=== PATIENT | male | born 1965 | race Caucasian/White ===

== ENCOUNTER 2023-12-27 13:49 | Inpatient (IN) | payer BC, SELFPAY ==
[2023-12-27] VITALS (17 sets, daily range): BP systolic 104–167; BP diastolic 76–120; BMI 36.5; BMI 34.1
[2023-12-27 09:35] LABS: Glucose - Point of Care 476 mg/dl (70-99)
[2023-12-27] MEDS: HEPARIN 5000 UNITS IV (09:55)
--- NOTE | 2023-12-27 09:55 | ED.GENMED ---
History of Present Illness
General
Chief Complaint: Blood Sugar Problem
Source: patient and records
Exam Limitations: none
Time Seen by Provider: 12/27/23 09:49
Nursing documentation reviewed up to this point in time: agreed with
Travel History
Have you had any contact with someone who has COVID-19?: No
Do you have any symptoms of coronavirus? Fever > 100 degrees, chills, cough, shortness of breath, sore throat, loss of taste or smell, muscle aches, or headache?: No
History of Present Illness
History of Present Illness:
58-year-old male presents emergency department due to elevated blood sugar, abdominal bloating, mid abdominal pain and shortness of breath with exertion over the past month, worse over the past 12 to 24 hours. He has a history of coronary artery
disease and chronic pancreatitis. He is unsure if this feels like his pancreatitis or when he had a heart attack.
Past History
Past History
ED Past Medical History: CAD, HTN, Hypercholesterolemia, IDDM and Other (History of ESRD on HD status post kidney transplant now with CKD, recurrent pancreatitis)
ED Past Surgical History: Cardiac (Cardiac stent), Cholecystectomy and Other (Renal transplant)
Social History
Tobacco: Smoker
Alcohol: Occasional
Drug: None
Personal:
Living: with family
Employment: Employed
Family History
Family History: Other (n/c)
Review of Systems
Review of Systems
Allergies reviewed?: Yes
All Other Systems: Not applicable
Constitutional: Reports no symptoms
EENT: Reports no symptoms
Respiratory: Reports trouble breathing
Cardiac: Reports chest pain
ABD/GI: Reports abdominal pain
: Reports no symptoms
Musculoskeletal: Reports edema
Skin: Reports no symptoms
Neurological: Reports no symptoms
Endocrine: Reports no symptoms
Hematologic/Lymphatic: Reports no symptoms
Psychiatric: Reports no symptoms
Phy Exam
Physical Exam
Physical Exam:
Physical Exam
General: no apparent distress, not acutely ill
Neck: supple. no meningeal signs. normal posterior pharynx
Heart: s1/s2 regular rate and rhythm, no murmur. equal radial
pulses.
HEENT: Pupils equal round reactive to light, EOMI
Lungs: no acute respiratory distress. clear bilaterally
Abdomen: normal bowel sounds. not tender. no CVAT
Neuro: alert and oriented. no focal neurological deficits cranial nerves II through XII intact
Skin: no rash
Psychiatric: well kept. interactive and cooperative
Extremities: no edema. no calf tenderness. negative homans. good distal pulses
Scores
Heart Score for Chest Pain Patients
STEMI patient?: No
History: Highly Suspicious
ECG: Significant ST-Depression
Age: >45 - <65 years
Risk Factors: >/= 3 Risk Factors or History of CAD
Troponin: >/= 3 x Normal Limit
Heart Score for Chest Pain Patients: 9
Heart Score Risk: 72.7 % MACE over next 6 weeks
Course
Orders/Labs/Results
Orders:
Orders
12/27/23 Breakfast
Cholesterol Lowering
At Your Request: Full Participation
Cholesterol Lowering: Sodium, 2 Gram
12/27/23 09:35
CBC/With Diff [Complete Blood Count/With Diff] Urgent
Glycohemoglobin (HgbA1c) Urgent
12/27/23 09:36
CMP [Comprehensive Metabolic Panel] Urgent
Cardiovascular Evaluation Urgent
Comment: ADD
Lipase Urgent
12/27/23 09:37
EKG [Electrocardiogram (*1)] Urgent
Reason for Study: Shortness of Breath
EKG- Treatment ONCE
BNP [NT-proBNP] Urgent
Troponin I Urgent
12/27/23 09:53
Echo 2D MMode Color/Doppler Stat
Reason for Study: chest pain short of breath
12/27/23 09:59
CXR Port [CR Chest Portable - 1 View] Urgent
Comment:
Reason For Exam: chest pain
Reason Study Needs to be Portable: Patient Unstable
12/27/23 10:00
Nitroglycerin Sublingual [Nitrostat (Sublingual)] 0.4 mg SL NOW STA
12/27/23 10:01
Aspirin Chewable [Low Strength Aspirin] 243 mg PO NOW STA
12/27/23 10:10
PTT Urgent
Comment: Obtain baseline before beginning heparin infusion if not already collected
12/27/23 10:[address] Non Medication Order As Directed
Physician Order: PTT 6 hours after initial start of Heparin infusion
12/27/23 10:38
Heparin 5,000 units .ROUTE .STK-MED ONE
12/27/23 10:40
Heparin 5,000 units IV NOW STA
12/27/23 10:44
Furosemide [Lasix] 80 mg IV NOW STA
12/27/23 10:51
Insulin Human Regular [Novolin R] 11 units IV NOW STA
12/27/23 12:20
Heparin Protocol- PTT Orders As Directed
PTT per Heparin protocol: -Obtain CBC and baseline PTT - if not already collected.
-Obtain PTT 6 hours from start of infusion. Then, every 6 hours until 2 consecutive
PTT's are therapeutic. Then, PTT Daily.
-With each rate change, obtain PTT every 6 hours until 2 consecutive PTT's are
therapeutic. Then, PTT Daily.
Notify MD As Directed
Notify physician if: PTT is greater than or equal to 200.
12/27/23 12:22
Add On- LAB Urgent
Tests Added?: CVE
12/27/23 12:41
Glucose Stat
Troponin I Urgent
12/27/23 12:52
Acetaminophen [Tylenol] 1,000 mg PO NOW STA
12/27/23 13:07
Admit/Transfer Patient As Directed
Co-Sign Provider:
Level of Care: Inpatient admission
Assign to:: IVU
Physician / Group: chintan/medicine
Diagnosis: nstemi, hyerglycemia, chf
Reason for Hospitalization: nstemi, chf, hyperglycemia
Expected length of stay greater than two midnights?: Yes
ELOS- Estimated Length of Stay in days: 3
I certify the patient meets the requirements for IP care: Yes
12/27/23 13:12
Code Status As Directed
Resuscitation Status: Full Code
12/27/23 14:26
Troponin I Q6H
Acetaminophen [Tylenol] 1,000 mg PO BIDPRN PRN
Albuterol [ProAIR HFA INHALER] 2 puff INH R Q4HPRN PRN
12/27/23 14:26
Activity As Directed
Activity Level: As Tolerated
Pneumatic Compression Sleeves As Directed
Type: Knee high
Vital Signs As Directed
Frequency: Per unit guidelines
DX Deep Vein Thrombosis Video Routine
12/27/23 16:00
Furosemide [Lasix] 80 mg IV BID AT 0800,1600
12/27/23 16:30
Insulin Aspart Corrective Low [Novolog Flexpen-Low Resistance] See Protocol SC AC
12/27/23 18:00
Rosuvastatin Calcium [Crestor] 20 mg PO QPM
12/27/23 20:00
PTT Urgent
Comment: Obtain baseline before beginning heparin infusion if not already collected
Carvedilol [Coreg] 6.25 mg PO BID
Doxazosin Mesylate [Cardura] 8 mg PO BID
Heparin 45733 Units/250 ml 25,000 units in 250 ml IV PER PROTOCOL
Weight to be used for heparin protocol in kilograms (kg):: 112
Protocol:: Cardiac Tx/Acute Coronary
PTT Goal Range to be used:: PTT 73 to 111 seconds
Order type:: Initial
INITIAL Infusion Dose (UNITS/KG/hr) & then follow protocol:: 12 units/kg/hr
Infusion Dose in UNITS/hr & then follow protocol (UNITS/hr):: 1,000
INFUSION RATE in mL/hr & then follow protocol (mL/hr):: 10
PTT less than or equal to 64 seconds:: Increase rate by 200 units/hr (+ 2 mL/hr)
PTT 64.1 to 72.9 seconds:: Increase rate by 100 units/hr (+ 1 mL/hr)
PTT 73 to 111 seconds:: Target Range. No change in rate.
PTT 111.1 to 130.9 seconds:: Decrease rate by 100 units/hr (- 1 mL/hr)
PTT 131 to 199.9 seconds:: HOLD for 1 hr. Then decrease rate by 200 units/hr (- 2 mL/hr)
PTT greater than or equal to 200 seconds:: HOLD for 2 hrs & Notify Provider. Then decrease by 200 units/hr (-
2 mL/hr)
Lab follow-up:: Each change, PTT q6h until 2 consecutive are therapeutic. Then PTT
daily.
Tacrolimus [Prograf] 1 mg PO BID
12/27/23 20:26
Troponin I Q6H
12/27/23 22:00
HydrALAZINE [Apresoline] 200 mg PO HS
Insulin Glargine Lantus [Lantus] 12 units Subcutaneous Insulin Syringe [Syringe-Insulin] 0 unit SC HS
12/28/23 02:26
Troponin I Q6H
12/28/23 Breakfast
NPO
Allow oral meds: Yes
Allow clear liquids: No
Complete Blood Count/No Diff IN AM
Comprehensive Metabolic Panel IN AM
Magnesium IN AM
12/28/23 08:00
Aspirin Low Dose EC [Aspir Low (Enteric Coated)] 81 mg PO DAILY
Empagliflozin [Jardiance] 25 mg PO DAILY
Gabapentin [Neurontin] 300 mg PO DAILY
HydrALAZINE [Apresoline] 100 mg PO DAILY
Pantoprazole [Protonix] 40 mg PO DAILY
Prednisone [Deltasone] 5 mg PO DAILY
12/29/23 06:00
Complete Blood Count/No Diff Q2D
Comment: Notify MD if platelet count is <130,000 or decreases by 50% from baseline
12/31/23 06:00
Complete Blood Count/No Diff Q2D
Comment: Notify MD if platelet count is <130,000 or decreases by 50% from baseline
01/02/24 06:00
Complete Blood Count/No Diff Q2D
Comment: Notify MD if platelet count is <130,000 or decreases by 50% from baseline
01/04/24 06:00
Complete Blood Count/No Diff Q2D
Comment: Notify MD if platelet count is <130,000 or decreases by 50% from baseline
01/06/24 06:00
Complete Blood Count/No Diff Q2D
Comment: Notify MD if platelet count is <130,000 or decreases by 50% from baseline
01/08/24 06:00
Complete Blood Count/No Diff Q2D
Comment: Notify MD if platelet count is <130,000 or decreases by 50% from baseline
01/10/24 06:00
Complete Blood Count/No Diff Q2D
Comment: Notify MD if platelet count is <130,000 or decreases by 50% from baseline
01/12/24 06:00
Complete Blood Count/No Diff Q2D
Comment: Notify MD if platelet count is <130,000 or decreases by 50% from baseline
Abnormal Lab Results
12/27/23 12/27/23 12/27/23
09:34 09:35 09:36
MCH 25.4 L pg
(27.0-31.0)
MCHC 31.5 L g/dL
(33.0-37.0)
Abs Immat Gran (auto) 0.1 H 10^3/uL
(0-0.05)
Absolute Neuts (auto) 6.8 H 10^3/uL
(1.4-6.5)
Absolute Lymphs (auto) 0.8 L 10^3/uL
(1.2-3.4)
Absolute Monos (auto) 0.9 H 10^3/uL
(0.1-0.6)
Immature Gran % 1.5 H %
(0-0.5)
Lymphocytes % 8.3 L %
(20.5-51.1)
Monocytes % 10.0 H %
(1.7-9.3)
Sodium 128 L mmol/L
(135-145)
BUN 33 H mg/dl
(9-20)
Creatinine 1.9 H mg/dL
(0.7-1.3)
Glucose 533 H* mg/dl
(70-99)
Alkaline Phosphatase 228 H U/L
(38-126)
Troponin I
Total Protein 4.9 L g/dl
(6.3-8.2)
Albumin 2.4 L g/dl
(3.5-5.0)
Triglycerides 202 H mg/dl
(10-149)
VLDL Cholesterol, Calc 40 H mg/dl
(0-30)
Lipase 890 H U/L
(23-300)
POC Glucose 476 H* mg/dl
(70-99)
12/27/23 12/27/23 12/27/23
09:37 12:35 12:41
MCH
MCHC
Abs Immat Gran (auto)
Absolute Neuts (auto)
Absolute Lymphs (auto)
Absolute Monos (auto)
Immature Gran %
Lymphocytes %
Monocytes %
Sodium
BUN
Creatinine
Glucose 447 H mg/dl
(70-99)
Alkaline Phosphatase
Troponin I 5.280 H* ng/ml 5.080 H* ng/ml
Total Protein
Albumin
Triglycerides
VLDL Cholesterol, Calc
Lipase
POC Glucose 481 H* mg/dl
(70-99)
12/27/23 09:35
12/27/23 12:41
Vital Signs
Initial and Last Documented VS:
Initial Vital Signs
Temp Pulse Resp BP Pulse Ox
97.8 F 98 16 152/96 98
12/27/23 09:32 12/27/23 09:32 12/27/23 09:32 12/27/23 09:32 12/27/23 09:32
Last Documented Vital Signs
Temp Pulse Resp BP Pulse Ox
97.8 F 81 16 155/98 97
12/27/23 09:32 12/27/23 15:45 12/27/23 09:32 12/27/23 15:00 12/27/23 15:45
MDM/Problems Addressed
Differential Diagnosis Includes:
ACS
MDM/Problems Addressed:
58-year-old male with ACS, hyperglycemia. Admit to hospitalist.
Chronic conditions affecting care: DM, HTN, CAD and Kidney disease
Acute Exacerbation and/or Progression of Chronic Illness: DM, HTN, CAD and Kidney disease
*Radiology
Radiology exam reviewed: radiology read reviewed (Hyperaerated lungs without consolidation)
*Pulse Oximetry
Patient hypoxic: no
*EKG
Interpreted by ED Provider?: Yes
EKG Intrepretation Date: 12/27/23
EKG Intrepretation Time: 09:40
Interpretation: abnormal
Comparison EKG: changes noted
Heart Rate: 94
Rate: normal
Rhythm: atrial flutter
[place]: left axis deviation
Interval: normal interval
Ischemia: ST elevation
*Classification Counselor Interpretation
Rate: normal
Interpretation: abnormal
Heart Rate: 95
Rhythm: atrial flutter
*Critical Care Note
Total Time (30-74mins, 75-104mins- exclusive of procedures): 30
comment:
Critical care statement: A total of 30 minutes of critical care time was provided for this patient. This includes management of unstable vital signs, evaluation of the patient at bedside, reviewing the patient's pertinent medical records, discussion
with consultants, review of old EKGs and review of pertinent medical records. This time with separate from time utilized to perform the aforementioned documented procedures
Patient Management
Social determinants of health affecting care: Strong social support
Discussion with other providers: Hospitalist and Shelf Drier Operator (Dr. Rodriguez)
Escalation/DeEscalation of care consider admission/obs:
Admit indicated
ED Attending Note
-
Portions of this chart may have been created with voice recognition software.� Occasional wrong word or��sound alike� substitutions may have occurred due to the inherent limitations of voice recognition software.
Discharge Plan
Departure
Patient Disposition: Admit
Date of Disposition: 12/27/23
Time of Disposition: 10:27
Admit to: IVU
Presentation/result/management discussed w/ accepting MD/DO: Hospitalist
Patient with high blood pressure during this ER visit?: Yes
Condition: Fair
Discharge Problem:
ACS (acute coronary syndrome), Acute exacerbation of CHF (congestive heart failure), Hyperglycemia due to diabetes mellitus, CAD (coronary artery disease)
Interventions
Interventions:
*Risk Screen - Suicide Last Done: 12/27/23 09:32
*General Assessment Last Done: 12/27/23 09:32
*Neglect/Abuse Screening Last Done: 12/27/23 09:32
ED- Fall Risk Assessment Last Done: 12/27/23 10:03
*ED COVID-19 Vaccine History Last Done: 12/27/23 10:01
ED- Neurological Assessment Last Done: 12/27/23 10:03
[2023-12-27] MEDS: LOW STRENGTH ASPIRIN 243 MG PO (09:56)
[2023-12-27] MEDS: NITROSTAT (SUBLINGUAL) 0.400000000000000022 MG SL ×2 (10:00→23:41)
[2023-12-27 10:06] LABS: % Basophils 0.7 % (0-2); % Eosinophils 5.6 % (0-6); % Immature Granulocytes 1.5 % (0-0.5); % Lymphocytes 8.3 % (20.5-51.1); % Neutrophils 73.9 % (42.2-75.2); Absolute Basophils 0.1 10^3/uL (0-0.2); Absolute Eosinophils 0.5 10^3/uL (0-0.7); Absolute Immature Granulocytes 0.1 10^3/uL (0-0.05); Absolute Lymphocytes 0.8 10^3/uL (1.2-3.4); Absolute Monocytes 0.9 10^3/uL (0.1-0.6); Absolute Neutrophils 6.8 10^3/uL (1.4-6.5); Hematocrit 45.4 % (39.0-52.0); Hemoglobin 14.3 g/dL (13.0-18.0); Mean Corp Hgb Conc. 31.5 g/dL (33.0-37.0); Mean Corpuscular Hgb 25.4 pg (27.0-31.0); Mean Corpuscular Volume 80.5 fL (80.0-94.0); Mean Platelet Volume 9.6 fL (7.4-10.4); Nucleated Red Blood Cells % 0 % (-); Platelet Count 180 10^3/uL (130-400); Red Blood Cell Count 5.64 10^6/uL (4.70-6.10); Red Cell Dist. Width 14.2 % (11.5-14.5); White Blood Cell Count 9.2 10^3/uL (4.8-10.8)
[2023-12-27 10:23] LABS: ALT (SGPT) 15 U/L (0-50); AST (SGOT) 20 U/L (17-59); Albumin 2.4 g/dl (3.5-5.0); Alkaline Phosphatase 228 U/L (38-126); Blood Urea Nitrogen 33 mg/dl (9-20); Calcium 8.8 mg/dl (8.4-10.2); Carbon Dioxide 26 mmol/L (22-30); Chloride 100 mmol/L (98-107); Estimated Creatinine Clearance 53 ml/min; Glucose 533 mg/dl (70-99); Lipase 890 U/L (23-300); Potassium 4.4 mmol/L (3.5-5.1); Sodium 128 mmol/L (135-145); Total Bilirubin 0.9 mg/dl (0.2-1.3); Total Protein 4.9 g/dl (6.3-8.2); eGFR 40.64
[2023-12-27 10:36] LABS: NT-proBNP 25200 pg/ml
[2023-12-27 10:36] LABS: APTT 28.5 Sec (23.4-35.0)
[2023-12-27] MEDS: LASIX 80 MG IV ×2 (10:51→15:52)
--- NOTE | 2023-12-27 10:57 | CON.CAR ---
Addendum entered and electronically signed by Bassam Bee MD 12/27/23 19:43:
58-year-old man well-known to me with an extensive coronary history with circumflex OM stenting in 2013, inferior WI 2015 with PCI and staged intervention for circumflex OM stenosis 2015, and non-ST segment elevation WI in 2018 related to loss of
posterolateral branches and LAD and OM stents at that time. Now with symptoms of heart failure and fatigue with positive troponin.
PMH: Living unrelated renal transplant, hypertension, paroxysmal atrial fibrillation and flutter, HFpEF, alcohol use, diabetes, diabetic neuropathy, hyperlipidemia, nonsustained VT, P vera, pancreatitis and transplant CKD with history of transplant
TUAN
PSH cholecystectomy, renal transplant, orthopedic
SH: , working, smoking, no alcohol
FH: Noncontributory
Allergies and meds reviewed
ROS negative except as above
155/98, pulse 81, 112 kg, weight was 98.8 kg in August at the time of hospital stay for pancreatitis
Initially dyspneic better this evening
Head neck exam DOT tattoo on neck
Lungs with rales right base greater than left
Cardiac regular rate and rhythm without murmurs, neck veins are
Abdomen tender
Extremities 2+ edema
Neuro nonfocal
White count 14.3, tproBNP 25,200, alk phos 228, lipase 890, glucose 517, peak troponin 5.3
ECG atrial fibrillation/flutter with controlled ventricular response, anterolateral WI new since August with Q waves.
Chest x-ray vascular congestion, creatinine is 1.9 which is baseline
Echo EF 45-50%, apical hypokinesis, valves intact
Impression:
Acute HFpEF
Presumed out of hospital anterior ST segment elevation WI
Abnormal ECG
CAD
s/p Circ/OM stent 08/2014
s/p IWMI with stenting of the mid right coronary artery 06/2016 and staged intervention for in-stent restenosis and new lesion in circ/OM 06/2016
s/p NSTEMI, with abrupt closure of the AV continuation of the Circ supplying 2 small posterolateral branches during cath and then 4 mm Xience to mid LAD and 2.75 mm Xience to the mid to distal OM-1 03/05/19CKD 4
s/p Living, unrelated donor (his at the time) renal transplant [facility] 2009
HTN
Paroxysmal Afib/typical aflutter
recurrence noted on ECG in ER 12/27/23
Chronic OAC with eliquis
Active smoker
h/o ETOH use disorder
DM 2
Diabetic neuropathy
Hyperlipidemia
History of NSVT
Polycythemia vera
Chronic pancreatitis
Plan:
He presents now with acute heart failure with mildly reduced EF, after what is presumably an out of hospital anterior ST segment elevation WI. Prior history of HFpEF with a history of TUAN and creatinine up to 3.4 in the past, status post unrelated
living donor renal transplant
His echocardiogram looks much better than his EKG would imply with an EF that is only minimally reduced in the LAD distribution.
He has diabetes [id number] at present on an insulin drip.
Continue IV Lasix. Continue carvedilol. Continue aspirin, hold Eliquis and proceed with cardiac catheterization over the next 24 to 48 hours
He is not a good candidate for ALMA DELIA/ARB/spironolactone. These were previously stopped in the setting of TUAN. He is on Jardiance.
Management of pancreatitis and poorly controlled diabetes per hospitalist
With regards to atrial fibrillation/flutter, duration is uncertain. He claims he has not missed Eliquis. Rate is currently reasonably controlled. We will need to decide regarding timing of cardioversion, amiodarone, etc. We may need to consider
pulmonary vein isolation.
Further management to be determined based upon the results of his catheterization.
Original Note:
Consultation
Consultation Request
Date/Time Consultation Requested: 12/27/23
Date/Time Consultation Performed: 12/27/23
Requesting Provider: Dr. Villalobos in the ER
Performing Provider: Dr. JOSE Bee
Reason for Consultation: Acute HF, chest pain, elevated Troponin
Medical History
-
History of Present Illness:
Patient came to [facility] today with epigastric pain and SOB and is now being admitted with NSTEMI and acute HF, cardiology has been consulted. Patient started with SOB in the last 3-4 weeks and it has progressively worsened. He noticed increased LE
edema and bloating as well. He thinks he is up 20 lbs or more from his baseline weight. Patient had previously decreased his torsemide dose due to lightheadedness and feeling dehydrated around 04/2023, but then noticed weight gain and edema and was
eventually titrated back up to torsemide 20 mg BID over a couple of months. He says that he has been taking his torsemide, but not urinating as much as he expected. Then he noticed consistent hyperglycemia with blood sugars over 300 and called the
Nephrology office today and was referred to [facility]. Upon arrival patient also described epigastric fullness that is also sometimes pain. Patient has a h/o chronic pancreatitis and saw GI in the office 11/07/23 and the plan for EUS/EGD for PD stent and
stone extraction was cancelled as pain had improved.
PMH:
CAD
s/p Circ/OM stent 08/2014
s/p IWMI with stenting of the mid right coronary artery 06/2016 and staged intervention for in-stent restenosis and new lesion in circ/OM 06/2016
s/p NSTEMI, with abrupt closure of the AV continuation of the Circ supplying 2 small posterolateral branches during cath and then 4 mm Xience to mid LAD and 2.75 mm Xience to the mid to distal OM-1 03/05/19
CKD 4
s/p Living, unrelated donor (his at the time) renal transplant [facility] 2009
HTN
Paroxysmal Afib/typical aflutter
Chronic OAC with eliquis
Active smoker
h/o ETOH use disorder
DM 2
Diabetic neuropathy
Hyperlipidemia
History of NSVT
Polycythemia vera
Chronic pancreatitis
Past Medical History
Past Medical History: Other (in HPI)
Past Surgical History: Cholecystectomy, Orthopedic and Urological (kidney transplant 2009)
Social History
Tobacco: Smoker
Alcohol: None
Drug: None
Personal:
Living: With Family
Family History
Family History: Cancer, Diabetes, Hypertension and Other (his son from a PE)
Allergies / Home Medications
Allergy/AdvReac Type Severity Reaction Status Date / Time
amlodipine Allergy swelling Verified 12/27/23 09:32
in lower
legs
dulaglutide [From Trulicity] Allergy Pancreatiti Verified 12/27/23 09:32
s
enalapril maleate Allergy abdominal Verified 12/27/23 09:32
[From Vasotec] and chest
pain
unknown antirejection Allergy edema,painful Uncoded 12/27/23 09:32
medication to walk
,joints
hurt
Medication Instructions Recorded Confirmed Type
prednisone 5 mg tablet 5 mg PO DAILY inflammation 06/18/19 09/23/23 History
tacrolimus 1 mg capsule, 1 mg PO BID Transplant 06/18/19 09/23/23 History
immediate-release
rosuvastatin 20 mg tablet 20 mg PO DAILY High cholesterol 09/09/21 09/23/23 History
glipizide 5 mg tablet 5 mg PO BID Diabetes 05/13/23 09/23/23 History
empagliflozin 25 mg tablet 25 mg PO DAILY Diabetes 08/11/23 09/23/23 History
(Jardiance)
pantoprazole 40 mg tablet,delayed 40 mg PO DAILY Gastrointestinal 08/11/23 09/23/23 History
release Issue
albuterol sulfate 90 mcg/actuation 2 puff inhalation R Q4HPRN PRN sob 08/15/23 09/23/23 History
aerosol inhaler (ProAir HFA)
apixaban 5 mg tablet (Eliquis) 5 mg PO BID Blood Clot 08/23/23 09/23/23 History
Prevention/Tx
aspirin 81 mg tablet,delayed 81 mg PO DAILY Blood Clot 08/23/23 09/23/23 History
release Prevention/Tx
carvedilol 6.25 mg tablet 6.25 mg PO BID Blood Pressure 08/23/23 09/23/23 History
doxazosin 8 mg tablet 8 mg PO BID Blood Pressure 09/19/23 09/23/23 History
hydralazine 100 mg tablet 100 mg PO HS Blood Pressure 09/19/23 09/23/23 History
hydralazine 100 mg tablet 200 mg PO DAILY Blood Pressure 09/19/23 09/23/23 History
nicotine 21 mg/24 hr daily 1 patch transdermal DAILY PRN 09/19/23 09/23/23 History
transdermal patch smoking cessation
torsemide 20 mg tablet 20 mg PO BID Fluid 09/19/23 09/23/23 History
Retention/Swelling
hydromorphone 2 mg tablet 2 mg PO Q6H PRN Pain #3 tabs 09/27/23 Rx
(Dilaudid)
insulin glargine 100 unit/mL (3 25 unit (0.25 mL) SC HS Diabetes 09/27/23 09/23/23 Rx
mL) subcutaneous pen (Basaglar #0 mL
KwikPen U-100 Insulin)
sennosides 8.6 mg-docusate sodium 1 tab PO BID PRN Constipation #20 09/27/23 Rx
50 mg tablet (Senna Plus) tabs
Review of Systems
-
History Source: Patient
All other systems: Negative unless noted
Physical Exam
Vital Signs
Temp Pulse Resp BP Pulse Ox
97.8 F 95 16 155/87 95
12/27/23 09:32 12/27/23 10:45 12/27/23 09:32 12/27/23 10:00 12/27/23 10:45
GEN: NAD. AAO x3
HEENT: EOMI, MMM
LUNGS: CTA B/L, no wheezes or rales
CV: Reg, S1/S2, no murmur, rub or gallop
ABD: soft, BS+, NT, ND
EXT: +2 pitting B/L LE edema to just above the knee. No clubbing, cyanosis or lesions B/L
NEURO: Gross non-focal
SKIN: Warm, dry and pink. No rash
Lab Results
12/27/23 09:35
12/27/23 09:36
Troponin I 5.280 ng/ml H* 12/27/23 09:37
Dni-G-Zayjjawkrrs Pept 80280 pg/ml 12/27/23 09:37
Impression / Plan
-
PCP: Dr. Field
Primary Head Of Store Operations: Dr. JOSE Bee
Nephrology: Dr. Loya
Impression:
SOB and SHORT
Acute HFpEF
NSTEMI
Abnormal ECG
CAD
s/p Circ/OM stent 08/2014
s/p IWMI with stenting of the mid right coronary artery 06/2016 and staged intervention for in-stent restenosis and new lesion in circ/OM 06/2016
s/p NSTEMI, with abrupt closure of the AV continuation of the Circ supplying 2 small posterolateral branches during cath and then 4 mm Xience to mid LAD and 2.75 mm Xience to the mid to distal OM-1 03/05/19
CKD 4
s/p Living, unrelated donor (his at the time) renal transplant [facility] 2009
HTN
Paroxysmal Afib/typical aflutter
recurrence noted on ECG in ER 12/27/23
Chronic OAC with eliquis
Active smoker
h/o ETOH use disorder
DM 2
Diabetic neuropathy
Hyperlipidemia
History of NSVT
Polycythemia vera
Chronic pancreatitis
ECHO 10/14/22: Technically difficult study, use IV Definity in future, EF 55 to 60%, likely moderate LVH, normal RV size and function, no significant valvular disease
Echo 08/24/23: EF 60-65%, normal RV size and function, PAP 20-25 mmHg
Plan:
-Patient came to [facility] today with epigastric pain and SOB and is now being admitted with NSTEMI and acute HF, cardiology has been consulted. Patient started with SOB in the last 3-4 weeks and it has progressively worsened. He noticed increased LE
edema and bloating as well. He thinks he is up 20 lbs or more from his baseline weight. Patient had previously decreased his torsemide dose due to lightheadedness and feeling dehydrated around 04/2023, but then noticed weight gain and edema and was
eventually titrated back up to torsemide 20 mg BID over a couple of months. He says that he has been taking his torsemide, but not urinating as much as he expected. Then he noticed consistent hyperglycemia with blood sugars over 300 and called the
Nephrology office today and was referred to [facility]. Upon arrival patient also described epigastric fullness that is also sometimes pain. Patient has a h/o chronic pancreatitis and saw GI in the office 11/07/23 and the plan for EUS/EGD for PD stent and
stone extraction was cancelled as pain had improved.
-Dry weight at last discharge 09/27/23 was 218 lbs and patient weighed 246 lbs on bed scale in ER today. Patient suspects his weight is up at least 20 lbs by home scale. He has pitting B/L LE edema and bloating. Lasix 80 mg IV x1 now ordered by me.
Patient was taking torsemide 20 mg BID prior to admission.
-EF was preserved at 60-65% by echo 08/24/23. Recheck echo today, ordered.
-Cre is 1.9 in the ER 12/27/23. Baseline Cre 1.8. Patient has a living donor kidney from 2009, but has not seen the transplant center recently. He had a renal biopsy in 2021 and there were acute tubular injury changes, but also severe chronic changes
of FSGS (focal segmental glomerular sclerosis). Plan is for cardiac cath this admission, consider nephrology consult prior to cath for optimization.
-Initial Troponin 5.28. No chest pain. ECG is abnormal with atrial flutter and inferior and lateral Q wave changes compared to previous. He took his usual dose of Eliquis this morning. Will start Heparin gtt tonight. Hold Eliquis.
-Trend Troponin. Check echo as noted.
-Likely cardiac cath , 12/29/23
-Check CVE. Patient's Crestor 20 mg daily was held during his 08/2023 admission and supposed to restart 10/05/23, but he never did. LFTs normal on 12/27/23 so will restart Crestor 20 mg daily.
-Cont aspirin 81 mg daily
-Patient has a h/o chronic pancreatitis and saw GI in the office 11/07/23 and the plan for EUS/EGD for PD stent and stone extraction was cancelled as pain had improved. Now with epigastric fullness and lipase is 890.
-Patient with a h/o Afib and flutter, but was in SR on last known ECG from 09/23/23. Now in rapid atrial flutter. Cont rate control efforts with Coreg 6.25 mg BID for now. If patient fails to convert then consider CV pending all of the above.
[2023-12-27] MEDS: NOVOLIN R 11 UNITS IV (11:01)
[2023-12-27 12:36] LABS: Glucose - Point of Care 481 mg/dl (70-99)
[2023-12-27] MEDS: TYLENOL 1000 MG PO ×2 (13:02→21:46)
[2023-12-27 13:14] LABS: Glucose 447 mg/dl (70-99)
[2023-12-27 14:11] LABS: HDL Cholesterol 41 mg/dl; LDL Cholesterol, Calculated 86 mg/dl; Total Cholesterol 167 mg/dl (50-199); Triglyceride 202 mg/dl (10-149); Very Low Density Lipoprotein 40 mg/dl (0-30)
--- NOTE | 2023-12-27 14:59 | HPS.HSE ---
Family Physician
-
Family Physician: Bradley Field
Chief Complaint
-
Shortness of breath, elevated blood sugars, abdominal bloating, mid abdominal pain
History of Present Illness
58� year old with PMH for ESRD s/p renal transplant, osteo, atrial fib, htn, type 2 DM, acute on chronic pancreatitis (last admit 08/2023), now presents for worsening shortness of breath, abdominal bloating and mid abdominal pain. Also noted to
have elevated blood sugars. Patient has noted that he has been having worsening shortness of breath over the last 3 to 4 weeks. Patient improved with decrease torsemide due to symptoms of lightheadedness and feeling dehydrated in April, then
noticed weight gain. Not urinating as much. Also noted to have hypoglycemia with blood sugars over 300. Of note, for hx of pancreatitis- had seen GI in the office 11/07/23 and the plan for EUS/EGD for PD stent and stone extraction although was
cancelled as pain had improved. Remains afebrile, heart rate 79, blood pressure 136/91, saturating 93% on room air. Labs remarkable for sodium 128, creatinine 1.9 (approximately baseline), fingerstick 447, alk phos 228, lipase 890, troponin 5.28.
X-ray with hyperaerated lungs without consolidation.
Medical History
Past Medical History
Past Medical History: Reports Other
Additional Past Medical History:
Coronary Artery Disease
Paroxysmal Atrial Fibrillation
Essential Hypertension
Hyperlipidemia
Insulin-Dependent Diabetes Mellitus
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
Obstructive Sleep Apnea
Past Surgical History: Reports Other
Additional Past Surgical History:
Renal Transplant
Cardiac Stent
Cholecystectomy
Social History
Tobacco: Smoker
Alcohol: None
Drug: None
Family History
Family History: Not pertinent
Allergies / Home Medications
Allergies reflects when Allergies were last updated in [facility].
Home Medications with original date entered in [facility]
Allergy/Medication List:
Allergies
Allergy/AdvReac Type Severity Reaction Status Date / Time
amlodipine Allergy swelling Verified 09/23/23 12:41
in lower
legs
dulaglutide [From Trulicity] Allergy Pancreatiti Verified 09/23/23 12:41
s
enalapril maleate Allergy abdominal Verified 09/23/23 12:41
[From Vasotec] and chest
pain
unknown antirejection Allergy edema,painful Uncoded 09/23/23 12:41
medication to walk
,joints
hurt
Home Medications
prednisone 5 mg tablet 5 mg PO DAILY inflammation 06/18/19
tacrolimus 1 mg capsule, immediate-release 1 mg PO BID Transplant 06/18/19
rosuvastatin 20 mg tablet 20 mg PO DAILY High cholesterol 09/09/21
glipizide 5 mg tablet 5 mg PO BID Diabetes 05/13/23
insulin glargine 100 unit/mL (3 mL) subcutaneous pen (Basaglar KwikPen U-100 Insulin) 17 unit (0.17 mL) SC DAILY Diabetes #0 mL 08/09/23
empagliflozin 25 mg tablet (Jardiance) 25 mg PO DAILY Diabetes 08/11/23
pantoprazole 40 mg tablet,delayed release 40 mg PO DAILY Gastrointestinal Issue 08/11/23
albuterol sulfate 90 mcg/actuation aerosol inhaler (ProAir HFA) 2 puff inhalation R Q4HPRN PRN sob 08/15/23
apixaban 5 mg tablet (Eliquis) 5 mg PO BID Blood Clot Prevention/Tx 08/23/23
aspirin 81 mg tablet,delayed release 81 mg PO DAILY Blood Clot Prevention/Tx 08/23/23
carvedilol 6.25 mg tablet 6.25 mg PO BID Blood Pressure 08/23/23
doxazosin 8 mg tablet 8 mg PO BID Blood Pressure 09/19/23
hydralazine 100 mg tablet 100 mg PO HS Blood Pressure 09/19/23
hydralazine 100 mg tablet 200 mg PO DAILY Blood Pressure 09/19/23
nicotine 21 mg/24 hr daily transdermal patch 1 patch transdermal DAILY PRN smoking cessation 09/19/23
torsemide 20 mg tablet 20 mg PO BID Fluid Retention/Swelling 09/19/23
oxycodone-acetaminophen 5 mg-325 mg tablet (Percocet) 1 tab PO DAILY PRN Pain #3 tabs 09/22/23
Review of Systems
-
A 12 point ROS was completed and negative except as noted: Yes
Physical Exam
Vital Signs
Vital Signs
Temp Pulse Resp BP Pulse Ox
97.8 F 79 16 136/91 93
12/27/23 09:32 12/27/23 14:30 12/27/23 09:32 12/27/23 14:00 12/27/23 14:30
Physical Exam
General: Well Developed and Well Nourished
HEENT: NormoCephalic
Respiratory: Clear
Cardiac: S1/S2
GI: Soft and Non Tender
Musculoskeletal: No Clubbing and Other (+2 pitting B/L LE edema to just above the knee. No clubbing, cyanosis or lesions B/L)
Skin: Warm
Neuro: Awake, Alert and Oriented
Hematologic/Lymphatic: No Lymphadenopathy
Laboratory Results
-
12/27/23 09:35
12/27/23 12:41
Laboratory Results
APTT Cancelled 12/27/23 12:20
Total Bilirubin 0.9 mg/dl (0.2-1.3) 12/27/23 09:36
AST 20 U/L (17-59) 12/27/23 09:36
ALT 15 U/L (0-50) 12/27/23 09:36
Alkaline Phosphatase 228 U/L (38-126) H 12/27/23 09:36
Troponin I 5.080 ng/ml H* 12/27/23 12:41
Lipase 890 U/L (23-300) H 12/27/23 09:36
Data Reviewed
-
Diagnostic Radiology: Image Personally Visualized and interpreted and Report Reviewed by me
Lab Data: Labs Reviewed by me
Impression/Plan
-
IMPRESSION:
58� year old with PMH for ESRD s/p renal transplant, osteo, atrial fib, htn, type 2 DM, acute on chronic pancreatitis (last admit 08/2023), now presents for worsening shortness of breath, abdominal bloating and mid abdominal pain. Found to have
NSTEMI and CHF exacerbation.
PLAN:
#Acute on Chronic HFpEF
-80mg IV lasix BID
-ECHO F/u
-F/u Cards plans for further diuresis
-Trend Troponin
-Low fat for now
#NSTEMI
-Hep ggt
-Cont asa
-Plan for LHC tomorrow
-trend troponin
#Midepigastric pain
#Elevated Lipase
-Gi consult
-the plan was for EUS/EGD for PD stent and stone extraction although was cancelled as pain had improved
#Acute Hyponatremia
-most likely fluid overload
-monitor with diuresis
#DM2
Resume SOFTWARE [employer]ER PO meds following discharge
-hyper levels may be due to NSTEMI
-monitor with sliding scale and regular dosing
-DM educator
#�CKD stage IIIb (1.5)
# Nephrotic syndrome >7grams
# Living unrelated kidney transplant 2009 ()
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
IVF Capped
follow recs
continue steroids and tacrolimus;
continue diuretic
# 3.7 cm RIGHT RENAL CELL CARCINOMA and 2.9 cm left hemorrhagic renal cyst. Right lower quadrant renal transplant in place without complication.
d/w Renal, likely above finding is consistent with known R kidney lower pole cystic mass known since 08/2021
# Alcohol use disorder
# Coronary artery disease s/p stenting
see plan above
# parox Atrial fibrillation on Eliquis
-now in #Aflutter
-hold eliquis
-Hep ggt
-cont coreg
# Hypertension, multidrug and uncontrolled
continue BP meds
# HLD - statin
DVT ppx: hep ggt
Code: Full
[2023-12-27 15:57] LABS: Glucose - Point of Care 428 mg/dl (70-99)
--- NOTE | 2023-12-27 16:01 | PN.DE.MGMTRT ---
Insulin Management
- -
12/27/2023: Diabetes Management Consult
58�year old male who p/w with worsening SOB, abd bloating and mid abd pain and Hyperglycemia.
PMH includes: ESRD s/p renal transplant, osteo, A-Fib, HTN, CAD, HLD, T2DM and acute on chronic pancreatitis (last admit 08/2023)
He is noted for NSTEMI and persistent Hyperglycemia, glusoe has trended up to 500. Pt states he has not taken his long acting insulin in over a week and half. Routinely seen Dr. James, was taking Basaglar 15 units @ HS, Jardiance and Glipizide 5mg
BID.
His current glucose remains RR HI at this current time and is awaiting a stat venous lab draw.
d/w Hospitalist Dr. Tse and recommended continuous insulin infusion for optimal glucose control
Diabetes History
- -
Type of Diabetes: 2 requiring insulin
Pre-Admission Diabetes Regimen
12/27/23
09:36
Creatinine 1.9 H
Insulin Pump Settings
IP Diabetes Regimen
12/27/23 12/27/23 12/27/23
09:34 09:36 12:35
Glucose 533 H*
POC Glucose 476 H* 481 H*
12/27/23 12/27/23
12:41 15:56
Glucose 447 H
POC Glucose 428 H
Patient Education
[2023-12-27 17:10] LABS: Glucose 421 mg/dl (70-99)
[2023-12-27] MEDS: CRESTOR 20 MG PO (17:19)
[2023-12-27] MEDS: NOVOLOG FLEXPEN-LOW RESISTANCE 6 UNITS SC (17:20)
[2023-12-27 17:56] LABS: Glucose - Point of Care 517 mg/dl (70-99)
[2023-12-27 18:37] LABS: Glucose 528 mg/dl (70-99)
[2023-12-27] MEDS: NOVOLIN R INSULIN INFUSION 100 IV (19:00)
[2023-12-27 19:09] LABS: Glucose - Point of Care 479 mg/dl (70-99)
[2023-12-27 19:41] LABS: APTT 28.9 Sec (23.4-35.0)
[2023-12-27 19:50] LABS: Glucose 475 mg/dl (70-99)
[2023-12-27 19:52] LABS: Blood Urea Nitrogen 37 mg/dl (9-20); Carbon Dioxide 24 mmol/L (22-30); Chloride 96 mmol/L (98-107); Estimated Creatinine Clearance 51 ml/min; Glucose 492 mg/dl (70-99); Potassium 4.4 mmol/L (3.5-5.1); Sodium 128 mmol/L (135-145); eGFR 40.64
[2023-12-27] MEDS: HEPARIN 25000 UNITS/250 ML IV (20:00)
[2023-12-27 20:11] LABS: Glucose - Point of Care 480 mg/dl (70-99)
[2023-12-27] MEDS: COREG 6.25 MG PO (20:30)
[2023-12-27] MEDS: CARDURA 8 MG PO (20:30)
[2023-12-27] MEDS: PROGRAF 1 MG PO (20:30)
[2023-12-27 20:52] LABS: Glucose 457 mg/dl (70-99)
[2023-12-27 21:25] LABS: Glucose - Point of Care 357 mg/dl (70-99)
[2023-12-27] MEDS: APRESOLINE 200 MG PO (21:42)
[2023-12-27 22:30] LABS: Glucose - Point of Care 277 mg/dl (70-99)
[2023-12-27 23:31] LABS: Glucose - Point of Care 217 mg/dl (70-99)
[2023-12-27] MEDS: MAALOX PLUS 1 TABLET PO (23:57)
[2023-12-28] VITALS (39 sets, daily range): BP systolic 111–169; BP diastolic 72–123; BMI 33.5
[2023-12-28] MEDS: MORPHINE SULFATE 1 MG IV ×2 (00:09→00:30)
[2023-12-28 00:11] LABS: Hematocrit 41.1 % (39.0-52.0); Hemoglobin 13.5 g/dL (13.0-18.0); Mean Corp Hgb Conc. 32.8 g/dL (33.0-37.0); Mean Corpuscular Hgb 25.8 pg (27.0-31.0); Mean Corpuscular Volume 78.4 fL (80.0-94.0); Mean Platelet Volume 9.7 fL (7.4-10.4); Platelet Count 178 10^3/uL (130-400); Red Blood Cell Count 5.24 10^6/uL (4.70-6.10); Red Cell Dist. Width 14.1 % (11.5-14.5); White Blood Cell Count 10.8 10^3/uL (4.8-10.8)
[2023-12-28 00:34] LABS: ALT (SGPT) 16 U/L (0-50); AST (SGOT) 22 U/L (17-59); Albumin 2.3 g/dl (3.5-5.0); Alkaline Phosphatase 198 U/L (38-126); Amylase 56 U/L (30-110); Blood Urea Nitrogen 33 mg/dl (9-20); Calcium 8.7 mg/dl (8.4-10.2); Carbon Dioxide 24 mmol/L (22-30); Chloride 101 mmol/L (98-107); Direct Bilirubin 0.7 mg/dl (0.0-0.4); Estimated Creatinine Clearance 49 ml/min; Glucose 204 mg/dl (70-99); Lipase 327 U/L (23-300); Magnesium 2.2 mg/dl (1.6-2.3); Sodium 127 mmol/L (135-145); Total Bilirubin 0.7 mg/dl (0.2-1.3); Total Protein 4.9 g/dl (6.3-8.2); eGFR 38.21
[2023-12-28 00:37] LABS: Glucose - Point of Care 198 mg/dl (70-99)
[2023-12-28] MEDS: NITROGLYCERIN PREMIX 250 IV (01:20)
[2023-12-28] MEDS: MYLICON 160 MG PO (01:24)
--- NOTE | 2023-12-28 01:33 | W.PN.UPDATE ---
Update Note
Progress Note Update
-RN did ECG around 11 pm since pt converted from a-fib to sinus rhythm. Incidentally, pt mentioned / dull lower substernal and midepigastric pain, radiating to the back. Pt denies any N/V, jaw/neck/arm pain, sob or dizziness. He has hx MIs with
prior Circ/OM/LAD stents. Pt says it feels different from prior ID and somewhat like his pain with pancreatitis, just not nearly as intense. Pt had acute on chronic pancreatitis in 08/2023. Lipase this admission is 890. Troponin on admission 5.28
and has been trending down. Abnormal ECG on admission with atrial flutter, inferior and lateral Q waves and ST elevation V2-V6. Current ECG is nsr with ST elevations V2-V5 and infer. and lateral Q waves as before. CP appears somewhat worse with
touch and better with sitting up. BP 136/90, pOx 97% on 2L, hr 71 bpm. Pt took Eliquis on 12/27 and planned for cath on 12/29. His baseline Cr 1.9-2 (hx kidney transplant 2009). Echo from 12/27 reviewed.
-gave 1 sl Nitro- no significant relief. Gave Maalox with Simethicone as well (feels constipated since Tuesday)
-gave 1 mg iv Morphine x2 with improvement in pain. Pt felt better and fell asleep briefly.
-sent out labs- trop, amylase/lipase/lft..
-trend trops
-will start iv Nitro with prn Morphine
-will leave NPO
-reviewed with Dr. Padilla
[2023-12-28 01:38] LABS: Glucose - Point of Care 172 mg/dl (70-99)
--- NOTE | 2023-12-28 02:23 | PTCARENOTE ---
Received patient from ED into room 2245. Patient ambulated w/ standby assist to bed, and denies any dizziness. Patient has personal cane at bedside. Tele monitor applied patient Afib. IV Insulin gtt infusing on arrival to floor at 6ml/hr. Insulin
gtt titrated per protocol, see work list for further assessment. IV Heparin gtt started at 20:00 per order, and currently infusing at 10ml/hr. At approximately 22:40 patient spontaneous CV to SR. EKG obtained, and confirmed SR and also shows
critical stemi. 2L of O2 applied, BP 133/90. Elsa Berg CVPA made aware, and at bedside. Patient c/o substernal pain that radiates to back and epigastric discomfort. Described pain as 'dull ache'. Labs ordered and sent. Orders obtained for
Morphine, Mylicon, and Nitroglycerin---medications administered. See MAR for further details. IV Nitroglycerin infusing at 5mcg/min. Blood pressure stable. Patient instructed to remain NPO for a possible cath. Call guaman within reach, patient aware
of POC.
[2023-12-28 02:32] LABS: APTT 37.4 Sec (23.4-35.0)
[2023-12-28 02:42] LABS: Glucose - Point of Care 166 mg/dl (70-99)
[2023-12-28 03:51] LABS: Glucose - Point of Care 145 mg/dl (70-99)
[2023-12-28 04:08] LABS: Hematocrit 40.4 % (39.0-52.0); Hemoglobin 12.9 g/dL (13.0-18.0); Mean Corp Hgb Conc. 31.9 g/dL (33.0-37.0); Mean Corpuscular Hgb 25.1 pg (27.0-31.0); Mean Corpuscular Volume 78.8 fL (80.0-94.0); Mean Platelet Volume 9.2 fL (7.4-10.4); Platelet Count 183 10^3/uL (130-400); Red Blood Cell Count 5.13 10^6/uL (4.70-6.10); Red Cell Dist. Width 14.2 % (11.5-14.5)
[2023-12-28 04:43] LABS: Blood Urea Nitrogen 37 mg/dl (9-20); Calcium 8.7 mg/dl (8.4-10.2); Carbon Dioxide 26 mmol/L (22-30); Chloride 98 mmol/L (98-107); Estimated Creatinine Clearance 49 ml/min; Glucose 161 mg/dl (70-99); Potassium 3.5 mmol/L (3.5-5.1); Sodium 131 mmol/L (135-145); eGFR 38.21
[2023-12-28 04:47] LABS: Glucose - Point of Care 150 mg/dl (70-99)
[2023-12-28 04:52] LABS: ALT (SGPT) 15 U/L (0-50); AST (SGOT) 21 U/L (17-59); Alkaline Phosphatase 147 U/L (38-126); Blood Urea Nitrogen 37 mg/dl (9-20); Calcium 8.8 mg/dl (8.4-10.2); Carbon Dioxide 24 mmol/L (22-30); Chloride 100 mmol/L (98-107); Estimated Creatinine Clearance 51 ml/min; Glucose 160 mg/dl (70-99); Magnesium 2.3 mg/dl (1.6-2.3); Potassium 3.6 mmol/L (3.5-5.1); Sodium 130 mmol/L (135-145); Total Bilirubin 0.8 mg/dl (0.2-1.3); Total Protein 4.4 g/dl (6.3-8.2); eGFR 40.64
[2023-12-28 05:44] LABS: Glucose - Point of Care 143 mg/dl (70-99)
[2023-12-28 06:59] LABS: Glucose - Point of Care 166 mg/dl (70-99)
[2023-12-28] MEDS: SENOKOT-S 1 TABLET PO ×2 (08:12→19:49)
[2023-12-28] MEDS: NEURONTIN 300 MG PO (08:12)
[2023-12-28] MEDS: PROTONIX 40 MG PO (08:12)
[2023-12-28] MEDS: DELTASONE 5 MG PO (08:12)
[2023-12-28] MEDS: PROGRAF 1 MG PO ×2 (08:13→19:48)
[2023-12-28] MEDS: APRESOLINE 100 MG PO (08:13)
[2023-12-28] MEDS: ASPIR LOW (ENTERIC COATED) 81 MG PO (08:13)
[2023-12-28] MEDS: COREG 6.25 MG PO ×2 (08:13→17:36)
[2023-12-28] MEDS: JARDIANCE 25 MG PO (08:13)
[2023-12-28 08:14] LABS: Glucose - Point of Care 150 mg/dl (70-99)
[2023-12-28] MEDS: CARDURA 8 MG PO ×2 (08:14→19:48)
[2023-12-28] MEDS: LASIX 80 MG IV (08:14)
[2023-12-28 09:04] LABS: Glucose - Point of Care 137 mg/dl (70-99)
[2023-12-28 09:28] LABS: APTT 31.7 Sec (23.4-35.0)
[2023-12-28 09:33] LABS: Glycohemoglobin (HgbA1c) 13.3 % (4.0-5.6)
--- NOTE | 2023-12-28 10:07 | W.PN.CARDCBS ---
Addendum entered and electronically signed by Rosy Nino MD 12/28/23 10:57:
I saw and examined the patient.
The Nib Assembler's note was reviewed and I agree with the note.
Comment: Chest discomfort overnight. Patient with elevated troponins on admission and decrease in ejection fraction. History of prior coronary disease with stents. In addition he is mildly volume overloaded with history of renal transplant
followed by nephrology. Currently chest pain-free on nitrates and heparin. Discussed at great length cardiac catheterization he is willing to proceed.
Of note in addition lipase continues to decrease. No current abdominal pain or GI symptoms. In the setting of atrial flutter and chest discomfort last night EKG changes somewhat with increased changes in the anterior leads.
Plan for cardiac catheterization today. Right and left heart cath
Consult placed to nephrology.
Original Note:
Today's Communication / Plan
-
Pain overnight. Troponin trending back up while lipase trending down
Cath today, will ask Nephrology to see sooner than later
Cont Heparin gtt
EF down to 45%
Tele looks like he is back in SR, check ECG
Impression / Plan
-
PCP: Dr. Field
Primary Lone Lead Lineman: Dr. JOSE Bee
Nephrology: Dr. Loya
Impression:
SOB and SHORT
Acute HFpEF
NSTEMI
Abnormal ECG
CAD
s/p Circ/OM stent 08/2014
s/p IWMI with stenting of the mid right coronary artery 06/2016 and staged intervention for in-stent restenosis and new lesion in circ/OM 06/2016
s/p NSTEMI, with abrupt closure of the AV continuation of the Circ supplying 2 small posterolateral branches during cath and then 4 mm Xience to mid LAD and 2.75 mm Xience to the mid to distal OM-1 03/05/19
CKD 4
s/p Living, unrelated donor (his at the time) renal transplant [facility] 2009
HTN
Paroxysmal Afib/typical aflutter
recurrence noted on ECG in ER 12/27/23
Chronic OAC with eliquis
Active smoker
h/o ETOH use disorder
DM 2
Diabetic neuropathy
Hyperlipidemia
History of NSVT
Polycythemia vera
Chronic pancreatitis
ECHO 10/14/22: Technically difficult study, use IV Definity in future, EF 55 to 60%, likely moderate LVH, normal RV size and function, no significant valvular disease
Echo 08/24/23: EF 60-65%, normal RV size and function, PAP 20-25 mmHg
Echo 12/27/23: EF 45-50%, apical hypokinesis, trivial to small pericardial effusion
Plan:
-Patient with another episode of chest/epigastric pain overnight. Troponin has slowly climbed from 5.28 on admission then 4.68 overnight and up again to 5.75 on 12/28/23 AM. Patient is pain free at present
-Cre has bumped to 2.0 on 12/28/23. Patient has a living donor kidney from 2009, but has not seen the transplant center recently. He had a renal biopsy in 2021 and there were acute tubular injury changes, but also severe chronic changes of FSGS
(focal segmental glomerular sclerosis). Nephrology consulted to see patient prior to cath for optimization.
-EF down by echo, now 45% with apical hypokinesis
-Last dose of Eliquis was 12/27/23 AM. Heparin gtt started 12/27/23 PM.
-Aspirin 81 mg daily ordered
-Recorded weight is down with Lasix 80 mg IV BID. Patient was taking torsemide 20 mg BID prior to admission. Dry weight at last discharge 09/27/23 was 218 lbs. Nephrology and Cardiology have been helping with diuretic adjustments as an outpatient
-LDL 86. Patient's Crestor 20 mg daily was held during his 08/2023 admission and supposed to restart 10/05/23, but he never did. Restarted Crestor 20 mg daily on 12/27/23.
-Patient has a h/o chronic pancreatitis and saw GI in the office 11/07/23 and the plan for EUS/EGD for PD stent and stone extraction was cancelled as pain had improved. Lipase is 890 on admission, but trended down to 327 on 12/28/23 AM.
-Patient was in atrial flutter on admission with a h/o paroxysmal Afib/flutter. Tele looks like SR reviewed by me on 12/28/23, check ECG. Cont rate control efforts with Coreg 6.25 mg BID for now.
HPI: Patient [facility] today with epigastric pain and SOB and is now being admitted with NSTEMI and acute HF, cardiology has been consulted. Patient started with SOB in the last 3-4 weeks and it has progressively worsened. He noticed increased LE
edema and bloating as well. He thinks he is up 20 lbs or more from his baseline weight. Patient had previously decreased his torsemide dose due to lightheadedness and feeling dehydrated around 04/2023, but then noticed weight gain and edema and was
eventually titrated back up to torsemide 20 mg BID over a couple of months. He says that he has been taking his torsemide, but not urinating as much as he expected. Then he noticed consistent hyperglycemia with blood sugars over 300 and called the
Nephrology office today and was referred to [facility]. Upon arrival patient also described epigastric fullness that is also sometimes pain. Patient has a h/o chronic pancreatitis and saw GI in the office 11/07/23 and the plan for EUS/EGD for PD stent and
stone extraction was cancelled as pain had improved.
Progress Note - Lone Lead Lineman
Subjective
Date of Service: December 28, 2023
Chest/epigastric pain last night, no pain now
Objective
Labs:
12/28/23 03:50
12/28/23 04:00
Labs
Hgb 12.9 g/dL (13.0-18.0) L 12/28/23 03:50
Hct 40.4 % (39.0-52.0) 12/28/23 03:50
Plt Count 183 10^3/uL (130-400) 12/28/23 03:50
APTT 31.7 Sec (23.4-35.0) 12/28/23 09:02
Sodium Cancelled 12/28/23 04:00
Potassium Cancelled 12/28/23 04:00
BUN Cancelled 12/28/23 04:00
Creatinine Cancelled 12/28/23 04:00
Glucose Cancelled 12/28/23 04:00
Troponins
12/27/23 12/27/23 12/27/23
09:37 12:41 14:26
Troponin I 5.280 H* 5.080 H* 4.710 H*
12/27/23 12/28/23 12/28/23
19:18 00:00 02:26
Troponin I 4.520 H* 4.680 H* Cancelled
12/28/23 12/28/23
03:50 09:02
Troponin I 5.070 H* 5.750 H*
Vital Signs and I&O:
Vital Signs
Temp Pulse Resp BP Pulse Ox
97.7 F 68 16 134/87 99
12/28/23 06:55 12/28/23 08:14 12/28/23 06:55 12/28/23 08:14 12/28/23 06:55
Vital Signs
Temp Pulse Resp BP Pulse Ox
97.7 F 68 16 134/87 99
12/28/23 06:55 12/28/23 08:14 12/28/23 06:55 12/28/23 08:14 12/28/23 06:55
Intake & Output
12/26/23 12/27/23 12/28/23 12/29/23
06:59 06:59 06:59 06:59
Intake Total 1124.8 / 1124.8
Output Total 2450 / 2450 400 / 400
Balance -1325.2 / -1325.2 -400 / -400
Physical Exam
Physical Exam
GEN: NAD. AAO x3
HEENT: EOMI, MMM
LUNGS: CTA B/L, no wheezes or rales
CV: Reg, S1/S2, no murmur, rub or gallop
ABD: soft, BS+, NT, ND
EXT: +2 pitting B/L LE edema to just above the knee. No clubbing, cyanosis or lesions B/L
NEURO: Gross non-focal
SKIN: Warm, dry and pink. No rash
[2023-12-28 10:12] LABS: Glucose - Point of Care 172 mg/dl (70-99)
--- NOTE | 2023-12-28 10:17 | CON.MD ---
Consultation - Medical
-
Impression:
Acute on Chronic HFpEF EF 45-50%
NSTEMI
Midepigastric pain
CKD stage IIIblately cr 2
Hyponatremia
History TUAN in 09/2022 ATN on transplant biopsy with background moderately severe chronic changes predominantly FSGS
Nephrotic syndrome 27grams
Living unrelated kidney transplant 2009 ()
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
Right [place] kidney lower pole cystic mass since at least 09/09/21
Diabetes mellitus 2 uncontrolled
acute on chronic pancreatitis
h/o Alcohol use disorder
active smoker
Diabetic peripheral neuropathy
Immunosuppression on tacrolimus and prednisone,
Coronary artery disease status post stent(s)
Coronary angioplasty implant and graft
Atrial fibrillation on Eliquis
Hypertension, multidrug and uncontrolled
HLD
Hypoalbuminemia
PLan:
A/w sob, atypical cp -found NSTEMI and hyperglycemic too
cr relatively at baseline
ok to proceed to cath today with no modifiable risk factors
IVF if ok , use minimal contrast
Anmol score BRIDGETTE 26%, dialysis risk of 1%-reviewed with pt
cotn home IS-tac and pred
hold diuretics
BP are stable avoid hypotension
hyponatremia partly from hyperglycemia and hypervolemia
d/w cards
[id number]
--- NOTE | 2023-12-28 10:47 | CM ---
Chart reviewed. Patient is independent of ADLS, lives alone in a 1 STH, 0 IAN through the front and 2 IAN through the side of the house, patient ambulates with a SPC. Patient currently with no discharge needs. Plan is for the patient to return
home. CM to follow
[2023-12-28 11:07] LABS: Glucose - Point of Care 146 mg/dl (70-99)
--- NOTE | 2023-12-28 11:47 | PN.DE.MGMTRT ---
Insulin Management
- -
: Diabetes Management Consult
58�year old male who p/w with worsening SOB, abd bloating and mid abd pain and Hyperglycemia.
PMH includes: ESRD s/p renal transplant, osteo, A-Fib, HTN, CAD, HLD, T2DM and acute on chronic pancreatitis (last admit 08/2023)
He is noted for NSTEMI and persistent Hyperglycemia, glusoe has trended up to 500. Pt states he has not taken his long acting insulin in over a week and half. Routinely seen Dr. James, was taking Basaglar 15 units @ HS, Jardiance and Glipizide 5mg
BID.
His current glucose remains RR HI at this current time and is awaiting a stat venous lab draw.
d/w Hospitalist Dr. Tse and recommended continuous insulin infusion for optimal glucose control
12/28/2023 Diabetes Management Follow up
Patient maintained on insulin infusion overnight, required 1 to 2 units of insulin per hour. Cr 2.0, egfr 38.21. Will give 14 units of lantus now then discontinue insulin infusion 2 hours after lantus. When returns from cardiac cath can start 1800
calorie diet and 5 units novolog AC with corrective insulin.
A1C is 13.3%. Lengthy discussion with patient glipizide will not be restarted and AC novolog started. Will follow
Diabetes History
- -
Type of Diabetes: 2 requiring insulin
Pre-Admission Diabetes Regimen
12/27/23 12/28/23 12/28/23
19:18 00:00 03:50
Creatinine 1.9 H 2.0 H 1.9 H
12/28/23 12/28/23
03:50 04:00
Creatinine 2.0 H Cancelled
Lab Results
Hemoglobin A1c 13.3 % (4.0-5.6) H 12/27/23 09:35
Insulin Pump Settings
IP Diabetes Regimen
12/27/23 12/27/23 12/27/23
12:35 12:41 15:56
Glucose 447 H
POC Glucose 481 H* 428 H
12/27/23 12/27/23 12/27/23
16:28 17:52 17:59
Glucose 421 H 528 H*
POC Glucose 517 H*
12/27/23 12/27/23 12/27/23
19:07 19:18 19:18
Glucose 492 H* 475 H*
POC Glucose 479 H*
12/27/23 12/27/23 12/27/23
20:10 20:24 21:25
Glucose 457 H*
POC Glucose 480 H* 357 H
12/27/23 12/27/23 12/28/23
22:29 23:30 00:00
Glucose 204 H
POC Glucose 277 H 217 H
12/28/23 12/28/23 12/28/23
00:36 01:36 02:41
Glucose
POC Glucose 198 H 172 H 166 H
12/28/23 12/28/23 12/28/23
03:49 03:50 03:50
Glucose 160 H 161 H
POC Glucose 145 H
12/28/23 12/28/23 12/28/23
04:00 04:46 05:43
Glucose Cancelled
POC Glucose 150 H 143 H
12/28/23 12/28/23 12/28/23
06:58 08:03 09:01
Glucose
POC Glucose 166 H 150 H 137 H
12/28/23 12/28/23
10:07 11:03
Glucose
POC Glucose 172 H 146 H
Patient Education
[2023-12-28 12:09] LABS: Glucose - Point of Care 158 mg/dl (70-99)
[2023-12-28] MEDS: SODIUM BICARBONATE 537.5 MEQ IV (12:41)
[2023-12-28] MEDS: LANTUS 0.140000000000000013 UNITS SC (12:51)
[2023-12-28 13:05] LABS: Glucose - Point of Care 186 mg/dl (70-99)
[2023-12-28 14:10] LABS: Glucose - Point of Care 151 mg/dl (70-99)
[2023-12-28 15:33] LABS: ACT-LR - POC 200 Seconds (116-155)
[2023-12-28 15:41] LABS: ACT-LR - POC 240 Seconds (116-155)
[2023-12-28 15:54] LABS: ACT-LR - POC 276 Seconds (116-155)
--- NOTE | 2023-12-28 16:25 | W.PN.HOSP.TC ---
Today's Communication/Plan
-
LHC today
transition to insulin - lantus and aspart
hold eliquis, hep ggt until [facility] and further plans from Cards
Assessment / Plan
Assessment / Plan
General: Well Developed and Well Nourished
HEENT: NormoCephalic
Respiratory: Clear
Cardiac: S1/S2
GI: Soft and Non Tender
Musculoskeletal: No Clubbing and Other (+2 pitting B/L LE edema to just above the knee. No clubbing, cyanosis or lesions B/L)
Skin: Warm
Neuro: Awake, Alert and Oriented
Hematologic/Lymphatic: No Lymphadenopathy
58� year old with PMH for ESRD s/p renal transplant, osteo, atrial fib, htn, type 2 DM, acute on chronic pancreatitis (last admit 08/2023), now presents for worsening shortness of breath, abdominal bloating and mid abdominal pain.� Found to have
NSTEMI and CHF exacerbation.
PLAN:
#Acute on Chronic HFpEF
-80mg IV lasix BID
-EF 45-50%; LVH
-F/u Cards plans for further diuresis
-Trend Troponin
-Low fat/DM diet
#Chest pain
#NSTEMI
-Hep ggt
-Cont asa
-Plan for [facility]
-on nitro ggt
#Midepigastric pain
#Elevated Lipase
-Lipase trending fown
-the plan was for EUS/EGD for PD stent and stone extraction although was cancelled as pain had improved
-doubt it is pancreatic pain at this time; if pain persists s/p cath, then can re-eval GI consult
#Acute Hyponatremia
-most likely fluid overload
-monitor with diuresis
#DM2
Resume NEW MEDIA STRATEGIST PO meds following discharge
DM educator
-Was on insulin ggt
-Hgba1c 13.3
-Started 14 units of lantus now; can take off ggt 2 hours after
-1800 kcal
-5u novolog AC with sliding scale
#�CKD stage IIIb (1.5)
# Nephrotic syndrome >7grams
# Living unrelated kidney transplant 2010 ()
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
IVF Capped
follow recs
continue steroids and tacrolimus;
continue diuretic
-Cards desired nephro on board
# 3.7 cm RIGHT RENAL CELL CARCINOMA and 2.9 cm left hemorrhagic renal cyst. Right lower quadrant renal transplant in place without complication.
d/w Renal, likely above finding is consistent with known R kidney lower pole cystic mass known since 08/2021
# Alcohol use disorder
# Coronary artery disease s/p stenting
see plan above
# parox Atrial fibrillation on Eliquis
-now in #Aflutter
-hold eliquis
-Hep ggt
-cont coreg
# Hypertension, multidrug and uncontrolled
continue BP meds
# HLD - statin
DVT ppx: hep ggt
Code: Full
Total time spent on today's encounter was 55 minutes which included time spent in counseling the patient/family regarding diagnosis and treatment plan as listed above, goals of care, and symptom management. Case was discussed with nursing staff,
specialists, and care coordinators/case management. All labs and imaging personally reviewed by me. Remainder the time spent in detailed review of previous records, lab data, imaging, and other medical provider documentation.
Anticipated Discharge: 24 - 48 hours
Subjective/Interval History
-
Date of Service: December 28, 2023
Hip pain overnight, resolved with nitroglycerin drip
Objective Data
-
Labs:
Laboratory Results
12/28/23 12/28/23 12/28/23
03:50 03:50 03:50
APTT
Sodium 130 L 131 L
Potassium 3.6 3.5
Chloride 100
Carbon Dioxide
BUN
Creatinine
Glucose
Calcium
Total Bilirubin
AST
ALT
Alkaline Phosphatase
12/28/23 12/28/23 12/28/23
03:50 03:50 03:50
APTT
Sodium
Potassium
Chloride 98
Carbon Dioxide 24 26
BUN 37 H 37 H
Creatinine 1.9 H
Glucose
Calcium
Total Bilirubin
AST
ALT
Alkaline Phosphatase
12/28/23 12/28/23 12/28/23
03:50 03:50 03:50
APTT
Sodium
Potassium
Chloride
Carbon Dioxide
BUN
Creatinine 2.0 H
Glucose 160 H 161 H
Calcium 8.8 8.7
Total Bilirubin 0.8
AST 21
ALT 15
Alkaline Phosphatase 147 H
12/28/23 12/28/23
09:02 16:15
APTT 31.7 Pending
Sodium
Potassium
Chloride
Carbon Dioxide
BUN
Creatinine
Glucose
Calcium
Total Bilirubin
AST
ALT
Alkaline Phosphatase
Vital Signs:
Vital Signs
Temp Pulse Resp BP Pulse Ox
97.7 F 68 16 134/87 99
12/28/23 06:55 12/28/23 08:14 12/28/23 06:55 12/28/23 08:14 12/28/23 06:55
I&O
12/27/23 12/28/23 12/29/23
06:59 06:59 06:59
Intake Total 1124.8 / 1124.8 591.6 / 591.6
Output Total 2450 / 2450 1100 / 1100
Balance -1325.2 / -1325.2 -508.4 / -508.4
Review of Systems
-
Abdomen/GI: Denies Abdominal Pain (much improved )
Data Reviewed
-
Diagnostic Radiology: Image personally visualized and interpreted and Report Reviewed by me
Labs: Labs Reviewed by me
[2023-12-28 16:30] LABS: ACT-LR - POC 260 Seconds (116-155)
[2023-12-28 17:13] LABS: Glucose - Point of Care 158 mg/dl (70-99)
--- NOTE | 2023-12-28 17:59 | PTCARENOTE ---
Received pt from cardiac terrazzo laborer. Heparin, Nitroglycerin and NaHCO3 drips discontinued in procedure room. Received pt in atrial flutter that was confirmed by EKG. BP elevated. Coreg given early per GOLF CLUB ASSEMBLER order. Pt c/o 2-3 out of 10 'chest
pain/discomfort' when taking a deep breath. Pt also c/o 'chest congestion, up into my throat'. GOLF CLUB ASSEMBLER aware. Lasix given in terrazzo laborer. Will monitor.
[2023-12-28] MEDS: NOVOLOG FLEXPEN-LOW RESISTANCE 1 UNITS SC (18:16)
[2023-12-28] MEDS: NOVOLOG FLEXPEN 5 UNITS SC (18:16)
[2023-12-28] MEDS: CRESTOR 20 MG PO (18:29)
--- NOTE | 2023-12-28 19:23 | ITS.CL.CATH ---
Head Start Teacher - Catheterization
Cardiac Catheterization
Procedure Report:
LEFT HEART CATHETERIZATION AND CORONARY INTERVENTION
Date of Procedure: December 28, 2023
Referring: Bassam Bee
PROCEDURES:
1. Left heart catheterization, coronary angiogram.
2. Ultrasound-guided access.
3. Successful percutaneous coronary intervention of 100% distal LAD occlusion with a 2.25 x 23 mm Xience sloan point drug-eluting stent with an excellent angiographic result. TIMIT 3 flow restored.
INDICATION: Mr. Saúl Harrison is a 58-year-old morbidly obese gentleman with past medical history of poorly controlled type 2 diabetes mellitus, hypertension, hyperlipidemia, paroxysmal atrial fibrillation on chronic anticoagulation with Eliquis,
coronary artery disease with prior PCI's dating back to 2013 in the RCA, 2 layers of stents in the obtuse marginal branch in 2016 and again in 2019 and mid LAD stent in 2019, end-stage renal disease status post renal transplant on chronic
immunosuppressive therapy with CKD of the transplanted kidney with baseline creatinine at 1.6-1.8, ongoing tobacco abuse, chronic pancreatitis who presents this admission with abdominal bloating and lower extremity edema/weight gain, dyspnea and
orthopnea found to have new ST changes in V3 through V6 along with Q waves concerning for a recent silent anterolateral infarct. Upon presentation given patient was having no anginal symptoms and given he had just taken his Eliquis prior to arrival
to the emergency department with known renal transplant and CKD, decision was made to hold off on urgent heart catheterization and to medically optimize prior to proceeding with heart catheterization. Given intermittent episodes of epigastric pain,
patient now presents for a left heart catheterization and coronary angiogram. His troponin levels have been fairly flat ranging at 4-5.
ACCESS: Right radial artery, 6 Ivorian sheath, under ultrasound guidance
HEMODYNAMICS : (mmHg)
AO (s/d) : 125/74
LV (s/d) : 121/18
LVEDP : 25
CORONARY FINDINGS
DOMINANCE: Right
LEFT MAIN: The left main artery is a large-caliber vessel which gives rise to a left circumflex artery and the left anterior descending artery. There is mild distal 10 to 20% tapering and otherwise minimal luminal irregularities.
LEFT ANTERIOR DESCENDING: The left anterior descending artery is a large-caliber vessel which gives rise to 3 major diagonal branches. There is 100% distal LAD occlusion with CL[place]ON 0 flow which is thought to be the culprit for patient's presenting
acute coronary syndrome. There is 50% stenosis at the proximal and distal edge of the old mid LAD stent which is patent.
CIRCUMFLEX: The left circumflex artery is a medium caliber vessel which gives rise to 1 major obtuse marginal branch. There is 50 to 60% ostial left circumflex stenosis. Prior OM stents (2 layers ) are patent.
RIGHT CORONARY ARTERY: The right coronary artery is a large-caliber vessel which gives rise to the right posterior descending artery and a small right posterolateral system. Previously placed mid RCA stent is widely patent. There is a 20 to 30% RP
DA stenosis, otherwise there is mild diffuse atherosclerotic plaque.
Coronary intervention: Decision was made to move forward with intervention of the distal LAD. The left coronary artery was selectively engaged using a 6 Ivorian EBU 3.75 guide catheter. Additional heparin was given to maintain a therapeutic ACT
throughout the case. We initially tried navigating the lesion using a 190 cm 0.014' BMW coronary wire however despite multiple attempts we could not cross through the 100% distal LAD stenosis. We escalated the wire to use a 300 cm 0.014' fuel pilot engineer 50
and after multiple attempts we were able to successfully navigate into the apical LAD. We attempted predilating the lesion using a 2.5 x 12 mm trek semicompliant balloon however despite multiple inflations, we could not restore any forward flow.
At this time a 0.014' mini microcatheter was brought in over the long fuel pilot engineer 50 wire to ensure we were intraluminal. Using a 10 cc syringe after adequate blood draw back confirming intracoronary placement of the catheter we injected dye and saw a
diffusely disease apical LAD however we could not rule out vasoconstriction from no reflow. With the microcatheter in place we gave multiple rounds of vasodilators using adenosine intracoronary. At this point I consulted with one of my senior
interventional partners, Dr. DHEERAJ Pan and we decided to proceed with more aggressive predilatation using a longer balloon. At this point we took out the mini microcatheter and introduced a 2.0 x 20 mm trek semicompliant balloon and inflated to 12
kortney for a minute with worship of some flow. At this point we stented the distal LAD lesion with a 2.25 x 23 mm Xience sloan point drug-eluting stent at high pressure and gave additional vasodilators through the catheter with an excellent
angiographic result at the end and worship of CLINTON-3 flow into the apical LAD. Patient was loaded with 600 mg of Plavix at the end of the case. No acute complications.
SEDATION: 64 minutes of procedural sedation was utilized. An independent medical management specialist was present to assist with and help manage the patient's level of consciousness and physiologic status.
RADIATION SUMMARY: Fluoro Time (min): 23.3, Dose (mGy): 1763.8, DAP (Gy.cm2) : 140.6
Closure Device: Vascular band over right radial artery, 10 cc of air
CONCLUSIONS
1. Successful percutaneous coronary intervention of 100% distal LAD occlusion with a 2.25 x 23 mm Xience sloan point drug-eluting stent with an excellent angiographic result. TIMIT 3 flow restored.
2. Significantly elevated LVEDP.
RECOMMENDATIONS
1. Uninterrupted dual antiplatelet therapy with daily baby aspirin and Plavix 75 mg along with Eliquis for underlying atrial fibrillation/flutter for 1 week with plan to then discontinue baby aspirin and continue Eliquis and Plavix for at least 1
year along with high intensity statin and beta-jamal as tolerated.
2. Goal-directed medical therapy for ischemic cardiomyopathy.
3. IV diuresis for significantly elevated LVEDP.
4. Wean radial band per protocol.
5. Strongly encouraged smoking cessation.
6. Referral for outpatient cardiac rehab.
Copy to: Bassam Bee, Rosy Nino
Cierra Rodriguez MD, [facility]
[2023-12-28] MEDS: TYLENOL 1000 MG PO (19:48)
[2023-12-28] MEDS: APRESOLINE 200 MG PO (22:17)
[2023-12-28] MEDS: LANTUS 0.299999999999999989 UNITS SC (22:17)
[2023-12-28 22:18] LABS: Glucose - Point of Care 275 mg/dl (70-99)
--- NOTE | 2023-12-28 22:53 | PTCARENOTE ---
Pt received at start of shift, HR A-flutter 90s-100s. Bicarb infusing at 60mL/hr. Pt appears agitated, pt removed tele pack and leads by throwing them at floor. Pt calmed and leads placed back on. Pt described slight chest discomfort at 2 out of 10,
Tylenol given. Effective, new pain rating 0 to 1 out of 10. R radial band removed at 2219, no drainage. Site ecchymotic. Dressing applied. R radial pulse normal. Pt denies any SOB, lightheadedness, or dizziness at this time. Informed to notify RN if
any changes and if chest pain returns. Call guaman within reach.
Pt converted to SR at 2032 HR 60s-70s. Pt back into A-flutter at 2206 HR 90s-100s.
[2023-12-29] VITALS (7 sets, daily range): BP systolic 139–159; BP diastolic 74–111
[2023-12-29 04:10] LABS: Hematocrit 40.6 % (39.0-52.0); Hemoglobin 13.4 g/dL (13.0-18.0); Mean Corpuscular Hgb 25.5 pg (27.0-31.0); Mean Corpuscular Volume 77.3 fL (80.0-94.0); Mean Platelet Volume 9.9 fL (7.4-10.4); Platelet Count 193 10^3/uL (130-400); Red Blood Cell Count 5.25 10^6/uL (4.70-6.10); Red Cell Dist. Width 14.3 % (11.5-14.5); White Blood Cell Count 9.5 10^3/uL (4.8-10.8)
[2023-12-29 04:35] LABS: Blood Urea Nitrogen 36 mg/dl (9-20); Calcium 8.4 mg/dl (8.4-10.2); Carbon Dioxide 29 mmol/L (22-30); Chloride 98 mmol/L (98-107); Estimated Creatinine Clearance 46 ml/min; Glucose 259 mg/dl (70-99); Sodium 131 mmol/L (135-145); eGFR 36.04
--- NOTE | 2023-12-29 05:04 | PTCARENOTE ---
Pt states rested okay through the night. Pt denies any chest pain/epigastric pain at this time. Pt states the heartburn feeling he had is also gone. R radial site CDI.
[2023-12-29 07:40] LABS: Glucose - Point of Care 213 mg/dl (70-99)
[2023-12-29] MEDS: PROGRAF 1 MG PO ×2 (08:23→19:53)
[2023-12-29] MEDS: APRESOLINE 100 MG PO (08:23)
[2023-12-29] MEDS: ELIQUIS 5 MG PO ×2 (08:23→19:53)
[2023-12-29] MEDS: NEURONTIN 300 MG PO (08:23)
[2023-12-29] MEDS: JARDIANCE 25 MG PO (08:23)
[2023-12-29] MEDS: DELTASONE 5 MG PO (08:23)
[2023-12-29] MEDS: ASPIR LOW (ENTERIC COATED) 81 MG PO (08:23)
[2023-12-29] MEDS: PROTONIX 40 MG PO (08:23)
[2023-12-29] MEDS: NOVOLOG FLEXPEN-LOW RESISTANCE 2 UNITS SC (08:24)
[2023-12-29] MEDS: CARDURA 8 MG PO ×2 (08:24→19:53)
[2023-12-29] MEDS: PLAVIX 75 MG PO (08:24)
[2023-12-29] MEDS: NOVOLOG FLEXPEN 5 UNITS SC (08:24)
[2023-12-29] MEDS: COREG 6.25 MG PO ×2 (08:24→19:53)
[2023-12-29] MEDS: SENOKOT-S 1 TABLET PO ×2 (08:24→19:53)
--- NOTE | 2023-12-29 09:26 | PN.DE.MGMTRT ---
Insulin Management
- -
12/27/2023: Diabetes Management Consult
58�year old male who p/w with worsening SOB, abd bloating and mid abd pain and Hyperglycemia.
PMH includes: ESRD s/p renal transplant, osteo, A-Fib, HTN, CAD, HLD, T2DM and acute on chronic pancreatitis (last admit 08/2023)
He is noted for NSTEMI and persistent Hyperglycemia, glusoe has trended up to 500. Pt states he has not taken his long acting insulin in over a week and half. Routinely seen Dr. James, was taking Basaglar 15 units @ HS, Jardiance and Glipizide 5mg
BID.
His current glucose remains RR HI at this current time and is awaiting a stat venous lab draw.
d/w Hospitalist Dr. Tse and recommended continuous insulin infusion for optimal glucose control
12/28/2023 Diabetes Management Follow up
Patient maintained on insulin infusion overnight, required 1 to 2 units of insulin per hour. Cr 2.0, egfr 38.21. Will give 14 units of lantus now then discontinue insulin infusion 2 hours after lantus. When returns from cardiac cath can start 1800
calorie diet and 5 units novolog AC with corrective insulin.
A1C is 13.3%. Lengthy discussion with patient glipizide will not be restarted and AC novolog started. Will follow
12/29/2023 Diabetes Management Follow up
Transitioned from insulin infusion yesterday with 14 units lantus then drip off 2 hours later. Lantus 30 units started last HS. Fasting glucose 259. Will increase hs lantus to 35 units. Will increase AC novolog to 8 units with low [id number]
insulin. Will follow
Diabetes History
- -
Type of Diabetes: 2 requiring insulin
Pre-Admission Diabetes Regimen
12/29/23
03:56
Creatinine 2.1 H
Lab Results
Hemoglobin A1c 13.3 % (4.0-5.6) H 01/30/24 09:35
Insulin Pump Settings
IP Diabetes Regimen
12/28/23 12/28/23 12/28/23
10:07 11:03 12:07
Glucose
POC Glucose 172 H 146 H 158 H
12/28/23 12/28/23 12/28/23
12:59 14:06 17:12
Glucose
POC Glucose 186 H 151 H 158 H
12/28/23 12/29/23 12/29/23
22:16 03:56 07:38
Glucose 259 H
POC Glucose 275 H 213 H
Meal type: Dinner
Amount consumed: 100%
Patient Education
--- NOTE | 2023-12-29 10:59 | CM ---
Chart reviewed. Patient is independent of ADLS, lives alone in a [address], 2 [facility], ambulates with a SPC. Patient currently with no discharge needs. CM to follow
[2023-12-29] MEDS: TYLENOL 1000 MG PO ×2 (11:04→22:28)
[2023-12-29 12:01] LABS: Glucose - Point of Care 354 mg/dl (70-99)
[2023-12-29 12:53] LABS: Glucose - Point of Care 274 mg/dl (70-99)
[2023-12-29] MEDS: NOVOLOG FLEXPEN-LOW RESISTANCE 5 UNITS SC (13:06)
[2023-12-29] MEDS: NOVOLOG FLEXPEN 8 UNITS SC ×2 (13:06→17:15)
--- NOTE | 2023-12-29 13:21 | W.PN.NEPH.PH ---
Today's Communication / Plan
-
resume lasix
follow labs
Assessment/Plan
-
Impression:
Acute on Chronic HFpEF EF 45-50%
NSTEMI
Midepigastric pain
CKD stage IIIblately cr 2
Hyponatremia
History [facility] in 09/2022 ATN on transplant biopsy with background moderately severe chronic changes predominantly FSGS
Nephrotic syndrome 27grams
Living unrelated kidney transplant 2009 ()
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
Right lower [place] kidney lower pole cystic mass since at least 09/09/21
Diabetes mellitus 2 uncontrolled
acute on chronic pancreatitis
h/o Alcohol use disorder
active smoker
Diabetic peripheral neuropathy
Immunosuppression on tacrolimus and prednisone,
Coronary artery disease status post stent(s)
Coronary angioplasty implant and graft
Atrial fibrillation on Eliquis
Hypertension, multidrug and uncontrolled
HLD
Hypoalbuminemia
PLan:
A/w sob, atypical cp -found NSTEMI and hyperglycemic too
s/p LHC with LAD stent 12/28 , cr relatively stable
cotn home IS-tac and pred
resumed diuretics high LVEDP 25
BP are stable on home meds, chronically labile and orthostatics
hyponatremia partly from hyperglycemia and hypervolemia-stable, maintain FR
reviewed imp of quitting smoking
-
-
Date of Service: December 29, 2023
CC / HPI / ROS
-
Chief Complaint:
CKD, h/o KTP
History of Present Illness:
cr stable at 2.1, nonoliguric with out petty
s/p LHC with LAD stent, LVEDP high
BP stable.
Review of Systems:
no cp
no sob at rest
Labs
-
Labs:
WBC 9.5 10^3/uL (4.8-10.8) 12/29/23 03:56
RBC 5.25 10^6/uL (4.70-6.10) 12/29/23 03:56
Hgb 13.4 g/dL (13.0-18.0) 12/29/23 03:56
Hct 40.6 % (39.0-52.0) 12/29/23 03:56
Plt Count 193 10^3/uL (130-400) 12/29/23 03:56
Sodium 131 mmol/L (135-145) L 12/29/23 03:56
Potassium 4.0 mmol/L (3.5-5.1) 12/29/23 03:56
Chloride 98 mmol/L (98-107) 12/29/23 03:56
Carbon Dioxide 29 mmol/L (22-30) 12/29/23 03:56
BUN 36 mg/dl (9-20) H 12/29/23 03:56
Creatinine 2.1 mg/dL (0.7-1.3) H 12/29/23 03:56
eGFR 36.04 12/29/23 03:56
Glucose 259 mg/dl (70-99) H 12/29/23 03:56
Calcium 8.4 mg/dl (8.4-10.2) 12/29/23 03:56
Sds-S-Zueefmukwzb Pept 63611 pg/ml 12/27/23 09:37
Albumin 2.0 g/dl (3.5-5.0) L 12/28/23 03:50
Physical Exam
-
Vital Signs:
Vital Signs
Temp Pulse Resp BP Pulse Ox
99.1 F 100 20 159/104 97
12/29/23 12:47 12/29/23 13:00 12/29/23 12:47 12/29/23 12:49 12/29/23 12:49
Cardiovascular:: Regular rate and rhythm
Respiratory:: Bilateral: Rales
Lung Excursion:: Normal
Abdomen:: Nontender and Soft
Extremity Edema:: +2: Bilateral:
Petty Catheter: No
--- NOTE | 2023-12-29 13:26 | W.PN.CARDCBS ---
Addendum entered and electronically signed by Pedro Barajas MD 12/29/23 14:41:
I saw and examined the patient.
The School Nurse's note was reviewed and I agree with the note.
Comment: Briefly, 58-year-old man past medical history of renal transplant who presents in decompensated heart failure found to have NSTEMI and underwent distal LAD PCI on 12/28/2023
Elevated filling pressures by invasive hemodynamics and still appears to be volume overloaded on exam
EF with mildly reduced LVEF
Appreciate nephrology input regarding IV diuresis
Cont SGLT2
Use of ARNI/ALMA DELIA/ARB/aldactone limited by renal xplant
Appears to be in atrial flutter/atrial tachycardia on telemetry
Continue Eliquis for cardioembolic prophylaxis
Continue Coreg for rate control
In regards to his coronary disease and recent PCI, plan for triple therapy with aspirin/Plavix/Eliquis x 1 week. Plavix/Eliquis after this.
Cont high intensity statin and BB
Eventual cardiac rehab
Original Note:
Today's Communication / Plan
-
Triple therapy for 1 week then Plavix and Eliquis thereafter
Cont Coreg
In Atach today
Eliquis restarted this AM
Ongoing diuresis, still 8 lbs above dry weight
Impression / Plan
-
PCP: Dr. Field
Primary Quality Assurance Supervisor Final: Dr. JOSE Bee
Nephrology: Dr. Loya
Impression:
SOB and SHORT
Acute HFpEF
NSTEMI
Abnormal ECG
CAD
s/p Circ/OM stent 08/2014
s/p IWMI with stenting of the mid right coronary artery 06/2016 and staged intervention for in-stent restenosis and new lesion in circ/OM 06/2016
s/p NSTEMI, with abrupt closure of the AV continuation of the Circ supplying 2 small posterolateral branches during cath and then 4 mm Xience to mid LAD and 2.75 mm Xience to the mid to distal OM-1 03/05/19
s/p NSTEMI with 100% distal LAD occlusion stented with a 2.25 mm Xience 12/28/23
CKD 4
s/p Living, unrelated donor (his at the time) renal transplant [facility] 2009
HTN
Paroxysmal Afib/typical aflutter
recurrence noted on ECG in ER 12/27/23
Chronic OAC with eliquis
Active smoker
h/o ETOH use disorder
DM 2
Diabetic neuropathy
Hyperlipidemia
History of NSVT
Polycythemia vera
Chronic pancreatitis
ECHO 10/14/22: Technically difficult study, use IV Definity in future, EF 55 to 60%, likely moderate LVH, normal RV size and function, no significant valvular disease
Echo 08/24/23: EF 60-65%, normal RV size and function, PAP 20-25 mmHg
Echo 12/27/23: EF 45-50%, apical hypokinesis, trivial to small pericardial effusion
Plan:
-Patient is s/p 2.25 mm Xience to the distal LAD. Echo as noted above shows a newly decreased EF at 45-50% and Troponin up to 5.75.
-Patient was taking aspirin and Eliquis 5 mg BID prior to admission. Plan now is for triple therapy with aspirin, Plavix and Eliquis for 1 week then reduce to Plavix and Eliquis thereafter for the next year. Follow CBC.
-GDMT includes Coreg 6.25 mg BID. Patient is not chronically on ALMA DELIA/ARB/aldosterone antagonist due to h/o renal transplant.
-Nephrology following and Cre up to 2.1 on 12/29/23.
-Patient has a living donor kidney from 2009, but has not seen the transplant center recently. 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
Nephrology consulted to see patient prior to cath for optimization.
-Weight is down at least 4 lbs from admission and probably more, but recorded weights are not up to date. Patient is symptomatically improved with less edema and SOB. Dry weight at last discharge 09/27/23 was 218 lbs.
-Patient with paroxysmal Afib/flutter. He was in atrial flutter on admission and then spontaneously converted to SR and is in Atach on 12/29/23 AM. HRs in the 90s and he is asymptomatic.
-Eliquis restarted 12/29/23 AM.
-LDL 86. Patient's Crestor 20 mg daily was held during his 08/2023 admission and supposed to restart 10/05/23, but he never did. Restarted Crestor 20 mg daily on 12/27/23.
-Patient has a h/o chronic pancreatitis and saw GI in the office 11/07/23 and the plan for EUS/EGD for PD stent and stone extraction was cancelled as pain had improved. Lipase is 890 on admission, but trended down to 327 on 12/28/23 AM. Patient now
says that he feels he needs the PD stent and is asking for it to be performed this admission. Reviewed with patient that given NSTEMI and coronary stent this admission with the need for uninterrupted Plavix that he might have to wait until Plavix
can be interrupted for GI procedure.
HPI: Patient came to [facility] today with epigastric pain and SOB and is now being admitted with NSTEMI and acute HF, cardiology has been consulted. Patient started with SOB in the last 3-4 weeks and it has progressively worsened. He noticed increased LE
edema and bloating as well. He thinks he is up 20 lbs or more from his baseline weight. Patient had previously decreased his torsemide dose due to lightheadedness and feeling dehydrated around 04/2023, but then noticed weight gain and edema and was
eventually titrated back up to torsemide 20 mg BID over a couple of months. He says that he has been taking his torsemide, but not urinating as much as he expected. Then he noticed consistent hyperglycemia with blood sugars over 300 and called the
Nephrology office today and was referred to [facility]. Upon arrival patient also described epigastric fullness that is also sometimes pain. Patient has a h/o chronic pancreatitis and saw GI in the office 11/07/23 and the plan for EUS/EGD for PD stent and
stone extraction was cancelled as pain had improved.
Progress Note - Quality Assurance Supervisor Final
Subjective
Date of Service: December 29, 2023
He has some ongoing epigastric fullness/discomfort
Objective
Labs:
12/29/23 03:56
12/29/23 03:56
Labs
Hgb 13.4 g/dL (13.0-18.0) 12/29/23 03:56
Hct 40.6 % (39.0-52.0) 12/29/23 03:56
Plt Count 193 10^3/uL (130-400) 12/29/23 03:56
APTT Cancelled 12/28/23 16:15
Sodium 131 mmol/L (135-145) L 12/29/23 03:56
Potassium 4.0 mmol/L (3.5-5.1) 12/29/23 03:56
BUN 36 mg/dl (9-20) H 12/29/23 03:56
Creatinine 2.1 mg/dL (0.7-1.3) H 12/29/23 03:56
Glucose 259 mg/dl (70-99) H 12/29/23 03:56
Troponins
12/27/23 12/27/23 12/27/23
09:37 12:41 14:26
Troponin I 5.280 H* 5.080 H* 4.710 H*
12/27/23 12/28/23 12/28/23
19:18 00:00 02:26
Troponin I 4.520 H* 4.680 H* Cancelled
12/28/23 12/28/23 12/28/23
03:50 09:02 16:17
Troponin I 5.070 H* 5.750 H* Cancelled
Vital Signs and I&O:
Vital Signs
Temp Pulse Resp BP Pulse Ox
99.1 F 100 20 159/104 97
12/29/23 12:47 12/29/23 13:00 12/29/23 12:47 12/29/23 12:49 12/29/23 12:49
Vital Signs
Temp Pulse Resp BP Pulse Ox
99.1 F 100 20 159/104 97
12/29/23 12:47 12/29/23 13:00 12/29/23 12:47 12/29/23 12:49 12/29/23 12:49
Intake & Output
12/27/23 12/28/23 12/29/23 12/30/23
06:59 06:59 06:59 06:59
Intake Total 1124.8 / 1124.8 1311.6 / 1311.6
Output Total 2450 / 2450 2400 / 2400
Balance -1325.2 / -1325.2 -1088.4 / -1088.4
Physical Exam
Physical Exam
GEN: NAD. AAO x3
HEENT: EOMI, MMM
LUNGS: CTA B/L, no wheezes or rales
CV: Reg, S1/S2, no murmur, rub or gallop
ABD: soft, BS+
EXT: Right radial without hematoma or ecchymosis. +1 pitting B/L LE edema. No clubbing, cyanosis or lesions B/L
NEURO: Gross non-focal
SKIN: Warm, dry and pink. No rash
--- NOTE | 2023-12-29 13:39 | W.PN.HOSP.TC ---
Today's Communication/Plan
-
Cont diuretics
Eliquis, Plavix, ASA
Insulin Titration
Assessment / Plan
Assessment / Plan
General: Well Developed and Well Nourished
HEENT: NormoCephalic
Respiratory: Clear
Cardiac: S1/S2
GI: Soft and Non Tender
Musculoskeletal: No Clubbing and Other (+2 pitting B/L LE edema to just above the knee. No clubbing, cyanosis or lesions B/L)
Skin: Warm
Neuro: Awake, Alert and Oriented
Hematologic/Lymphatic: No Lymphadenopathy
58� year old with PMH for ESRD s/p renal transplant, osteo, atrial fib, htn, type 2 DM, acute on chronic pancreatitis (last admit 08/2023), now presents for worsening shortness of breath, abdominal bloating and mid abdominal pain.� Found to have
NSTEMI and CHF exacerbation.
PLAN:
#Acute on Chronic HFpEF
-80mg IV lasix BID
-EF 45-50%; LVH; LHC with elevated LVEDP
-F/u Cards plans for further diuresis
-Trend Troponin
-Low fat/DM diet
#Chest pain
#NSTEMI
-Hep ggt
-Cont asa
-S/P PCI 12/28
-Uninterrupted dual antiplatelet therapy with daily baby aspirin and Plavix 75 mg along with Eliquis for underlying atrial fibrillation/flutter for 1 week with plan to then discontinue baby aspirin and continue Eliquis and Plavix for at least 1 year
along with high intensity statin and beta-jamal as tolerated.
#Midepigastric pain
#Elevated Lipase
-Lipase trending fown
-the plan was for EUS/EGD for PD stent and stone extraction although was cancelled as pain had improved
-doubt it is pancreatic pain at this time; if pain persists s/p cath, then can re-eval GI consult
#Acute Hyponatremia
-most likely fluid overload + Hyperglycemia
-monitor with diuresis
#DM2
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
DM educator
-Was on insulin ggt
-Hgba1c 13.3
-Lantus and Novolog titration
-1800 kcal
#�CKD stage IIIb (1.5)
# Nephrotic syndrome >7grams
# Living unrelated kidney transplant 2009 ()
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
follow recs
continue steroids and tacrolimus;
continue diuretic
# 3.7 cm RIGHT RENAL CELL CARCINOMA and 2.9 cm left hemorrhagic renal cyst. Right lower quadrant renal transplant in place without complication.
d/w Renal, likely above finding is consistent with known R kidney lower pole cystic mass known since 08/2021
# Alcohol use disorder
# Coronary artery disease s/p stenting
see plan above
# parox Atrial fibrillation on Eliquis
-now in #Aflutter
-hold eliquis
-Hep ggt
-cont coreg
# Hypertension, multidrug and uncontrolled
continue BP meds
# HLD - statin
DVT ppx: hep ggt
Code: Full
Total time spent on today's encounter was 52 minutes which included time spent in counseling the patient/family regarding diagnosis and treatment plan as listed above, goals of care, and symptom management. Case was discussed with nursing staff,
specialists, and care coordinators/case management. All labs and imaging personally reviewed by me. Remainder the time spent in detailed review of previous records, lab data, imaging, and other medical provider documentation.
Anticipated Discharge: > 48 hours
Subjective/Interval History
-
Date of Service: December 29, 2023
PCI 12/28;
Objective Data
-
Labs:
Laboratory Results
12/29/23
03:56
WBC 9.5
Hgb 13.4
Hct 40.6
Plt Count 193
Sodium 131 L
Potassium 4.0
Chloride 98
Carbon Dioxide 29
BUN 36 H
Creatinine 2.1 H
Glucose 259 H
Calcium 8.4
Vital Signs:
Vital Signs
Temp Pulse Resp BP Pulse Ox
99.1 F 100 20 159/104 97
12/29/23 12:47 12/29/23 13:00 12/29/23 12:47 12/29/23 12:49 12/29/23 12:49
I&O
12/28/23 12/29/23 12/30/23
06:59 06:59 06:59
Intake Total 1124.8 / 1124.8 1311.6 / 1311.6
Output Total 2450 / 2450 2400 / 2400
Balance -1325.2 / -1325.2 -1088.4 / -1088.4
Review of Systems
-
Abdomen/GI: Denies Abdominal Pain (much improved )
Physical Exam
-
General: Well Developed, Well Nourished, No Apparent Distress and Comfortable
HEENT: Normocephalic and Atraumatic
Respiratory: Clear to Auscultation and Non Labored Respirations; Negative Accessory Resp Muscle Use
Cardiac: Regular Rhythm and S1/S2
GI: Soft
Neuro: AO x 3
Psych: Calm and Intact Judgement/Insight
Data Reviewed
-
Diagnostic Radiology: Image personally visualized and interpreted and Report Reviewed by me
Labs: Labs Reviewed by me
[2023-12-29] MEDS: LASIX 80 MG IV (16:31)
[2023-12-29 17:15] LABS: Glucose - Point of Care 257 mg/dl (70-99)
[2023-12-29] MEDS: NOVOLOG FLEXPEN-LOW RESISTANCE 3 UNITS SC (17:16)
[2023-12-29] MEDS: CRESTOR 20 MG PO (17:47)
[2023-12-29 21:32] LABS: Glucose - Point of Care 246 mg/dl (70-99)
[2023-12-29] MEDS: MELATONIN 5 MG PO (21:32)
[2023-12-29] MEDS: APRESOLINE 200 MG PO (21:32)
[2023-12-29] MEDS: LANTUS 0.349999999999999978 UNITS SC (21:33)
--- NOTE | 2023-12-30 00:34 | PTCARENOTE ---
Pt received at start of shift, HR A-fib/A-flutter 90s-100s. Pt appears agitated, when prompted pt states it feels as if none of the changes he has made over the past year or more have made any difference in his health. Per pt, 'Why the f--- did I
lose 70 lbs and start eating better if I'm just going to have another heart attack'. Educated pt on modifiable vs non-modifiable risk factors. Explained to pt how one year of change won't suddenly cure CAD/risk for IN, but continued compliance may
lessen severity/possibility of future attacks. Pt states understanding. Pt denies any SOB, CP, or weakness at this time. Informed to notify RN if any changes. Call guaman within reach
Pt requesting melatonin to sleep. TT Olya Cruz, melatonin ordered and administered.
Pt c/o 6 out of 10 neck/shoulder pain that can be relieved to a 0 out of 10 with positioning. Pt states it is because he 'slept weird', but requests tylenol. PRN tylenol administered, effective, pt asleep.
[2023-12-30 03:02] VITALS: BP 149/93
[2023-12-30 04:05] LABS: Blood Urea Nitrogen 36 mg/dl (9-20); Calcium 8.4 mg/dl (8.4-10.2); Carbon Dioxide 28 mmol/L (22-30); Chloride 98 mmol/L (98-107); Estimated Creatinine Clearance 46 ml/min; Glucose 231 mg/dl (70-99); Potassium 3.9 mmol/L (3.5-5.1); Sodium 130 mmol/L (135-145); eGFR 36.04
[2023-12-30 07:00] VITALS: BMI 33.7
[2023-12-30 07:21] VITALS: BP 167/97
[2023-12-30 07:25] LABS: Glucose - Point of Care 194 mg/dl (70-99)
--- NOTE | 2023-12-30 07:34 | PN.DE.MGMTRT ---
Insulin Management
- -
12/27/2023: Diabetes Management Consult
58�year old male who p/w with worsening SOB, abd bloating and mid abd pain and Hyperglycemia.
PMH includes: ESRD s/p renal transplant, osteo, A-Fib, HTN, CAD, HLD, T2DM and acute on chronic pancreatitis (last admit 08/2023)
He is noted for NSTEMI and persistent Hyperglycemia, glusoe has trended up to 500. Pt states he has not taken his long acting insulin in over a week and half. Routinely seen Dr. James, was taking Basaglar 15 units @ HS, Jardiance and Glipizide 5mg
BID.
His current glucose remains RR HI at this current time and is awaiting a stat venous lab draw.
d/w Hospitalist Dr. Tse and recommended continuous insulin infusion for optimal glucose control
12/28/2023 Diabetes Management Follow up
Patient maintained on insulin infusion overnight, required 1 to 2 units of insulin per hour. Cr 2.0, egfr 38.21. Will give 14 units of Lantus now then discontinue insulin infusion 2 hours after Lantus. When returns from cardiac cath can start 1800
calorie diet and 5 units NovoLog AC with corrective insulin.
A1C is 13.3%. Lengthy discussion with patient glipizide will not be restarted and AC NovoLog started. Will follow
12/29/2023 Diabetes Management Follow up
Transitioned from insulin infusion yesterday with 14 units Lantus then drip off 2 hours later. Lantus 30 units started last HS. Fasting glucose 259. Will increase hs Lantus to 35 units. Will increase AC NovoLog to 8 units with low [id number]
insulin. Will follow
12/30/2023: Diabetes Management F/U:
insulin was increased yesterday due to ongoing hyperglycemia.
Glucose remains >200, trended up to 246 @ HS with a FBG of 231 this AM.
Premeal range is 257 -354, requiring 2-5 units of additional corrective insulin.
Will increase Lantus to 40 units and AC NovoLog to 10 units.
Cont low corrective and OP Jardiance 25mg daily. Glipizide will not be restarted- pt was made aware. Will follow closely
Diabetes History
- -
Type of Diabetes: 2 requiring insulin
Pre-Admission Diabetes Regimen
12/30/23
03:13
Creatinine 2.1 H
Lab Results
Hemoglobin A1c 13.3 % (4.0-5.6) H 12/27/23 09:35
Insulin Pump Settings
IP Diabetes Regimen
12/29/23 12/29/23 12/29/23
07:38 11:59 12:51
Glucose
POC Glucose 213 H 354 H 274 H
12/29/23 12/29/23 12/30/23
17:13 21:31 03:13
Glucose 231 H
POC Glucose 257 H 246 H
12/30/23
07:24
Glucose
POC Glucose 194 H
Meal type: Dinner
Amount consumed: 100%
Patient Education
[2023-12-30] MEDS: COREG PO (08:23)
[2023-12-30] MEDS: PROTONIX 40 MG PO (08:34)
[2023-12-30] MEDS: NEURONTIN 300 MG PO (08:35)
[2023-12-30] MEDS: SENOKOT-S 1 TABLET PO ×2 (08:35→20:05)
[2023-12-30] MEDS: ASPIR LOW (ENTERIC COATED) 81 MG PO (08:35)
[2023-12-30] MEDS: ELIQUIS 5 MG PO ×2 (08:36→20:04)
[2023-12-30] MEDS: PLAVIX 75 MG PO (08:36)
[2023-12-30] MEDS: DELTASONE 5 MG PO (08:36)
[2023-12-30] MEDS: JARDIANCE 25 MG PO (08:37)
[2023-12-30] MEDS: APRESOLINE 100 MG PO (08:37)
[2023-12-30] MEDS: CARDURA 8 MG PO ×2 (08:46→20:04)
[2023-12-30] MEDS: PROGRAF 1 MG PO ×2 (08:46→20:05)
[2023-12-30] MEDS: LASIX 80 MG IV ×2 (08:51→15:53)
[2023-12-30] MEDS: NOVOLOG FLEXPEN-LOW RESISTANCE 1 UNITS SC (08:52)
[2023-12-30] MEDS: NOVOLOG FLEXPEN 10 UNITS SC ×3 (08:52→18:47)
[2023-12-30] MEDS: NOVOLOG FLEXPEN SC (09:00)
[2023-12-30] MEDS: TYLENOL 1000 MG PO ×2 (09:58→16:04)
[2023-12-30] MEDS: ULTRAM 25 MG PO ×3 (09:58→22:10)
--- NOTE | 2023-12-30 11:56 | CM ---
Chart reviewed. Patient is independent of ADLS, lives alone in a 1 S[address], 2 IAN, 0 DME. Patient currently with no discharge needs. CM to follow
[2023-12-30 12:03] VITALS: BP 154/93
--- NOTE | 2023-12-30 12:42 | PTCARENOTE ---
Pt c/o L posterior neck pain rad down L arm. He states he has had this discomfort for a while even prior to coming to the hospital. The pain is getting worse,according to Pt. He rates it 06/06. Dr Tse notified, Tramadol 25 mg po ordered and
given with some relief noted.Pt went for CT scan of cervical spine today.
--- NOTE | 2023-12-30 13:22 | PTCARENOTE ---
Pt had 3.3 sec conversion pause this morning. AM dose of Coreg not given, Dr Marques aware.
[2023-12-30 13:31] LABS: Glucose - Point of Care 238 mg/dl (70-99)
--- NOTE | 2023-12-30 14:05 | W.PN.NEPH.PH ---
Today's Communication / Plan
-
diurese
Assessment/Plan
-
Impression:
Acute on Chronic HFpEF EF 45-50%
NSTEMI
Midepigastric pain
CKD stage IIIblately cr 2
Hyponatremia
History [facility]UAN in 09/2022 ATN on transplant biopsy with background moderately severe chronic changes predominantly FSGS
Nephrotic syndrome 27grams
Living unrelated kidney transplant 2009 ()
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
Right [place] kidney lower pole cystic mass since at least 09/09/21
Diabetes mellitus 2 uncontrolled
acute on chronic pancreatitis
h/o Alcohol use disorder
active smoker
Diabetic peripheral neuropathy
Immunosuppression on tacrolimus and prednisone,
Coronary artery disease status post stent(s)
Coronary angioplasty implant and graft
Atrial fibrillation on Eliquis
Hypertension, multidrug and uncontrolled
HLD
Hypoalbuminemia
Plan:
-follow BMP
-lasix IV
-add metolazone today
-
-
Date of Service: December 30, 2023
CC / HPI / ROS
-
Chief Complaint:
CKD, h/o KTP
History of Present Illness:
cr stable at 2.1, nonoliguric with out ptety
s/p LHC with LAD stent, LVEDP high
BP stable.
Na low 130 chronic
Review of Systems:
no cp
no sob at rest
Labs
-
Labs:
WBC 9.5 10^3/uL (4.8-10.8) 12/29/23 03:56
RBC 5.25 10^6/uL (4.70-6.10) 12/29/23 03:56
Hgb 13.4 g/dL (13.0-18.0) 12/29/23 03:56
Hct 40.6 % (39.0-52.0) 12/29/23 03:56
Plt Count 193 10^3/uL (130-400) 12/29/23 03:56
Sodium 130 mmol/L (135-145) L 12/30/23 03:13
Potassium 3.9 mmol/L (3.5-5.1) 12/30/23 03:13
Chloride 98 mmol/L (98-107) 12/30/23 03:13
Carbon Dioxide 28 mmol/L (22-30) 12/30/23 03:13
BUN 36 mg/dl (9-20) H 12/30/23 03:13
Creatinine 2.1 mg/dL (0.7-1.3) H 12/30/23 03:13
eGFR 36.04 12/30/23 03:13
Glucose 231 mg/dl (70-99) H 12/30/23 03:13
Calcium 8.4 mg/dl (8.4-10.2) 12/30/23 03:13
[id number] Pept 93603 pg/ml 12/27/23 09:37
Albumin 2.0 g/dl (3.5-5.0) L 12/28/23 03:50
Physical Exam
-
Vital Signs:
Vital Signs
Temp Pulse Resp BP Pulse Ox
98.6 F 66 20 154/93 94
12/30/23 12:01 12/30/23 13:00 12/30/23 12:01 12/30/23 12:03 12/30/23 12:01
Cardiovascular:: Regular rate and rhythm
Respiratory:: Bilateral: Coarse
Lung Excursion:: Normal
Abdomen:: Nontender and Soft
Bowel Sounds:: Normal
Extremity Edema:: +3: Bilateral:
[2023-12-30] MEDS: NOVOLOG FLEXPEN-LOW RESISTANCE 2 UNITS SC (14:15)
[2023-12-30] MEDS: ZAROXOLYN 5 MG PO (14:15)
--- NOTE | 2023-12-30 15:10 | W.PN.HOSP.TC ---
Today's Communication/Plan
-
iv lasix
metolazone
insulin titration
Assessment / Plan
Assessment / Plan
General: Well Developed and Well Nourished
HEENT: NormoCephalic
Respiratory: Clear
Cardiac: S1/S2
GI: Soft and Non Tender
Musculoskeletal: No Clubbing and Other (+2 pitting B/L LE edema to just above the knee. No clubbing, cyanosis or lesions B/L)
Skin: Warm
Neuro: Awake, Alert and Oriented
Hematologic/Lymphatic: No Lymphadenopathy
58� year old with PMH for ESRD s/p renal transplant, osteo, atrial fib, htn, type 2 DM, acute on chronic pancreatitis (last admit 08/2023), now presents for worsening shortness of breath, abdominal bloating and mid abdominal pain.� Found to have
NSTEMI and CHF exacerbation.
PLAN:
#Acute on Chronic HFpEF
-80mg IV lasix BID
-Add metolazone
-EF 45-50%; LVH; LHC with elevated LVEDP
-F/u Cards plans for further diuresis
-Trend Troponin
-Low fat/DM diet
#Chest pain
#NSTEMI
-Cont asa
-S/P PCI 12/28
-Uninterrupted dual antiplatelet therapy with daily baby aspirin and Plavix 75 mg along with Eliquis for underlying atrial fibrillation/flutter for 1 week with plan to then discontinue baby aspirin and continue Eliquis and Plavix for at least 1 year
along with high intensity statin and beta-jamal as tolerated.
#Midepigastric pain
#Elevated Lipase
-Lipase trending fown
-the plan was for EUS/EGD for PD stent and stone extraction although was cancelled as pain had improved
-doubt it is pancreatic pain at this time; if pain persists s/p cath, then can re-eval GI consult; pain not present at this time
#Acute Hyponatremia
-most likely fluid overload + Hyperglycemia
-monitor with diuresis
#DM2
Resume TECHNICAL HEALTHCARE CONSULTANT PO meds following discharge
DM educator
-Was on insulin ggt
-Hgba1c 13.3
-Lantus and Novolog titration
-1800 kcal
-Cont low corrective and OP Jardiance 25mg daily. Glipizide will not be restarted- pt was made aware.�
#�CKD stage IIIb (1.5)
# Nephrotic syndrome >7grams
# Living unrelated kidney transplant 2009 ()
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
follow recs
continue steroids and tacrolimus;
continue diuretic
# 3.7 cm RIGHT RENAL CELL CARCINOMA and 2.9 cm left hemorrhagic renal cyst. Right lower quadrant renal transplant in place without complication.
d/w Renal, likely above finding is consistent with known R kidney lower pole cystic mass known since 08/2021
# Alcohol use disorder
# Coronary artery disease s/p stenting
see plan above
# parox Atrial fibrillation on Eliquis
-now in #Aflutter
-hold eliquis
-Hep ggt
-cont coreg
# Hypertension, multidrug and uncontrolled
continue BP meds
# HLD - statin
DVT ppx: hep ggt
Code: Full
Total time spent on today's encounter was 55 minutes which included time spent in counseling the patient/family regarding diagnosis and treatment plan as listed above, goals of care, and symptom management. Case was discussed with nursing staff,
specialists, and care coordinators/case management. All labs and imaging personally reviewed by me. Remainder the time spent in detailed review of previous records, lab data, imaging, and other medical provider documentation.
Anticipated Discharge: > 48 hours
Subjective/Interval History
-
Date of Service: December 30, 2023
neck pain
no acute events overnight
Objective Data
-
Labs:
Laboratory Results
12/30/23
03:13
Sodium 130 L
Potassium 3.9
Chloride 98
Carbon Dioxide 28
BUN 36 H
Creatinine 2.1 H
Glucose 231 H
Calcium 8.4
Vital Signs:
Vital Signs
Temp Pulse Resp BP Pulse Ox
98.6 F 66 20 154/93 94
12/30/23 12:01 12/30/23 13:00 12/30/23 12:01 12/30/23 12:03 12/30/23 12:01
I&O
12/29/23 12/30/23 12/31/23
06:59 06:59 06:59
Intake Total 1311.6 / 1311.6 480 / 480
Output Total 2400 / 2400
Balance -1088.4 / -1088.4 480 / 480
Physical Exam
-
General: Well Developed, Well Nourished, No Apparent Distress and Comfortable
HEENT: Normocephalic and Atraumatic
Respiratory: Clear to Auscultation and Non Labored Respirations; Negative Accessory Resp Muscle Use
Cardiac: Regular Rhythm and S1/S2
GI: Soft
Neuro: AO x 3
Psych: Calm and Intact Judgement/Insight
Data Reviewed
-
Diagnostic Radiology: Image personally visualized and interpreted and Report Reviewed by me
Labs: Labs Reviewed by me
[2023-12-30 15:33] VITALS: BP 155/94
--- NOTE | 2023-12-30 16:04 | W.PN.CARDCBS ---
Addendum entered and electronically signed by Everton Marques MD 12/30/23 17:04:
Of note he had conversion pauses and will decrease Coreg to 3.125 mg p.o. twice daily.
Addendum entered and electronically signed by Everton Marques MD 12/30/23 16:27:
I saw and examined the patient.
The ADZING AND BORING MACHINE OPERATOR or PA's note was reviewed and I agree with the note.
Comment: General: Well developed, well nourished in NAD.
Neck: Supple, no JVD, HJR, carotids +2 B/L, no bruits bilaterally.
Heart: Non displaced PMI, RRR, no murmurs, No S3, S4, no rubs.
Lungs: Clear to auscultation bilaterally, no wheeze, rhonchi, rubs bilaterally,
normal expiratory phase.
Extremities: Mild edema bilaterally
Neuro: Grossly nonfocal, awake, alert and oriented x3
Stable cardiology status. Nephrology managing diuretics. Continue aspirin, Plavix, Eliquis for 1 week then go to Plavix and Eliquis..
Original Note:
Today's Communication / Plan
-
Continue to diurese
Continue triple therapy x 1 week
Impression / Plan
-
PCP: Dr. Field
Primary Occ Med Physician: Dr. JOSE Bee
Nephrology: Dr. Loya
Impression:
SOB and SHORT
Acute HFpEF
NSTEMI
Abnormal ECG
CAD
s/p Circ/OM stent 08/2014
s/p IWMI with stenting of the mid right coronary artery 06/2016 and staged intervention for in-stent restenosis and new lesion in circ/OM 06/2016
s/p NSTEMI, with abrupt closure of the AV continuation of the Circ supplying 2 small posterolateral branches during cath and then 4 mm Xience to mid LAD and 2.75 mm Xience to the mid to distal OM-1 03/05/19
s/p NSTEMI with 100% distal LAD occlusion stented with a 2.25 mm Xience 12/28/23
CKD 4
s/p Living, unrelated donor (his at the time) renal transplant [facility] 2009
HTN
Paroxysmal Afib/typical aflutter
recurrence noted on ECG in ER 12/27/23
Chronic OAC with eliquis
Active smoker
h/o ETOH use disorder
DM 2
Diabetic neuropathy
Hyperlipidemia
History of NSVT
Polycythemia vera
Chronic pancreatitis
ECHO 10/14/22: Technically difficult study, use IV Definity in future, EF 55 to 60%, likely moderate LVH, normal RV size and function, no significant valvular disease
Echo 08/24/23: EF 60-65%, normal RV size and function, PAP 20-25 mmHg
Echo 12/27/23: EF 45-50%, apical hypokinesis, trivial to small pericardial effusion
Plan:
-Patient is s/p 2.25 mm Xience to the distal LAD. Echo as noted above shows a newly decreased EF at 45-50% and Troponin up to 5.75.
-Patient was taking aspirin and Eliquis 5 mg BID prior to admission. Plan now is for triple therapy with aspirin, Plavix and Eliquis for 1 week then reduce to Plavix and Eliquis thereafter for the next year.
-Hgb stable at 13.4
-GDMT includes Coreg 6.25 mg BID. Patient is not chronically on ALMA DELIA/ARB/aldosterone antagonist due to h/o renal transplant.
-Patient has a living donor kidney from 2009, but has not seen the transplant center recently. 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
-Nephrology following and Cre stable at 2.1 overnight.
-Weight is down at least 3lbs from admission at 227lbs. Patient is symptomatically improved with less edema and SOB. Dry weight at last discharge 09/27/23 was 218 lbs.
-Continue IV lasix 80mg BID. Nephrology added metolazone.
-Patient with paroxysmal Afib/flutter. Periods of atrial tach noted on tele w/ conversion pause in AM 12/30. Asymptomatic. In SR currently.
-Eliquis restarted 12/29/23 AM.
-LDL 86. Patient's Crestor 20 mg daily was held during his 08/2023 admission and supposed to restart 10/05/23, but he never did. Restarted Crestor 20 mg daily on 12/27/23.
-Patient has a h/o chronic pancreatitis and saw GI in the office 11/07/23 and the plan for EUS/EGD for PD stent and stone extraction was cancelled as pain had improved. Lipase is 890 on admission, but trended down to 327 on 12/28/23 AM. Patient now
says that he feels he needs the PD stent and is asking for it to be performed this admission. Reviewed with patient that given NSTEMI and coronary stent this admission with the need for uninterrupted Plavix that he might have to wait until Plavix
can be interrupted for GI procedure.
HPI: Patient came to [facility] today with epigastric pain and SOB and is now being admitted with NSTEMI and acute HF, cardiology has been consulted. Patient started with SOB in the last 3-4 weeks and it has progressively worsened. He noticed increased LE
edema and bloating as well. He thinks he is up 20 lbs or more from his baseline weight. Patient had previously decreased his torsemide dose due to lightheadedness and feeling dehydrated around 04/2023, but then noticed weight gain and edema and was
eventually titrated back up to torsemide 20 mg BID over a couple of months. He says that he has been taking his torsemide, but not urinating as much as he expected. Then he noticed consistent hyperglycemia with blood sugars over 300 and called the
Nephrology office today and was referred to [facility]. Upon arrival patient also described epigastric fullness that is also sometimes pain. Patient has a h/o chronic pancreatitis and saw GI in the office 11/07/23 and the plan for EUS/EGD for PD stent and
stone extraction was cancelled as pain had improved.
Progress Note - Occ Med Physician
Subjective
Date of Service: December 30, 2023
Objective
Labs:
12/29/23 03:56
12/30/23 03:13
Labs
Hgb 13.4 g/dL (13.0-18.0) 12/29/23 03:56
Hct 40.6 % (39.0-52.0) 12/29/23 03:56
Plt Count 193 10^3/uL (130-400) 12/29/23 03:56
APTT Cancelled 12/28/23 16:15
Sodium 130 mmol/L (135-145) L 12/30/23 03:13
Potassium 3.9 mmol/L (3.5-5.1) 12/30/23 03:13
BUN 36 mg/dl (9-20) H 12/30/23 03:13
Creatinine 2.1 mg/dL (0.7-1.3) H 12/30/23 03:13
Glucose 231 mg/dl (70-99) H 12/30/23 03:13
Troponins
12/27/23 12/28/23 12/28/23
19:18 00:00 02:26
Troponin I 4.520 H* 4.680 H* Cancelled
12/28/23 12/28/23 12/28/23
03:50 09:02 16:17
Troponin I 5.070 H* 5.750 H* Cancelled
Vital Signs and I&O:
Vital Signs
Temp Pulse Resp BP Pulse Ox
98.3 F 66 18 154/93 96
12/30/23 15:34 12/30/23 13:00 12/30/23 15:34 12/30/23 12:03 12/30/23 15:34
Vital Signs
Temp Pulse Resp BP Pulse Ox
98.3 F 66 18 154/93 96
12/30/23 15:34 12/30/23 13:00 12/30/23 15:34 12/30/23 12:03 12/30/23 15:34
Intake & Output
12/28/23 12/29/23 12/30/23 12/31/23
06:59 06:59 06:59 06:59
Intake Total 1124.8 / 1124.8 1311.6 / 1311.6 480 / 480
Output Total 2450 / 2450 2400 / 2400
Balance -1325.2 / -1325.2 -1088.4 / -1088.4 480 / 480
--- NOTE | 2023-12-30 16:13 | PTCARENOTE ---
Assessment remains stable, minimal SHORT, and +3 pedal edema. Pt continues to complain of L neck pain, medicated per MAR., VSS remains in SR
[2023-12-30] MEDS: CRESTOR 20 MG PO (17:56)
[2023-12-30 18:00] LABS: Glucose - Point of Care 320 mg/dl (70-99)
[2023-12-30] MEDS: NOVOLOG FLEXPEN-LOW RESISTANCE 4 UNITS SC (18:47)
[2023-12-30 19:38] VITALS: BP 154/87
[2023-12-30] MEDS: COREG 3.125 MG PO (20:04)
[2023-12-30 22:02] VITALS: BP 177/97
[2023-12-30 22:06] LABS: Glucose - Point of Care 359 mg/dl (70-99)
[2023-12-30] MEDS: MELATONIN 5 MG PO (22:10)
[2023-12-30] MEDS: APRESOLINE 200 MG PO (22:10)
[2023-12-30] MEDS: LANTUS 0.400000000000000022 UNITS SC (22:10)
[2023-12-31] VITALS (8 sets, daily range): BP systolic 131–159; BP diastolic 88–117; PULSE 71; BMI 33.4
[2023-12-31 02:24] LABS: Glucose - Point of Care 303 mg/dl (70-99)
[2023-12-31 03:01] LABS: Hematocrit 42.2 % (39.0-52.0); Hemoglobin 13.2 g/dL (13.0-18.0); Mean Corp Hgb Conc. 31.3 g/dL (33.0-37.0); Mean Corpuscular Hgb 25.3 pg (27.0-31.0); Mean Platelet Volume 9.9 fL (7.4-10.4); Platelet Count 176 10^3/uL (130-400); Red Blood Cell Count 5.21 10^6/uL (4.70-6.10); White Blood Cell Count 11.5 10^3/uL (4.8-10.8)
[2023-12-31 03:21] LABS: Blood Urea Nitrogen 38 mg/dl (9-20); Calcium 8.6 mg/dl (8.4-10.2); Carbon Dioxide 27 mmol/L (22-30); Chloride 94 mmol/L (98-107); Estimated Creatinine Clearance 46 ml/min; Glucose 334 mg/dl (70-99); Magnesium 1.9 mg/dl (1.6-2.3); Potassium 3.8 mmol/L (3.5-5.1); Sodium 128 mmol/L (135-145); eGFR 36.04
--- NOTE | 2023-12-31 03:27 | PTCARENOTE ---
Pt. noted to be back in A-fib; monitor showing conversion at 0105. Pt. completely asymptomatic, vitals stable. Rate 90's-low 100's.
[2023-12-31] MEDS: NOVOLOG FLEXPEN 4 UNITS SC (03:40)
--- NOTE | 2023-12-31 03:46 | PTCARENOTE ---
Pt.'s blood sugar 303 via AccuCheck at 0223, 334 by lab draw at 0241. Blood sugar checked as precaution because it was high at 2205 (results 359; 40 units Lantus given), and pt. stated he can tell when it's high by how his eyes feel ('fluttery' -
not observable). House DATA COMMUNICATIONS SOFTWARE CONSULTANT Brady notified, order for 4 units Novalog obtained and administered. Will repeat AccuCheck at 0540 (2 hrs post) per order.
[2023-12-31 05:48] LABS: Glucose - Point of Care 317 mg/dl (70-99)
--- NOTE | 2023-12-31 06:06 | PTCARENOTE ---
Blood sugar at 0547 317. House THIRD LOADER Brady notified, instructed to wait until 0730 AccuCheck and meal time insulin to cover.
[2023-12-31 07:31] LABS: Glucose - Point of Care 210 mg/dl (70-99)
[2023-12-31] MEDS: NOVOLOG FLEXPEN-LOW RESISTANCE 2 UNITS SC ×2 (08:14→13:13)
[2023-12-31] MEDS: NOVOLOG FLEXPEN 10 UNITS SC ×3 (08:14→18:03)
[2023-12-31] MEDS: NEURONTIN 300 MG PO (08:20)
[2023-12-31] MEDS: ELIQUIS 5 MG PO ×2 (08:20→20:21)
[2023-12-31] MEDS: SENOKOT-S 1 TABLET PO ×2 (08:20→20:19)
[2023-12-31] MEDS: PROTONIX 40 MG PO (08:21)
[2023-12-31] MEDS: APRESOLINE 100 MG PO (08:21)
[2023-12-31] MEDS: ASPIR LOW (ENTERIC COATED) 81 MG PO (08:21)
[2023-12-31] MEDS: JARDIANCE 25 MG PO (08:21)
[2023-12-31] MEDS: CARDURA 8 MG PO ×2 (08:22→20:18)
[2023-12-31] MEDS: COREG 3.125 MG PO ×2 (08:22→20:19)
[2023-12-31] MEDS: PLAVIX 75 MG PO (08:22)
[2023-12-31] MEDS: DELTASONE 5 MG PO (08:22)
[2023-12-31] MEDS: PROGRAF 1 MG PO ×2 (08:23→20:19)
[2023-12-31] MEDS: LASIX 80 MG IV ×2 (08:24→16:03)
--- NOTE | 2023-12-31 09:08 | W.PN.CARDCBS ---
Today's Communication / Plan
-
IV diuresis
Triple therapy for 1 week then Plavix plus Eliquis after the 1 week of triple therapy
Lowering Coreg due to some asymptomatic postconversion pause
Will anticoagulation for his atrial arrhythmias
Will follow with you
Impression / Plan
-
PCP: Dr. Field
Primary Panel Installer: Dr. JOSE Bee
Nephrology: Dr. Loya
Impression:
SOB and SHORT
Acute HFpEF
NSTEMI
Abnormal ECG
CAD
s/p Circ/OM stent 08/2014
s/p IWMI with stenting of the mid right coronary artery 06/2016 and staged intervention for in-stent restenosis and new lesion in circ/OM 06/2016
s/p NSTEMI, with abrupt closure of the AV continuation of the Circ supplying 2 small posterolateral branches during cath and then 4 mm Xience to mid LAD and 2.75 mm Xience to the mid to distal OM-1 03/05/19
s/p NSTEMI with 100% distal LAD occlusion stented with a 2.25 mm Xience 12/28/23
CKD 4
s/p Living, unrelated donor (his at the time) renal transplant [facility] 2009
HTN
Paroxysmal Afib/typical aflutter
recurrence noted on ECG in ER 12/27/23
Chronic OAC with eliquis
Active smoker
h/o ETOH use disorder
DM 2
Diabetic neuropathy
Hyperlipidemia
History of NSVT
Polycythemia vera
Chronic pancreatitis
ECHO 10/14/22: Technically difficult study, use IV Definity in future, EF 55 to 60%, likely moderate LVH, normal RV size and function, no significant valvular disease
Echo 08/24/23: EF 60-65%, normal RV size and function, PAP 20-25 mmHg
Echo 12/27/23: EF 45-50%, apical hypokinesis, trivial to small pericardial effusion
Plan:
-Patient is s/p 2.25 mm Xience to the distal LAD. Echo as noted above shows a newly decreased EF at 45-50% and Troponin up to 5.75.
-Patient was taking aspirin and Eliquis 5 mg BID prior to admission. Plan now is for triple therapy with aspirin, Plavix and Eliquis for 1 week then reduce to Plavix and Eliquis thereafter for the next year.
-Hgb stable at 13.4
-GDMT includes Coreg 6.25 mg BID. Patient is not chronically on ALMA DELIA/ARB/aldosterone antagonist due to h/o renal transplant. We lowered Coreg to 3.125 mg twice daily due to some postconversion pauses and he has sinus rhythm this morning. Ischemia
could be driving his increase in paroxysmal arrhythmias and hopefully this should calm down over time and as an outpatient we can increase his Coreg.
-Patient has a living donor kidney from 2009, but has not seen the transplant center recently. 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
-Nephrology following and Cre stable at 2.1 overnight.
-Weight is down at least 3lbs from admission at 227lbs. Patient is symptomatically improved with less edema and SOB. Dry weight at last discharge 09/27/23 was 218 lbs. defer to nephrology regarding diuretic close still carrying fluid in his thighs,
calves and abdomen. I suspect he needs 1 to 2 days of continued IV diuresis but hopefully is approaching and nearing discharge over the next 24 to 48 hours.
-Continue IV lasix 80mg BID. Nephrology added metolazone.
-Patient with paroxysmal Afib/flutter. Periods of atrial tach noted on tele w/ conversion pause in AM 12/30. Asymptomatic. In SR currently.
-Eliquis restarted 12/29/23 AM.
-LDL 86. Patient's Crestor 20 mg daily was held during his 08/2023 admission and supposed to restart 10/05/23, but he never did. Restarted Crestor 20 mg daily on 12/27/23.
-Patient has a h/o chronic pancreatitis and saw GI in the office 11/07/23 and the plan for EUS/EGD for PD stent and stone extraction was cancelled as pain had improved. Lipase is 890 on admission, but trended down to 327 on 12/28/23 AM. Patient now
says that he feels he needs the PD stent and is asking for it to be performed this admission. Reviewed with patient that given NSTEMI and coronary stent this admission with the need for uninterrupted Plavix that he might have to wait until Plavix
can be interrupted for GI procedure.
HPI: Patient came to [facility] today with epigastric pain and SOB and is now being admitted with NSTEMI and acute HF, cardiology has been consulted. Patient started with SOB in the last 3-4 weeks and it has progressively worsened. He noticed increased LE
edema and bloating as well. He thinks he is up 20 lbs or more from his baseline weight. Patient had previously decreased his torsemide dose due to lightheadedness and feeling dehydrated around 04/2023, but then noticed weight gain and edema and was
eventually titrated back up to torsemide 20 mg BID over a couple of months. He says that he has been taking his torsemide, but not urinating as much as he expected. Then he noticed consistent hyperglycemia with blood sugars over 300 and called the
Nephrology office today and was referred to [facility]. Upon arrival patient also described epigastric fullness that is also sometimes pain. Patient has a h/o chronic pancreatitis and saw GI in the office 11/07/23 and the plan for EUS/EGD for PD stent and
stone extraction was cancelled as pain had improved.
Progress Note - Panel Installer
Subjective
Date of Service: December 31, 2023
He is biggest symptom 2 patient is the edema
Objective
Labs:
12/31/23 02:41
12/31/23 02:41
Labs
Hgb 13.2 g/dL (13.0-18.0) 12/31/23 02:41
Hct 42.2 % (39.0-52.0) 12/31/23 02:41
Plt Count 176 10^3/uL (130-400) 12/31/23 02:41
APTT Cancelled 12/28/23 16:15
Sodium 128 mmol/L (135-145) L 12/31/23 02:41
Potassium 3.8 mmol/L (3.5-5.1) 12/31/23 02:41
BUN 38 mg/dl (9-20) H 12/31/23 02:41
Creatinine 2.1 mg/dL (0.7-1.3) H 12/31/23 02:41
Glucose 334 mg/dl (70-99) H 12/31/23 02:41
Troponins
12/28/23 12/28/23
09:02 16:17
Troponin I 5.750 H* Cancelled
Vital Signs and I&O:
Vital Signs
Temp Pulse Resp BP Pulse Ox
98.4 F 105 16 131/91 97
12/31/23 07:28 12/31/23 08:21 12/31/23 07:28 12/31/23 08:21 12/31/23 07:28
Vital Signs
Temp Pulse Resp BP Pulse Ox
98.4 F 105 16 131/91 97
12/31/23 07:28 12/31/23 08:21 12/31/23 07:28 12/31/23 08:21 12/31/23 07:28
Intake & Output
12/29/23 12/30/23 12/31/23 01/01/24
06:59 06:59 06:59 06:59
Intake Total 1311.6 / 1311.6 480 / 480
Output Total 2400 / 2400 2099 / 2099
Balance -1088.4 / -1088.4 480 / 480 -2099 / -2099
Physical Exam
Physical Exam
HEENT normocephalic atraumatic
JVP 6
Negative carotid bruit
Cor regular no murmur
Lungs are diminished bilaterally
Abdomen soft nontender but appears to be somewhat distended due to fluid
Edema in the thigh and calves at 2+
Alert and x 3
Nonfocal neurologically
[2023-12-31] MEDS: ULTRAM 25 MG PO ×2 (09:19→20:16)
--- NOTE | 2023-12-31 09:33 | PTCARENOTE ---
Pt ambulated in hallways. Pt c/o SHORT during his walk. Pt also c/o posterior left neck pain w/ tingling that radiated down his left arm and fingers. Pt states that it is subsiding at rest. Torodol given. Will monitor.
--- NOTE | 2023-12-31 12:06 | W.PN.NEPH.PH ---
Today's Communication / Plan
-
zaroxolyn
Assessment/Plan
-
Impression:
Acute on Chronic HFpEF EF 45-50%
NSTEMI
Midepigastric pain
CKD stage IIIblately cr 2
Hyponatremia
History [facility] in 09/2022 [facility] on transplant biopsy with background moderately severe chronic changes predominantly FSGS
Nephrotic syndrome 27grams
Living unrelated kidney transplant 2009 ()
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
Right [place] kidney lower pole cystic mass since at least 09/09/21
Diabetes mellitus 2 uncontrolled
acute on chronic pancreatitis
h/o Alcohol use disorder
active smoker
Diabetic peripheral neuropathy
Immunosuppression on tacrolimus and prednisone,
Coronary artery disease status post stent(s)
Coronary angioplasty implant and graft
Atrial fibrillation on Eliquis
Hypertension, multidrug and uncontrolled
HLD
Hypoalbuminemia
Plan:
-follow BMP
-lasix IV
-add metolazone BID
-
-
Date of Service: December 31, 2023
CC / HPI / ROS
-
Chief Complaint:
CKD, h/o KTP
History of Present Illness:
cr stable at 2.1, nonoliguric without petty
s/p LHC with LAD stent, LVEDP high
BP stable.
Na low 128
Review of Systems:
no cp
no sob at rest
still with edema
Labs
-
Labs:
WBC 11.5 10^3/uL (4.8-10.8) H 12/31/23 02:41
RBC 5.21 10^6/uL (4.70-6.10) 12/31/23 02:41
Hgb 13.2 g/dL (13.0-18.0) 12/31/23 02:41
Hct 42.2 % (39.0-52.0) 12/31/23 02:41
Plt Count 176 10^3/uL (130-400) 12/31/23 02:41
Sodium 128 mmol/L (135-145) L 12/31/23 02:41
Potassium 3.8 mmol/L (3.5-5.1) 12/31/23 02:41
Chloride 94 mmol/L (98-107) L 12/31/23 02:41
Carbon Dioxide 27 mmol/L (22-30) 12/31/23 02:41
BUN 38 mg/dl (9-20) H 12/31/23 02:41
Creatinine 2.1 mg/dL (0.7-1.3) H 12/31/23 02:41
eGFR 36.04 12/31/23 02:41
Glucose 334 mg/dl (70-99) H 12/31/23 02:41
Calcium 8.6 mg/dl (8.4-10.2) 12/31/23 02:41
Fsd-F-Ndpmdqmancu Pept 94550 pg/ml 12/27/23 09:37
Albumin 2.0 g/dl (3.5-5.0) L 12/28/23 03:50
Physical Exam
-
Vital Signs:
Vital Signs
Temp Pulse Resp BP Pulse Ox
98.2 F 65 16 131/91 95
12/31/23 12:00 12/31/23 12:00 12/31/23 12:00 12/31/23 08:21 12/31/23 12:00
Cardiovascular:: Regular rate and rhythm
Respiratory:: Bilateral: Coarse
Lung Excursion:: Normal
Abdomen:: Nontender and Soft
Bowel Sounds:: Normal
Extremity Edema:: +2: Bilateral:
[2023-12-31 12:11] LABS: Glucose - Point of Care 200 mg/dl (70-99)
[2023-12-31] MEDS: ZAROXOLYN 5 MG PO (13:09)
--- NOTE | 2023-12-31 13:41 | W.PN.HOSP.TC ---
Today's Communication/Plan
-
IV Lasix
Metolazone
Assessment / Plan
Assessment / Plan
General: Well Developed and Well Nourished
HEENT: NormoCephalic
Respiratory: Clear
Cardiac: S1/S2
GI: Soft and Non Tender
Musculoskeletal: No Clubbing and Other (+2 pitting B/L LE edema to just above the knee. No clubbing, cyanosis or lesions B/L)
Skin: Warm
Neuro: Awake, Alert and Oriented
Hematologic/Lymphatic: No Lymphadenopathy
58� year old with PMH for ESRD s/p renal transplant, osteo, atrial fib, htn, type 2 DM, acute on chronic pancreatitis (last admit 08/2023), now presents for worsening shortness of breath, abdominal bloating and mid abdominal pain.� Found to have
NSTEMI and CHF exacerbation.
PLAN:
#Acute on Chronic HFpEF
-80mg IV lasix BID
- metolazone
-EF 45-50%; LVH; LHC with elevated LVEDP
-F/u Cards plans for further diuresis
-Trend Troponin
-Low fat/DM diet
#Chest pain
#NSTEMI
-Cont asa
-S/P PCI 12/28
-Uninterrupted dual antiplatelet therapy with daily baby aspirin and Plavix 75 mg along with Eliquis for underlying atrial fibrillation/flutter for 1 week with plan to then discontinue baby aspirin and continue Eliquis and Plavix for at least 1 year
along with high intensity statin and beta-jamal as tolerated.
#Midepigastric pain
#Elevated Lipase
-Lipase trending fown
-the plan was for EUS/EGD for PD stent and stone extraction although was cancelled as pain had improved
-doubt it is pancreatic pain at this time; if pain persists s/p cath, then can re-eval GI consult; pain not present at this time
#Severe neck and shoulder pain, radiating to left arm
�CT neck negative
� PT/OT
� Follow-up orthopedics outpatient
#Acute Hyponatremia
-most likely fluid overload + Hyperglycemia
-monitor with diuresis
#DM2
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
DM educator
-Was on insulin ggt
-Hgba1c 13.3
-Lantus and Novolog titration
-1800 kcal
-Cont low corrective and OP Jardiance 25mg daily. Glipizide will not be restarted- pt was made aware.�
#�CKD stage IIIb (1.5)
# Nephrotic syndrome >7grams
# Living unrelated kidney transplant 2009 ()
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
follow recs
continue steroids and tacrolimus;
continue diuretic
# 3.7 cm RIGHT RENAL CELL CARCINOMA and 2.9 cm left hemorrhagic renal cyst. Right lower quadrant renal transplant in place without complication.
d/w Renal, likely above finding is consistent with known R kidney lower pole cystic mass known since 08/2021
#Pulmonary nodules
� Following CT surgery outpatient, opting for close observation
� Follow-up CT surgery closely outpatient
# Alcohol use disorder
# Coronary artery disease s/p stenting
see plan above
# parox Atrial fibrillation on Eliquis
-now in #Aflutter
-hold eliquis
-Hep ggt
-cont coreg
# Hypertension, multidrug and uncontrolled
continue BP meds
# HLD - statin
DVT ppx: hep ggt
Code: Full
Total time spent on today's encounter was 52 minutes which included time spent in counseling the patient/family regarding diagnosis and treatment plan as listed above, goals of care, and symptom management. Case was discussed with nursing staff,
specialists, and care coordinators/case management. All labs and imaging personally reviewed by me. Remainder the time spent in detailed review of previous records, lab data, imaging, and other medical provider documentation.
Anticipated Discharge: > 48 hours
Subjective/Interval History
-
Date of Service: December 31, 2023
Continue diuresis
Objective Data
-
Labs:
Laboratory Results
12/31/23
02:41
WBC 11.5 H
Hgb 13.2
Hct 42.2
Plt Count 176
Sodium 128 L
Potassium 3.8
Chloride 94 L
Carbon Dioxide 27
BUN 38 H
Creatinine 2.1 H
Glucose 334 H
Calcium 8.6
Vital Signs:
Vital Signs
Temp Pulse Resp BP Pulse Ox
98.2 F 70 16 159/95 95
12/31/23 12:00 12/31/23 13:09 12/31/23 12:00 12/31/23 13:09 12/31/23 12:00
I&O
12/30/23 12/31/23 01/01/24
06:59 06:59 06:59
Intake Total 480 / 480
Output Total 2100 / 2100
Balance 480 / 480 -2100 / -2100
Data Reviewed
-
Diagnostic Radiology: Image personally visualized and interpreted and Report Reviewed by me
Labs: Labs Reviewed by me
--- NOTE | 2023-12-31 15:58 | PTOTSP ---
Patient demonstrates safe and independent mobility, no skilled physical therapy needs in hospital setting, did encourage patient to follow up with primary and/or orthopedic Dr for neck symptoms and reports of worsening neuropathy - outpatient PT may
be helpful for both issues, patient receptive.
[2023-12-31 17:53] LABS: Glucose - Point of Care 188 mg/dl (70-99)
[2023-12-31] MEDS: NOVOLOG FLEXPEN-LOW RESISTANCE 1 UNITS SC (18:02)
[2023-12-31] MEDS: CRESTOR 20 MG PO (18:02)
[2023-12-31] MEDS: TYLENOL 1000 MG PO (20:18)
[2023-12-31 21:41] LABS: Glucose - Point of Care 277 mg/dl (70-99)
[2023-12-31] MEDS: APRESOLINE 200 MG PO (22:32)
[2023-12-31] MEDS: MELATONIN 5 MG PO (22:32)
[2023-12-31] MEDS: LANTUS 0.400000000000000022 UNITS SC (22:33)
[2024-01-01] VITALS (7 sets, daily range): BP systolic 129–149; BP diastolic 79–96; BMI 31.7
[2024-01-01 05:11] LABS: Blood Urea Nitrogen 36 mg/dl (9-20); Calcium 8.8 mg/dl (8.4-10.2); Carbon Dioxide 33 mmol/L (22-30); Chloride 93 mmol/L (98-107); Estimated Creatinine Clearance 44 ml/min; Glucose 217 mg/dl (70-99); Potassium 3.6 mmol/L (3.5-5.1); Sodium 128 mmol/L (135-145); eGFR 34.08
[2024-01-01 08:12] LABS: Glucose - Point of Care 168 mg/dl (70-99)
[2024-01-01] MEDS: NOVOLOG FLEXPEN-LOW RESISTANCE 1 UNITS SC (08:27)
[2024-01-01] MEDS: NOVOLOG FLEXPEN 10 UNITS SC ×4 (08:27→22:08)
[2024-01-01] MEDS: PLAVIX 75 MG PO (08:29)
[2024-01-01] MEDS: PROGRAF 1 MG PO ×2 (08:29→20:20)
[2024-01-01] MEDS: APRESOLINE 100 MG PO (08:30)
[2024-01-01] MEDS: NEURONTIN 300 MG PO (08:30)
[2024-01-01] MEDS: ELIQUIS 5 MG PO ×2 (08:30→20:20)
[2024-01-01] MEDS: DELTASONE 5 MG PO (08:32)
[2024-01-01] MEDS: JARDIANCE 25 MG PO (08:32)
[2024-01-01] MEDS: ASPIR LOW (ENTERIC COATED) 81 MG PO (08:32)
[2024-01-01] MEDS: PROTONIX 40 MG PO (08:32)
[2024-01-01] MEDS: CARDURA 8 MG PO ×2 (08:32→20:21)
[2024-01-01] MEDS: ZAROXOLYN 5 MG PO ×2 (08:32→16:05)
[2024-01-01] MEDS: SENOKOT-S 1 TABLET PO ×2 (08:32→20:21)
[2024-01-01] MEDS: COREG 3.125 MG PO ×2 (08:32→20:20)
[2024-01-01] MEDS: LASIX 80 MG IV ×2 (08:33→16:35)
--- NOTE | 2024-01-01 09:01 | W.PN.CARDCBS ---
Today's Communication / Plan
-
IV diuresis
Follow nephrology recommendations
Eliquis and triple therapy in the short-term status post stent
Follow creatinine
Will follow with you as hospitalized
Edema appears better
Impression / Plan
-
PCP: Dr. Field
Primary Belt Builder: Dr. JOSE Bee
Nephrology: Dr. Loya
Impression:
SOB and SHORT
Acute HFpEF
NSTEMI
Abnormal ECG
CAD
s/p Circ/OM stent 08/2014
s/p IWMI with stenting of the mid right coronary artery 06/2016 and staged intervention for in-stent restenosis and new lesion in circ/OM 06/2016
s/p NSTEMI, with abrupt closure of the AV continuation of the Circ supplying 2 small posterolateral branches during cath and then 4 mm Xience to mid LAD and 2.75 mm Xience to the mid to distal OM-1 03/05/19
s/p NSTEMI with 100% distal LAD occlusion stented with a 2.25 mm Xience 12/28/23
CKD 4
s/p Living, unrelated donor (his at the time) renal transplant LV[facility] 2009
HTN
Paroxysmal Afib/typical aflutter
recurrence noted on ECG in ER 12/27/23
Chronic OAC with eliquis
Active smoker
h/o ETOH use disorder
DM 2
Diabetic neuropathy
Hyperlipidemia
History of NSVT
Polycythemia vera
Chronic pancreatitis
ECHO 10/14/22: Technically difficult study, use IV Definity in future, EF 55 to 60%, likely moderate LVH, normal RV size and function, no significant valvular disease
Echo 08/24/23: EF 60-65%, normal RV size and function, PAP 20-25 mmHg
Echo 12/27/23: EF 45-50%, apical hypokinesis, trivial to small pericardial effusion
Plan:
-Patient is s/p 2.25 mm Xience to the distal LAD. Echo as noted above shows a newly decreased EF at 45-50% and Troponin up to 5.75.
-Patient was taking aspirin and Eliquis 5 mg BID prior to admission. Plan now is for triple therapy with aspirin, Plavix and Eliquis for 1 week then reduce to Plavix and Eliquis thereafter for the next year.
-Hgb stable at 13.4
-GDMT includes Coreg 6.25 mg BID. Patient is not chronically on ALMA DELIA/ARB/aldosterone antagonist due to h/o renal transplant. We lowered Coreg to 3.125 mg twice daily due to some postconversion pauses and he has A-fib this morning. Ischemia could be
driving his increase in paroxysmal arrhythmias and hopefully this should calm down over time and as an outpatient we can increase his Coreg.
-Patient has a living donor kidney from 2009, but has not seen the transplant center recently. 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
-Nephrology following and Cre stable at 2. 2 overnight.
-We do not yet have a weight on January 01 and his edema is improved although his I and O's would suggest a positive fluid balance. I suspect he needs 1 to 2 days of continued IV diuresis but hopefully is approaching and nearing discharge over the
next 24 to 48 hours.
-Continue IV lasix 80mg BID. Nephrology added metolazone. Defer to nephrology given his history of renal transplant regarding ultimate Lasix dose and delivery modality
-Patient with paroxysmal Afib/flutter. Periods of atrial tach noted on tele w/ conversion pause in AM 2/. Asymptomatic. In SR currently.
-Eliquis restarted 12/29/23 AM.
-LDL 86. Patient's Crestor 20 mg daily was held during his 08/2023 admission and supposed to restart 10/05/23, but he never did. Restarted Crestor 20 mg daily on 12/27/23.
-Patient has a h/o chronic pancreatitis and saw GI in the office 11/07/23 and the plan for EUS/EGD for PD stent and stone extraction was cancelled as pain had improved. Lipase is 890 on admission, but trended down to 327 on 12/28/23 AM. Patient now
says that he feels he needs the PD stent and is asking for it to be performed this admission. Reviewed with patient that given NSTEMI and coronary stent this admission with the need for uninterrupted Plavix that he might have to wait until Plavix
can be interrupted for GI procedure.
HPI: Patient came to [facility] today with epigastric pain and SOB and is now being admitted with NSTEMI and acute HF, cardiology has been consulted. Patient started with SOB in the last 3-4 weeks and it has progressively worsened. He noticed increased LE
edema and bloating as well. He thinks he is up 20 lbs or more from his baseline weight. Patient had previously decreased his torsemide dose due to lightheadedness and feeling dehydrated around 04/2023, but then noticed weight gain and edema and was
eventually titrated back up to torsemide 20 mg BID over a couple of months. He says that he has been taking his torsemide, but not urinating as much as he expected. Then he noticed consistent hyperglycemia with blood sugars over 300 and called the
Nephrology office today and was referred to [facility]. Upon arrival patient also described epigastric fullness that is also sometimes pain. Patient has a h/o chronic pancreatitis and saw GI in the office 11/07/23 and the plan for EUS/EGD for PD stent and
stone extraction was cancelled as pain had improved.
Progress Note - Belt Builder
Subjective
Date of Service: January 01, 2024
Feels better edema improved
Objective
Labs:
12/31/23 02:41
01/01/24 04:10
Labs
Hgb 13.2 g/dL (13.0-18.0) 12/31/23 02:41
Hct 42.2 % (39.0-52.0) 12/31/23 02:41
Plt Count 176 10^3/uL (130-400) 12/31/23 02:41
APTT Cancelled 12/28/23 16:15
Sodium 128 mmol/L (135-145) L 01/01/24 04:10
Potassium 3.6 mmol/L (3.5-5.1) 01/01/24 04:10
BUN 36 mg/dl (9-20) H 01/01/24 04:10
Creatinine 2.2 mg/dL (0.7-1.3) H 01/01/24 04:10
Glucose 217 mg/dl (70-99) H 01/01/24 04:10
Vital Signs and I&O:
Vital Signs
Temp Pulse Resp BP Pulse Ox
99.1 F 100 20 130/79 94
01/01/24 08:17 01/01/24 08:30 01/01/24 08:17 01/01/24 08:30 01/01/24 08:17
Vital Signs
Temp Pulse Resp BP Pulse Ox
99.1 F 100 20 130/79 94
01/01/24 08:17 01/01/24 08:30 01/01/24 08:17 01/01/24 08:30 01/01/24 08:17
Intake & Output
12/30/23 12/31/23 01/01/24 01/02/24
06:59 06:59 06:59 06:59
Intake Total 480 / 480 900 / 900
Output Total 2100 / 2100 550 / 550
Balance 480 / 480 -2100 / -2100 350 / 350
Physical Exam
Physical Exam
H&T number cephalic atraumatic
JVP 6
Cor regular
Lungs clear to auscultation bilaterally
Abdomen soft nontender positive bowel sounds
Alert and x 3
Nonfocal neurologically
[2024-01-01] MEDS: ROXICODONE 5 MG PO ×3 (09:56→20:21)
--- NOTE | 2024-01-01 11:24 | W.PN.NEPH.PH ---
Today's Communication / Plan
-
diurese
Assessment/Plan
-
Impression:
Acute on Chronic HFpEF EF 45-50%
NSTEMI
Midepigastric pain
CKD stage IIIblately cr 2
Hyponatremia
History [facility] in 09/2022 [facility] on transplant biopsy with background moderately severe chronic changes predominantly FSGS
Nephrotic syndrome 27grams
Living unrelated kidney transplant 2009 ()
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
Right [place] kidney lower pole cystic mass since at least 09/09/21
Diabetes mellitus 2 uncontrolled
acute on chronic pancreatitis
h/o Alcohol use disorder
active smoker
Diabetic peripheral neuropathy
Immunosuppression on tacrolimus and prednisone,
Coronary artery disease status post stent(s)
Coronary angioplasty implant and graft
Atrial fibrillation on Eliquis
Hypertension, multidrug and uncontrolled
HLD
Hypoalbuminemia
Plan:
-follow BMP
-lasix IV
-add metolazone BID today, hold in am to resess
-
-
Date of Service: January 01, 2024
CC / HPI / ROS
-
Chief Complaint:
CKD, h/o KTP
History of Present Illness:
cr stable at 2.2, nonoliguric without petty
s/p LHC with LAD stent, LVEDP high
BP stable.
Na low 128 still
excellent diuresis with IV lasix and metolazone
Review of Systems:
no cp
no sob at rest
still with edema
Labs
-
Labs:
WBC 11.5 10^3/uL (4.8-10.8) H 12/31/23 02:41
RBC 5.21 10^6/uL (4.70-6.10) 12/31/23 02:41
Hgb 13.2 g/dL (13.0-18.0) 12/31/23 02:41
Hct 42.2 % (39.0-52.0) 12/31/23 02:41
Plt Count 176 10^3/uL (130-400) 12/31/23 02:41
Sodium 128 mmol/L (135-145) L 01/01/24 04:10
Potassium 3.6 mmol/L (3.5-5.1) 01/01/24 04:10
Chloride 93 mmol/L (98-107) L 01/01/24 04:10
Carbon Dioxide 33 mmol/L (22-30) H 01/01/24 04:10
BUN 36 mg/dl (9-20) H 01/01/24 04:10
Creatinine 2.2 mg/dL (0.7-1.3) H 01/01/24 04:10
eGFR 34.08 01/01/24 04:10
Glucose 217 mg/dl (70-99) H 01/01/24 04:10
Calcium 8.8 mg/dl (8.4-10.2) 01/01/24 04:10
Izv-T-Knmwxzoqanz Pept 17494 pg/ml 12/27/23 09:37
Albumin 2.0 g/dl (3.5-5.0) L 12/28/23 03:50
Physical Exam
-
Vital Signs:
Vital Signs
Temp Pulse Resp BP Pulse Ox
99.1 F 91 20 130/79 93
01/01/24 08:17 01/01/24 11:00 01/01/24 08:17 01/01/24 08:30 01/01/24 08:19
Cardiovascular:: Regular rate and rhythm
Respiratory:: Bilateral: Coarse
Lung Excursion:: Normal
Abdomen:: Nontender and Soft
Bowel Sounds:: Normal
Extremity Edema:: +3: Bilateral:
[2024-01-01 12:49] LABS: Glucose - Point of Care 300 mg/dl (70-99)
[2024-01-01] MEDS: NOVOLOG FLEXPEN-LOW RESISTANCE 4 UNITS SC (13:08)
--- NOTE | 2024-01-01 14:31 | W.PN.HOSP.TC ---
Today's Communication/Plan
-
diuresis - lasix, metolazone BID today
Assessment / Plan
Assessment / Plan
General: Well Developed and Well Nourished
HEENT: NormoCephalic
Respiratory: Clear
Cardiac: S1/S2
GI: Soft and Non Tender
Musculoskeletal: No Clubbing and Other (+2 pitting B/L LE edema to just above the knee. No clubbing, cyanosis or lesions B/L)
Skin: Warm
Neuro: Awake, Alert and Oriented
Hematologic/Lymphatic: No Lymphadenopathy
58� year old with PMH for ESRD s/p renal transplant, osteo, atrial fib, htn, type 2 DM, acute on chronic pancreatitis (last admit 08/2023), now presents for worsening shortness of breath, abdominal bloating and mid abdominal pain.� Found to have
NSTEMI and CHF exacerbation.
PLAN:
#Acute on Chronic HFpEF
-80mg IV lasix BID
- metolazone BID today
-EF 45-50%; LVH; LHC with elevated LVEDP
-F/u Cards plans for further diuresis
-Trend Troponin
-Low fat/DM diet
#Chest pain
#NSTEMI
-Cont asa
-S/P PCI 12/28
-Uninterrupted dual antiplatelet therapy with daily baby aspirin and Plavix 75 mg along with Eliquis for underlying atrial fibrillation/flutter for 1 week with plan to then discontinue baby aspirin and continue Eliquis and Plavix for at least 1 year
along with high intensity statin and beta-jamal as tolerated.
#Midepigastric pain
#Elevated Lipase
-Lipase trending fown
-the plan was for EUS/EGD for PD stent and stone extraction although was cancelled as pain had improved
-doubt it is pancreatic pain at this time; if pain persists s/p cath, then can re-eval GI consult; pain not present at this time
#Severe neck and shoulder pain, radiating to left arm
�CT neck negative
� PT/OT
� Follow-up orthopedics outpatient
#Acute Hyponatremia
-most likely fluid overload + Hyperglycemia
-monitor with diuresis
#DM2
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
DM educator
-Was on insulin ggt
-Hgba1c 13.3
-Lantus and Novolog titration
-1800 kcal
-Cont low corrective and OP Jardiance 25mg daily. Glipizide will not be restarted- pt was made aware.�
#�CKD stage IIIb (1.5)
# Nephrotic syndrome >7grams
# Living unrelated kidney transplant 2009 ()
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
follow recs
continue steroids and tacrolimus;
continue diuretic
# 3.7 cm RIGHT RENAL CELL CARCINOMA and 2.9 cm left hemorrhagic renal cyst. Right lower quadrant renal transplant in place without complication.
d/w Renal, likely above finding is consistent with known R kidney lower pole cystic mass known since 08/2021
#Pulmonary nodules
� Following CT surgery outpatient, opting for close observation
� Follow-up CT surgery closely outpatient
# Alcohol use disorder
# Coronary artery disease s/p stenting
see plan above
# parox Atrial fibrillation on Eliquis
-now in #Aflutter
-hold eliquis
-Hep ggt
-cont coreg
# Hypertension, multidrug and uncontrolled
continue BP meds
# HLD - statin
DVT ppx: hep ggt
Code: Full
Anticipated Discharge: Within 24 hours
Subjective/Interval History
-
Date of Service: January 01, 2024
edema improved
Objective Data
-
Labs:
Laboratory Results
01/01/24
04:10
Sodium 128 L
Potassium 3.6
Chloride 93 L
Carbon Dioxide 33 H
BUN 36 H
Creatinine 2.2 H
Glucose 217 H
Calcium 8.8
Vital Signs:
Vital Signs
Temp Pulse Resp BP Pulse Ox
98.3 F 98 20 132/84 94
01/01/24 12:04 01/01/24 12:02 01/01/24 12:04 01/01/24 12:02 01/01/24 12:04
I&O
12/31/23 01/01/24 01/02/24
06:59 06:59 06:59
Intake Total 900 / 900
Output Total 2099 550 / 550
Balance -2099 -2099 350 / 350
Review of Systems
-
History Source: Patient
All other systems: Not reviewed unless documented
Physical Exam
-
General: Well Developed, Well Nourished, No Apparent Distress and Comfortable
HEENT: Normocephalic and Atraumatic
Respiratory: Clear to Auscultation and Non Labored Respirations; Negative Accessory Resp Muscle Use
Cardiac: Regular Rhythm and S1/S2
GI: Soft
Neuro: AO x 3
Psych: Calm and Intact Judgement/Insight
Data Reviewed
-
Diagnostic Radiology: Image personally visualized and interpreted and Report Reviewed by me
Labs: Labs Reviewed by me
[2024-01-01 17:17] LABS: Glucose - Point of Care 360 mg/dl (70-99)
[2024-01-01] MEDS: CRESTOR 20 MG PO (18:22)
[2024-01-01] MEDS: NOVOLOG FLEXPEN-LOW RESISTANCE 5 UNITS SC (18:23)
[2024-01-01 21:39] LABS: Glucose - Point of Care 353 mg/dl (70-99)
[2024-01-01] MEDS: LANTUS 0.400000000000000022 UNITS SC (22:08)
[2024-01-01] MEDS: MELATONIN 5 MG PO (22:16)
[2024-01-01] MEDS: APRESOLINE 200 MG PO (22:17)
--- NOTE | 2024-01-01 23:05 | PTCARENOTE ---
Received pt at handoff. Tele- SR w/ PVCs. Assessment noted as documented. VSS. C/o L shoulder pain 06/06. Roxicodone administered as ordered. See MAR. At HS, accu-check 353. Percy Cruz SHINGLES ROOFER notified. 40 units of Lantus administered w/ an additional 10
units of Novolog ordered and administered per Percy Cruz. Reports no dizziness/discomfort. Pt states 'I don't understand why my sugar is so high the only sweet I had was a muffin my friend brought me.' Pt educated on importance of diet and sugar
control. Verbalizes understanding. Pt currently resting in bed; call rowena w/in reach.
[2024-01-01 23:53] LABS: Glucose - Point of Care 309 mg/dl (70-99)
[2024-01-02] VITALS (7 sets, daily range): BP systolic 110–153; BP diastolic 73–96; BMI 31.0
[2024-01-02 05:10] LABS: Hematocrit 44.5 % (39.0-52.0); Hemoglobin 14.3 g/dL (13.0-18.0); Mean Corp Hgb Conc. 32.1 g/dL (33.0-37.0); Mean Corpuscular Hgb 25.2 pg (27.0-31.0); Mean Corpuscular Volume 78.3 fL (80.0-94.0); Mean Platelet Volume 9.2 fL (7.4-10.4); Platelet Count 206 10^3/uL (130-400); Red Blood Cell Count 5.68 10^6/uL (4.70-6.10); Red Cell Dist. Width 13.9 % (11.5-14.5); White Blood Cell Count 12.5 10^3/uL (4.8-10.8)
[2024-01-02 05:31] LABS: Blood Urea Nitrogen 41 mg/dl (9-20); Calcium 9.2 mg/dl (8.4-10.2); Carbon Dioxide 34 mmol/L (22-30); Chloride 87 mmol/L (98-107); Estimated Creatinine Clearance 38 ml/min; Glucose 153 mg/dl (70-99); Potassium 3.3 mmol/L (3.5-5.1); Sodium 130 mmol/L (135-145); eGFR 30.51
--- NOTE | 2024-01-02 07:35 | PN.DE.MGMTRT ---
Insulin Management
- -
12/27/2023: Diabetes Management Consult
58�year old male who p/w with worsening SOB, abd bloating and mid abd pain and Hyperglycemia.
PMH includes: ESRD s/p renal transplant, osteo, A-Fib, HTN, CAD, HLD, T2DM and acute on chronic pancreatitis (last admit 08/2023)
He is noted for NSTEMI and persistent Hyperglycemia, glusoe has trended up to 500. Pt states he has not taken his long acting insulin in over a week and half. Routinely seen Dr. James, was taking Basaglar 15 units @ HS, Jardiance and Glipizide 5mg
BID.
His current glucose remains RR HI at this current time and is awaiting a stat venous lab draw.
d/w Hospitalist Dr. Tse and recommended continuous insulin infusion for optimal glucose control
12/28/2023 Diabetes Management Follow up
Patient maintained on insulin infusion overnight, required 1 to 2 units of insulin per hour. Cr 2.0, egfr 38.21. Will give 14 units of Lantus now then discontinue insulin infusion 2 hours after Lantus. When returns from cardiac cath can start 1800
calorie diet and 5 units NovoLog AC with corrective insulin.
A1C is 13.3%. Lengthy discussion with patient glipizide will not be restarted and AC NovoLog started. Will follow
12/29/2023 Diabetes Management Follow up
Transitioned from insulin infusion yesterday with 14 units Lantus then drip off 2 hours later. Lantus 30 units started last HS. Fasting glucose 259. Will increase hs Lantus to 35 units. Will increase AC NovoLog to 8 units with low [id number]
insulin. Will follow
12/30/2023: Diabetes Management F/U:
insulin was increased yesterday due to ongoing hyperglycemia.
Glucose remains >200, trended up to 246 @ HS with a FBG of 231 this AM.
Premeal range is 257 -354, requiring 2-5 units of additional corrective insulin.
Will increase Lantus to 40 units and AC NovoLog to 10 units.
Cont low corrective and OP Jardiance 25mg daily. Glipizide will not be restarted- pt was made aware. Will follow closely
01/02/2024: Diabetes Management F/U:
Premeal Glucose remains elevated 300-360, FBG improved to 153 this AM.
Will increase AC NovoLog to 12 units and cont Lantus 40 units @ HS.
Pt still struggling with recommendation for lifestyle modification. He expressed great frustration with discussion of diabetes diet. States he has made some changes and feels like he is being asked to change a lot of his everyday life and states
that ' I can't do it and I know I will not be able to do all that'
He also stated that he will not be able to partake in cardiac rehab or Diabetes education as it is ' all too much'.
Advised pt to take the approach of changing 1 life style behavior at a time.
Diabetes History
- -
Type of Diabetes: 2 requiring insulin
Pre-Admission Diabetes Regimen
01/02/24
04:43
Creatinine 2.4 H
Lab Results
Hemoglobin A1c 13.3 % (4.0-5.6) H 12/27/23 09:35
Insulin Pump Settings
IP Diabetes Regimen
01/01/24 01/01/24 01/01/24
08:10 12:48 17:16
Glucose
POC Glucose 168 H 300 H 360 H
01/01/24 01/01/24 01/02/24
21:38 23:52 04:43
Glucose 153 H
POC Glucose 353 H 309 H
Meal type: Dinner
Amount consumed: 100%
Patient Education
[2024-01-02 08:08] LABS: Glucose - Point of Care 115 mg/dl (70-99)
[2024-01-02] MEDS: NOVOLOG FLEXPEN-LOW RESISTANCE SC (08:09)
[2024-01-02] MEDS: PROGRAF 1 MG PO ×2 (08:10→20:23)
[2024-01-02] MEDS: SENOKOT-S 1 TABLET PO ×2 (08:10→20:23)
[2024-01-02] MEDS: NEURONTIN 300 MG PO (08:10)
[2024-01-02] MEDS: PLAVIX 75 MG PO (08:11)
[2024-01-02] MEDS: CARDURA 8 MG PO ×2 (08:11→20:22)
[2024-01-02] MEDS: PROTONIX 40 MG PO (08:11)
[2024-01-02] MEDS: COREG 3.125 MG PO ×2 (08:12→20:21)
[2024-01-02] MEDS: JARDIANCE 25 MG PO (08:12)
[2024-01-02] MEDS: ASPIR LOW (ENTERIC COATED) 81 MG PO (08:12)
[2024-01-02] MEDS: DELTASONE 5 MG PO (08:13)
[2024-01-02] MEDS: ELIQUIS 5 MG PO ×2 (08:13→20:22)
[2024-01-02] MEDS: ROXICODONE 5 MG PO ×3 (08:15→20:26)
[2024-01-02] MEDS: NOVOLOG FLEXPEN SC ×2 (08:17→12:51)
[2024-01-02] MEDS: NOVOLOG FLEXPEN 12 UNITS SC ×3 (08:30→17:06)
--- NOTE | 2024-01-02 09:16 | W.PN.HOSP.TC ---
Today's Communication/Plan
-
see A/P
Assessment / Plan
Assessment / Plan
HPI: 58�year old with PMH for ESRD s/p renal transplant, osteo, atrial fib, HTN, type 2 DM, acute on chronic pancreatitis (last admit 08/2023), now presented for worsening shortness of breath, abdominal bloating and mid abdominal pain.�Found to have
NSTEMI and CHF exacerbation.
A/P:
# Acute on Chronic HFpEF
Echo: EF 45-50%
IV lasix 80 mg BID
s/p metolazone BID
Card/Renal on board
# Chest pain
# NSTEMI
s/p cardiac cath 12/28/23: PCI of 100% distal LAD occlusion
Card recc uninterrupted dual antiplatelet therapy with daily baby aspirin and Plavix 75 mg along with Eliquis for underlying atrial fibrillation/flutter for 1 week with plan to discontinue baby aspirin and continue Eliquis and Plavix for at least 1
year along, with high intensity statin and beta-jamal as tolerated.
# Midepigastric pain, resolved
# Elevated Lipase
Lipase trending down
Was planned for EUS/EGD for PD stent and stone extraction but plan cancelled as pain resolved
# Severe neck and shoulder pain, radiating to left arm, resolved
CT neck negative
# Acute Hyponatremia
most likely fluid overload , now related to IV lasix
monitor with diuresis
# DM2
Hgba1c 13.3
Was on insulin ggt, now back on SQ insulin
Lantus and Novolog titration
1800 kcal
Cont low corrective and OP Jardiance 25mg daily.
Glipizide will not be restarted- pt was made aware.�
#�CKD stage IIIb (1.5)
# Nephrotic syndrome >7grams
# Living unrelated kidney transplant 2009 ()
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
continue steroids and tacrolimus;
continue diuretic
# 3.7 cm RIGHT RENAL CELL CARCINOMA and 2.9 cm left hemorrhagic renal cyst. Right lower quadrant renal transplant in place without complication.
d/w Renal, likely above finding is consistent with known R kidney lower pole cystic mass known since 08/2021
# Pulmonary nodules
Following CT surgery outpatient, opting for close observation
# Alcohol use disorder
# Coronary artery disease s/p stenting
see plan above
# parox Atrial fibrillation on Eliquis
now in Aflutter
Resumed GLASS BENDER Eliquis
cont coreg
# Hypertension, multidrug and uncontrolled
continue BP meds
# HLD - statin
# HypoK
replete
Follow Mag level
DVT ppx: GLASS BENDER Eliquis
Code: Full
Anticipated Discharge: > 48 hours
Subjective/Interval History
-
Date of Service: January 02, 2024
Objective Data
-
Labs:
Laboratory Results
01/02/24
04:43
WBC 12.5 H
Hgb 14.3
Hct 44.5
Plt Count 206
Sodium 130 L
Potassium 3.3 L
Chloride 87 L
Carbon Dioxide 34 H
BUN 41 H
Creatinine 2.4 H
Glucose 153 H
Calcium 9.2
Vital Signs:
Vital Signs
Temp Pulse Resp BP Pulse Ox
36.9 C 91 18 125/73 92
01/02/24 07:00 01/02/24 07:00 01/02/24 07:00 01/02/24 06:58 01/02/24 07:00
I&O
01/01/24 01/02/24 01/03/24
06:59 06:59 06:59
Intake Total 900 / 900 240 / 240
Output Total 550 / 550
Balance 350 / 350 240 / 240
Review of Systems
-
History Source: Patient
All other systems: Reviewed and negative
Cardiac: Reports Other (LE swelling )
Physical Exam
-
General: Well Developed, Well Nourished, No Apparent Distress and Comfortable
HEENT: Normocephalic and Atraumatic
Respiratory: Clear to Auscultation and Non Labored Respirations; Negative Accessory Resp Muscle Use
Cardiac: Regular Rhythm and S1/S2
GI: Soft
Musculoskeletal: Edema, Right Lower Extrem and Edema, Left Lower Extrem
Neuro: Awake and Alert
Psych: Calm and Intact Judgement/Insight
Data Reviewed
-
Labs: Labs Reviewed by me
[2024-01-02] MEDS: APRESOLINE PO (09:53)
[2024-01-02] MEDS: KCL 40 MEQ PO (09:54)
--- NOTE | 2024-01-02 10:58 | W.PN.NEPH.PH ---
Today's Communication / Plan
-
replete K
continue IV diuresis
Assessment/Plan
-
Impression:
Acute on Chronic HFpEF EF 45-50%
NSTEMI s/p cardiac cath 12/28/23 :with PCI of distal LAD/LVEDP `25
Midepigastric pain
CKD stage IIIb cr 2
Hyponatremia
History [facility] in 09/2022 [facility] on transplant biopsy with background moderately severe chronic changes predominantly FSGS
Nephrotic syndrome 27grams
Living unrelated kidney transplant 2009 ()
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
Right [place] kidney lower pole cystic mass since at least 09/09/21
Diabetes mellitus 2 uncontrolled
acute on chronic pancreatitis
h/o Alcohol use disorder
active smoker
Diabetic peripheral neuropathy
Immunosuppression on tacrolimus and prednisone,
Coronary artery disease status post stent(s)
Coronary angioplasty implant and graft
Atrial fibrillation on Eliquis
Hypertension, multidrug and uncontrolled
HLD
Hypoalbuminemia
Plan:
-creatinine at 2.4
-follow BMP
-lasix IV 80mg BID to continue
-replete K
-holding metolazone as azotemia and contraction alkalosis exacerbating
-edema persists despite aggressive diuresis unsure this is amendable to diuresis
-
-
Date of Service: January 02, 2024
CC / HPI / ROS
-
Chief Complaint:
CKD, h/o KTP
History of Present Illness:
cr up at 2.4, nonoliguric without petty
s/p LHC with LAD stent, LVEDP high 25
BP stable.
Na low 130 still
excellent diuresis with IV lasix and metolazone
Review of Systems:
no cp
no sob at rest
still with edema
Labs
-
Labs:
WBC 12.5 10^3/uL (4.8-10.8) H 01/02/24 04:43
RBC 5.68 10^6/uL (4.70-6.10) 01/02/24 04:43
Hgb 14.3 g/dL (13.0-18.0) 01/02/24 04:43
Hct 44.5 % (39.0-52.0) 01/02/24 04:43
Plt Count 206 10^3/uL (130-400) 01/02/24 04:43
Sodium 130 mmol/L (135-145) L 01/02/24 04:43
Potassium 3.3 mmol/L (3.5-5.1) L 01/02/24 04:43
Chloride 87 mmol/L (98-107) L 01/02/24 04:43
Carbon Dioxide 34 mmol/L (22-30) H 01/02/24 04:43
BUN 41 mg/dl (9-20) H 01/02/24 04:43
Creatinine 2.4 mg/dL (0.7-1.3) H 01/02/24 04:43
eGFR 30.51 01/02/24 04:43
Glucose 153 mg/dl (70-99) H 01/02/24 04:43
Calcium 9.2 mg/dl (8.4-10.2) 01/02/24 04:43
Pjf-C-[id number] Pept 75448 pg/ml 12/27/23 09:37
Albumin 2.0 g/dl (3.5-5.0) L 12/28/23 03:50
Physical Exam
-
Vital Signs:
Vital Signs
Temp Pulse Resp BP Pulse Ox
98.5 F 91 18 125/73 92
01/02/24 07:00 01/02/24 07:00 01/02/24 07:00 01/02/24 06:58 01/02/24 07:00
Cardiovascular:: Regular rate and rhythm
Respiratory:: Bilateral: Coarse
Lung Excursion:: Normal
Abdomen:: Nontender and Soft
Bowel Sounds:: Normal
Extremity Edema:: +1: Bilateral:
Petty Catheter: No
[2024-01-02] MEDS: LASIX 80 MG IV ×2 (11:25→16:28)
[2024-01-02 12:19] LABS: Glucose - Point of Care 154 mg/dl (70-99)
[2024-01-02] MEDS: NOVOLOG FLEXPEN-LOW RESISTANCE 1 UNITS SC ×2 (12:47→17:06)
--- NOTE | 2024-01-02 12:47 | CM ---
dc plans remain home when medically stable.
--- NOTE | 2024-01-02 13:42 | W.PN.CARDCBS ---
Today's Communication / Plan
-
Nephrology managing diuretics
Weight is down almost 21 pounds
Plan is to discontinue aspirin on 01/04/2024 and treat with Eliquis and Plavix
Impression / Plan
-
PCP: Dr. Field
Primary Shipwright Supervisor: Dr. JOSE Bee
Nephrology: Dr. Loya
Impression:
SOB and SHORT
Acute HFpEF
NSTEMI
Abnormal ECG
CAD
s/p Circ/OM stent 08/2014
s/p IWMI with stenting of the mid right coronary artery 06/2016 and staged intervention for in-stent restenosis and new lesion in circ/OM 06/2016
s/p NSTEMI, with abrupt closure of the AV continuation of the Circ supplying 2 small posterolateral branches during cath and then 4 mm Xience to mid LAD and 2.75 mm Xience to the mid to distal OM-1 03/05/19
s/p NSTEMI with 100% distal LAD occlusion stented with a 2.25 mm Xience 12/28/23
CKD 4
s/p Living, unrelated donor (his at the time) renal transplant [facility] 2009
HTN
Paroxysmal Afib/typical aflutter
recurrence noted on ECG in ER 12/27/23
Chronic OAC with eliquis
Active smoker
h/o ETOH use disorder
DM 2
Diabetic neuropathy
Hyperlipidemia
History of NSVT
Polycythemia vera
Chronic pancreatitis
ECHO 10/14/22: Technically difficult study, use IV Definity in future, EF 55 to 60%, likely moderate LVH, normal RV size and function, no significant valvular disease
Echo 08/24/23: EF 60-65%, normal RV size and function, PAP 20-25 mmHg
Echo 12/27/23: EF 45-50%, apical hypokinesis, trivial to small pericardial effusion
Plan:
Nephrology continues to manage diuretics
Unclear if weights are accurate But could have decreased as much is 21 pounds since admission with a weight of 209 pounds on 01/02/2024
Creatinine has increased to 2.4 on 01/02 and diuretics being managed by nephrology
Patient was taking aspirin and Eliquis 5 mg BID prior to admission. Plan now is for triple therapy with aspirin, Plavix and Eliquis for 1 week then reduce to Plavix and Eliquis thereafter for the next year.
Plan will be to discontinue aspirin on 01/04/2024
Remains in atrial fibrillation with poor heart rate control at times but Coreg was decreased to 3.125 mg p.o. twice daily due to conversion pauses.
Patient has a living donor kidney from 2009, but has not seen the transplant center recently. 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
Patient has a h/o chronic pancreatitis and saw GI in the office 11/07/23 and the plan for EUS/EGD for PD stent and stone extraction was cancelled as pain had improved. Lipase was 890 on admission, but trended down to 327 on 12/28/23 AM. Given NSTEMI
and coronary stent this admission with the need for uninterrupted Plavix he might have to wait until Plavix can be interrupted for GI procedure.
HPI: Patient came to [facility] today with epigastric pain and SOB and is now being admitted with NSTEMI and acute HF, cardiology has been consulted. Patient started with SOB in the last 3-4 weeks and it has progressively worsened. He noticed increased LE
edema and bloating as well. He thinks he is up 20 lbs or more from his baseline weight. Patient had previously decreased his torsemide dose due to lightheadedness and feeling dehydrated around 04/2023, but then noticed weight gain and edema and was
eventually titrated back up to torsemide 20 mg BID over a couple of months. He says that he has been taking his torsemide, but not urinating as much as he expected. Then he noticed consistent hyperglycemia with blood sugars over 300 and called the
Nephrology office today and was referred to [facility]. Upon arrival patient also described epigastric fullness that is also sometimes pain. Patient has a h/o chronic pancreatitis and saw GI in the office 11/07/23 and the plan for EUS/EGD for PD stent and
stone extraction was cancelled as pain had improved.
Progress Note - Shipwright Supervisor
Subjective
Date of Service: January 02, 2024
No complaints
Objective
Labs:
01/02/24 04:43
01/02/24 04:43
Labs
Hgb 14.3 g/dL (13.0-18.0) 01/02/24 04:43
Hct 44.5 % (39.0-52.0) 01/02/24 04:43
Plt Count 206 10^3/uL (130-400) 01/02/24 04:43
APTT Cancelled 12/28/23 16:15
Sodium 130 mmol/L (135-145) L 01/02/24 04:43
Potassium 3.3 mmol/L (3.5-5.1) L 01/02/24 04:43
BUN 41 mg/dl (9-20) H 01/02/24 04:43
Creatinine 2.4 mg/dL (0.7-1.3) H 01/02/24 04:43
Glucose 153 mg/dl (70-99) H 01/02/24 04:43
Vital Signs and I&O:
Vital Signs
Temp Pulse Resp BP Pulse Ox
98.6 F 91 18 125/73 98
01/02/24 12:54 01/02/24 07:00 01/02/24 12:54 01/02/24 06:58 01/02/24 12:54
Vital Signs
Temp Pulse Resp BP Pulse Ox
98.6 F 91 18 125/73 98
01/02/24 12:54 01/02/24 07:00 01/02/24 12:54 01/02/24 06:58 01/02/24 12:54
Intake & Output
02/02/1801/01/24 01/02/24 01/03/24
06:59 06:59 06:59 06:59
Intake Total 900 / 900 240 / 240
Output Total 2099 / 2099 550 / 550
Balance -2099 / -2099 350 / 350 240 / 240
Physical Exam
Physical Exam
General: Well developed, well nourished in NAD.
Neck: Supple, no JVD, HJR, carotids +2 B/L, no bruits bilaterally.
Heart: Non displaced PMI, irregular, no murmurs, No S3, S4, no rubs.
Lungs: Scattered rhonchi
Abdomen: Normal bowel sounds, soft, non-tender, non-distended.
Extremities: No clubbing, cyanosis or edema bilaterally.
Neuro: Grossly nonfocal, awake, alert and oriented x3.
[2024-01-02 17:05] LABS: Glucose - Point of Care 175 mg/dl (70-99)
[2024-01-02] MEDS: CRESTOR 20 MG PO (17:05)
--- NOTE | 2024-01-02 17:57 | PTCARENOTE ---
OOB today, ambulating in room, Pt had L shoulder and neck discomfort, med for pain with Roxicodone 5 mg as ordered with relief noted. Today is his Birthday.
[2024-01-02 21:37] LABS: Glucose - Point of Care 305 mg/dl (70-99)
[2024-01-02] MEDS: APRESOLINE 200 MG PO (22:54)
[2024-01-02] MEDS: MELATONIN 5 MG PO (22:58)
[2024-01-02] MEDS: LANTUS 0.400000000000000022 UNITS SC (22:58)
[2024-01-03] VITALS (7 sets, daily range): BP systolic 115–145; BP diastolic 82–99; BMI 30.6
--- NOTE | 2024-01-03 02:41 | PTCARENOTE ---
Sleeping at present. Took roxicodone at 2030 for left shoulder pain with relief.
[2024-01-03 04:21] LABS: Hematocrit 44.9 % (39.0-52.0); Hemoglobin 14.4 g/dL (13.0-18.0); Mean Corp Hgb Conc. 32.1 g/dL (33.0-37.0); Mean Corpuscular Hgb 25.3 pg (27.0-31.0); Mean Corpuscular Volume 78.8 fL (80.0-94.0); Mean Platelet Volume 9.4 fL (7.4-10.4); Platelet Count 209 10^3/uL (130-400); Red Cell Dist. Width 13.9 % (11.5-14.5); White Blood Cell Count 11.8 10^3/uL (4.8-10.8)
[2024-01-03] MEDS: ROXICODONE 5 MG PO ×4 (04:39→21:44)
[2024-01-03 04:43] LABS: NT-proBNP 16900 pg/ml
[2024-01-03 04:52] LABS: Blood Urea Nitrogen 47 mg/dl (9-20); Calcium 8.7 mg/dl (8.4-10.2); Carbon Dioxide 39 mmol/L (22-30); Chloride 86 mmol/L (98-107); Estimated Creatinine Clearance 36 ml/min; Glucose 215 mg/dl (70-99); Magnesium 2.1 mg/dl (1.6-2.3); Potassium 3.4 mmol/L (3.5-5.1); Sodium 130 mmol/L (135-145); eGFR 29.05
[2024-01-03 07:45] LABS: Glucose - Point of Care 131 mg/dl (70-99)
[2024-01-03] MEDS: SENOKOT-S 1 TABLET PO ×2 (08:15→19:49)
[2024-01-03] MEDS: KCL 40 MEQ PO (08:15)
[2024-01-03] MEDS: ASPIR LOW (ENTERIC COATED) 81 MG PO (08:15)
[2024-01-03] MEDS: PROGRAF 1 MG PO ×2 (08:16→19:50)
[2024-01-03] MEDS: NEURONTIN 300 MG PO (08:16)
[2024-01-03] MEDS: ELIQUIS 5 MG PO ×2 (08:16→19:50)
[2024-01-03] MEDS: DELTASONE 5 MG PO (08:17)
[2024-01-03] MEDS: PROTONIX 40 MG PO (08:17)
[2024-01-03] MEDS: PLAVIX 75 MG PO (08:17)
[2024-01-03] MEDS: JARDIANCE 25 MG PO (08:18)
[2024-01-03] MEDS: CARDURA 8 MG PO ×2 (08:18→19:49)
[2024-01-03] MEDS: NOVOLOG FLEXPEN-LOW RESISTANCE SC (08:19)
[2024-01-03] MEDS: COREG 3.125 MG PO ×2 (08:19→19:49)
[2024-01-03] MEDS: APRESOLINE PO (08:19)
--- NOTE | 2024-01-03 09:02 | W.PN.HOSP.TC ---
Today's Communication/Plan
-
see A/P
Assessment / Plan
Assessment / Plan
HPI: 58�year old with PMH for ESRD s/p renal transplant, osteo, atrial fib, HTN, type 2 DM, acute on chronic pancreatitis (last admit 08/2023), now presented for worsening shortness of breath, abdominal bloating and mid abdominal pain.�Found to have
NSTEMI and CHF exacerbation.
A/P:
# Acute on Chronic HFpEF
Echo: EF 45-50%
Cont IV lasix 80 mg BID, monitor daily weight
s/p metolazone BID
Card/Renal on board
# Chest pain
# NSTEMI
s/p cardiac cath 12/28/23: PCI of 100% distal LAD occlusion
Card recc uninterrupted dual antiplatelet therapy with daily baby aspirin and Plavix 75 mg along with Eliquis for underlying atrial fibrillation/flutter for 1 week with plan to discontinue baby aspirin and continue Eliquis and Plavix for at least 1
year along, with high intensity statin and beta-jamal as tolerated.
# Midepigastric pain, resolved
# Elevated Lipase
Lipase trending down
Was planned for EUS/EGD for PD stent and stone extraction but plan cancelled as pain resolved
# Severe neck and shoulder pain, radiating to left arm, resolved
CT neck negative
# Hyponatremia
most likely fluid overload
monitor with diuresis
# DM2
Hgba1c 13.3
Was on insulin ggt, now back on SQ insulin
Lantus and Novolog titration
1800 kcal
Cont low corrective and OP Jardiance 25mg daily.
Glipizide will not be restarted- pt was made aware.�
#�CKD stage IIIb (1.5)
# Nephrotic syndrome >7grams
# Living unrelated kidney transplant 2009 ()
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
continue steroids and tacrolimus
continue diuretic
# 3.7 cm RIGHT RENAL CELL CARCINOMA and 2.9 cm left hemorrhagic renal cyst. Right lower quadrant renal transplant in place without complication.
d/w Renal, likely above finding is consistent with known R kidney lower pole cystic mass known since 08/2021
# Pulmonary nodules
Following CT surgery outpatient, opting for close observation
# Alcohol use disorder
# Coronary artery disease s/p stenting
see plan above
# parox Atrial fibrillation on Eliquis
now in Aflutter
Resumed OUTSOLE TACKER Eliquis
cont coreg
# Hypertension, multidrug and uncontrolled
continue BP meds
# HLD - statin
# HypoK
replete
Follow Mag level
DVT ppx: OUTSOLE TACKER Eliquis
Code: Full
DW RN
Anticipated Discharge: 24 - 48 hours
Subjective/Interval History
-
Date of Service: January 03, 2024
Objective Data
-
Labs:
Laboratory Results
01/03/24
04:10
WBC 11.8 H
Hgb 14.4
Hct 44.9
Plt Count 209
Sodium 130 L
Potassium 3.4 L
Chloride 86 L
Carbon Dioxide 39 H
BUN 47 H
Creatinine 2.5 H
Glucose 215 H
Calcium 8.7
Vital Signs:
Vital Signs
Temp Pulse Resp BP Pulse Ox
36.6 C 90 16 145/99 97
01/03/24 07:36 01/03/24 07:36 01/03/24 07:36 01/03/24 04:04 01/03/24 07:36
I&O
01/02/24 01/03/24 01/04/24
06:59 06:59 06:59
Intake Total 240 / 240
Balance 240 / 240
Review of Systems
-
History Source: Patient
All other systems: Reviewed and negative
Cardiac: Reports Other (LE swelling )
Physical Exam
-
General: Well Developed, Well Nourished, No Apparent Distress and Comfortable
HEENT: Normocephalic and Atraumatic
Respiratory: Clear to Auscultation and Non Labored Respirations; Negative Accessory Resp Muscle Use
Cardiac: Regular Rhythm and S1/S2
GI: Soft
Musculoskeletal: Edema, Right Lower Extrem (improved) and Edema, Left Lower Extrem (improved)
Neuro: Awake and Alert
Psych: Calm and Intact Judgement/Insight
Data Reviewed
-
Labs: Labs Reviewed by me
[2024-01-03] MEDS: NOVOLOG FLEXPEN 12 UNITS SC (09:10)
--- NOTE | 2024-01-03 09:14 | W.PN.CARDCBS ---
Addendum entered and electronically signed by Jefferson Vallejo MD 01/03/24 17:23:
I saw and examined the patient.
The Periodicals Clerk's note was reviewed and I agree with the note.
Comment:
GEN: No distress, awake, Ox3
HEENT: supple, anicteric, mmm
LUNGS: CTA, no wheezes/rales
CV: Reg, S1/S2, 1/6 syst LSB, no gallop
ABD: soft, BS+, NT/ND
EXT: No edema
NEURO: Gross non-focal
SKIN: No rash
plan:
He has diuresed well and weight is down 20+ pounds. Per nephrology we are stopping his IV Lasix and switching over to torsemide and Diamox..
After tomorrow we will stop his aspirin and continue Eliquis and Plavix alone.
Continue medical therapy for coronary arteries. Continue Crestor, hydralazine, carvedilol, and Eliquis/Plavix.
Blood pressure has been acceptable even slightly on the high side.
Original Note:
Today's Communication / Plan
-
Cre has bumped and nephrology following
Overall dramatically improved from a symptom standpoint with 20+ lb diuresis
Stop aspirin starting tomorrow, but cont Eliquis and Plavix
Impression / Plan
-
PCP: Dr. Field
Primary Bit Grinder: Dr. JOSE Bee
Nephrology: Dr. Loya
Impression:
SOB and SHORT
Acute HFpEF
NSTEMI
Abnormal ECG
CAD
s/p Circ/OM stent 08/2014
s/p IWMI with stenting of the mid right coronary artery 06/2016 and staged intervention for in-stent restenosis and new lesion in circ/OM 06/2016
s/p NSTEMI, with abrupt closure of the AV continuation of the Circ supplying 2 small posterolateral branches during cath and then 4 mm Xience to mid LAD and 2.75 mm Xience to the mid to distal OM-1 03/05/19
s/p NSTEMI with 100% distal LAD occlusion stented with a 2.25 mm Xience 12/28/23
CKD 4
s/p Living, unrelated donor (his at the time) renal transplant [facility] 2009
HTN
Paroxysmal Afib/typical aflutter
recurrence noted on ECG in ER 12/27/23
Chronic OAC with eliquis
Active smoker
h/o ETOH use disorder
DM 2
Diabetic neuropathy
Hyperlipidemia
History of NSVT
Polycythemia vera
Chronic pancreatitis
ECHO 10/14/22: Technically difficult study, use IV Definity in future, EF 55 to 60%, likely moderate LVH, normal RV size and function, no significant valvular disease
Echo 08/24/23: EF 60-65%, normal RV size and function, PAP 20-25 mmHg
Echo 12/27/23: EF 45-50%, apical hypokinesis, trivial to small pericardial effusion
Plan:
-Weight is down 23 lbs this admission with IV diuresis and patient is symptomatically improved with less SOB and bloating. Previous dry weight at last discharge 09/27/23 was 218 lbs and patient now weighs 207 lbs on 01/03/24.
-Nephrology following and patient has a living donor kidney from 2009, but has not seen the transplant center recently. He had a renal biopsy in 2021 and there were acute tubular injury changes, but also severe chronic changes of FSGS (focal
segmental glomerular sclerosis).
-Cre up to 2.5 on 01/03/24.
-Lasix 80 mg IV BID ordered and patient also received intermittent doses of metolazone. Patient was taking torsemide 20 mg BID prior to admission.
-Patient is s/p 2.25 mm Xience to the distal LAD. Echo as noted above shows a newly decreased EF at 45-50% and Troponin peaked 5.75.
-Patient was taking aspirin and Eliquis 5 mg BID prior to admission. Plan now is for triple therapy with aspirin, Plavix and Eliquis until 01/04/24 then reduce to Plavix and Eliquis thereafter for the next year. Follow CBC.
-Hgb stable at 14.4 on 01/03/24
-GDMT includes Coreg 3.125 mg BID. Patient is not chronically on ALMA DELIA/ARB/aldosterone antagonist due to h/o renal transplant.
-Patient with paroxysmal Afib/flutter. He was in atrial flutter on admission and then spontaneously converted to SR and is in Atach on 12/29/23 AM. HRs in the 90s and he is asymptomatic. Coreg was decreased to 3.125 mg BID due to conversion pauses.
-Eliquis restarted 12/29/23 AM.
-LDL 86. Patient's Crestor 20 mg daily was held during his 08/2023 admission and supposed to restart 10/05/23, but he never did. Restarted Crestor 20 mg daily on 12/27/23.
-Patient has a h/o chronic pancreatitis and saw GI in the office 11/07/23 and the plan for EUS/EGD for PD stent and stone extraction was cancelled as pain had improved. Lipase is 890 on admission, but trended down to 327 on 12/28/23 AM. Patient now
says that he feels he needs the PD stent and is asking for it to be performed this admission. Reviewed with patient that given NSTEMI and coronary stent this admission with the need for uninterrupted Plavix that he might have to wait until Plavix
can be interrupted for GI procedure.
HPI: Patient came to [facility] today with epigastric pain and SOB and is now being admitted with NSTEMI and acute HF, cardiology has been consulted. Patient started with SOB in the last 3-4 weeks and it has progressively worsened. He noticed increased LE
edema and bloating as well. He thinks he is up 20 lbs or more from his baseline weight. Patient had previously decreased his torsemide dose due to lightheadedness and feeling dehydrated around 04/2023, but then noticed weight gain and edema and was
eventually titrated back up to torsemide 20 mg BID over a couple of months. He says that he has been taking his torsemide, but not urinating as much as he expected. Then he noticed consistent hyperglycemia with blood sugars over 300 and called the
Nephrology office today and was referred to [facility]. Upon arrival patient also described epigastric fullness that is also sometimes pain. Patient has a h/o chronic pancreatitis and saw GI in the office 11/07/23 and the plan for EUS/EGD for PD stent and
stone extraction was cancelled as pain had improved.
Progress Note - Bit Grinder
Subjective
Date of Service: January 03, 2024
He feels less bloated
Objective
Labs:
01/03/24 04:10
01/03/24 04:10
Labs
Hgb 14.4 g/dL (13.0-18.0) 01/03/24 04:10
Hct 44.9 % (39.0-52.0) 01/03/24 04:10
Plt Count 209 10^3/uL (130-400) 01/03/24 04:10
APTT Cancelled 12/28/23 16:15
Sodium 130 mmol/L (135-145) L 01/03/24 04:10
Potassium 3.4 mmol/L (3.5-5.1) L 01/03/24 04:10
BUN 47 mg/dl (9-20) H 01/03/24 04:10
Creatinine 2.5 mg/dL (0.7-1.3) H 01/03/24 04:10
Glucose 215 mg/dl (70-99) H 01/03/24 04:10
Vital Signs and I&O:
Vital Signs
Temp Pulse Resp BP Pulse Ox
98 F 90 16 145/99 97
01/03/24 07:36 01/03/24 07:36 01/03/24 07:36 01/03/24 04:04 01/03/24 07:36
Vital Signs
Temp Pulse Resp BP Pulse Ox
98 F 90 16 145/99 97
01/03/24 07:36 01/03/24 07:36 01/03/24 07:36 01/03/24 04:04 01/03/24 07:36
Intake & Output
01/01/24 01/02/24 01/03/24 01/04/24
06:59 06:59 06:59 06:59
Intake Total 900 / 900 240 / 240
Output Total 550 / 550
Balance 350 / 350 240 / 240
Physical Exam
Physical Exam
GEN: NAD. AAO x3
HEENT: EOMI, MMM
LUNGS: CTA B/L, no wheezes or rales
CV: Reg, S1/S2, no murmur, rub or gallop
ABD: soft, BS+
EXT: Trace B/L LE edema. No clubbing, cyanosis or lesions B/L
NEURO: Gross non-focal
SKIN: Warm, dry and pink. No rash
[2024-01-03] MEDS: LASIX 80 MG IV (09:15)
--- NOTE | 2024-01-03 10:17 | PN.DE.MGMTRT ---
Insulin Management
- -
12/27/2023: Diabetes Management Consult
58�year old male who p/w with worsening SOB, abd bloating and mid abd pain and Hyperglycemia.
PMH includes: ESRD s/p renal transplant, osteo, A-Fib, HTN, CAD, HLD, T2DM and acute on chronic pancreatitis (last admit 08/2023)
He is noted for NSTEMI and persistent Hyperglycemia, glusoe has trended up to 500. Pt states he has not taken his long acting insulin in over a week and half. Routinely seen Dr. James, was taking Basaglar 15 units @ HS, Jardiance and Glipizide 5mg
BID.
His current glucose remains RR HI at this current time and is awaiting a stat venous lab draw.
d/w Hospitalist Dr. Tse and recommended continuous insulin infusion for optimal glucose control
12/28/2023 Diabetes Management Follow up
Patient maintained on insulin infusion overnight, required 1 to 2 units of insulin per hour. Cr 2.0, egfr 38.21. Will give 14 units of Lantus now then discontinue insulin infusion 2 hours after Lantus. When returns from cardiac cath can start 1800
calorie diet and 5 units NovoLog AC with corrective insulin.
A1C is 13.3%. Lengthy discussion with patient glipizide will not be restarted and AC NovoLog started. Will follow
12/29/2023 Diabetes Management Follow up
Transitioned from insulin infusion yesterday with 14 units Lantus then drip off 2 hours later. Lantus 30 units started last HS. Fasting glucose 259. Will increase hs Lantus to 35 units. Will increase AC NovoLog to 8 units with low [id number]
insulin. Will follow
12/30/2023: Diabetes Management F/U:
insulin was increased yesterday due to ongoing hyperglycemia.
Glucose remains >200, trended up to 246 @ HS with a FBG of 231 this AM.
Premeal range is 257 -354, requiring 2-5 units of additional corrective insulin.
Will increase Lantus to 40 units and AC NovoLog to 10 units.
Cont low corrective and OP Jardiance 25mg daily. Glipizide will not be restarted- pt was made aware. Will follow closely
01/02/2024: Diabetes Management F/U:
Premeal Glucose remains elevated 300-360, FBG improved to 153 this AM.
Will increase AC NovoLog to 12 units and cont Lantus 40 units @ HS.
Pt still struggling with recommendation for lifestyle modification. He expressed great frustration with discussion of diabetes diet. States he has made some changes and feels like he is being asked to change a lot of his everyday life and states
that ' I can't do it and I know I will not be able to do all that'
He also stated that he will not be able to partake in cardiac rehab or Diabetes education as it is ' all too much'.
Advised pt to take the approach of changing 1 life style behavior at a time.
01/03/2024 Diabetes Management Follow up
Glucose 154, 175 pre meal requiring additional corrective insulin. Will increase AC novolog to 13 units. Glucose trended up to 305 @ HS. Patient reports he had kielbasa and sauerkraut for dinner. He also has sugar free candy. Reviewed that 5
candies are equivalent to eating 1 slice of bread in terms of raising his blood sugar, he was not aware. He states he will be mindful when eating candy. Will continue lantus 40 units @ hs and follow for further needed changes.
Diabetes History
- -
Type of Diabetes: 2 requiring insulin
Pre-Admission Diabetes Regimen
01/03/24
04:10
Creatinine 2.5 H
Lab Results
Hemoglobin A1c 13.3 % (4.0-5.6) H 12/27/23 09:35
Insulin Pump Settings
IP Diabetes Regimen
01/02/24 01/02/24 01/02/24
12:18 17:04 21:35
Glucose
POC Glucose 154 H 175 H 305 H
01/03/24 01/03/24
04:10 07:43
Glucose 215 H
POC Glucose 131 H
Meal type: Lunch
Amount consumed: 100%
Patient Education
[2024-01-03 11:50] LABS: Glucose - Point of Care 210 mg/dl (70-99)
[2024-01-03] MEDS: NOVOLOG FLEXPEN-LOW RESISTANCE 2 UNITS SC (11:50)
[2024-01-03] MEDS: NOVOLOG FLEXPEN 13 UNITS SC ×2 (11:51→17:40)
--- NOTE | 2024-01-03 11:51 | W.PN.NEPH.PH ---
Today's Communication / Plan
-
d/c IV lasix
start Torsemide
diamox provided
replete K
Assessment/Plan
-
Impression:
Acute on Chronic HFpEF EF 45-50%
NSTEMI s/p cardiac cath 12/28/23 :with PCI of distal LAD/LVEDP `25
Midepigastric pain
CKD stage IIIb cr 2
Hyponatremia
History [facility] in 09/2022 ATN on transplant biopsy with background moderately severe chronic changes predominantly FSGS
Nephrotic syndrome 27grams
Living unrelated kidney transplant 2009 ()
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
Right [place] kidney lower pole cystic mass since at least 09/09/21
Diabetes mellitus 2 uncontrolled
acute on chronic pancreatitis
h/o Alcohol use disorder
active smoker
Diabetic peripheral neuropathy
Immunosuppression on tacrolimus and prednisone,
Coronary artery disease status post stent(s)
Coronary angioplasty implant and graft
Atrial fibrillation on Eliquis
Hypertension, multidrug and uncontrolled
HLD
Hypoalbuminemia
Plan:
-creatinine at 2.5
-follow BMP
-lasix IV 80mg BID to continue,weights unchanged
-change diuretics to 40mg Torsemide BID with metolazone prn
-replete K
-holding metolazone as azotemia and contraction alkalosis exacerbating, will provide diamox for 4 doses
-edema persists despite aggressive diuresis unsure this is amendable to diuresis as I think this is due to his nephrotic syndrome ~27 grams with subsequent hypoalbuminemia
-hyponatremia persists on 48oz fluid restriction
-
-
Date of Service: January 03, 2024
CC / HPI / ROS
-
Chief Complaint:
CKD, h/o KTP
History of Present Illness:
cr up at 2.5, nonoliguric without petty
s/p LHC with LAD stent, LVEDP high 25
BP stable.
Na low 130 still
diuresis with IV lasix and metolazone
Review of Systems:
no cp
no sob at rest
still with edema
weights unchanged
Labs
-
Labs:
WBC 11.8 10^3/uL (4.8-10.8) H 01/03/24 04:10
RBC 5.70 10^6/uL (4.70-6.10) 01/03/24 04:10
Hgb 14.4 g/dL (13.0-18.0) 01/03/24 04:10
Hct 44.9 % (39.0-52.0) 01/03/24 04:10
Plt Count 209 10^3/uL (130-400) 01/03/24 04:10
Sodium 130 mmol/L (135-145) L 01/03/24 04:10
Potassium 3.4 mmol/L (3.5-5.1) L 01/03/24 04:10
Chloride 86 mmol/L (98-107) L 01/03/24 04:10
Carbon Dioxide 39 mmol/L (22-30) H 01/03/24 04:10
BUN 47 mg/dl (9-20) H 01/03/24 04:10
Creatinine 2.5 mg/dL (0.7-1.3) H 01/03/24 04:10
eGFR 29.05 01/03/24 04:10
Glucose 215 mg/dl (70-99) H 01/03/24 04:10
Calcium 8.7 mg/dl (8.4-10.2) 01/03/24 04:10
Tyl-E-Oqevvvtucmj Pept 30412 pg/ml 01/03/24 04:10
Albumin 2.0 g/dl (3.5-5.0) L 12/28/23 03:50
Physical Exam
-
Vital Signs:
Vital Signs
Temp Pulse Resp BP Pulse Ox
97.9 F 90 18 115/84 96
01/03/24 11:45 01/03/24 11:45 01/03/24 11:45 01/03/24 07:40 01/03/24 11:45
Cardiovascular:: Regular rate and rhythm
Respiratory:: Bilateral: Coarse
Lung Excursion:: Normal
Abdomen:: Nontender and Soft
Bowel Sounds:: Normal
Extremity Edema:: +2: Bilateral:
Petty Catheter: No
[2024-01-03 17:22] LABS: Glucose - Point of Care 164 mg/dl (70-99)
[2024-01-03] MEDS: CRESTOR 20 MG PO (17:36)
[2024-01-03] MEDS: NOVOLOG FLEXPEN-LOW RESISTANCE 1 UNITS SC (17:40)
--- NOTE | 2024-01-03 18:07 | PTCARENOTE ---
Pt c/o L shoulder pain, rated 7/10, med with Roxicodone 5 mg Po as ordered, awaiting relief.
[2024-01-03] MEDS: DEMADEX 40 MG PO (19:49)
[2024-01-03] MEDS: DIAMOX 250 MG PO (19:49)
[2024-01-03] MEDS: MELATONIN 5 MG PO (21:43)
[2024-01-03 21:44] LABS: Glucose - Point of Care 251 mg/dl (70-99)
[2024-01-03] MEDS: APRESOLINE 200 MG PO (21:44)
[2024-01-03] MEDS: LANTUS 0.400000000000000022 UNITS SC (21:45)
--- NOTE | 2024-01-03 23:12 | PTCARENOTE ---
Pt rec'd at change of shift sitting on side of bed c/o left shoulder pain. ice offered at that time since pain med was not due. Pt declined.
Pt then medicated at 2144 and is now resting in bed with lights off. call guaman placed within reach. Afib on telemetry.
[2024-01-04 02:42] VITALS: BP 123/88
[2024-01-04 02:49] VITALS: BMI 30.1
[2024-01-04] MEDS: ROXICODONE 5 MG PO ×3 (03:03→12:52)
[2024-01-04 04:14] LABS: Hematocrit 48.7 % (39.0-52.0); Hemoglobin 15.2 g/dL (13.0-18.0); Mean Corp Hgb Conc. 31.2 g/dL (33.0-37.0); Mean Corpuscular Hgb 25.1 pg (27.0-31.0); Mean Corpuscular Volume 80.5 fL (80.0-94.0); Mean Platelet Volume 9.9 fL (7.4-10.4); Platelet Count 237 10^3/uL (130-400); Red Blood Cell Count 6.05 10^6/uL (4.70-6.10); Red Cell Dist. Width 13.7 % (11.5-14.5); White Blood Cell Count 12.5 10^3/uL (4.8-10.8)
[2024-01-04 04:57] LABS: Blood Urea Nitrogen 47 mg/dl (9-20); Calcium 9.4 mg/dl (8.4-10.2); Carbon Dioxide 36 mmol/L (22-30); Chloride 85 mmol/L (98-107); Estimated Creatinine Clearance 30 ml/min; Glucose 147 mg/dl (70-99); Magnesium 2.4 mg/dl (1.6-2.3); Potassium 3.5 mmol/L (3.5-5.1); Sodium 131 mmol/L (135-145); eGFR 23.34
[2024-01-04 07:18] VITALS: BP 130/86
[2024-01-04 07:22] LABS: Glucose - Point of Care 216 mg/dl (70-99)
[2024-01-04] MEDS: NOVOLOG FLEXPEN-LOW RESISTANCE 2 UNITS SC ×2 (08:15→11:57)
[2024-01-04] MEDS: PROTONIX 40 MG PO (08:17)
[2024-01-04] MEDS: DIAMOX 250 MG PO (08:17)
[2024-01-04] MEDS: DEMADEX 40 MG PO (08:17)
[2024-01-04] MEDS: COREG 3.125 MG PO (08:17)
[2024-01-04] MEDS: SENOKOT-S 1 TABLET PO (08:17)
[2024-01-04] MEDS: JARDIANCE 25 MG PO (08:17)
[2024-01-04] MEDS: NEURONTIN 300 MG PO (08:17)
[2024-01-04] MEDS: DELTASONE 5 MG PO (08:18)
[2024-01-04] MEDS: CARDURA 8 MG PO (08:18)
[2024-01-04] MEDS: KCL 40 MEQ PO (08:18)
[2024-01-04] MEDS: ELIQUIS 5 MG PO (08:18)
[2024-01-04] MEDS: PROGRAF 1 MG PO (08:18)
[2024-01-04] MEDS: PLAVIX 75 MG PO (08:18)
[2024-01-04] MEDS: APRESOLINE 100 MG PO (08:18)
[2024-01-04] MEDS: NOVOLOG FLEXPEN 13 UNITS SC (08:19)
--- NOTE | 2024-01-04 08:24 | PN.DE.MGMTRT ---
Insulin Management
- -
12/27/2023: Diabetes Management Consult
58�year old male who p/w with worsening SOB, abd bloating and mid abd pain and Hyperglycemia.
PMH includes: ESRD s/p renal transplant, osteo, A-Fib, HTN, CAD, HLD, T2DM and acute on chronic pancreatitis (last admit 08/2023)
He is noted for NSTEMI and persistent Hyperglycemia, glusoe has trended up to 500. Pt states he has not taken his long acting insulin in over a week and half. Routinely seen Dr. James, was taking Basaglar 15 units @ HS, Jardiance and Glipizide 5mg
BID.
His current glucose remains RR HI at this current time and is awaiting a stat venous lab draw.
d/w Hospitalist Dr. Tse and recommended continuous insulin infusion for optimal glucose control
12/28/2023 Diabetes Management Follow up
Patient maintained on insulin infusion overnight, required 1 to 2 units of insulin per hour. Cr 2.0, egfr 38.21. Will give 14 units of Lantus now then discontinue insulin infusion 2 hours after Lantus. When returns from cardiac cath can start 1800
calorie diet and 5 units NovoLog AC with corrective insulin.
A1C is 13.3%. Lengthy discussion with patient glipizide will not be restarted and AC NovoLog started. Will follow
12/29/2023 Diabetes Management Follow up
Transitioned from insulin infusion yesterday with 14 units Lantus then drip off 2 hours later. Lantus 30 units started last HS. Fasting glucose 259. Will increase hs Lantus to 35 units. Will increase AC NovoLog to 8 units with low [id number]
insulin. Will follow
12/30/2023: Diabetes Management F/U:
insulin was increased yesterday due to ongoing hyperglycemia.
Glucose remains >200, trended up to 246 @ HS with a FBG of 231 this AM.
Premeal range is 257 -354, requiring 2-5 units of additional corrective insulin.
Will increase Lantus to 40 units and AC NovoLog to 10 units.
Cont low corrective and OP Jardiance 25mg daily. Glipizide will not be restarted- pt was made aware. Will follow closely
01/02/2024: Diabetes Management F/U:
Premeal Glucose remains elevated 300-360, FBG improved to 153 this AM.
Will increase AC NovoLog to 12 units and cont Lantus 40 units @ HS.
Pt still struggling with recommendation for lifestyle modification. He expressed great frustration with discussion of diabetes diet. States he has made some changes and feels like he is being asked to change a lot of his everyday life and states
that ' I can't do it and I know I will not be able to do all that'
He also stated that he will not be able to partake in cardiac rehab or Diabetes education as it is ' all too much'.
Advised pt to take the approach of changing 1 life style behavior at a time.
01/03/2024 Diabetes Management Follow up
Glucose 154, 175 pre meal requiring additional corrective insulin. Will increase AC novolog to 13 units. Glucose trended up to 305 @ HS. Patient reports he had kielbasa and sauerkraut for dinner. He also has sugar free candy. Reviewed that 5
candies are equivalent to eating 1 slice of bread in terms of raising his blood sugar, he was not aware. He states he will be mindful when eating candy. Will continue lantus 40 units @ hs and follow for further needed changes.
01/04/2024 Diabetes management Follow up
Fasting glucose > 200 two consecutive mornings, 3AM glucose 147, will increase hs lantus to 43 units. Pre meal glucose 164 to 210 with HS 251, will increase AC novolog to 15 units. Will follow for need for further adjustments.
Diabetes History
- -
Type of Diabetes: 2 requiring insulin
Pre-Admission Diabetes Regimen
01/04/24
02:57
Creatinine 3.0 H
Lab Results
Hemoglobin A1c 13.3 % (4.0-5.6) H 12/27/23 09:35
Insulin Pump Settings
IP Diabetes Regimen
01/03/24 01/03/24 01/03/24
11:48 17:20 21:42
Glucose
POC Glucose 210 H 164 H 251 H
01/04/24 01/04/24
02:57 07:20
Glucose 147 H
POC Glucose 216 H
Meal type: Dinner
Meal type: Lunch
Meal type: Breakfast
Amount consumed: 100%
Amount consumed: 100%
Amount consumed: 85%
Patient Education
--- NOTE | 2024-01-04 08:24 | W.PN.HOSP.TC ---
Addendum entered and electronically signed by Tamica Riojas MD 01/04/24 12:10:
Total DC time 35 minutes
Original Note:
Today's Communication/Plan
-
DC home with HH
Assessment / Plan
Assessment / Plan
HPI: 58�year old with PMH for ESRD s/p renal transplant, osteo, atrial fib, HTN, type 2 DM, acute on chronic pancreatitis (last admit 08/2023), now presented for worsening shortness of breath, abdominal bloating and mid abdominal pain.�Found to have
NSTEMI and CHF exacerbation.
A/P:
# Acute on Chronic HFpEF
Echo: EF 45-50%
IV lasix 80 mg BID -> Torsemide 40mg BID
monitor daily weight and outpt BMP
Card/Renal on board
# contraction alkalosis
Diamox for 4 doses
# Chest pain
# NSTEMI
s/p cardiac cath 12/28/23: PCI of 100% distal LAD occlusion
Card recc uninterrupted dual antiplatelet therapy with daily baby aspirin and Plavix 75 mg along with Eliquis for underlying atrial fibrillation/flutter for 1 week, then discontinue baby aspirin and continue Eliquis and Plavix for at least 1 year
along, with high intensity statin and beta-jamal as tolerated.
# Midepigastric pain, resolved
# Elevated Lipase
Lipase trending down
Was planned for EUS/EGD for PD stent and stone extraction but plan cancelled as pain resolved
# Severe neck and shoulder pain, radiating to left arm, resolved
CT neck negative
# Hyponatremia
most likely fluid overload
monitor with diuresis
# DM2
Hgba1c 13.3
Was on insulin ggt, now back on SQ insulin
Lantus and Novolog titration: AC NovoLog to 15 units, Lantus to 43 units HS
Carb control diet
Cont low corrective and OP Jardiance 25mg daily.
Glipizide will not be restarted- pt was made aware.�
#�CKD stage IIIb (1.5)
# Nephrotic syndrome >7grams
# Living unrelated kidney transplant 2009 ()
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
continue steroids and tacrolimus
continue diuretic
# 3.7 cm RIGHT RENAL CELL CARCINOMA and 2.9 cm left hemorrhagic renal cyst. Right lower quadrant renal transplant in place without complication.
d/w Renal, likely above finding is consistent with known [place] kidney lower pole cystic mass known since 08/2021
# Pulmonary nodules
Following CT surgery outpatient, opting for close observation
# Alcohol use disorder
# Coronary artery disease s/p stenting
see plan above
# parox Atrial fibrillation on Eliquis
now in Aflutter
Resumed [employer] Eliquis
cont coreg
# Hypertension, multidrug and uncontrolled
continue BP meds
# HLD - statin
# HypoK
replete
Follow Mag level
DVT ppx: [employer] Eliquis
Code: Full
DW Card and Renal, pt cleared for discharged from their perspective
Anticipated Discharge: Today
Subjective/Interval History
-
Date of Service: January 04, 2024
Objective Data
-
Labs:
Laboratory Results
01/04/24
02:57
WBC 12.5 H
Hgb 15.2
Hct 48.7
Plt Count 237
Sodium 131 L
Potassium 3.5
Chloride 85 L
Carbon Dioxide 36 H
BUN 47 H
Creatinine 3.0 H
Glucose 147 H
Calcium 9.4
Vital Signs:
Vital Signs
Temp Pulse Resp BP Pulse Ox
37.1 C 93 20 123/88 94
01/04/24 07:17 01/04/24 02:42 01/04/24 07:17 01/04/24 02:42 01/04/24 07:17
I&O
01/03/24 01/04/24 01/05/24
06:59 06:59 06:59
Intake Total 600 / 600
Balance 600 / 600
Review of Systems
-
History Source: Patient
All other systems: Reviewed and negative
Cardiac: Reports Other (LE swelling has improved )
Physical Exam
-
General: Well Developed, Well Nourished, No Apparent Distress and Comfortable
HEENT: Normocephalic and Atraumatic
Respiratory: Clear to Auscultation and Non Labored Respirations; Negative Accessory Resp Muscle Use
Cardiac: Regular Rhythm and S1/S2
GI: Soft
Musculoskeletal: Edema, Right Lower Extrem (improved) and Edema, Left Lower Extrem (improved)
Neuro: Awake and Alert
Psych: Calm and Intact Judgement/Insight
Data Reviewed
-
Labs: Labs Reviewed by me
--- NOTE | 2024-01-04 08:33 | PTCARENOTE ---
patient c/o left shoulder pain, Roxicodone po given as ordered.
--- NOTE | 2024-01-04 08:34 | PTCARENOTE ---
K 3.5 supplemented with 40meq KCL as ordered.
--- NOTE | 2024-01-04 09:10 | W.PN.NEPH.PH ---
Today's Communication / Plan
-
dc
Assessment/Plan
-
Impression:
Acute on Chronic HFpEF EF 45-50%
NSTEMI s/p cardiac cath 12/28/23 :with PCI of distal LAD/LVEDP `25
Midepigastric pain
CKD stage IIIb cr 2
Hyponatremia
History [facility] in 09/2022 [facility] on transplant biopsy with background moderately severe chronic changes predominantly FSGS
Nephrotic syndrome 27grams
Living unrelated kidney transplant 2009 ()
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
Right [place] kidney lower pole cystic mass since at least 09/09/21
Diabetes mellitus 2 uncontrolled
acute on chronic pancreatitis
h/o Alcohol use disorder
active smoker
Diabetic peripheral neuropathy
Immunosuppression on tacrolimus and prednisone,
Coronary artery disease status post stent(s)
Coronary angioplasty implant and graft
Atrial fibrillation on Eliquis
Hypertension, multidrug and uncontrolled
HLD
Hypoalbuminemia
Plan:
for dc
BMP tuesday
torsemide 40mg BID only
office will call for f/u
-
-
Date of Service: January 04, 2024
CC / HPI / ROS
-
Chief Complaint:
CKD, h/o KTP
History of Present Illness:
cr up at 3.0 nonoliguric without petty
s/p LHC with LAD stent, LVEDP high 25
BP stable.
Na low still
diuresis with torsemide
Review of Systems:
no cp
no sob at rest
still with edema
weights unchanged
Labs
-
Labs:
WBC 12.5 10^3/uL (4.8-10.8) H 01/04/24 02:57
RBC 6.05 10^6/uL (4.70-6.10) 01/04/24 02:57
Hgb 15.2 g/dL (13.0-18.0) 01/04/24 02:57
Hct 48.7 % (39.0-52.0) 01/04/24 02:57
Plt Count 237 10^3/uL (130-400) 01/04/24 02:57
Sodium 131 mmol/L (135-145) L 01/04/24 02:57
Potassium 3.5 mmol/L (3.5-5.1) 01/04/24 02:57
Chloride 85 mmol/L (98-107) L 01/04/24 02:57
Carbon Dioxide 36 mmol/L (22-30) H 01/04/24 02:57
BUN 47 mg/dl (9-20) H 01/04/24 02:57
Creatinine 3.0 mg/dL (0.7-1.3) H 01/04/24 02:57
eGFR 23.34 01/04/24 02:57
Glucose 147 mg/dl (70-99) H 01/04/24 02:57
Calcium 9.4 mg/dl (8.4-10.2) 01/04/24 02:57
Csv-P-Rjejhauawjo Pept 60475 pg/ml 01/03/24 04:10
Albumin 2.0 g/dl (3.5-5.0) L 12/28/23 03:50
Physical Exam
-
Vital Signs:
Vital Signs
Temp Pulse Resp BP Pulse Ox
98.7 F 91 20 130/86 94
01/04/24 07:17 01/04/24 08:18 01/04/24 07:17 01/04/24 08:18 01/04/24 07:17
Cardiovascular:: Regular rate and rhythm
Respiratory:: Bilateral: Coarse
Lung Excursion:: Normal
Abdomen:: Nontender and Soft
Bowel Sounds:: Normal
Extremity Edema:: +3: Bilateral:
[2024-01-04] MEDS: ULTRAM 25 MG PO (09:29)
--- NOTE | 2024-01-04 09:29 | CM ---
CM following for DC planning needs.
Met w/ patient at bedside. Offered VN. Pt. declines VN; does not see a need for this.
Plan is for home, no needs as patient is declining.
--- NOTE | 2024-01-04 09:30 | PTCARENOTE ---
patient states that his left shoulder pain is better but still wants more pain medication, ultram po given as ordered.
--- NOTE | 2024-01-04 10:26 | W.PN.CARDCBS ---
Addendum entered and electronically signed by Jefferson Vallejo MD 01/04/24 11:48:
I saw and examined the patient.
The Poker Dealer's note was reviewed and I agree with the note.
Comment:
GEN: No distress, awake, Ox3
HEENT: supple, anicteric, mmm
LUNGS: CTA, no wheezes/rales
CV: Reg, S1/S2, 1/6 syst LSB, no gallop
ABD: soft, BS+, NT/ND
EXT: No edema
NEURO: Gross non-focal
SKIN: No rash
Plan:
Cont Plavix and Eliquis
Cont Coreg 3.125mg po bid
OK for D/C
Creat at 3.0
Torsemide doing per Renal
Original Note:
Today's Communication / Plan
-
Cont Plavix 75 mg daily and Eliquis 5 mg BID
Cont Coreg 3.125 mg BID, dose lowered this admission due to pause
Crestor 20 mg daily restarted this admission
1 week HF f/u being arranged, he declined VN
Impression / Plan
-
PCP: Dr. Field
Primary Director Emergency: Dr. JOSE Bee
Nephrology: Dr. Loya
Impression:
SOB and SHORT
Acute HFpEF
NSTEMI
Abnormal ECG
CAD
s/p Circ/OM stent 08/2014
s/p IWMI with stenting of the mid right coronary artery 06/2016 and staged intervention for in-stent restenosis and new lesion in circ/OM 06/2016
s/p NSTEMI, with abrupt closure of the AV continuation of the Circ supplying 2 small posterolateral branches during cath and then 4 mm Xience to mid LAD and 2.75 mm Xience to the mid to distal OM-1 03/05/19
s/p NSTEMI with 100% distal LAD occlusion stented with a 2.25 mm Xience 12/28/23
CKD 4
s/p Living, unrelated donor (his at the time) renal transplant [facility] 2009
HTN
Paroxysmal Afib/typical aflutter
recurrence noted on ECG in ER 12/27/23
Chronic OAC with eliquis
Active smoker
h/o ETOH use disorder
DM 2
Diabetic neuropathy
Hyperlipidemia
History of NSVT
Polycythemia vera
Chronic pancreatitis
ECHO 10/14/22: Technically difficult study, use IV Definity in future, EF 55 to 60%, likely moderate LVH, normal RV size and function, no significant valvular disease
Echo 08/24/23: EF 60-65%, normal RV size and function, PAP 20-25 mmHg
Echo 12/27/23: EF 45-50%, apical hypokinesis, trivial to small pericardial effusion
Plan:
-Cre is up to 3.0 on 01/04/24. Nephrology is planning on torsemide 40 mg BID at d/c and rechecking BMP on Tuesday. Patient was taking torsemide 20 mg BID prior to admission.
-Weight is down 27 lbs this admission. Previous dry weight at last discharge 09/27/23 was 218 lbs and patient now weighs 203 lbs on 01/03/24.
-Patient has a living donor kidney from 2009, but has not seen the transplant center recently. 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
-Patient is s/p 2.25 mm Xience to the distal LAD. Echo as noted above shows a newly decreased EF at 45-50% and Troponin peaked 5.75.
-Patient was taking aspirin and Eliquis 5 mg BID prior to admission. Patient treated with triple therapy until 01/04/24 and is now on Eliquis and Plavix alone for the next year.
-GDMT includes Coreg 3.125 mg BID. Patient is not chronically on ALMA DELIA/ARB/aldosterone antagonist due to h/o renal transplant.
-Patient with paroxysmal Afib/flutter. He was in atrial flutter on admission and then spontaneously converted to SR and is in Atach on 12/29/23 AM. HRs in the 90s and he is asymptomatic. Coreg was decreased to 3.125 mg BID due to conversion pauses.
-LDL 86. Patient's Crestor 20 mg daily was held during his 08/2023 admission and supposed to restart 10/05/23, but he never did. Restarted Crestor 20 mg daily on 12/27/23.
-Patient has a h/o chronic pancreatitis and saw GI in the office 11/07/23 and the plan for EUS/EGD for PD stent and stone extraction was cancelled as pain had improved. Lipase is 890 on admission, but trended down to 327 on 12/28/23 AM. Patient now
says that he feels he needs the PD stent and is asking for it to be performed this admission. Reviewed with patient that given NSTEMI and coronary stent this admission with the need for uninterrupted Plavix that he might have to wait until Plavix
can be interrupted for GI procedure.
-D/C to home 01/04/24
HPI: Patient came to [facility] today with epigastric pain and SOB and is now being admitted with NSTEMI and acute HF, cardiology has been consulted. Patient started with SOB in the last 3-4 weeks and it has progressively worsened. He noticed increased LE
edema and bloating as well. He thinks he is up 20 lbs or more from his baseline weight. Patient had previously decreased his torsemide dose due to lightheadedness and feeling dehydrated around 04/2023, but then noticed weight gain and edema and was
eventually titrated back up to torsemide 20 mg BID over a couple of months. He says that he has been taking his torsemide, but not urinating as much as he expected. Then he noticed consistent hyperglycemia with blood sugars over 300 and called the
Nephrology office today and was referred to [facility]. Upon arrival patient also described epigastric fullness that is also sometimes pain. Patient has a h/o chronic pancreatitis and saw GI in the office 11/07/23 and the plan for EUS/EGD for PD stent and
stone extraction was cancelled as pain had improved.
Progress Note - Director Emergency
Subjective
Date of Service: January 04, 2024
He feels well, but is overwhelmed at the prospect of going home and being on his own. He declined VN
Objective
Labs:
01/04/24 02:57
01/04/24 02:57
Labs
Hgb 15.2 g/dL (13.0-18.0) 01/04/24 02:57
Hct 48.7 % (39.0-52.0) 01/04/24 02:57
Plt Count 237 10^3/uL (130-400) 01/04/24 02:57
APTT Cancelled 12/28/23 16:15
Sodium 131 mmol/L (135-145) L 01/04/24 02:57
Potassium 3.5 mmol/L (3.5-5.1) 01/04/24 02:57
BUN 47 mg/dl (9-20) H 01/04/24 02:57
Creatinine 3.0 mg/dL (0.7-1.3) H 01/04/24 02:57
Glucose 147 mg/dl (70-99) H 01/04/24 02:57
Vital Signs and I&O:
Vital Signs
Temp Pulse Resp BP Pulse Ox
98.7 F 91 20 130/86 94
01/04/24 07:17 01/04/24 08:18 01/04/24 07:17 01/04/24 08:18 01/04/24 07:17
Vital Signs
Temp Pulse Resp BP Pulse Ox
98.7 F 91 20 130/86 94
01/04/24 07:17 01/04/24 08:18 01/04/24 07:17 01/04/24 08:18 01/04/24 07:17
Intake & Output
01/02/24 01/03/24 01/04/24 01/05/24
06:59 06:59 06:59 06:59
Intake Total 240 / 240 600 / 600
Balance 240 / 240 600 / 600
Physical Exam
Physical Exam
GEN: NAD. LEON x3
HEENT: EOMI, MMM
LUNGS: CTA B/L, no wheezes or rales
CV: Reg, S1/S2, no murmur, rub or gallop
ABD: soft, BS+
EXT: Trace B/L LE edema. No clubbing, cyanosis or lesions B/L
NEURO: Gross non-focal
SKIN: Warm, dry and pink. No rash
[2024-01-04 11:15] VITALS: BP 113/85
[2024-01-04 11:53] LABS: Glucose - Point of Care 220 mg/dl (70-99)
--- NOTE | 2024-01-04 11:54 | W.DCSUMMARY ---
Discharge Summary
Discharge Data
Date of Admission: 12/27/23
Date of Discharge: 01/04/24
-
Pending Results: No
Hospital Course
Principal Diagnosis:
Chest pain due to NSTEMI
Acute on Chronic HFrEF
Contraction alkalosis
Chronic Diagnoses:�
Insulin-dependent diabetes
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
Living unrelated kidney transplant 2009 (), continue steroids and tacrolimus
3.7 cm RIGHT RENAL CELL CARCINOMA and 2.9 cm left hemorrhagic renal cyst. Right lower quadrant renal transplant in place without complication.
Pulmonary nodules
Alcohol use disorder
Coronary artery disease s/p stenting
Paroxysmal atrial fibrillation on Eliquis
Hypertension
HLD
Consultations:�
Cardiology
Nephrology
Diabetes nurse practitioner
Procedures:�
Cardiac cath 12/28/23: PCI of 100% distal LAD occlusion
Clinical course:�
This is a 58�year old with past medical history as stated above, who presented with shortness of breath, abdominal bloating and mid abdominal pain. He was admitted for NSTEMI and CHF exacerbation.
Problem 1:
Acute on Chronic HFrEF.
His echo showed an EF 45-50%.
He received IV Lasix 80 mg BID while in the hospital, and was discharged with Torsemide 40mg BID (from 20 mg BID PROCESSING ASSOCIATE).
He has been informed to follow-up a BMP level closely after discharge, with result to his PCP and distribution driver.
Problem 2:
Contraction alkalosis.
This was treated with Diamox for 4 doses per renal.
Problem 3:
Chest pain due to NSTEMI.
He underwent cardiac cath 12/28/23, with PCI to 100% distal LAD occlusion.
He received triple therapy (baby aspirin, Plavix 75 mg, and Eliquis for 1 week), then Plavix and Eliquis (without ASA) going forward per cardiology.
Problem 4:
Insulin-dependent diabetes
His Hgba1c was at 13.3% this admission.
At one point, he required insulin drip, but this was subsequently changed back to subcu insulin.
He can continue Lantus at 43 units HS, and Novolog at 15 units AC.
As for the rest of his medical problems, they were stable during his hospital stay.
Discharge Plan
-
Patient Disposition: Home with Home Care
Discharge Diagnosis/Procedures: myocardial infarction status post stent to LAD; Acute on Chronic heart failure
Condition: Fair
Diet: Low Cholesterol and Diabetic, Carb Controlled
Driving Restrictions: No driving for 24 hours
Blood Work: BMP 01/06/24, result to your PCP and distribution driver
Other Services: Cardiac Rehab
Specialty Instructions: Weigh Daily- Call MD for wt gain/loss 3 lbs overnight/5 lbs in 1 week
Stop these medications:: aspirin, glipizide
Activity Restrictions/Additional Instructions:
Continue Torsemide at 40mg twice daily.
Continue Plavix and Eliquis for at least 1 year.
Continue to take cholesterol medication Rosuvastatin (which also has cardiac protective property).
Your Coreg was decreased from 6.25 twice daily to 3.125 mg twice daily.
Continue Lantus at 43 units at night, and take insulin NovoLog at 15 units with each meal (breakfast, lunch, dinner)
Instructions: *[facility] Heart Failure Instructions
Stand Alone Forms: DC Instructions- Cath/EP Lab
Referrals:
[facility] [Outside] - 01/24/24 1:00 pm
(Cardiac Rehab Orientation appointment is on 01/24/2024 at 1:30 PM.
The Cardiac Rehab gym is located on the first floor of the [facility].)
Elena Moore PA-C [Specified Professional Personl] - 01/05/24 8:00 am (You have an appt to be seen at Dr. Bee's office tomorrow morning at 8 AM. If you want to cancel please call [phone].)
Bradley Field MD [Family Provider] - in less than 1 week
Prescriptions:
New
carvedilol 3.125 mg Tablet
3.125 mg PO BID Qty: 60 0RF
rosuvastatin 20 mg Tablet
20 mg PO QPM Qty: 30 0RF
torsemide 20 mg Tablet
40 mg PO BID Qty: 60 0RF
acetazolamide 250 mg Tablet
250 mg PO BID 1 Days Qty: 2 0RF
clopidogrel 75 mg Tablet
75 mg PO DAILY Qty: 30 12RF
insulin aspart U-100 [Novolog FlexPen U-100 Insulin] 100 unit/mL (3 mL) Insulin Pen
15 unit SC AC Qty: 15 3RF
Continued
prednisone 5 MG tablet
5 mg PO DAILY
tacrolimus 1 MG capsule
1 mg PO BID
pantoprazole 40 mg Tablet,Delayed Release (Dr/Ec)
40 mg PO DAILY
Jardiance 25 mg Tablet
25 mg PO DAILY
albuterol sulfate [ProAir HFA] 90 mcg/actuation Hfa Aerosol Inhaler
2 puff INHALATION R Q4HPRN PRN (Reason: sob)
Eliquis 5 mg tablet
5 mg PO BID
doxazosin 8 mg Tablet
8 mg PO BID
hydralazine 100 mg Tablet
100 mg PO DAILY
hydralazine 100 mg tablet
200 mg PO QPM
acetaminophen [Tylenol Extra Strength] 500 mg Tablet
1,000 mg PO BIDPRN PRN (Reason: mild pain)
gabapentin 300 mg Capsule
300 mg PO DAILY
magnesium hydroxide
1 dose PO DAILY PRN (Reason: constipation)
Patient Comments:
12/27/2023, pt. states that they they will drink either half or the entire bottle of their magensium hydroxide when they use it.
Changed
insulin glargine 100 unit/mL (3 mL) insulin pen
43 unit SC HS Qty: 3 0RF
Discontinued
glipizide 5 mg Tablet
5 mg PO BID
carvedilol 6.25 mg tablet
6.25 mg PO BID
aspirin 81 mg tablet,delayed release (DR/EC)
81 mg PO DAILY
torsemide 20 mg tablet
20 mg PO BID
Discharge Orders:
Discharge Patient (As Directed); Ordered 01/04/24
Ordered By: Tamica Riojas
Care Plan Goals
Care Plan Goals:
Problem: Readiness for enhanced knowledge related to diagnosis and treatment plan
Goal: Understand your diagnosis and treatment plan needs, including medications if applicable.
Instructions: Know your diagnosis, underlying causes and treatment plan options, including medications if applicable. Consult with your health care team to learn about your diagnosis and treatment plan, including medications if applicable.
[2024-01-04] MEDS: NOVOLOG FLEXPEN 15 UNITS SC (11:56)
--- NOTE | 2024-01-04 15:52 | PTCARENOTE ---
D/C instructions given to patient, verbalizes understanding. INT D/C'd, telemetry D/C'd, personal belongings packed and sent home with patient. D/C to home via wc accompanied by staff.
--- NOTE | 2024-01-18 09:45 | CON.CAR ---
Consultation
Consultation Request
Date/Time Consultation Requested: 01/18/2024; 09:32.
Date/Time Consultation Performed: 01/18/2024; 09:45.
Requesting Provider: Jonathan Allen D.O.
Performing Provider: Everton Ching D.O.
Reason for Consultation: Chest/Abdominal Pain, known CAD, prior PCI, concern for STEMI.
Medical History
-
Chief Complaint: Abdominal Pain.
History of Present Illness:
59 y/o male smoker with extensive past medical history including ESRD (secondary to FSGS) s/p renal transplant with residual CKD4 and nephrotic range proteinuria, IDDM, HTN, HLD, atrial fibrillation on apixaban with recent NSTEMI s/p PCI to the dLAD
presenting with abdominal pain and low level chest pain.
His abdominal pain is described as a bloating. At the time of admission in late November, he had acute on chronic pancreatitis. He was admitted in August of 2023 with abdominal pain and acute on chronic pancreatitis with transaminitis that was
managed conservatively. CT imaging from that admission showed a calcification in the pancreatic head with a dilated pancreatic duct. MRCP showed a subcentimeter cystic lesion without suspicious features, suggestive of a pseudocyst or side branch
intraductal papillary mucinous neoplasm.
At a GI visit in October of 2023, the patient reported feeling well without abdominal pain after the addition of gabapentin. GI had previously planned for EDG with stone removal (stone vs. cyst?), but this was deferred as his pain had resolved.
Today, he states that his abdominal pain is chronic and has never gone away. It became somewhat severe and he was having difficultly distinguishing his chest/abdominal pain. He does admit to left arm paresthesias, intermittent. He denies specific
discomfort.
The patient was previously admitted with NSTEMI/HFmEF from 12/27/2023 - 01/04/2024. Cardiac catheterization revealed an occlued dLAD which was treated successfully with angioplasty and PCI. His troponin peaked at 5. Echocardiogram showed new
cardiomyopathy, LVEF 45-50% with apical akinesis. He was maintained on triple therapy (aspirin, clopidogrel, apixaban) for one week, then aspirin was discontinued. Diuresis was continued.
It has been present since his PCI and is generally unchanged. He reports that he has been taking his medications consistently. He continues to smoke, but has reduced his volume.
Labs show stable CBC. His lipase is 380. LFT's are normal except his total bilirubin of 1.5. Creatinine is 2.8 (improved from 3.0 two weeks ago). Troponin is elevated at 2.380. He was given IV pain medication and feels significantly improved.
DATA:
CT abdomen/pelvis, 09/23/2023:
IMPRESSION:
1. � Suspected mild acute interstitial edematous pancreatitis superimposed upon CHRONIC PANCREATITIS. 7.4 mm calcification in the head of the pancreas obstructing the main pancreatic duct. No CT evidence for new acute peripancreatic fluid collection.
2. � Severe chronic bilateral renal disease. 3.7 cm RIGHT RENAL CELL CARCINOMA and 2.9 cm left hemorrhagic renal cyst. Right lower quadrant renal transplant in place without complication.
3. � Mild colitis of the descending colon, sigmoid colon, and rectum.
4. � Moderate distention of the stomach.
5. � Grade 1 anterolisthesis of L4 on L5 secondary to severe facet joint arthrosis.
6. � Multiple small sub-5 mm centrilobular pulmonary nodules in the right lower lobe (probably infectious or inflammatory in etiology). A follow-up chest CT examination in 12 months is recommended.
MRCP, 09/24/2023:
IMPRESSION:
Limited examination due to patient motion artifact.
Findings suggesting mild acute interstitial edematous pancreatitis superimposed on chronic pancreatitis change.
Subcentimeter pancreatic cystic lesion in the head/uncinate process without suspicious features, likely a pseudocyst or side branch intraductal papillary mucinous neoplasm. Recommend follow-up MRI/MRCP abdomen without and with gadolinium contrast in
one year per ACR criteria.
Stable right renal neoplasm.
TTE, 12/27/2023:
CONCLUSIONS
�Moderate concentric left ventricular hypertrophy. Normal left ventricular
�chamber size. Mildly reduced left ventricular systolic function. Left
�ventricular ejection fraction is 45-50% by visual assessment, 48% by Chavira's
�method.� Apical hypokinesis.
�No significant valvular disease.
�Trivial to samll pericardial effusion.
�Compared to the previous echo from Jul 2023, which was reviewed, EF was 60-65%
�without wall motion abnormality or effusion, there is no other significant
�change.
Cardiac Catheterization/PCI, 12/28/2023:
CONCLUSIONS
1.� Successful percutaneous coronary intervention of 100% distal LAD occlusion with a 2.25 x 23 mm Xience sloan point drug-eluting stent with an excellent angiographic result. TIMIT 3 flow restored.
2.� Significantly elevated LVEDP.
Past Medical History
Past Medical History: CAD, Cancer (RCC on imaging.), CHF, HTN, Hypercholesterolemia, IDDM, [place] (NSTEMI, PCI to dLAD (Xience Skypoint 2.25 x 23 ANKUR), 12/28/2023.) and Renal Failure (ESRD 2/2 FSGS, baseline creatinine (1.9-2.1).)
Past Surgical History: Urological (Renal transplant.)
Social History
Tobacco: Smoker
Alcohol: Former (Quit January 2023.)
Drug: None
Personal: Single
Living: Alone
Family History
Family History: Reviewed & Not Pertinent
Allergies / Home Medications
Allergy/AdvReac Type Severity Reaction Status Date / Time
amlodipine Allergy swelling Verified 12/27/23 09:32
in lower
legs
dulaglutide [From Trulicity] Allergy Pancreatiti Verified 12/27/23 09:32
s
enalapril maleate Allergy abdominal Verified 12/27/23 09:32
[From Vasotec] and chest
pain
unknown antirejection Allergy edema,painful Uncoded 12/27/23 09:32
medication to walk
,joints
hurt
Medication Instructions Recorded Confirmed Type
prednisone 5 mg tablet 5 mg PO DAILY inflammation 06/18/19 12/27/23 History
tacrolimus 1 mg capsule, 1 mg PO BID Transplant 06/18/19 12/27/23 History
immediate-release
empagliflozin 25 mg tablet 25 mg PO DAILY Diabetes 08/11/23 12/27/23 History
(Jardiance)
pantoprazole 40 mg tablet,delayed 40 mg PO DAILY Gastrointestinal 08/11/23 12/27/23 History
release Issue
albuterol sulfate 90 mcg/actuation 2 puff inhalation R Q4HPRN PRN sob 08/15/23 12/27/23 History
aerosol inhaler (ProAir HFA)
apixaban 5 mg tablet (Eliquis) 5 mg PO BID Blood Clot 08/23/23 12/27/23 History
Prevention/Tx
doxazosin 8 mg tablet 8 mg PO BID Blood Pressure 09/19/23 12/27/23 History
hydralazine 100 mg tablet 100 mg PO DAILY Blood Pressure 09/19/23 12/27/23 History
hydralazine 100 mg tablet 200 mg PO QPM Blood Pressure 09/19/23 12/27/23 History
acetaminophen 500 mg tablet 1,000 mg PO BIDPRN PRN mild pain 12/27/23 12/27/23 History
(Tylenol Extra Strength)
gabapentin 300 mg capsule 300 mg PO DAILY Pain 12/27/23 12/27/23 History
magnesium hydroxide 1 dose PO DAILY PRN constipation 12/27/23 12/27/23 History
acetazolamide 250 mg tablet 250 mg PO BID 1 day #2 tabs 01/04/24 Rx
carvedilol 3.125 mg tablet 3.125 mg PO BID #60 tabs 01/04/24 Rx
clopidogrel 75 mg tablet 75 mg PO DAILY #30 tabs 01/04/24 Rx
insulin aspart U-100 100 unit/mL 15 unit (0.15 mL) SC AC #15 mL 01/04/24 Rx
(3 mL) subcutaneous pen (Novolog
FlexPen U-100 Insulin aspart)
insulin glargine 100 unit/mL (3 43 unit (0.43 mL) SC HS Diabetes 01/04/24 Rx
mL) subcutaneous pen #3 mL
rosuvastatin 20 mg tablet 20 mg PO QPM #30 tabs 01/04/24 Rx
torsemide 20 mg tablet 40 mg PO BID #60 tabs 01/04/24 Rx
Review of Systems
-
History Source: Patient
All other systems: Negative unless noted
Constitutional: No Symptoms
EENT: No Symptoms
Respiratory: Trouble Breathing
Cardiac: Chest Pain
Abdomen/GI: Abdominal Pain
: No Symptoms
Musculoskeletal: No Symptoms
Skin: No Symptoms
Neurological: No Symptoms
Endocrine: No Symptoms
Hematologic/Lymphatic: No Symptoms
Physical Exam
Vital Signs
Temp Pulse Resp BP Pulse Ox
37.1 C 87 16 113/85 98
01/04/24 11:15 01/04/24 14:00 01/04/24 11:15 01/04/24 11:15 01/04/24 11:15
Lab Results
01/04/24 02:57
01/04/24 02:57
Troponin I Cancelled 12/28/23 16:17
[id number] Pept [id number] pg/ml 01/03/24 04:10
Physical Exam
General: Well Developed, Well Nourished and Pain
HEENT: Normocephalic, Anicteric and Moist Mucous Membranes
Respiratory: Clear and Non Labored Respirations
Cardiac: S1/S2 and Irregular Rhythm
Breast: Deferred by me
GI: Soft, Non Distended and Tender
Rectal: Deferred by Provider
Genito-urinary: No Costovertebral Tender
Musculoskeletal: No Clubbing, No Cyanosis and No Edema
Skin: Warm and Dry
Neuro: AO x 3
Hematologic/Lymphatic: No Lymphadenopathy
Psych: Calm
Impression / Plan
-
Impression/Plan: 59 y/o male smoker with extensive past medical history including ESRD (secondary to FSGS) s/p renal transplant with residual CKD4 and nephrotic range proteinuria, IDDM, HTN, HLD, atrial fibrillation on apixaban with recent NSTEMI
s/p PCI to the dLAD presenting with abdominal pain and low level chest pain and abnormal EKG.
#Chest Pain/NSTEMI
-Atypical presentation.
-EKG looks similar to slightly improved from previous. ST segment elevations are seen in the anterolateral precordium and the patient is in atrial fibrillation/flutter. These IAN are not significantly changed.
-His abdominal pain is more concerning at this time.
-Continue clopidogrel/apixaban.
-Troponin elevated at 2.380. Continue to trend. Troponin never technically peaked after second insult, so this could be coming down but it could be a separate event.
-Given his presentation, it may be prudent to proceed to coronary angiography, though we must exercise caution given his renal dysfunction.
-Repeat echocardiogram.
#Abdominal Pain
-Acute on chronic.
-Known acute/chronic pancreatitis with stone/cyst at the uncinate process, previously dilated pancreatic duct.
-ER is sending for abdominal/pelvic CT.
-Check lipase, LFTs (all pending).
#Left arm paresthesias
-New symptoms.
-Could be related to cardiac disease, though TIA is certainly concerning.
-Check carotid Duplex.
#HFmEF/ICMO
-Chronic, stable.
-Continue GDMT therapy.
-He does not appear decompensated at this time.
#HTN
-Chronic, stable.
-Resistant, multidrug.
-Resume home medications.
#ESRD/Renal Transplant
-Chronic.
-Continue immunosuppression.
-Monitor renal function.
#IDDM
-Chronic, stable.
-Insulin per protocol.
Data Reviewed
-
EKG: Tracing Personally Visualized and interpreted, Discussed with Physician and Discussed with Patient
Radiology: Image Personally Visualized and interpreted and Report Reviewed by me
CT Scan: Image Personally Visualized and interpreted, Report Reviewed by me and Discussed with Physician
MRI: Image Personally Visualized and interpreted, Report Reviewed by me and Discussed with Physician
Medical Tests (Nuc Med, Echo etc): Image Personally Visualized and interpreted and Report Reviewed by me
Labs: Labs Reviewed by me
Old Records: Reviewed
== END 2024-01-04 16:46 | disposition home or self-care (01) | DRG 321 ==
LOC: IVU 13:49
PROVIDERS: Emergency Medicine; Internal Medicine Interventional Cardiology; Physician Assistant Medical; Specialist; ADMITTING PHYSICIAN Internal Medicine; ATTENDING PHYSICIAN Internal Medicine; CONSULT PHYSICIAN Internal Medicine; CONSULT PHYSICIAN Internal Medicine Cardiovascular Disease; EMERGENCY PHYSICIAN Emergency Medicine; FAMILY PHYSICIAN Family Medicine
PROC: 4A023N7 Measurement of Cardiac Sampling and Pressure, Left Heart, Percutaneous Approach (ICD-10-PCS; 2023-12-28)
PROC: 027034Z Dilation of Coronary Artery, One Artery with Drug-eluting Intraluminal Device, Percutaneous Approach (ICD-10-PCS; 2023-12-28)
PROC: B2151ZZ Fluoroscopy of Left Heart using Low Osmolar Contrast (ICD-10-PCS; 2023-12-28)
PROC: B2111ZZ Fluoroscopy of Multiple Coronary Arteries using Low Osmolar Contrast (ICD-10-PCS; 2023-12-28)
DX: I21.4 Non-ST elevation (NSTEMI) myocardial infarction (principal); I50.33 Acute on chronic diastolic (congestive) heart failure; E87.3 Alkalosis; E87.1 Hypo-osmolality and hyponatremia; I13.0 Hypertensive heart and chronic kidney disease with heart failure and stage 1 through stage 4 chronic kidney disease, or unspecified chronic kidney disease; I48.92 Unspecified atrial flutter; K86.1 Other chronic pancreatitis; I47.20 Ventricular tachycardia, unspecified; Z94.0 Kidney transplant status; D84.9 Immunodeficiency, unspecified; I48.0 Paroxysmal atrial fibrillation; E11.22 Type 2 diabetes mellitus with diabetic chronic kidney disease; I25.10 Atherosclerotic heart disease of native coronary artery without angina pectoris; G47.33 Obstructive sleep apnea (adult) (pediatric); R10.13 Epigastric pain; N18.32 Chronic kidney disease, stage 3b; N28.1 Cyst of kidney, acquired; F10.10 Alcohol abuse, uncomplicated; E78.00 Pure hypercholesterolemia, unspecified; E11.65 Type 2 diabetes mellitus with hyperglycemia; D45 Polycythemia vera; E11.42 Type 2 diabetes mellitus with diabetic polyneuropathy; E88.09 Other disorders of plasma-protein metabolism, not elsewhere classified; E66.01 Morbid (severe) obesity due to excess calories; I25.5 Ischemic cardiomyopathy; R91.8 Other nonspecific abnormal finding of lung field; M54.2 Cervicalgia; M25.512 Pain in left shoulder; E87.6 Hypokalemia; F17.200 Nicotine dependence, unspecified, uncomplicated; Z95.5 Presence of coronary angioplasty implant and graft; Z90.49 Acquired absence of other specified parts of digestive tract; I25.2 Old myocardial infarction; Z79.01 Long term (current) use of anticoagulants; Z79.4 Long term (current) use of insulin; Z79.52 Long term (current) use of systemic steroids; Z79.82 Long term (current) use of aspirin
CPT/HCPCS: 71045; 72125; 76937; 80048; 80053; 80061; 80076; 82150; 82947; 82962; 83036; 83690; 83735; 83880; 84484; 85025; 85027; 85347; 85730; 93005; 93306; 93458; 96365; 96375; 97163; 97165; 99152; 99153; 99291; 99406; C1725; C1769; C1874; C1894; C9600; J0153; J7030; Q9967

== ENCOUNTER 2024-01-18 14:05 | Inpatient (IN) | payer BC, SELFPAY ==
[2024-01-18] VITALS (18 sets, daily range): BP systolic 106–139; BP diastolic 50–93; PULSE 78–103; BMI 30.3; BMI 29.2
[2024-01-18] MEDS: MORPHINE SULFATE 4 MG IV (09:45)
[2024-01-18] MEDS: ZOFRAN 4 MG IV (09:45)
[2024-01-18 10:02] LABS: % Basophils 0.6 % (0-2); % Immature Granulocytes 1.8 % (0-0.5); % Lymphocytes 7.3 % (20.5-51.1); % Monocytes 8.5 % (1.7-9.3); % Neutrophils 74.8 % (42.2-75.2); Absolute Basophils 0.1 10^3/uL (0-0.2); Absolute Eosinophils 1.1 10^3/uL (0-0.7); Absolute Immature Granulocytes 0.3 10^3/uL (0-0.05); Absolute Lymphocytes 1.1 10^3/uL (1.2-3.4); Absolute Monocytes 1.3 10^3/uL (0.1-0.6); Absolute Neutrophils 11.5 10^3/uL (1.4-6.5); Hematocrit 56.1 % (39.0-52.0); Hemoglobin 17.5 g/dL (13.0-18.0); Mean Corp Hgb Conc. 31.2 g/dL (33.0-37.0); Mean Corpuscular Hgb 24.4 pg (27.0-31.0); Mean Corpuscular Volume 78.4 fL (80.0-94.0); Mean Platelet Volume 9.6 fL (7.4-10.4); Nucleated Red Blood Cells % 0 % (-); Platelet Count 108 10^3/uL (130-400); Red Blood Cell Count 7.16 10^6/uL (4.70-6.10); Red Cell Dist. Width 16.8 % (11.5-14.5); White Blood Cell Count 15.4 10^3/uL (4.8-10.8)
[2024-01-18] MEDS: DILAUDID 1 MG IV ×2 (10:10→12:03)
[2024-01-18 10:21] LABS: ALT (SGPT) 30 U/L (0-50); AST (SGOT) 57 U/L (17-59); Albumin 3.3 g/dl (3.5-5.0); Alkaline Phosphatase 400 U/L (38-126); Blood Urea Nitrogen 48 mg/dl (9-20); Calcium 9.6 mg/dl (8.4-10.2); Carbon Dioxide 23 mmol/L (22-30); Chloride 100 mmol/L (98-107); Estimated Creatinine Clearance 31 ml/min; Glucose 90 mg/dl (70-99); Lipase 380 U/L (23-300); Potassium 4.5 mmol/L (3.5-5.1); Sodium 131 mmol/L (135-145); Total Bilirubin 1.5 mg/dl (0.2-1.3); Total Protein 6.7 g/dl (6.3-8.2); eGFR 25.36
--- NOTE | 2024-01-18 11:47 | W.PN.UPDATE ---
Addendum entered and electronically signed by Jennifer Hidalgo DO 01/18/24 13:49:
I saw and examined the patient.
The Product Development Chemist's note was reviewed and I agree with the note.
Comment: Patient seen and examined in ED 24 along with cardiac PA and discussed case with Dr. Ching. Medically complex 59-year-old gentleman who presents with chest pain/epigastric pain and abnormal cardiac troponin, initially 2.38. Twelve-lead
EKG abnormal with persistent atrial flutter and ST-T wave changes similar to prior EKG. Recent admission for non-STEMI with LAD PCI December 27 - January 04 with multivessel coronary artery disease. Patient also has a history of chronic
pancreatitis and type 2 diabetes mellitus. He also has history of CKD s/p renal transplant on immunosuppression followed by nephrology with imaging raising concern for renal cell carcinoma. He also has multiagent, uncontrolled hypertension and
ongoing tobacco dependence. He has been compliant with his antiplatelet therapy including Plavix and Eliquis, last dose of both this morning. He was initially evaluated by Dr. Iglesia Ching as part of a STEMI evaluation however EKG felt to be
similar to prior. He was seen by our service following this initial evaluation. A CT of the abdomen without contrast now reports new diffuse metastatic infiltration through the liver as well as chronic pancreatitis and stable right renal neoplasm.
No plans for urgent left heart catheterization
Optimize medical therapy as able:
-IV nitroglycerin if blood pressure allows, as needed Dilaudid.
-Will discuss with hospitalist new CT abdomen findings: Can hold Eliquis and start IV heparin without bolus tonight if noncardiac procedures are planned.
-Continue uninterrupted Plavix. Would start aspirin 81 mg daily while off Eliquis
-Monitor on telemetry and trend cardiac troponin
-No need to repeat echocardiogram
Will follow with you
Original Note:
Update Note
Progress Note Update
PCP: Dr. Field
Primary Dip Stand Loader: Dr. JOSE Bee
Nephrology: Dr. Loya
Impression:
Chest pain
Recent admission for NSTEMI, LAD PCI and acute HF 12/27/23 until 01/04/24
CAD
s/p Circ/OM stent 08/2014
s/p IWMI with stenting of the mid right coronary artery 06/2016 and staged intervention for in-stent restenosis and new lesion in circ/OM 06/2016
s/p NSTEMI, with abrupt closure of the AV continuation of the Circ supplying 2 small posterolateral branches during cath and then 4 mm Xience to mid LAD and 2.75 mm Xience to the mid to distal OM-1 03/05/19
s/p NSTEMI with 100% distal LAD occlusion stented with a 2.25 mm Xience 12/28/23
Abnormal ECG
CKD 4
s/p Living, unrelated donor (his at the time) renal transplant [facility] 2009
Right bois forte kidney lower pole cystic mass concerning for renal cell carcinoma since at least 09/09/21
HTN
Persistent Afib/typical aflutter
recurrence noted on ECG in ER 12/27/23
Chronic OAC with Eliquis, last dose 01/18/24 AM
Active smoker
h/o ETOH use disorder
DM 2
Diabetic neuropathy
Hyperlipidemia
History of NSVT
Polycythemia vera
Chronic pancreatitis
ECHO 10/14/22: Technically difficult study, use IV Definity in future, EF 55 to 60%, likely moderate LVH, normal RV size and function, no significant valvular disease
Echo 08/24/23: EF 60-65%, normal RV size and function, PAP 20-25 mmHg
Echo 12/27/23: EF 45-50%, apical hypokinesis, trivial to small pericardial effusion
Plan:
-Patient came to [facility] today with chest/epigastric pain. He says that the pain has been present since he was discharged 01/04/24, but became much worse yesterday and he could not get relief with pain meds and patches at home. He also says that he
started to feel confused and thought he was speaking when he wasn't along with acute on chronic LUE paresthesias. In the ER his initial Troponin was 2.38. Last admission Troponin as high 5.75 prior to PCI 12/28/23,but true peak unknown and presumably
3 weeks later Troponin would be trending down although he has CKD 4. Chest pain improved with Dilaudid, but still present at a low level.
-CT abd/pelvis ordered and patient is going now.
-Patient has a h/o chronic pancreatitis and saw GI in the office 11/07/23 and the plan according to their notes was EUS/EGD for PD stent and stone/calcified structure extraction was cancelled as pain had improved.
-Check another Troponin at 1230
-ECG is abnormal
-Patient has trouble recalling exact details of meds and last doses, he did just receive Dilaudid. He thinks he has been taking Plavix.
-Patient completed a week of triple therapy with aspirin, Plavix and Eliquis after 2.25 mm Xience to the distal LAD 12/28/23 and is now on Plavix and Eliquis alone.
-Last admission patient diuresed almost 30 lbs and weight is down another 4 lbs as an outpatient.
-Torsemide decreased to 20 mg daily as an outpatient.
-Cre was 3.0 at last d/c 01/04/24 and is 2.8 today. Patient with living donor transplant in 2009, but also with bois forte right renal mass concerning for renal cell carcinoma. He had a transplanted kidney renal biopsy in 2021 and there were acute tubular
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
-GDMT as an outpatient includes Coreg 3.125 mg BID. Patient is not chronically on ALMA DELIA/ARB/aldosterone antagonist due to h/o renal transplant.
-Remains in atrial flutter which is persistent at this point.
[2024-01-18] MEDS: NITROGLYCERIN PREMIX 250 IV (11:57)
--- NOTE | 2024-01-18 12:01 | ED.GENMED ---
History of Present Illness
General
Chief Complaint: Chest Pain
Source: patient and records
Exam Limitations: none
Time Seen by Provider: 01/18/24 09:40
Nursing documentation reviewed up to this point in time: agreed with
Travel History
Have you had any contact with someone who has COVID-19?: No
Do you have any symptoms of coronavirus? Fever > 100 degrees, chills, cough, shortness of breath, sore throat, loss of taste or smell, muscle aches, or headache?: No
History of Present Illness
History of Present Illness:
Patient is a 59-year-old male who recently had a coronary stent placed and was discharged couple weeks ago. Patient states that at that time he has been having chest pain and today had severe upper abdominal pain and then vomited once. Patient
felt some tingling in his left upper extremity. Patient denies shortness of breath. Patient continues to have pain. Patient is thought to have chronic pancreatitis and possibly gallbladder stones. Patient has been seen previous to the [place] in
December for this. Patient has chronic atrial for flutter. Patient has a history of kidney transplant. Patient denies fever or chills. Patient admits to shortness of breath with this chest pain.
Past History
Past History
ED Past Medical History: CAD, HTN, Hypercholesterolemia, IDDM, [place] and Other (History of ESRD on HD status post kidney transplant now with CKD, recurrent pancreatitis)
ED Past Surgical History: Cardiac (Cardiac stent), Cholecystectomy and Other (Renal transplant)
Social History
Tobacco: Smoker
Alcohol: Occasional
Drug: None
Personal:
Living: with family
Employment: Employed
Family History
Family History: Other (n/c)
Review of Systems
Review of Systems
All Other Systems: ROS reviewed and negative except as documented in HPI and ROS
Constitutional: Reports fatigue; Denies fever or chills
EENT: Reports no symptoms
Respiratory: Reports trouble breathing
Cardiac: Reports chest pain
ABD/GI: Reports abdominal pain, nausea, vomiting and anorexia; Denies diarrhea, constipated or black stools
: Reports no symptoms
Musculoskeletal: Reports no symptoms
Skin: Reports no symptoms
Neurological: Reports no symptoms
Hematologic/Lymphatic: Reports no symptoms
Phy Exam
Physical Exam
Physical Exam:
Physical Exam
General: significant distress, alert and appropriate, well nourished, well hydrated
HENT: Normocephalic, supple with no lymphadenopathy, no thyromegaly
Eyes: Clear sclera, conjuctiva without injection
Heart: irregular rhythm and tachycardic rate. No S3, S4. No murmur. No NVD
Lungs: No respiratory distress, no stridor, lung sounds clear and equal bilaterally, chest wall symmetrical and reproducible upper left tenderness
Abdomen: Soft, significant midepigastric tenderness with some guarding without rebound, no organomegaly, no CVA tenderness, BS good
Neuro: Alert and oriented x 3, CN II - XII intact, no motor focality, no cerebellar dysfunction
Skin: Chronic venous stasis changes of the lower extremities
Psychiatric: well kept. interactive and cooperative
Extremities: No edema, cyanosis, tenderness, Good and equal peripheral pulses.
Scores
Heart Failure Risk
Heart Failure Risk Score: Not Applicable
Heart Score for Chest Pain Patients
STEMI patient?: Not applicable
Withdrawal Assessment of Alcohol
Withdrawal Assessment Completed?: Not applicable
Course
Orders/Labs/Results
Orders:
Orders
01/18/24 09:28
EKG [Electrocardiogram (*1)] Urgent
Reason for Study: Chest Pain
EKG- Treatment ONCE
01/18/24 09:40
Morphine Sulfate 4 mg IV NOW STA
Ondansetron Injectable [Zofran] 4 mg IV NOW STA
01/18/24 09:45
CT Abd/pel Without Iv Or Oral Urgent
Comment: OK'D DR LOBO @1025A -
Reason For Exam: diffuse upper abd tender. hx of pancreatitis
01/18/24 09:56
Complete Blood Count/With Diff Urgent
Comprehensive Metabolic Panel Urgent
Lipase Urgent
Troponin I Urgent
01/18/24 10:04
HYDROmorphone [Dilaudid] 1 mg IV NOW STA
01/18/24 11:15
Nitroglycerin 100 mg/250 ml [Nitroglycerin Premix] 100 mg in 250 ml IV PER PROTOCOL
Initial dose in mcg/min, then titrate:: 5
Titrate to keep:: Chest Pain Free
Titrate by mcg/min:: 5 mcg/min, may increase by 10 mcg/min if dose > 20 mcg/min
Frequency of titrations (minutes):: every 3-5 minutes
Maximum dose in mcg/min:: 200
Begin to taper infusion when:: Remained at goal for 2hrs
Taper by mcg/min:: 5 mcg/min
Frequency of taper (minutes) if patient maintains goal:: 30
Taper to off?: Yes
If infusion off & no longer maintaining goal:: Contact Provider
01/18/24 11:59
HYDROmorphone [Dilaudid] 1 mg IV NOW STA
01/18/24 12:07
Troponin I Urgent
01/18/24 13:16
GASTROINTESTINAL CONSULT Routine
Consulting Provider: Jade Hauser
Was physician already notified: Yes
INFECTIOUS DISEASE CONSULT Routine
Consulting Provider: Moraima Kearney
Was physician already notified: Yes
MR Abdomen W/o & W Contrast Routine
Comment:
Reason For Exam: abdominal pain, abnormal appearing liver by CT
Recent pill cam endoscopy?: No
Does the patient have any stents?: Yes
01/18/24 13:18
Admit/Transfer Patient As Directed
Co-Sign Provider:
Level of Care: Inpatient admission
Assign to:: IVU
Physician / Group: Sheu
Diagnosis: Abd Pain - Liver Lesions
Reason for Hospitalization: Abd MRI, GI and Cardiology consults
Expected length of stay greater than two midnights?: Yes
ELOS- Estimated Length of Stay in days: 3
I certify the patient meets the requirements for IP care: Yes
01/18/24 13:27
Blood Culture Q30M
CRICKET Source: Blood/Venous
Specimen Description:
01/18/24 13:37
Blood Culture Q30M
CRICKET Source: Blood/Venous
Specimen Description:
01/18/24 13:38
Code Status As Directed
Resuscitation Status: Full Code
01/18/24 13:50
IRAD CONSULT Routine
Consulting Provider: Bassam Andrew
Was physician already notified: Yes
Reason for consult: Liver Biopsy
01/18/24 13:51
CARDIOLOGY CONSULT Routine
Consulting Provider: Jennifer Hidalgo
Was physician already notified: Yes
01/18/24 13:53
STOOL [C difficile Antigen & Toxins] Urgent
CRICKET Source: Feces/Stool
Specimen Description:
Stool Culture Urgent
CRICKET Source: Feces/Stool
Specimen Description:
Stool For WBC Urgent
CRICKET Source: Feces/Stool
Specimen Description:
Hemetest Stools As Directed
Comment: Notify MD of any positive result; May Stop is negative x 3
01/18/24 17:00
Lorazepam [Ativan] 0.5 mg IV ONCE ONE
Abnormal Lab Results
01/18/24 01/18/24
09:56 12:07
WBC 15.4 H 10^3/uL
(4.8-10.8)
RBC 7.16 H 10^6/uL
(4.70-6.10)
Hct 56.1 H %
(39.0-52.0)
MCV 78.4 L fL
(80.0-94.0)
MCH 24.4 L pg
(27.0-31.0)
MCHC 31.2 L g/dL
(33.0-37.0)
RDW 16.8 H %
(11.5-14.5)
Plt Count 108 L 10^3/uL
(130-400)
Abs Immat Gran (auto) 0.3 H 10^3/uL
(0-0.05)
Absolute Neuts (auto) 11.5 H 10^3/uL
(1.4-6.5)
Absolute Lymphs (auto) 1.1 L 10^3/uL
(1.2-3.4)
Absolute Monos (auto) 1.3 H 10^3/uL
(0.1-0.6)
Absolute Eos (auto) 1.1 H 10^3/uL
(0-0.7)
Immature Gran % 1.8 H %
(0-0.5)
Lymphocytes % 7.3 L %
(20.5-51.1)
Eosinophils % 7.0 H %
(0-6)
Sodium 131 L mmol/L
(135-145)
BUN 48 H mg/dl
(9-20)
Creatinine 2.8 H mg/dL
(0.7-1.3)
Total Bilirubin 1.5 H mg/dl
(0.2-1.3)
Alkaline Phosphatase 400 H U/L
(38-126)
Troponin I 2.380 H* ng/ml 2.110 H* ng/ml
Albumin 3.3 L g/dl
(3.5-5.0)
Lipase 380 H U/L
(23-300)
01/18/24 09:56
01/18/24 09:56
Vital Signs
Initial and Last Documented VS:
Initial Vital Signs
Temp Pulse Resp BP Pulse Ox
98.2 F 104 20 139/50 98
01/18/24 09:36 01/18/24 09:36 01/18/24 09:36 01/18/24 09:36 01/18/24 09:36
Last Documented Vital Signs
Temp Pulse Resp BP Pulse Ox
98.6 F 113 14 127/86 97
01/18/24 13:09 01/18/24 13:00 01/18/24 13:00 01/18/24 13:00 01/18/24 12:45
*Radiology
Radiology exam reviewed: radiology read reviewed
*Pulse Oximetry
Patient hypoxic: no
*EKG
Interpreted by ED Provider?: Yes
EKG Intrepretation Date: 01/18/24
EKG Intrepretation Time: 12:07
Interpretation: abnormal
Comparison EKG: changes noted
Heart Rate: 106
Rate: tachycardiac
Rhythm: atrial flutter
[place]: left axis deviation
Interval: normal QT interval
QRS Pattern: poor R-wave progression
Ischemia: non-specific ST changes (It appears to be ST elevation through the anterior leads but this is unchanged from previous)
*Ethylbenzene Cracking Supervisor Interpretation
Rate: tachycardiac
Interpretation: abnormal
Heart Rate: 110
Rhythm: atrial flutter
*Critical Care Note
Total Time (30-74mins, 75-104mins- exclusive of procedures): 45 minutes
Update Note
Update Note:
Patient seen by cardiology as a possible STEMI. However this appears to be more GI and the EKG is unchanged. Patient's troponin is elevated but is decreased trend. May be delayed to the patient's poor renal function. Patient will be admitted.
ED Attending Note
-
Portions of this chart may have been created with voice recognition software.� Occasional wrong word or��sound alike� substitutions may have occurred due to the inherent limitations of voice recognition software.
Discharge Plan
Departure
Patient Disposition: Admit
Date of Disposition: 01/18/24
Time of Disposition: 12:09
Admit to: Telemetry
Admit to doctor: Hospitalist
Presentation/result/management discussed w/ accepting MD/DO: Cardiology
Patient with high blood pressure during this ER visit?: No
Condition: Serious
Covid-19: Not Applicable
Discharge Problem:
Acute pancreatitis, Coronary artery disease
Prescriptions:
No Action
prednisone 5 MG tablet
5 mg PO DAILY
tacrolimus 1 MG capsule
1 mg PO BID
pantoprazole 40 mg Tablet,Delayed Release (Dr/Ec)
40 mg PO DAILY
Jardiance 25 mg Tablet
25 mg PO DAILY
albuterol sulfate [ProAir HFA] 90 mcg/actuation Hfa Aerosol Inhaler
2 puff INHALATION R Q4HPRN PRN (Reason: sob)
Eliquis 5 mg tablet
5 mg PO BID
acetaminophen [Tylenol Extra Strength] 500 mg Tablet
1,000 mg PO BIDPRN PRN (Reason: mild pain)
gabapentin 300 mg Capsule
300 mg PO DAILY
insulin glargine 100 unit/mL (3 mL) insulin pen
43 unit SC HS Qty: 3 0RF
insulin lispro [Humalog U-100 Insulin] 100 unit/mL Solution
15 unit SC AC
torsemide 20 mg tablet
20 mg PO DAILY
clopidogrel 75 mg tablet
75 mg PO DAILY
carvedilol 3.125 mg tablet
3.125 mg PO BID
rosuvastatin 20 mg tablet
20 mg PO QPM
Referrals:
Bradley Field MD [Family Provider] -
Interventions
Interventions:
*Risk Screen - Suicide Last Done: 01/18/24 09:36
*General Assessment Last Done: 01/18/24 09:36
*Neglect/Abuse Screening Last Done: 01/18/24 09:36
ED- Fall Risk Assessment Last Done: 01/18/24 09:36
*ED COVID-19 Vaccine History Last Done: 01/18/24 09:36
ED- Cardiac Assessment Last Done: 01/18/24 09:36
--- NOTE | 2024-01-18 12:29 | HPS.HSE ---
Addendum entered and electronically signed by Anatoliy Bustamante MD 01/18/24 18:43:
I saw and examined the patient.
The DATA INTEGRITY SPECIALIST or PA's note was reviewed and I agree with the note.
Comment:
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 Discharged earlier this month from this facility following treatment for NSTEMI w/ stent placement. Reported
feeling unwell since discharge with diarrhea black stools. Prompted to re-visit ED with progression chest abd pain. CT abd/pelvis suggestive new metastatic liver masses confirmed on MRI.
Physical Exam
General:�Mild moderate distress due to pain
HEENT:�Anicteric and Moist mucous membranes
Respiratory:�Clear and Non Labored Respirations
Cardiac:�S1/S2, Irregular Rhythm and Tachycardia
GI:�Soft Tender to Palpation Bowel sounds present
Musculoskeletal:�No Clubbing, No Cyanosis and No Edema
Skin:�Warm and Dry
Neuro:�AOx3
Diarrhea
Leukocytosis
Abd pain
Recent NSTEMI s/p stent placement
Leukocytosis Immunosuppressed Kidney Transplant
DM
Afib
ID cardio GI eval appreciated
hold Eliquis for bx liver masses
start Hep gtt asa while off eliquis
cont Plavix
follow blood cultures
If patient develops fever, repeat blood cultures and start empiric abx
cont home immunosuppresants
pain control
glycemic control
Heart Rate Control
Original Note:
Family Physician
-
Family Physician: Bradley Field
Chief Complaint
-
Chest / Abdominal Pain
History of Present Illness
Pt is a 59yo M w/ a PMH of HTN, HLD, NSTEMI w/ recent stent placement, Persistent AFib, DMII, and renal transplant secondary to FSGS who is complaining of chest pain and abdominal pain x 2 weeks. The pt states he was seen here on 01/04 and was
diagnosed with an NSTEMI and has felt unwell since his return home. He has had chest pain that he describes as constant and aching but sharp on occasion w/ radiation to the left shoulder. He states that when the pain increases, he also experiences
numbness to his left arm and hand which began 3 days ago. He admits to diffuse abdominal pain which he states is not worse with food and does not radiate to the back. He admits to frequent diarrhea since discharge from the hospital and states he is
using the restroom 5+ times daily. He admits to vomiting several times this morning but has not been nauseous prior. He has a history of pancreatitis but states this is not similar to prior episodes. He denies fever, chills, pain with urination or
increased urination. He admits to a history of skin cancer (non-melanoma) but denies a history of other types of cancer.
Medical History
Past Medical History
Past Medical History: Reports Other
Additional Past Medical History:
Coronary Artery Disease
Paroxysmal Atrial Fibrillation
Essential Hypertension
Hyperlipidemia
Insulin-Dependent Diabetes Mellitus
Diabetic Neuropathy
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
Nephrotic Syndrome
Right Renal Mass, stable since 2020 and felt to be complex cyst
Chronic Pancreatitis
Obstructive Sleep Apnea
Past Surgical History: Reports Other
Additional Past Surgical History:
Renal Transplant
Cardiac Stent
Cholecystectomy
Social History
Tobacco: Smoker
Alcohol: None
Drug: None
Family History
Family History: Not pertinent
Allergies / Home Medications
Allergies reflects when Allergies were last updated in [facility].
Home Medications with original date entered in [facility]
Allergy/Medication List:
Allergies
Allergy/AdvReac Type Severity Reaction Status Date / Time
amlodipine Allergy swelling Verified 01/18/24 10:40
in lower
legs
dulaglutide [From [facility]] Allergy Pancreatiti Verified 01/18/24 10:40
s
enalapril maleate Allergy abdominal Verified 01/18/24 10:40
[From Vasotec] and chest
pain
unknown antirejection Allergy edema,painful Uncoded 01/18/24 10:40
medication to walk
,joints
hurt
Home Medications
prednisone 5 mg tablet 5 mg PO DAILY Transplant 06/18/19
tacrolimus 1 mg capsule, immediate-release 1 mg PO BID Transplant 06/18/19
empagliflozin 25 mg tablet (Jardiance) 25 mg PO DAILY Diabetes 08/11/23
pantoprazole 40 mg tablet,delayed release 40 mg PO DAILY Gastrointestinal Issue 08/11/23
albuterol sulfate 90 mcg/actuation aerosol inhaler (ProAir HFA) 2 puff inhalation R Q4HPRN PRN sob 08/15/23
apixaban 5 mg tablet (Eliquis) 5 mg PO BID Blood Clot Prevention/Tx 08/23/23
acetaminophen 500 mg tablet (Tylenol Extra Strength) 1,000 mg PO BIDPRN PRN mild pain 12/27/23
gabapentin 300 mg capsule 300 mg PO DAILY Pain 12/27/23
insulin glargine 100 unit/mL (3 mL) subcutaneous pen 43 unit (0.43 mL) SC HS Diabetes #3 mL 01/04/24
carvedilol 3.125 mg tablet 3.125 mg PO BID Blood Pressure 01/18/24
clopidogrel 75 mg tablet 75 mg PO DAILY Blood Clot Prevention/Tx 01/18/24
insulin lispro 100 unit/mL subcutaneous solution (Humalog U-100 Insulin) 15 unit SC AC Diabetes 01/18/24
rosuvastatin 20 mg tablet 20 mg PO QPM High Cholesterol 01/18/24
torsemide 20 mg tablet 20 mg PO DAILY Fluid Retention/Swelling 01/18/24
Review of Systems
-
A 12 point ROS was completed and negative except as noted: Yes
Constitutional: Denies Fever or Chills
Respiratory: Denies Cough
Cardiac: Reports Chest Pain; Denies Palpitations
Abdomen/GI: Reports Abdominal Pain, Nausea, Vomiting and Diarrhea
Physical Exam
Vital Signs
Vital Signs
Temp Pulse Resp BP Pulse Ox
98.2 F 78 16 129/86 94
01/18/24 09:36 01/18/24 12:00 01/18/24 12:00 01/18/24 11:00 01/18/24 12:00
Physical Exam
General: Well Developed, Well Nourished and Conversant
HEENT: Anicteric and Moist mucous membranes
Respiratory: Clear and Non Labored Respirations
Cardiac: S1/S2, Irregular Rhythm and Tachycardia (Slightly)
GI: Soft and Tender (Bilateral upper quadrants without rebound or guarding)
Rectal: Deferred by Provider
Musculoskeletal: No Clubbing, No Cyanosis and No Edema
Skin: Warm and Dry
Neuro: Awake, Alert, Oriented and Nonfocal/grossly intact
Laboratory Results
-
01/18/24 09:56
01/18/24 09:56
Laboratory Results
Total Bilirubin 1.5 mg/dl (0.2-1.3) H 01/18/24 09:56
AST 57 U/L (17-59) 01/18/24 09:56
ALT 30 U/L (0-50) 01/18/24 09:56
Alkaline Phosphatase 400 U/L (38-126) H 01/18/24 09:56
Troponin I 2.380 ng/ml H* 01/18/24 09:56
Lipase 380 U/L (23-300) H 01/18/24 09:56
Data Reviewed
-
CT Scan: Report Reviewed by me
Lab Data: Labs Reviewed by me
Old Records: Reviewed
Impression/Plan
-
Abdominal Pain - New Liver Abnormalities by CT Scan, possibly cancer vs infectious
-Consult GI and Infectious Disease
-Check Abd MRI
-Check Blood Cultures
-Check stool studies with reports of diarrhea
-Allow clear liquids after MRI
-Hold on antibiotics pending ID eval
-Consult IR for possible biopsy
Coronary Artery Disease s/p LAD stent in Nov 2023
-Appreciate Cardiology consult
-Continue to trend troponin
-Continue Plavix, but will need to coordinate with Cardiology and IR
Persistent Atrial Fibrillation/Flutter
-Hold Eliquis for possibly biopsy
-Continue Coreg for rate control
Essential Hypertension
-Continue Coreg with hold parameters
Hyperlipidemia
-Hold rosuvastatin for now
Insulin-Dependent Diabetes Mellitus
-Half usual dose of glargine ordered while on decreased diet
-Hold Jardiance
-Monitor sugars and continue coverage insulin
Diabetic Neuropathy
-Continue gabapentin
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
-Diuretics on hold while on decreased diet
-Continue prednisone and tacrolimus
-Monitor Is&Os and Daily Weights
DVT proph: SCDs
Code Status: Full Code
--- NOTE | 2024-01-18 13:48 | CON.ID ---
Consultation
-
Date/Time Consultation Requested: 01/18/24 13:16
Date/Time Consultation Performed: 01/18/24 13:48
Requesting Provider: Jairon
Performing Provider: Dr Kearney
Reason for Consultation: solid liver lesions, immunosuppression
Chief Complaint / Past History
Chief Complaint
abdominal pain and chest pain
History of Present Illness
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
for abdominal bloating/abdominal pain persistent for at least 2 months if not longer, it has been progressing and has become severe, also with L arm paresthesia. Of note with recent admission for NSTEMI 12/27-01/04 and had occluded dLAD underwent
angioplasty and PCI remaisn on clopidogrel/apixaban.
Since arrival here he is afebrile, bp stable, wbc 15, hgb 17.5, plt 108, no left shift, cr 2.8 improved from last visit when it was 3.0, t bili 1.5, ast 57, alt 30, alk phos 400, tropes peaked at 2.4, lipase 380, CT a/p with probable metastatic
infiltration of the liver, right renal neoplasm, constipation, blood cultures x2 in progress, cardiology involved and managing antiplatelet agents in anticipation of liver biopsy, patient is currently off of antibiotics, follow clinically
Past History
Additional Past Medical History:
AD, Cancer (RCC on imaging.), CHF, HTN, Hypercholesterolemia, IDDM, ME (NSTEMI, PCI to dLAD ([employer]ience Skypoint 2.25 x 23 ANKUR), 12/28/2023.) and Renal Failure (ESRD 2/2 FSGS, baseline creatinine (1.9-2.1).)
Additional Past Surgical History:
RT
Allergy History:
amlodipine Allergy (Verified 01/18/24 10:40)
swelling in lower legs
dulaglutide [From Trulicity] Allergy (Verified 01/18/24 10:40)
Pancreatitis
enalapril maleate [From Vasotec] Allergy (Verified 01/18/24 10:40)
abdominal and chest pain
unknown antirejection medication Allergy (Uncoded 01/18/24 10:40)
edema,painful to walk ,joints hurt
Medications Reviewed: Yes
Social History
Tobacco: Smoker
Alcohol: Former
Drug: None
Family History
Family History: Not Pertinent
Review of Systems
Review of Systems
General: Negative Fever or Chills
All systems: All other systems were reviewed and were negative
Vital Signs
Temp Pulse Resp BP Pulse Ox
98.6 F 113 14 127/86 97
01/18/24 13:09 01/18/24 13:00 01/18/24 13:00 01/18/24 13:00 01/18/24 12:45
Physical Exam
Physical Exam
Constitutional: No Acute Distress
Cardiovascular: Regular Rate and S1/S2; Negative Murmur or Rub
Pulmonary: Clear and Symmetric; Negative Wheezes, Rales or Rhonchi
Gastrointestinal: Soft, Non Tender, Non Distended and Normal Bowel Sounds
Skin: Warm and Dry; Negative Rash or Jaundice
Lab / Diagnostic Study Results
01/18/24 09:56
01/18/24 09:56
Abs Immat Gran (auto) 0.3 10^3/uL (0-0.05) H 01/18/24 09:56
Absolute Neuts (auto) 11.5 10^3/uL (1.4-6.5) H 01/18/24 09:56
Absolute Lymphs (auto) 1.1 10^3/uL (1.2-3.4) L 01/18/24 09:56
Absolute Monos (auto) 1.3 10^3/uL (0.1-0.6) H 01/18/24 09:56
Absolute Basos (auto) 0.1 10^3/uL (0-0.2) 01/18/24 09:56
Immature Gran % 1.8 % (0-0.5) H 01/18/24 09:56
Neutrophils % 74.8 % (42.2-75.2) 01/18/24 09:56
Lymphocytes % 7.3 % (20.5-51.1) L 01/18/24 09:56
Monocytes % 8.5 % (1.7-9.3) 01/18/24 09:56
Eosinophils % 7.0 % (0-6) H 01/18/24 09:56
Basophils % 0.6 % (0-2) 01/18/24 09:56
Microbiology Results
Micro:
01/18/24 13:27 Blood Culture - Pending
Blood/Venous
01/18/24 13:37 Blood Culture - Pending
Blood/Venous
Assessment / Plan
Like Metastatic Liver Lesions and renal primary
Leukocytosis - likely reactive
RT - 2009
Immunosuppression
- blood cultures x2
- agree with biopsy of liver lesion and assessing for pathology - not a typical appearance of a liver abscess; cardiology managing antiplatelets
- if fever over 101 then would repeat blood cultures x2 while febrile (unlikely)
- agree with observing off of antibiotics
--- NOTE | 2024-01-18 14:31 | CON.GI ---
Addendum entered and electronically signed by Jade Bettencourt Do, MD 01/18/24 16:52:
I saw and examined the patient.
The MANAGING CONSULTANT's note was reviewed and I agree with the note.
Comment: Ed is a 59yo M with h/o CAD with NSTEMI 12/2023 s/p stents, CKD s/p renal transplant 2009 and DM who was admitted for chest and abd pain. He reports several dark diarrhea with some nausea. He follows with Dr Zamudio in our GI office for h/o
chronic pancreatitis related to remote ETOH use. He still smokes. Exam vitals HR 108 RR 25 obese M pale appearing, epigastric TTP, trace LE edema bilaterally. Labs Hbg 17 Cr 2.8 LFT notable for AP 400 TB 1.5 Trop is 2.1 and BNP 12668. CTAP
without IV or oral contrast innumerable liver lesions suggestive of metastasis, R renal mass, constipation
Impression
- Abd pain with innumerable hepatic lesions on CT scan
ddx includes metastatic liver disease vs HCC. Less likely abscess
- Chronic pancreatitis with remote ETOH use
- Smoker
- Chest pains
- Elevated trop and BNP
- CAD s/p stents with recent NSTEMI
On Plavix last use 01/18
- Renal transplant
- CKD
- DM
- HTN
- Afib on eliquis last 01/18 AM
Recommendations
- Await MRI with IV contrast
- Check AFP and viral hepatitis serologies
- IR liver bx if cardiology is ok with holding anticoagulation
- CLD
- Consider trial of creon once diet is resumed
- Serial H/H thus far stable
Will follow with you
Original Note:
Consultation
-
Date/Time Consultation Requested: 01/18/24 1305
Date/Time Consultation Performed: 01/18/24 1400
Requesting Provider: Hanh De La O PA-C
Performing Provider: Dr. Jade Hauser / Shahrzad Chow PA-C
Reason for Consultation: abdominal pain, h/o chronic pancreatitis, liver lesions
Medical History
Chief Complaint / HPI
Chief Complaint: abdominal pain, chest pain
History of Present Illness:
This is a 59 year old male with a past medical history of CKD s/p renal transplant in 2009 (on tacrolimus), atrial fibrillation (on Eliquis), CAD with recent NSTEMI w/ h/o multiple stents (on Plavix), IDDM, HTN, hyperlipidemia, R renal mass
concerning for possible renal cell carcinoma, history of alcohol abuse, and chronic pancreatitis who was just admitted here at for NSTEMI from 12/27 to 01/04/2024 with cardiac catheterization revealing 100% occlusion of the LAD, s/p stenting.
He states he felt okay since discharge on 01/04/24, but still had some low-grade abdominal and chest pain. He states the pain worsened significantly last night, described as epigastric and left upper quadrant abdominal pain with associated nausea and
vomiting (vomited yesterday, denies today). No coffee grounds emesis or hematemesis. Last dose of Eliquis was this morning, 01/18/24. No fever or chills. He also reports having 'black stools' since discharge. He occasionally takes Pepto Bismol, but
the black stools were occurring prior to Pepto use. He was on Plavix, baby aspirin and Eliquis for 1 week, then remained on Plavix and Eliquis. Denies any other NSAID use. He denies any current alcohol use, but does admit to prior EtOH abuse. He has
multiple prior episodes of pancreatitis, and did have an episode of acute on chronic pancreatitis during his last hospital admission. He states this abdominal pain feels different from prior episodes of pancreatitis. He Patient has followed up in
the office with Dr. Zamudio, last seen in October 2023. Imaging was reviewed at that time, including CT and MRI of the abdomen which showed features of chronic pancreatitis with calcification in the parenchyma and dilated pancreatic duct to 8mm with
intraductal stone. It was discussed to schedule pt for endoscopic intervention with PD stent and stone removal, but patient declined because he was feeling better in terms of pain once he started gabapentin. Patient had endoscopic ultrasound with
Dr. Zamudio in April 2023, which confirmed changes consistent with chronic pancreatitis and showed normal esophagus and duodenum, with erythematous mucosa in the stomach (negative biopsies). He reports he had a colonoscopy in 2009, reportedly normal.
There is a family history of pancreatic cancer (father, age 48 at diagnosis).
Labs reviewed: WBC count 15.4, hgb 17, platelets 108, AST 57, ALT 30, alk phos 400, total bili 1.5, lipase 380. Creatinine 2.8 (improved from 2 [address] abdomen/pelvis showed innumerable hypoattenuating hepatic lesions in both liver lobes,
which is noted to be new from prior, possible metastatic infiltration. Also noted chronic pancreatitis changes without overt evidence of active inflammatory change. Right renal mass noted to be stable in appearance, and there is mild diffuse colonic
stool burden. Cardiology has been consulted, currently holding Eliquis.
Past Medical History
Past Medical History: Other (CKD s/p renal transplant in 2009, atrial fibrillation (on Eliquis), CAD with recent NSTEMI w/ h/o multiple stents (on Plavix), IDDM, HTN, hyperlipidemia, R renal mass concerning for possible renal cell carcinoma, history
of alcohol abuse, polycythemia vera and chronic pancreatitis)
Past Surgical History: Cardiac (stents), Cholecystectomy and Other (renal transplant 2009)
Social History
Tobacco: Smoker
Alcohol: Former
Drug: None
Living: Alone
Family History
Family History: Other (Pancreatic CA (father, age 48))
Allergies / Home Medications
Allergy/AdvReac Type Severity Reaction Status Date / Time
amlodipine Allergy swelling Verified 01/18/24 10:40
in lower
legs
dulaglutide [From Trulicity] Allergy Pancreatiti Verified 01/18/24 10:40
s
enalapril maleate Allergy abdominal Verified 01/18/24 10:40
[From Vasotec] and chest
pain
unknown antirejection Allergy edema,painful Uncoded 01/18/24 10:40
medication to walk
,joints
hurt
Medication Instructions Recorded
prednisone 5 mg tablet 5 mg PO DAILY Transplant 06/18/19
tacrolimus 1 mg capsule, 1 mg PO BID Transplant 06/18/19
immediate-release
empagliflozin 25 mg tablet 25 mg PO DAILY Diabetes 08/11/23
(Jardiance)
pantoprazole 40 mg tablet,delayed 40 mg PO DAILY Gastrointestinal 08/11/23
release Issue
albuterol sulfate 90 mcg/actuation 2 puff inhalation R Q4HPRN PRN sob 08/15/23
aerosol inhaler (ProAir HFA)
apixaban 5 mg tablet (Eliquis) 5 mg PO BID Blood Clot 08/23/23
Prevention/Tx
acetaminophen 500 mg tablet 1,000 mg PO BIDPRN PRN mild pain 12/27/23
(Tylenol Extra Strength)
gabapentin 300 mg capsule 300 mg PO DAILY Pain 12/27/23
insulin glargine 100 unit/mL (3 43 unit (0.43 mL) SC HS Diabetes 01/04/24
mL) subcutaneous pen #3 mL
carvedilol 3.125 mg tablet 3.125 mg PO BID Blood Pressure 01/18/24
clopidogrel 75 mg tablet 75 mg PO DAILY Blood Clot 01/18/24
Prevention/Tx
insulin lispro 100 unit/mL 15 unit SC AC Diabetes 01/18/24
subcutaneous solution (Humalog
U-100 Insulin)
rosuvastatin 20 mg tablet 20 mg PO QPM High Cholesterol 01/18/24
torsemide 20 mg tablet 20 mg PO DAILY Fluid 01/18/24
Retention/Swelling
Review of Systems
-
History Source: Patient and Family
All other systems: A 12 pt ROS was Negative except as stated above in HPI
Vital Signs
Temp Pulse Resp BP Pulse Ox
98.6 F 113 14 127/86 97
01/18/24 13:09 01/18/24 13:00 01/18/24 13:00 01/18/24 13:00 01/18/24 12:45
Physical Exam
Exam
General: Well Developed, Well Nourished and No Apparent Distress
Respiratory: Clear
Cardiac: Regular Rhythm
GI: Soft, Normal Bowel Sounds, Tender (+epigastric and LUQ tenderness) and Distended
Rectal: Brown and Hem Positive
Skin: Warm and Dry
Neuro: Awake, Alert and Nonfocal/Grossly Intact
Psych: Calm
Results
WBC 15.4 10^3/uL (4.8-10.8) H 01/18/24 09:56
Hgb 17.5 g/dL (13.0-18.0) 01/18/24 09:56
Hct 56.1 % (39.0-52.0) H 01/18/24 09:56
MCV 78.4 fL (80.0-94.0) L 01/18/24 09:56
Plt Count 108 10^3/uL (130-400) L 01/18/24 09:56
Absolute Neuts (auto) 11.5 10^3/uL (1.4-6.5) H 01/18/24 09:56
Sodium 131 mmol/L (135-145) L 01/18/24 09:56
Potassium 4.5 mmol/L (3.5-5.1) 01/18/24 09:56
Chloride 100 mmol/L (98-107) 01/18/24 09:56
Carbon Dioxide 23 mmol/L (22-30) 01/18/24 09:56
BUN 48 mg/dl (9-20) H 01/18/24 09:56
Creatinine 2.8 mg/dL (0.7-1.3) H 01/18/24 09:56
Calcium 9.6 mg/dl (8.4-10.2) 01/18/24 09:56
Total Bilirubin 1.5 mg/dl (0.2-1.3) H 01/18/24 09:56
AST 57 U/L (17-59) 01/18/24 09:56
ALT 30 U/L (0-50) 01/18/24 09:56
Alkaline Phosphatase 400 U/L (38-126) H 01/18/24 09:56
Lipase 380 U/L (23-300) H 01/18/24 09:56
Diagnostic Image Results:
CT Abdomen/Pelvis 01/18/24:
1.� New diffuse probable metastatic infiltration throughout the liver.
2. Chronic pancreatitis change without overt evidence for active inflammatory change within the limitations of unenhanced technique.
3. Stable right renal neoplasm.
4. Mild diffuse colonic stool burden may reflect constipation.
MRI Abdomen 09/24/23:
Limited examination due to patient motion artifact.
Findings suggesting mild acute interstitial edematous pancreatitis superimposed on chronic pancreatitis change.
Subcentimeter pancreatic cystic lesion in the head/uncinate process without suspicious features, likely a pseudocyst or side branch intraductal papillary mucinous neoplasm. Recommend follow-up MRI/MRCP abdomen without and with gadolinium contrast in
one year per ACR criteria.
Stable right renal neoplasm.
CT Abdomen/Pelvis 09/23/23:
1. � Suspected mild acute interstitial edematous pancreatitis superimposed upon CHRONIC PANCREATITIS. 7.4 mm calcification in the head of the pancreas obstructing the main pancreatic duct. No CT evidence for new acute peripancreatic fluid collection.
2. � Severe chronic bilateral renal disease. 3.7 cm RIGHT RENAL CELL CARCINOMA and 2.9 cm left hemorrhagic renal cyst. Right lower quadrant renal transplant in place without complication.
3. � Mild colitis of the descending colon, sigmoid colon, and rectum.
4. � Moderate distention of the stomach.
5. � Grade 1 anterolisthesis of L4 on L5 secondary to severe facet joint arthrosis.
6. � Multiple small sub-5 mm centrilobular pulmonary nodules in the right lower lobe (probably infectious or inflammatory in etiology). A follow-up chest CT examination in 12 months is recommended.
Prior GI Procedures:
Colonoscopy:� Colonoscopy:� 2009 per pt negative.� Report not available to me.
EGD/EUS Dr. ZAMUDIO 05/13/23
�� � � � � � � � � � � -Normal esophagus.
�� � � � � � � � � � � - Erythematous mucosa in the stomach. Biopsied.
�� � � � � � � � � � � - Normal duodenal bulb, first portion of the duodenum
�� � � � � � � � � � � and second portion of the duodenum.
�� � � � � � � � � � � - Endosonographic imaging of the pancreas showed
�� � � � � � � � � � � sonographic changes consistent with moderate chronic
�� � � � � � � � � � � pancreatitis.
�� � � � � � � � � � � - There was no sign of significant pathology in the
�� � � � � � � � � � � common bile duct.
�� � � � � � � � � � � - There was no sign of significant pathology in the
�� � � � � � � � � � � ampulla.
�� � � � � � � � � � � - There was no evidence of significant pathology in
�� � � � � � � � � � � the left lobe of the liver.
�� � � � � � � � � � � - One enlarged lymph node was visualized in the
�� � � � � � � � � � � peripancreatic region.
Assessment / Plan
-
59 year old male with history of chronic pancreatitis, recent NSTEMI with PCI stent placement on 12/28/23 on Plavix, atrial fibrillation (on Eliquis), CKD s/p renal transplant in 2009 (on tacrolimus), IDDM, HTN, hyperlipidemia, and right renal mass
concerning for possible renal cell carcinoma who is admitted for abdominal pain, chest pain and found to have new 'innumerable' liver lesions on imaging. Also reports loose, black stools for the past 2 weeks or so, and rectal examination showing
dark brown, heme positive stool with stable hemoglobin.
Labs: WBC 15.4, hgb 17, platelets 108, AST 57, ALT 30, alk phos 400, total bili 1.5, lipase 380. Creatinine 2.8 (improved from 2 weeks [address] abdomen/pelvis showed innumerable hypoattenuating hepatic lesions in both liver lobes, which is noted to
be new from prior, possible metastatic infiltration. Also noted chronic pancreatitis changes without overt evidence of active inflammatory change. Right renal mass noted to be stable in appearance, and there is mild diffuse colonic stool burden.
Cardiology has been consulted, currently holding Eliquis.
IMPRESSION / PLAN:
Liver lesions, new compared to prior imaging and concerning for possible metastatic disease
-IR consulted for liver biopsy
-holding Eliquis, OK per Cardiology
Chronic pancreatitis
-lipase 380
-consider Creon as patient has had loose stools, but will hold off for now
Heme positive stools
-pt reports black stools for the past 2 weeks
-rectal exam shows heme positive brown stool
-Hgb 17
-continue to trend Hgb
-with stable Hgb, and multiple comorbidities including recent cardiac cath with stenting on Plavix, will hold off on endoscopic evaluation now
Cardiology, IR and Infectious Disease consulted as well.
Other medical problems managed as per hospitalist.
We will follow.
-
-
Thank you for consultation and allowing me to participate in the patient's care. Please call the production lapping machine operator GI physician during the after hours with any questions or concerns.
[2024-01-18] MEDS: NSS (PRESERVATIVE FREE) 0.25 ML IV (15:54)
[2024-01-18] MEDS: ATIVAN 0.5 MG IV (15:54)
[2024-01-18] MEDS: DILAUDID 0.5 MG IV ×3 (15:55→23:39)
--- NOTE | 2024-01-18 17:31 | EDRN ---
Patient taken to room 2246 on stretcher on monitor by ED RN with NTG drip infusing at 5mcg/min.
[2024-01-18 18:17] LABS: Glucose - Point of Care 86 mg/dl (70-99)
--- NOTE | 2024-01-18 19:19 | PTCARENOTE ---
Pt admitted from the Ed. C/o of 10 left chest down to his lower abd. Medicated with Dilaudid as ordered. Pt tolerating clear liquids. Denies any nausea. Nitro infusing as ordered.
[2024-01-18] MEDS: COREG 3.125 MG PO (20:06)
[2024-01-18] MEDS: PROGRAF 1 MG PO (20:06)
[2024-01-18 20:42] LABS: APTT 30.1 Sec (23.4-35.0)
[2024-01-18 21:38] LABS: Glucose - Point of Care 312 mg/dl (70-99)
[2024-01-18] MEDS: LANTUS 0.200000000000000011 UNITS SC (21:44)
[2024-01-18] MEDS: HEPARIN 25000 UNITS/250 ML IV (21:50)
[2024-01-19] VITALS (18 sets, daily range): BP systolic 92–142; BP diastolic 56–116; PULSE 82–88; BMI 29.0
[2024-01-19 00:08] LABS: Glucose - Point of Care 231 mg/dl (70-99)
[2024-01-19] MEDS: DILAUDID 0.5 MG IV ×3 (03:01→08:10)
[2024-01-19 04:38] LABS: Hematocrit 46.3 % (39.0-52.0); Hemoglobin 14.6 g/dL (13.0-18.0); Mean Corp Hgb Conc. 31.5 g/dL (33.0-37.0); Mean Corpuscular Hgb 24.9 pg (27.0-31.0); Red Blood Cell Count 5.86 10^6/uL (4.70-6.10); Red Cell Dist. Width 14.6 % (11.5-14.5); White Blood Cell Count 14.6 10^3/uL (4.8-10.8)
[2024-01-19 05:01] LABS: Blood Urea Nitrogen 59 mg/dl (9-20); Calcium 8.9 mg/dl (8.4-10.2); Carbon Dioxide 20 mmol/L (22-30); Chloride 101 mmol/L (98-107); Estimated Creatinine Clearance 27 ml/min; Glucose 178 mg/dl (70-99); Magnesium 2.6 mg/dl (1.6-2.3); Potassium 4.8 mmol/L (3.5-5.1); Sodium 128 mmol/L (135-145); eGFR 23.34
[2024-01-19 05:31] LABS: Mean Platelet Volume 10.1 fL (7.4-10.4); Platelet Count 93 10^3/uL (130-400)
[2024-01-19 06:10] LABS: Glucose - Point of Care 148 mg/dl (70-99)
--- NOTE | 2024-01-19 06:44 | W.PN.HOSP.TC ---
Today's Communication/Plan
-
cont hep gtt
asa plavix
advance diet to low residue
trial creon
pain control
oncology eval
Assessment / Plan
Assessment / Plan
Physical Exam
General:�moderate severe distress due to pain left sided neck chest arm abdomen
HEENT:�Anicteric and Moist mucous membranes
Respiratory:�Clear and Non Labored Respirations
Cardiac:�S1/S2, Irregular Rhythm and Tachycardia
GI:�Soft Tender to Palpation Bowel sounds present
Musculoskeletal:�No Clubbing, No Cyanosis and No Edema
Skin:�Warm and Dry
Neuro:�AOx3
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 Discharged earlier this month from this facility following treatment for NSTEMI w/ stent placement.� Reported
feeling unwell since discharge with diarrhea black stools. Prompted to re-visit ED with progression chest abd pain.� CT abd/pelvis suggestive new metastatic liver masses confirmed on MRI.
Abdominal Pain - New Liver Abnormalities by CT Scan, possibly cancer vs infectious
-Consult GI appreciated
-Infectious Disease consult appreciated
-Abd MRI appreciated hepatic mets, periportal yvrose mets, splenic infarcts, Rt Lower pole renal cell carcinoma
-follow Blood Cultures
-no diarrhea since admission, stool studies discontinued
-clear liquid diet advance to low residue trial creon as per GI
-ID eval appreciated monitor off abx follow culture results
-requested Consult IR for biopsy
-Oncology Eval requested
-pain control prn dilaudid increased to 1mg Q3h prn
Coronary Artery Disease s/p LAD stent in Nov 2023
-Appreciate Cardiology consult
-Continue to trend troponin
-Continue Plavix
-Eliquis on hold for bx
-hep gtt and ASA as per cardio while Eliquis is on hold.
Persistent Atrial Fibrillation/Flutter
-Holding Eliquis for biopsy
-Continue Coreg for rate control
Essential Hypertension
-Continue Coreg with hold parameters
Hyperlipidemia
-Hold rosuvastatin for now
Insulin-Dependent Diabetes Mellitus
-Half usual dose of glargine ordered while on decreased diet
-Hold Jardiance
-Monitor sugars and continue coverage insulin
Diabetic Neuropathy
-Continue gabapentin
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
TUAN vs CKD
-Diuretics on hold while on decreased diet
-Continue prednisone and tacrolimus
-Monitor Is&Os and Daily Weights
-Nephro eval
DVT proph: hep gtt
gi ppx protonix
Code Status: Full Code
Discussed with patient and his daughter Zofia
I spent a total of 60 minutes with the patient or on the floor. More than 50% of this time involved counseling and coordination of care.
Anticipated Discharge: > 48 hours
Subjective/Interval History
-
Date of Service: January 19, 2024
Seen and examined at bedside in moderate severe distress due to left sided chest neck abd arm pain. No diaphoresis. No acute changes on EKG noted from prior
Objective Data
-
Labs:
Laboratory Results
01/18/24 01/19/24 01/19/24
20:23 04:24 12:00
WBC 14.6 H
Hgb 14.6
Hct 46.3
Plt Count 93 L
APTT 30.1 44.0 H Pending
Sodium 128 L
Potassium 4.8
Chloride 101
Carbon Dioxide 20 L
BUN 59 H
Creatinine 3.0 H
Glucose 178 H
Calcium 8.9
Vital Signs:
Vital Signs
Temp Pulse Resp BP Pulse Ox
97.9 F 92 18 101/66 93
01/19/24 04:30 01/19/24 04:18 01/19/24 04:30 01/19/24 04:18 01/19/24 04:30
I&O
01/17/24 01/18/24 01/19/24
06:59 06:59 06:59
Intake Total 480 / 480
Output Total 300 / 300
Balance 180 / 180
[2024-01-19] MEDS: COREG 3.125 MG PO ×2 (08:15→21:08)
[2024-01-19] MEDS: PROGRAF 1 MG PO ×2 (08:15→21:09)
[2024-01-19] MEDS: LOW STRENGTH ASPIRIN 81 MG PO (08:16)
[2024-01-19] MEDS: NEURONTIN 300 MG PO (08:16)
[2024-01-19] MEDS: PROTONIX 40 MG PO (08:16)
[2024-01-19] MEDS: DELTASONE 5 MG PO (08:16)
[2024-01-19] MEDS: PLAVIX 75 MG PO (08:17)
--- NOTE | 2024-01-19 09:28 | PTCARENOTE ---
Assumed care of pt from night RN. Pt received awake and alert, writhing in pain 10/10 throughout left side. (Pt was given Dilaudid 0.5 mg IV and had EKG [address] Bustamante made aware. Extra 0.5 mg of Dilaudid given as ordered IV. Pain
decreased to 8. Nitroglycerin drip increased to 15 mcg from 10 with no relief. Heparin remains at 1200 units/hr. Pt remains NPO for CVUS of LA today. VSS, CM shows NSR 70-80's, POX 94% on RA. Pt repositioned for comfort. Will continue to
monitor closely.
--- NOTE | 2024-01-19 10:56 | W.PN.ID1 ---
Date of Service
Date of Service: January 19, 2024
Today's Communication
will follow cultures
Assessment / Plan
Like Metastatic Liver Lesions and renal primary
Leukocytosis - likely reactive
RT - 2009
Immunosuppression
Splenic Infarction
- blood cultures x2 no growth to date - follow
- agree with biopsy of liver lesion and assessing for pathology - not a typical appearance of a liver abscess; cardiology managing antiplatelets
- if fever over 101 then would repeat blood cultures x2 while febrile
- agree with observing off of antibiotics
Chief Complaint
-: Other (leukocytosis, hepatic mass)
Subjective / Review of Systems
remains afebrile
bp stable
leukocytosis ongoing
cr 3.0 today
blood cultures no growth to date
in decent spirits
Vital Signs / Physical Exam
Vital Signs
Vital Signs
Temp Pulse Resp BP Pulse Ox
98.1 F 82 18 123/87 94
01/19/24 07:00 01/19/24 08:07 01/19/24 07:00 01/19/24 08:07 01/19/24 09:05
Physical Exam
Constitutional: No Acute Distress
Cardiovascular: Regular Rate and S1/S2; Negative Murmur or Rub
Pulmonary: Clear and Symmetric; Negative Wheezes or Rales
Gastrointestinal: Soft, Non Tender, Non Distended and Normal Bowel Sounds
Skin: Warm and Dry; Negative Rash or Jaundice
Objective Data
Lab Data
Lab Results
01/19/24 04:24
01/19/24 04:24
APTT 44.0 Sec (23.4-35.0) H 01/19/24 04:24
Estimated Creat Clear 27 ml/min 01/19/24 04:24
Total Bilirubin 1.5 mg/dl (0.2-1.3) H 01/18/24 09:56
AST 57 U/L (17-59) 01/18/24 09:56
ALT 30 U/L (0-50) 01/18/24 09:56
Alkaline Phosphatase 400 U/L (38-126) H 01/18/24 09:56
Most recent labs reviewed.
Micro Results:
01/18/24 13:27 Blood Culture - Pending
Blood/Venous
01/18/24 13:37 Blood Culture - Pending
Blood/Venous
[2024-01-19] MEDS: DILAUDID 1 MG IV ×4 (11:28→21:09)
--- NOTE | 2024-01-19 11:30 | CM ---
Reviewed chart. Met with Mr. Chamorro to review discharge plans. He states prior to admission he resides alone in a one story home,([facility]) with two steps to enter. He states prior to admission he ambulates with a single point cane for balance.
He states he is independent with ambulation and adls. He has a single point cane at home. He states he has a prescription plan and uses [facility]. Medical work-up in progress. The discharge plan is to return home when medically stable.
--- NOTE | 2024-01-19 11:35 | PTCARENOTE ---
Dilaudid 1 mg given for left sided pain 09/06 as per JAN.
--- NOTE | 2024-01-19 11:55 | W.PN.CARDCBS ---
Addendum entered and electronically signed by Judd Padilla DO 01/19/24 15:35:
I saw and examined the patient.
The Dinkey Skinner's note was reviewed and I agree with the note.
Comment:
Plan:
His pain syndrome does not appear cardiac in nature. Worse with inspiration
Check limited echo to reevaluate EF.
Troponins are lower than prior to PCI
Cont IV Heparin given Eliquis is on hold in anticipation of liver biopsy and continue DAPT
Cont Coreg. Not chronically on ACEI/ARB aldactone due to RI
Wean off IV nitro
Cont pain control.
Rate controlled atrial flutter.
Continue workup of possible liver mets, GI and oncology following.
Discussed with nursing.
Original Note:
Today's Communication / Plan
-
Cont Heparin gtt, aspirin and Plavix for now.
If Plavix needs to be held for biopsy then he MUST stay on Heparin gtt and aspirin
Impression / Plan
-
PCP: Dr. Field
Primary Oven Baker: Dr. JOSE Bee
Nephrology: Dr. Loya
Impression:
Hepatic metastatic disease with innumerable masses throughout both lobes of the liver by MRI 01/18/24
Elevated Troponin
Recent admission for NSTEMI, LAD PCI and acute HF 12/27/23 until 01/04/24
CAD
s/p Circ/OM stent 08/2014
s/p IWMI with stenting of the mid right coronary artery 06/2016 and staged intervention for in-stent restenosis and new lesion in circ/OM 06/2016
s/p NSTEMI, with abrupt closure of the AV continuation of the Circ supplying 2 small posterolateral branches during cath and then 4 mm Xience to mid LAD and 2.75 mm Xience to the mid to distal OM-1 03/05/19
s/p NSTEMI with 100% distal LAD occlusion stented with a 2.25 mm Xience 12/28/23
Abnormal ECG
CKD 4
s/p Living, unrelated donor (his at the time) renal transplant [facility] 2009
Right [place] kidney lower pole cystic mass concerning for renal cell carcinoma since at least 09/09/21
HTN
Persistent Afib/typical aflutter
recurrence noted on ECG in ER 12/27/23
Chronic OAC with Eliquis, last dose 01/18/24 AM
Active smoker
h/o ETOH use disorder
DM 2
Diabetic neuropathy
Hyperlipidemia
History of NSVT
Polycythemia vera
Chronic pancreatitis
ECHO 10/14/22: Technically difficult study, use IV Definity in future, EF 55 to 60%, likely moderate LVH, normal RV size and function, no significant valvular disease
Echo 08/24/23: EF 60-65%, normal RV size and function, PAP 20-25 mmHg
Echo 12/27/23: EF 45-50%, apical hypokinesis, trivial to small pericardial effusion
Plan:
-Patient is aware of CT and MRI findings. Reviewed concern for possible malignancy and less likely infection with patient. Reviewed that he will likely need a biopsy.
-Oncology consulted
-Currently on Heparin gtt while Eliquis is on hold, but there is no h/o thromboembolic event so could stop Heparin gtt. BUT- if patient needs to hold Plavix for biopsy then would continue Heparin along with aspirin.
-Patient has a h/o chronic pancreatitis and saw GI in the office 11/07/23 and the plan according to their notes was EUS/EGD for PD stent and stone/calcified structure extraction was cancelled as pain had improved.
-Troponin up to 2.46, check again 01/20/24 AM. Overall Troponin levels flat and most consistent with nonischemic myocardial injury Troponin elevation, but will check echo to look for WMA.
-Patient with ongoing pain even though Nitro gtt is running at 15. Will wean Nitro gtt 01/19/24.
-He is using Dilaudid 1 mg every 3 hours for his epigastric pain which he says is different from his [place] pain 2-3 weeks ago.
-Cre is up to 3. Outpatient dose of torsemide 20 mg daily is on hold
-Patient with living donor transplant in 2009, but also with [place] right renal mass concerning for renal cell carcinoma. He had a transplanted kidney renal biopsy in 2021 and there were acute tubular injury changes, but also severe chronic changes
of FSGS (focal segmental glomerular sclerosis).
-GDMT as an outpatient includes Coreg 3.125 mg BID. Patient is not chronically on ALMA DELIA/ARB/aldosterone antagonist due to h/o renal transplant.
-Remains in atrial flutter which is persistent at this point.
HPI: Patient came to [facility] today with chest/epigastric pain. He says that the pain has been present since he was discharged 01/04/24, but became much worse yesterday and he could not get relief with pain meds and patches at home. He also says that he
started to feel confused and thought he was speaking when he wasn't along with acute on chronic LUE paresthesias. In the ER his initial Troponin was 2.38. Last admission Troponin as high 5.75 prior to PCI 12/28/23,but true peak unknown and presumably
3 weeks later Troponin would be trending down although he has CKD 4. Chest pain improved with Dilaudid, but still present at a low level.
Progress Note - Oven Baker
Subjective
Date of Service: January 19, 2024
He feels confused after pain meds, but without pain meds he is in constant pain
Objective
Labs:
01/19/24 04:24
01/19/24 04:24
Labs
Hgb 14.6 g/dL (13.0-18.0) 01/19/24 04:24
Hct 46.3 % (39.0-52.0) 01/19/24 04:24
Plt Count 93 10^3/uL (130-400) L 01/19/24 04:24
APTT 44.0 Sec (23.4-35.0) H 01/19/24 04:24
Sodium 128 mmol/L (135-145) L 01/19/24 04:24
Potassium 4.8 mmol/L (3.5-5.1) 01/19/24 04:24
BUN 59 mg/dl (9-20) H 01/19/24 04:24
Creatinine 3.0 mg/dL (0.7-1.3) H 01/19/24 04:24
Glucose 178 mg/dl (70-99) H 01/19/24 04:24
Troponins
01/18/24 01/18/24 01/19/24
09:56 12:07 04:24
Troponin I 2.380 H* 2.110 H* 2.400 H*
Vital Signs and I&O:
Vital Signs
Temp Pulse Resp BP Pulse Ox
97.8 F 82 18 123/87 96
01/19/24 11:06 01/19/24 08:07 01/19/24 11:06 01/19/24 08:07 01/19/24 11:06
Vital Signs
Temp Pulse Resp BP Pulse Ox
97.8 F 82 18 123/87 96
01/19/24 11:06 01/19/24 08:07 01/19/24 11:06 01/19/24 08:07 01/19/24 11:06
Intake & Output
01/17/24 01/18/24 01/19/24 01/20/24
06:59 06:59 06:59 06:59
Intake Total 480 / 480
Output Total 300 / 300
Balance 180 / 180
Physical Exam
Physical Exam
GEN: NAD. AAO x3
HEENT: EOMI, MMM
LUNGS: CTA B/L, no wheezes or rales
CV: Reg, S1/S2, no murmur, rub or gallop
ABD: soft, BS+
EXT: Trace B/L LE edema. No clubbing, cyanosis or lesions B/L
NEURO: Gross non-focal
SKIN: Warm, dry and pink. No rash
--- NOTE | 2024-01-19 12:24 | W.PN.GI.CBS2 ---
Today's Communication / Plan
-
Agree with oncology consult
GI will sign off please call for questions
Assessment / Plan
-
Ed is a 59yo M with h/o CAD with NSTEMI 12/2023 s/p stents, CKD s/p renal transplant 2009 and DM who was admitted for chest and abd pain.� He reports several dark diarrhea with some nausea.� He follows with Dr Zamudio in our GI office for h/o chronic
pancreatitis related to remote ETOH use.� He still smokes.� Exam vitals HR 108 RR 25 obese M pale appearing, epigastric TTP, trace LE edema bilaterally. Labs Hbg 17 Cr 2.8 LFT notable for AP 400 TB 1.5� Trop is 2.1 and BNP 17431.� CTAP without IV or
oral contrast innumerable liver lesions suggestive of metastasis, R renal mass, constipation
Impression
- Abd pain with innumerable hepatic lesions on CT scan
ddx includes metastatic liver disease vs HCC.� Less likely abscess
- Chronic pancreatitis with remote ETOH use
- Smoker
- Chest pains
- Elevated trop and BNP
- CAD s/p stents with recent NSTEMI
On Plavix last use 01/18
- Renal transplant
- CKD
- DM
- HTN
- Afib on eliquis last 01/18 AM
Recommendations
- Results of MRI reviewed likely liver mets and RCC
- Agree with oncology consult
- Consider liver bx with stains for primary source but defer to oncology and primary team given anticoagulation
- Serial H/H thus far stable and would not pursue EGD/colonoscopy given need for anticoagulation with recent NSTEMI
- Check AFP, Hep B and C negative in past
- C/w low residue diet
- C/w creon TID with meals
No new GI recs, will sign off please call for questions
Subjective
Subjective
Date of Service: January 19, 2024
He denies abd pain. This AM reports L shoulder and rib pain worse with deep inspiration. No blood in stools. Denies nausea/vomiting
Objective
Data Reviewed
Laboratory Data:
Laboratory Results
01/19/24 04:24
01/19/24 04:24
Laboratory Results
APTT 44.0 Sec (23.4-35.0) H 01/19/24 04:24
Magnesium 2.6 mg/dl (1.6-2.3) H 01/19/24 04:24
Total Bilirubin 1.5 mg/dl (0.2-1.3) H 01/18/24 09:56
AST 57 U/L (17-59) 01/18/24 09:56
ALT 30 U/L (0-50) 01/18/24 09:56
Alkaline Phosphatase 400 U/L (38-126) H 01/18/24 09:56
Lipase 380 U/L (23-300) H 01/18/24 09:56
Vital Signs and I&O:
Vital Signs
Temp Pulse Resp BP Pulse Ox
97.8 F 81 18 133/88 96
01/19/24 11:06 01/19/24 11:03 01/19/24 11:06 01/19/24 11:03 01/19/24 11:06
I&O
01/18/24 01/19/24 01/20/24
06:59 06:59 06:59
Intake Total 480 / 480
Output Total 300 / 300
Balance 180 / 180
Physical Exam
Physical Exam
GEN: No acute distress, conversant, forgetful
HEENT: anicteric, extraocular movements intact, clear oropharynx without exudates
GI: soft, obese -distended, not tender to palpation, normal active bowel sounds, no hepatosplenomegaly
EXT: warm, well perfused, 2+ edema bilaterally
NEURO: AAOx3, non-focal, TTP in L shoulder
[2024-01-19 12:25] LABS: Glucose - Point of Care 148 mg/dl (70-99)
[2024-01-19 12:45] LABS: APTT 43.8 Sec (23.4-35.0)
--- NOTE | 2024-01-19 14:25 | PTCARENOTE ---
NTG drip weaned and shut off, pt continues to have 0/0 chest pain.
--- NOTE | 2024-01-19 14:38 | CON.ONC ---
Impression
Impression
Right renal mass 4.1 cm
MRI of the liver suspicious for metastatic disease
Suspicion for splenic infarct
Plan
Plan
Eliquis initiated for atrial fibrillation/splenic infarct
May need alternate anticoagulation with heparin for short-term T1/2 in anticipation of biopsy
Arrange IR biopsy of liver
Alpha-fetoprotein and CEA
Patient History
History of Present Illness
Ed is a 59yo M with h/o CAD with NSTEMI 12/2023 s/p stents, CKD s/p renal transplant 2009 and DM who was admitted for chest and abd pain.� He reports several dark diarrhea with some nausea.� He follows with Dr Zamudio in our GI office for h/o chronic
pancreatitis related to remote ETOH use.� He still smokes.� Exam vitals HR 108 RR 25 obese M pale appearing, epigastric TTP, trace LE edema bilaterally. Labs Hbg 17 Cr 2.8 LFT notable for AP 400 TB 1.5� Trop is 2.1 and BNP 14545.� CTAP without IV or
oral contrast innumerable liver lesions suggestive of metastasis, R renal mass, constipation. Follow-up MRI with IV contrast reveals evidence of lesion suspicious for metastases less likely to be associated with primary HCC.
Past-Medical/Surgical History
Past Medical History
Past Medical History:
Coronary Artery Disease
Paroxysmal Atrial Fibrillation
Essential Hypertension
Hyperlipidemia
Insulin-Dependent Diabetes Mellitus
Diabetic Neuropathy
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
Nephrotic Syndrome
Right Renal Mass, stable since 2020 and felt to be complex cyst
Chronic Pancreatitis
Obstructive Sleep Apnea
Past Surgical History:
Renal Transplant
Cardiac Stent
Cholecystectomy
Social History
Tobacco: Smoker
Alcohol: None
Drug: None
Family History
Family History: Not pertinent
Patient Medication
Medication Instructions Recorded Confirmed Last Taken Type
prednisone 5 mg tablet 5 mg PO DAILY Transplant 06/18/19 01/18/24 01/18/24 History
tacrolimus 1 mg capsule, 1 mg PO BID Transplant 06/18/19 01/18/24 01/18/24 History
immediate-release
empagliflozin 25 mg tablet 25 mg PO DAILY Diabetes 08/11/23 01/18/24 01/18/24 History
(Jardiance)
pantoprazole 40 mg tablet,delayed 40 mg PO DAILY Gastrointestinal 08/11/23 01/18/24 01/18/24 History
release Issue
albuterol sulfate 90 mcg/actuation 2 puff inhalation R Q4HPRN PRN sob 08/15/23 01/18/24 1 Week Ago History
aerosol inhaler (ProAir HFA) ~12/20/23
apixaban 5 mg tablet (Eliquis) 5 mg PO BID Blood Clot 08/23/23 01/18/24 01/18/24 History
Prevention/Tx
acetaminophen 500 mg tablet 1,000 mg PO BIDPRN PRN mild pain 12/27/23 01/18/24 12/25/23 History
(Tylenol Extra Strength)
gabapentin 300 mg capsule 300 mg PO DAILY Pain 12/27/23 01/18/24 01/18/24 History
insulin glargine 100 unit/mL (3 43 unit (0.43 mL) SC HS Diabetes 01/04/24 01/18/24 Unknown Rx
mL) subcutaneous pen #3 mL
carvedilol 3.125 mg tablet 3.125 mg PO BID Blood Pressure 01/18/24 01/18/24 01/18/24 History
clopidogrel 75 mg tablet 75 mg PO DAILY Blood Clot 01/18/24 01/18/24 01/18/24 History
Prevention/Tx
insulin lispro 100 unit/mL 15 unit SC AC Diabetes 01/18/24 01/18/24 Unknown History
subcutaneous solution (Humalog
U-100 Insulin)
rosuvastatin 20 mg tablet 20 mg PO QPM High Cholesterol 01/18/24 01/18/24 Unknown History
torsemide 20 mg tablet 20 mg PO DAILY Fluid 01/18/24 01/18/24 01/18/24 History
Retention/Swelling
Active Medications
Generic Name Dose Route Start Last Admin
Trade Name Freq PRN Reason Stop Dose Admin
Acetaminophen 650 mg 01/18/24 18:02
Acetaminophen 325 Mg Tablet PO 02/15/24 18:01
Q4HPRN PRN
mild pain/ fever>100.5F
Aspirin 81 mg 01/19/24 08:00 01/19/24 08:16
Aspirin 81 Mg Chewable Tablet PO 02/16/24 07:59 81 mg
DAILY ANAND Administration
Carvedilol 3.125 mg 01/18/24 20:00 01/19/24 08:15
Carvedilol 3.125 Mg Tablet PO 02/15/24 19:59 3.125 mg
BID ANAND Administration
Clopidogrel Bisulfate 75 mg 01/19/24 08:00 01/19/24 08:17
Clopidogrel 75 Mg Tablet PO 02/16/24 07:59 75 mg
DAILY ANAND Administration
Dextrose 12.5 grams 01/18/24 18:02
Dextrose 50% (0.5 Grams/Ml) 50 Ml Syringe IV 02/15/24 18:01
[id number] PRN
hypoglycemia
Protocol
Gabapentin 300 mg 01/19/24 08:00 01/19/24 08:16
Gabapentin 300 Mg Capsule PO 02/16/24 07:59 300 mg
DAILY ANAND Administration
Glucagon 1 mg 01/18/24 18:02
Glucagon 1 Mg Vial IM 02/15/24 18:01
PRN PRN
hypoglycemia
Protocol
Hydromorphone HCl 0.5 mg 01/19/24 08:43
Hydromorphone 0.5 Mg/0.5 Ml Syringe IV 02/01/24 15:40
Q3HPRN PRN
moderate pain
Hydromorphone HCl 1 mg 01/19/24 08:43 01/19/24 14:17
Hydromorphone 1 Mg/Ml Carpuject IV 02/02/24 08:42 1 mg
Q3HPRN PRN Administration
severe pain
Nitroglycerin/Dextrose 100 mg in 250 mls @ 0 mls/hr 01/18/24 11:15 01/18/24 11:57
Nitroglycerin Premix IV 250 mls
PER PROTOCOL ANAND Administration
Protocol
Per Protocol
Heparin Sodium 25,000 units in 250 mls @ 0 mls/hr 01/18/24 18:45 01/18/24 21:50
Heparin 85380 Units/250 Ml IV 250 mls
PER PROTOCOL ANAND Administration
Protocol
Per Protocol
Insulin Glargine 20 units/ 0.2 mls @ 0 mls/hr 01/18/24 22:00 01/18/24 21:44
Device SC 02/15/24 21:59 0.2 mls
HS ANAND Administration
As Directed
Insulin Aspart 0 units 01/19/24 16:30
Insulin Aspart Low Resistance 300 Units/3 Ml Pen.Injctr SC 02/16/24 16:29
AC ANAND
Protocol
Ondansetron HCl 4 mg 01/18/24 18:02
Ondansetron 4 Mg/2 Ml Vial IV 02/15/24 18:01
Q6HPRN PRN
NAUSEA/VOMITING
Pancrelipase 1 capsule 01/19/24 16:30
Pancrelipase (Zenpep) Delayed Release Capsule PO 02/16/24 16:29
ACHS ANAND
Pantoprazole Sodium 40 mg 01/19/24 08:00 01/19/24 08:16
Pantoprazole 40 Mg Delayed Release Tablet PO 02/16/24 07:59 40 mg
DAILY ANAND Administration
Prednisone 5 mg 01/19/24 08:00 01/19/24 08:16
Prednisone 5 Mg Tablet PO 02/16/24 07:59 5 mg
DAILY ANAND Administration
Sodium Chloride 0 flush 01/18/24 16:00
Sodium Chloride 0.9% (Flush) Syringe IV 02/15/24 15:59
PER PROTOCOL ANAND
Tacrolimus 1 mg 01/18/24 20:00 01/19/24 08:15
Tacrolimus 1 Mg Capsule PO 02/15/24 19:59 1 mg
BID ANAND Administration
Review of Systems
-
Negative for additional complaints other than those noted in the HPI on 12 point review of systems
Physical Exam
-
Physical Exam
General: Well Developed, Well Nourished and Conversant
HEENT: Anicteric and Moist mucous membranes
Respiratory: Clear and Non Labored Respirations
Cardiac: S1/S2, Irregular Rhythm
GI: Soft and Tender
Musculoskeletal: No Clubbing, No Cyanosis and No Edema
Skin: Warm and Dry
Neuro: Awake, Alert, Oriented and Nonfocal/grossly intact
Labs
Lab Results
WBC 14.6 10^3/uL (4.8-10.8) H 01/19/24 04:24
RBC 5.86 10^6/uL (4.70-6.10) 01/19/24 04:24
Hgb 14.6 g/dL (13.0-18.0) 01/19/24 04:24
Hct 46.3 % (39.0-52.0) 01/19/24 04:24
MCV 79.0 fL (80.0-94.0) L 01/19/24 04:24
MCH 24.9 pg (27.0-31.0) L 01/19/24 04:24
MCHC 31.5 g/dL (33.0-37.0) L 01/19/24 04:24
RDW 14.6 % (11.5-14.5) H 01/19/24 04:24
Plt Count 93 10^3/uL (130-400) L 01/19/24 04:24
MPV 10.1 fL (7.4-10.4) 01/19/24 04:24
Abs Immat Gran (auto) 0.3 10^3/uL (0-0.05) H 01/18/24 09:56
Absolute Neuts (auto) 11.5 10^3/uL (1.4-6.5) H 01/18/24 09:56
Absolute Lymphs (auto) 1.1 10^3/uL (1.2-3.4) L 01/18/24 09:56
Absolute Monos (auto) 1.3 10^3/uL (0.1-0.6) H 01/18/24 09:56
Absolute Eos (auto) 1.1 10^3/uL (0-0.7) H 01/18/24 09:56
Absolute Basos (auto) 0.1 10^3/uL (0-0.2) 01/18/24 09:56
Immature Gran % 1.8 % (0-0.5) H 01/18/24 09:56
Neutrophils % 74.8 % (42.2-75.2) 01/18/24 09:56
Lymphocytes % 7.3 % (20.5-51.1) L 01/18/24 09:56
Monocytes % 8.5 % (1.7-9.3) 01/18/24 09:56
Eosinophils % 7.0 % (0-6) H 01/18/24 09:56
Basophils % 0.6 % (0-2) 01/18/24 09:56
Creatinine 3.0 mg/dL (0.7-1.3) H 01/19/24 04:24
Vital Signs
Vital Signs
Temp Pulse Resp BP Pulse Ox
97.8 F 81 18 133/88 96
01/19/24 11:06 01/19/24 11:03 01/19/24 11:06 01/19/24 11:03 01/19/24 11:06
--- NOTE | 2024-01-19 15:03 | W.CON.NEPH ---
Consultation
-
Date/Time Consultation Performed: 01/19 3:05PM
Requesting Provider: Humza Bustamante
Performing Provider: Radha Calloway
Reason for Consultation: TUAN in transplanted kidney
Medical History
-
Chief Complaint: TUAN
History of Present Illness:
Mr. Chamorro is a 59YOM with PMH of CAD with Afib, NSTEMI 12/2023 s/p stents, CKD s/p renal transplant 12/30 to FSGS in 2009, T2DM who presents to the hospital for chest and abdominal pain. He had diarrhea for a few ays and is now found to have liver
lesions suggestive of mets with a R renal mass. Heme/onc now on board.
Briefly, the patient has a history of FSGS, was on dialysis and recieved a living unrelated kidney transplant in 2009 from his . His Cr baseline is close to 2 usually. His IS is tacrolimus and prednisone. He also struggles with HTN -- on coreg,
doxazosin, hydralazine. He is noted to have nephrotic range proteinuria with edema on torsemide 20mg daily. Feels that he is not completely emptying his badder
Past Medical History
1. History of living unrelated kidney transplant from in 2009.
2. CKD stage IIIB with baseline creatinine variable, lately up to 2.
3. Chronic immunosuppression with tacrolimus and prednisone.
4. 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
5. Type 2 diabetes mellitus, insulin dependent.
6. Possible microvascular complications from diabetes - neuropathy,
and suspected nephropathy.
7. Prior history of primary FSGS, was on dialysis prior to the
transplant.
8. Chronic pancreatitis.
9. Right foot traumatic injury. At last year fall, requiring
antibiotics.
10. CAD with prior history of stenting.
11. AFib on Eliquis.
12. Multidrug resistant hypertension.
13. Nephrotic range proteinuria.
14. Osteomyelitis of the traumatic foot injury.
Social History
Tobacco: Smoker
Alcohol: None
Drug: None
Employment: Not Employed
Family History
Family History: Not Pertinent
Allergies / Home Medications
Allergy/AdvReac Type Severity Reaction Status Date / Time
amlodipine Allergy swelling Verified 01/18/24 10:40
in lower
legs
dulaglutide [From Trulicity] Allergy Pancreatiti Verified 01/18/24 10:40
s
enalapril maleate Allergy abdominal Verified 01/18/24 10:40
[From Vasotec] and chest
pain
unknown antirejection Allergy edema,painful Uncoded 01/18/24 10:40
medication to walk
,joints
hurt
Medication Instructions Recorded Confirmed Type
prednisone 5 mg tablet 5 mg PO DAILY Transplant 06/18/19 01/18/24 History
tacrolimus 1 mg capsule, 1 mg PO BID Transplant 06/18/19 01/18/24 History
immediate-release
empagliflozin 25 mg tablet 25 mg PO DAILY Diabetes 08/11/23 01/18/24 History
(Jardiance)
pantoprazole 40 mg tablet,delayed 40 mg PO DAILY Gastrointestinal 08/11/23 01/18/24 History
release Issue
albuterol sulfate 90 mcg/actuation 2 puff inhalation R Q4HPRN PRN sob 08/15/23 01/18/24 History
aerosol inhaler (ProAir HFA)
apixaban 5 mg tablet (Eliquis) 5 mg PO BID Blood Clot 08/23/23 01/18/24 History
Prevention/Tx
acetaminophen 500 mg tablet 1,000 mg PO BIDPRN PRN mild pain 12/27/23 01/18/24 History
(Tylenol Extra Strength)
gabapentin 300 mg capsule 300 mg PO DAILY Pain 12/27/23 01/18/24 History
insulin glargine 100 unit/mL (3 43 unit (0.43 mL) SC HS Diabetes 01/04/24 01/18/24 Rx
mL) subcutaneous pen #3 mL
carvedilol 3.125 mg tablet 3.125 mg PO BID Blood Pressure 01/18/24 01/18/24 History
clopidogrel 75 mg tablet 75 mg PO DAILY Blood Clot 01/18/24 01/18/24 History
Prevention/Tx
insulin lispro 100 unit/mL 15 unit SC AC Diabetes 01/18/24 01/18/24 History
subcutaneous solution (Humalog
U-100 Insulin)
rosuvastatin 20 mg tablet 20 mg PO QPM High Cholesterol 01/18/24 01/18/24 History
torsemide 20 mg tablet 20 mg PO DAILY Fluid 01/18/24 01/18/24 History
Retention/Swelling
Review of Systems
-
History Source: Patient
All other systems: Negative unless noted
Constitutional: Fatigue
EENT: No Symptoms
Respiratory: No Symptoms
Cardiac: Chest Pain
Abdomen/GI: Abdominal Pain
: No Symptoms
Musculoskeletal: No Symptoms
Skin: No Symptoms
Neurological: No Symptoms
Endocrine: No Symptoms
Hematologic/Lymphatic: No Symptoms
Physical Exam
Vital Signs
Vital Signs
Temp Pulse Resp BP Pulse Ox
97.8 F 81 18 133/88 96
01/19/24 11:06 01/19/24 11:03 01/19/24 11:06 01/19/24 11:03 01/19/24 11:06
Lab Results
WBC 14.6 10^3/uL (4.8-10.8) H 01/19/24 04:24
RBC 5.86 10^6/uL (4.70-6.10) 01/19/24 04:24
Hgb 14.6 g/dL (13.0-18.0) 01/19/24 04:24
Hct 46.3 % (39.0-52.0) 01/19/24 04:24
Plt Count 93 10^3/uL (130-400) L 01/19/24 04:24
Sodium 128 mmol/L (135-145) L 01/19/24 04:24
Potassium 4.8 mmol/L (3.5-5.1) 01/19/24 04:24
Chloride 101 mmol/L (98-107) 01/19/24 04:24
Carbon Dioxide 20 mmol/L (22-30) L 01/19/24 04:24
BUN 59 mg/dl (9-20) H 01/19/24 04:24
Creatinine 3.0 mg/dL (0.7-1.3) H 01/19/24 04:24
eGFR 23.34 01/19/24 04:24
Glucose 178 mg/dl (70-99) H 01/19/24 04:24
Calcium 8.9 mg/dl (8.4-10.2) 01/19/24 04:24
Albumin 3.3 g/dl (3.5-5.0) L 01/18/24 09:56
Physical Exam
General: AOx3, No Distress and Nontoxic
HEENT: PERRL, EOMI, Anicteric and Conjunctivae Clear
Respiratory: Clear
Cardiac: S1/S2
Breast: N/A
Abdomen: Soft and Nontender (TTP)
Rectal: Deferred by Provider
Genito-urinary: Clear Urine
Musculoskeletal: No Edema
Skin: No Rash
Neuro: Nonfocal/Grossly Intact
Psych: Insight/judgement good
Assessment/Plan
-
Impression:
HFpEF EF 45-50%
shoulder pain radiating to LUQ
TUAN on CKD (bl Cr 2)
Hyponatremia
History TUAN in 09/2022 ATN on transplant biopsy with background moderately severe chronic changes predominantly FSGS
Nephrotic syndrome
Living unrelated kidney transplant 2009 ()
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
Right inaja kidney lower pole cystic mass since at least 09/09/21
Diabetes mellitus 2 uncontrolled
h/o Alcohol use disorder
active smoker
Diabetic peripheral neuropathy
Immunosuppression on tacrolimus and prednisone
Coronary artery disease status post stent(s)
Coronary angioplasty implant and graft
Atrial fibrillation on Eliquis
Hypertension, multidrug and uncontrolled
HLD
Hypoalbuminemia
PLan:
Renal mass c/f cancer with metastatic lesions to the liver
planning for biopsy per heme onc
cr increased from baseline to 3
obtain KUS, UA
in the setting of his significant proteinuria, there could be concern for FSGS recurrence in his transplanted kidney. will quantify proteinuria with UPCR
cotn home IS-tac and pred
hyponatremia partly from hyperglycemia and hypervolemia
Data Reviewed
-
CT Scan: Report Reviewed by me
Labs: Labs Reviewed by me and Discussed with Physician
Old Records: Reviewed
[2024-01-19 17:21] LABS: Glucose - Point of Care 296 mg/dl (70-99)
[2024-01-19] MEDS: ZENPEP DELAYED RELEASE CAPSULE 1 CAPSULE PO ×2 (17:21→21:08)
[2024-01-19] MEDS: NOVOLOG FLEXPEN-LOW RESISTANCE 3 UNITS SC (17:39)
[2024-01-19] MEDS: HEPARIN 25000 UNITS/250 ML IV (17:56)
[2024-01-19 17:57] LABS: CEA 3.17 ng/ml
[2024-01-19 19:20] LABS: AFP Male/Tumor Marker 1.54 ng/ml
--- NOTE | 2024-01-19 20:00 | PTCARENOTE ---
PT aaox4 w/ complaints of L shoulder pain, NS on monitor VSS, RA lungs clear, GI and wnl, see worklsit for detailed assessment
[2024-01-19] MEDS: LANTUS 0.200000000000000011 UNITS SC (21:51)
[2024-01-19 22:35] LABS: Glucose - Point of Care 306 mg/dl (70-99)
[2024-01-20] VITALS (8 sets, daily range): BP systolic 114–153; BP diastolic 81–110; BMI 29.1
--- NOTE | 2024-01-20 | PTCARENOTE ---
no change from previous assessment
[2024-01-20] MEDS: DILAUDID 1 MG IV ×8 (01:18→23:07)
[2024-01-20 02:06] LABS: Hematocrit 45.9 % (39.0-52.0); Hemoglobin 14.6 g/dL (13.0-18.0); Mean Corp Hgb Conc. 31.8 g/dL (33.0-37.0); Mean Corpuscular Hgb 24.7 pg (27.0-31.0); Mean Corpuscular Volume 77.7 fL (80.0-94.0); Mean Platelet Volume 9.7 fL (7.4-10.4); Platelet Count 97 10^3/uL (130-400); Red Blood Cell Count 5.91 10^6/uL (4.70-6.10); Red Cell Dist. Width 14.9 % (11.5-14.5); White Blood Cell Count 14.5 10^3/uL (4.8-10.8)
[2024-01-20 02:12] LABS: APTT 45.5 Sec (23.4-35.0)
[2024-01-20 02:14] LABS: ALT (SGPT) 28 U/L (0-50); AST (SGOT) 39 U/L (17-59); Albumin 2.6 g/dl (3.5-5.0); Alkaline Phosphatase 366 U/L (38-126); Blood Urea Nitrogen 57 mg/dl (9-20); Calcium 8.7 mg/dl (8.4-10.2); Carbon Dioxide 23 mmol/L (22-30); Chloride 99 mmol/L (98-107); Direct Bilirubin 1.1 mg/dl (0.0-0.4); Estimated Creatinine Clearance 24 ml/min; Glucose 282 mg/dl (70-99); Magnesium 2.7 mg/dl (1.6-2.3); Phosphorus 5.6 mg/dl (2.5-4.5); Potassium 4.2 mmol/L (3.5-5.1); Sodium 126 mmol/L (135-145); Total Bilirubin 1.3 mg/dl (0.2-1.3); Total Protein 5.6 g/dl (6.3-8.2); eGFR 20.09
--- NOTE | 2024-01-20 07:37 | W.PN.HOSP.TC ---
Today's Communication/Plan
-
Plavix washout
CT chest with oral contrast only
cont pain control
cough medication prn, Bengay left chest wall
Glycemic control
Assessment / Plan
Assessment / Plan
Physical Exam
General:�Appears more comfortable at this time though continues to endorse severe left sided chest pain worse with inspiration pleuritic, otherwise no acute distress
HEENT:�Anicteric and Moist mucous membranes
Respiratory:�Clear and Non Labored Respirations
Cardiac:�S1/S2, Irregular Rhythm and Tachycardia
GI:�Soft Tender to Palpation Bowel sounds present
Musculoskeletal:�No Clubbing, No Cyanosis and No Edema
Skin:�Warm and Dry
Neuro:�AOx3
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 Discharged earlier this month from this facility following treatment for NSTEMI w/ stent placement.� Reported
feeling unwell since discharge with diarrhea black stools. Prompted to re-visit ED with progression chest abd pain.� CT abd/pelvis suggestive new metastatic liver masses confirmed on MRI.
Abdominal Pain - New Liver Abnormalities by CT and MRI suggestive metastasis
-Consult GI appreciated
-Infectious Disease consult appreciated
-Abd MRI appreciated hepatic mets, periportal yvrose mets, splenic infarcts, Rt Lower pole renal cell carcinoma
-no diarrhea since admission, stool studies discontinued
-clear liquid diet advance to low residue trial creon as per GI
-ID eval appreciated monitor off abx follow culture results NGTD
-IR consult appreciated plavix wash out 5 days necessary before Liver Bx can proceed
-Oncology Eval appreciated
-cont pain control prn dilaudid mg Q3h prn
-bengay left chest, pain worse with deep inspiration/cough
-CT chest oral contrast evaluation for possible metastasis
Coronary Artery Disease s/p LAD stent in Nov 2023
-Appreciate Cardiology consult
-Continue to trend troponin
-Plavix placed on hold for bx last dose 01/19
-Eliquis on hold for bx
-hep gtt and ASA as per cardio while Eliquis is on hold.
Persistent Atrial Fibrillation/Flutter
-Holding Eliquis for biopsy
-Continue Coreg for rate control
Essential Hypertension
-Continue Coreg with hold parameters
Hyperlipidemia
-Hold rosuvastatin for now
Insulin-Dependent Diabetes Mellitus
-Hold Jardiance
-Monitor sugars and continue coverage insulin
-Continue insulin regimen and titrate as necessary.
-Diabetes AD OPERATIONS COORDINATOR consult requested
Diabetic Neuropathy
-Continue gabapentin
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
TUAN vs CKD
-Continue prednisone and tacrolimus
-Monitor Is&Os and Daily Weights
-Nephro eval appreciated
DVT proph: hep gtt
gi ppx protonix
Code Status: Full Code
Discussed with patient and his daughter Zofia
I spent a total of 60 minutes with the patient or on the floor. More than 50% of this time involved counseling and coordination of care.
Anticipated Discharge: > 48 hours
Subjective/Interval History
-
Date of Service: January 20, 2024
Seen and examined at bedside appears comfortable sitting up eating breakfast. Continues to report left sided chest pain worse with inspiration.
Objective Data
-
Labs:
Laboratory Results
01/19/24 01/20/24 01/20/24
19:46 01:27 01:28
WBC 14.5 H
Hgb 14.6
Hct 45.9
Plt Count 97 L
APTT 50.0 H 45.5 H
Sodium 126 L
Potassium 4.2
Chloride 99
Carbon Dioxide 23
BUN 57 H
Creatinine 3.4 H
Glucose 282 H
Calcium 8.7
Total Bilirubin 1.3
AST 39
ALT 28
Alkaline Phosphatase 366 H
Vital Signs:
Vital Signs
Temp Pulse Resp BP Pulse Ox
98.6 F 100 20 136/98 93
01/19/24 23:00 01/20/24 06:00 01/19/24 23:00 01/20/24 04:35 01/19/24 23:00
I&O
01/19/24 01/20/24 01/21/24
06:59 06:59 06:59
Intake Total 480 / 480
Output Total 300 / 300 600 / 600
Balance 180 / 180 -600 / -600
[2024-01-20] MEDS: FLUSH (NSS) 2 FLUSH IV ×5 (07:46→16:41)
[2024-01-20 07:57] LABS: Glucose - Point of Care 233 mg/dl (70-99)
[2024-01-20 08:08] LABS: Urine Albumin 3+ (Neg - Trace); Urine Bilirubin Negative (Negative); Urine Character Clear (Clear); Urine Color Yellow; Urine Glucose 3+ (Negative); Urine Ketone Negative (Negative); Urine Leukocyte Negative (Negative); Urine Nitrite Negative (Negative); Urine Occult Blood 3+ (Negative); Urine Specific Gravity 1.015 (<1.030); Urine Urobilinogen Negative (Neg - 1+)
[2024-01-20 08:37] LABS: Urine Bacteria Few (Negative)
[2024-01-20] MEDS: COREG 3.125 MG PO ×2 (09:03→19:56)
[2024-01-20] MEDS: PLAVIX PO ×2 (09:03→09:19)
[2024-01-20] MEDS: LOW STRENGTH ASPIRIN 81 MG PO (09:03)
[2024-01-20] MEDS: DELTASONE 5 MG PO (09:04)
[2024-01-20] MEDS: NEURONTIN 300 MG PO (09:04)
[2024-01-20] MEDS: PROTONIX 40 MG PO (09:04)
[2024-01-20] MEDS: PROGRAF 1 MG PO ×2 (09:04→20:00)
[2024-01-20] MEDS: ZENPEP DELAYED RELEASE CAPSULE 1 CAPSULE PO ×4 (09:07→23:27)
[2024-01-20] MEDS: NOVOLOG FLEXPEN 5 UNITS SC (09:47)
[2024-01-20] MEDS: NOVOLOG FLEXPEN-LOW RESISTANCE 2 UNITS SC ×2 (09:48→13:26)
--- NOTE | 2024-01-20 10:03 | W.PN.CARDCBS ---
Today's Communication / Plan
-
plavix washout for biopsy, last dose 01/19/24
IV heparin and aspirin MUST continue in setting of his recent stenting
pain mgmt as able
elevated trops felt to be nonMI trop elevation
echo stable compared to prior
Impression / Plan
-
PCP: Dr. Field
Primary Fox Farmer: Dr. JOSE Bee
Nephrology: Dr. Loya
Impression:
Presented with left-sided upper abdominal pain
Hepatic metastatic disease with innumerable masses throughout both lobes of the liver by MRI 01/18/24
Elevated Troponin
Recent admission for NSTEMI, LAD PCI and acute HF 12/27/23 until 01/04/24
CAD
s/p Circ/OM stent 08/2014
s/p IWMI with stenting of the mid right coronary artery 06/2016 and staged intervention for in-stent restenosis and new lesion in circ/OM 06/2016
s/p NSTEMI, with abrupt closure of the AV continuation of the Circ supplying 2 small posterolateral branches during cath and then 4 mm Xience to mid LAD and 2.75 mm Xience to the mid to distal OM-1 03/05/19
s/p NSTEMI with 100% distal LAD occlusion stented with a 2.25 mm Xience 12/28/23
Abnormal ECG
CKD 4
s/p Living, unrelated donor (his at the time) renal transplant [facility] 2009
Right [place] kidney lower pole cystic mass concerning for renal cell carcinoma since at least 09/09/21
HTN
Persistent Afib/typical aflutter
recurrence noted on ECG in ER 12/27/23
Chronic OAC with Eliquis, last dose 01/18/24 AM
Active smoker
h/o ETOH use disorder
DM 2
Diabetic neuropathy
Hyperlipidemia
History of NSVT
Polycythemia vera
Chronic pancreatitis
ECHO 10/14/22: Technically difficult study, use IV Definity in future, EF 55 to 60%, likely moderate LVH, normal RV size and function, no significant valvular disease
Echo 08/24/23: EF 60-65%, normal RV size and function, PAP 20-25 mmHg
Echo 12/27/23: EF 45-50%, apical hypokinesis, trivial to small pericardial effusion
Plan:
-Patient presented with left-sided upper abdominal pain, different than his pain from 11/2023 admission with CO resulting in stent placement
-He recently had NSTEMI resulting in distal LAD stent 12/28/2023. He also has A-fib, and is on Plavix and Eliquis as an outpatient
-Imaging revealed innumerable masses throughout both lobes of the liver as well as periportal yvrose metastases and large regions of splenic hypoenhancement with right lower pole renal cell carcinoma
-Oncology has been consulted
- for biopsy this admission after Plavix washout per interventional radiology recommendations. Plavix placed on hold 01/20, last dose 01/19/2024. Continue IV heparin and aspirin, which MUST continue in setting of his recent stenting
-Echocardiogram stable with EF 45% on 01/19/2024
-Troponins lower than last admission, and overall downtrending. His pain does not appear to be cardiac in origin
-Cr 3.4, OP torsemide remains on hold
-Patient with living donor transplant in 2009, but also with hughes right renal mass concerning for renal cell carcinoma. He had a transplanted kidney renal biopsy in 2021 and there were acute tubular injury changes, but also severe chronic changes
of FSGS (focal segmental glomerular sclerosis).
-GDMT as an outpatient includes Coreg 3.125 mg BID. Patient is not chronically on ALMA DELIA/ARB/aldosterone antagonist due to h/o renal transplant.
-Remains in atrial flutter which is persistent at this point. overall HRs acceptable
-d/w nursing, hospitalist
HPI: Patient came to [facility] today with chest/epigastric pain. He says that the pain has been present since he was discharged 01/04/24, but became much worse yesterday and he could not get relief with pain meds and patches at home. He also says that he
started to feel confused and thought he was speaking when he wasn't along with acute on chronic LUE paresthesias. In the ER his initial Troponin was 2.38. Last admission Troponin as high 5.75 prior to PCI 12/28/23,but true peak unknown and presumably
3 weeks later Troponin would be trending down although he has CKD 4. Chest pain improved with Dilaudid, but still present at a low level.
Progress Note - Fox Farmer
Subjective
Date of Service: January 20, 2024
Reports significant left-sided upper abdominal pain which comes in waves, as well as chest pain with taking a deep breath in
Objective
Labs:
01/20/24:
01/20/24:
Labs
Hgb 14.6 g/dL (13.0-18.0) 01/20/24:
Hct 45.9 % (39.0-52.0) 01/20/24:
Plt Count 97 10^3/uL (130-400) L 01/20/24:
APTT 45.5 Sec (23.4-35.0) H 01/20/24:
Sodium 126 mmol/L (135-145) L 01/20/24:
Potassium 4.2 mmol/L (3.5-5.1) 01/20/24:
BUN 57 mg/dl (9-20) H 01/20/24:
Creatinine 3.4 mg/dL (0.7-1.3) H 01/20/24:
Glucose 282 mg/dl (70-99) H 01/20/24:
Troponins
01/18/24 01/18/24 01/19/24
09:56 12:07 04:24
Troponin I 2.380 H* 2.110 H* 2.400 H*
01/19/24 01/20/24 01/20/24
12:24 01:28 08:14
Troponin I 2.460 H* 1.680 H* 1.770 H*
Vital Signs and I&O:
Vital Signs
Temp Pulse Resp BP Pulse Ox
98.3 F 111 16 141/94 94
01/20/24 07:53 01/20/24 09:00 01/20/24 07:53 01/20/24 07:53 01/20/24 07:53
Vital Signs
Temp Pulse Resp BP Pulse Ox
98.3 F 111 16 141/94 94
01/20/24 07:53 01/20/24 09:00 01/20/24 07:53 01/20/24 07:53 01/20/24 07:53
Intake & Output
01/18/24 01/19/24 01/20/24 01/21/24
07:59 07:59 07:59 07:59
Intake Total 480 / 480
Output Total 300 / 300 600 / 600 225 / 225
Balance 180 / 180 -600 / -600 -225 / -225
Physical Exam
Physical Exam
GEN: No distress, awake, alert, oriented x3 however forgetful at times requiring repetition. sitting on edge of bed
HEENT: supple, anicteric, mmm, eomi
LUNGS: CTA B/L, no wheezes/rales. patient winces in pain at end of inspiration
CV: Irreg, S1/S2, no murmur
ABD: soft, BS+
EXT: No cyanosis, clubbing, edema
NEURO: Gross non-focal
SKIN: Warm, pink, dry. No rash
[2024-01-20] MEDS: HEPARIN 25000 UNITS/250 ML IV ×2 (10:09→23:04)
[2024-01-20 10:13] LABS: APTT 40.4 Sec (23.4-35.0)
--- NOTE | 2024-01-20 10:15 | W.PN.CARDCBS ---
Today's Communication / Plan
-
Okay to hold Plavix
Switch heparin to Eliquis as biopsy will be postponed till next week
Await CT scan of chest
Impression / Plan
-
PCP: Dr. Field
Primary Feller Buncher Operator: Dr. JOSE Bee
Nephrology: Dr. Loya
Impression:
Presented with left-sided upper abdominal pain
Hepatic metastatic disease with innumerable masses throughout both lobes of the liver by MRI 01/18/24
Elevated Troponin
Recent admission for NSTEMI, LAD PCI and acute HF 12/27/23 until 01/04/24
CAD
s/p Circ/OM stent 08/2014
s/p IWMI with stenting of the mid right coronary artery 06/2016 and staged intervention for in-stent restenosis and new lesion in circ/OM 06/2016
s/p NSTEMI, with abrupt closure of the AV continuation of the Circ supplying 2 small posterolateral branches during cath and then 4 mm Xience to mid LAD and 2.75 mm Xience to the mid to distal OM-1 03/05/19
s/p NSTEMI with 100% distal LAD occlusion stented with a 2.25 mm Xience 12/28/23
Abnormal ECG
CKD 4
s/p Living, unrelated donor (his at the time) renal transplant [facility] 2009
Right [place] kidney lower pole cystic mass concerning for renal cell carcinoma since at least 09/09/21
HTN
Paroxysmal atrial fibrillation/flutter
recurrence noted on ECG in ER 12/27/23
Chronic OAC with Eliquis, last dose 01/18/24 AM
Active smoker
h/o ETOH use disorder
DM 2
Diabetic neuropathy
Hyperlipidemia
History of NSVT
Polycythemia vera
Chronic pancreatitis
ECHO 10/14/22: Technically difficult study, use IV Definity in future, EF 55 to 60%, likely moderate LVH, normal RV size and function, no significant valvular disease
Echo 08/24/23: EF 60-65%, normal RV size and function, PAP 20-25 mmHg
Echo 12/27/23: EF 45-50%, apical hypokinesis, trivial to small pericardial effusion
Plan:
Hepatic masses: For biopsy after 5-day Plavix washout. Stop heparin, resume Eliquis and stop Eliquis 48 hours prior to biopsy.
Atrial fibrillation: Recurrent late last night early this morning, had been in sinus, now with a controlled ventricular response. Continue heparin/Eliquis.
CAD/non-STEMI/recent LAD PCI 12/28/2023: No chest pain at present. Plavix will need to be held for 5 days prior to hepatic biopsy. In early days of PCI, P2 Y12 inhibitor was only given for 2 weeks with low thrombosis rates. Okay to hold Plavix for
5 days and proceed with hepatic biopsy. Will restart Eliquis and stop heparin, can transition to heparin prior to liver biopsy if needed.
Pleuritic left chest pain: Per hospitalist. CT scan of chest is pending
Acute on chronic transplant kidney disease: Per hospitalist and/or plan checker. Nephrology not yet consulted, creatinine was 3, now 3.4, creatinine was 2.5 at discharge January 03
HPI: Patient came to [facility] today with chest/epigastric pain. He says that the pain has been present since he was discharged 01/04/24, but became much worse yesterday and he could not get relief with pain meds and patches at home. He also says that he
started to feel confused and thought he was speaking when he wasn't along with acute on chronic LUE paresthesias. In the ER his initial Troponin was 2.38. Last admission Troponin as high 5.75 prior to PCI 12/28/23,but true peak unknown and presumably
3 weeks later Troponin would be trending down although he has CKD 4. Chest pain improved with Dilaudid, but still present at a low level.
Progress Note - Feller Buncher Operator
Subjective
Date of Service: January 20, 2024:
Severe pleuritic left chest pain
Allergies: Amlodipine, Trulicity, enalapril
Home medications: Albuterol, carvedilol 3.125 twice daily, clopidogrel 75 mg daily, Eliquis 5 mg twice daily, gabapentin 300 mg daily, insulin, Jardiance 25 mg a day, Protonix 40 mg a day, prednisone 5 mg daily, rosuvastatin 20 mg a day, tacrolimus
1 mg twice daily, torsemide 20 mg a day
Current medications: IV nitroglycerin, carvedilol 3.125 twice daily, Neurontin 300 mg a day, pantoprazole 40 mg a day, prednisone 5 mg a day, Prograf 1 mg twice daily, IV heparin, aspirin 81 mg a day, pancreatic supplementation, insulin,
PMH/PSH/SH/FH: Reviewed
Review of systems: Negative except as above
White count 14.5, hemoglobin 14.6, sodium 126, potassium 4.2, CO2 23, BUN and creatinine 57 and 3.4, troponin is pending, peak was 2.46
Objective
Labs:
01/20/24 01:28
01/20/24 01:27
Labs
Hgb 14.6 g/dL (13.0-18.0) 01/20/24 01:28
Hct 45.9 % (39.0-52.0) 01/20/24 01:28
Plt Count 97 10^3/uL (130-400) L 01/20/24 01:28
APTT 40.4 Sec (23.4-35.0) H 01/20/24 09:32
Sodium 126 mmol/L (135-145) L 01/20/24 01:27
Potassium 4.2 mmol/L (3.5-5.1) 01/20/24 01:27
BUN 57 mg/dl (9-20) H 01/20/24 01:27
Creatinine 3.4 mg/dL (0.7-1.3) H 01/20/24 01:27
Glucose 282 mg/dl (70-99) H 01/20/24 01:27
Troponins
02/01/18/24 01/19/24
09:56 12:07 04:24
Troponin I 2.380 H* 2.110 H* 2.400 H*
01/19/24 01/20/24 01/20/24
12:24 01:28 08:14
Troponin I 2.460 H* 1.680 H* 1.770 H*
Vital Signs and I&O:
Vital Signs
Temp Pulse Resp BP Pulse Ox
36.8 C 111 16 141/94 94
01/20/24 07:53 01/20/24 09:00 01/20/24 07:53 01/20/24 07:53 01/20/24 07:53
Vital Signs
Temp Pulse Resp BP Pulse Ox
36.8 C 111 16 141/94 94
01/20/24 07:53 01/20/24 09:00 01/20/24 07:53 01/20/24 07:53 01/20/24 07:53
Intake & Output
01/18/24 01/19/24 01/20/24 01/21/24
07:59 07:59 07:59 07:59
Intake Total 480 / 480
Output Total 300 / 300 600 / 600 225 / 225
Balance 180 / 180 -600 / -600 -225 / -225
Physical Exam
Physical Exam
Severe pleuritic left chest pain
Head neck exam unremarkable
Lungs relatively clear
Cardiac regular rate and rhythm no rubs
Abdomen benign
Extremities without edema
141/94, pulse 111, respirate 16, sats 94%
Neuro nonfocal
--- NOTE | 2024-01-20 10:33 | PN.DE.MGMTRT ---
Insulin Management
- -
01/20/2024: Diabetes Management Consult
59�year old male well know to Diabetes service from his recent hosp admission. Pt p/w with left-sided chest/upper abdominal pain, found to have Hepatic metastatic disease with innumerable masses throughout both lobes of the liver.
PMH includes: ESRD s/p renal transplant, osteo, A-Fib, HTN, CAD s/p stent placement 01/01, HLD, T2DM and acute on chronic pancreatitis.
Routinely sees Dr. James, was discharged home on Glargine 43 units @ HS, NovoLog 15 units AC and Jardiance 25 mg daily.
States that he has been taking his insulin and that his blood sugars have been in normal range and controlled at home.
Pt appears somewhat confused and forgetful, repeating himself at times.
He is noted for persistent Hyperglycemia, glucose trended up to 306 @ HS and remained elevated throughout the night, FBG 282 this AM.
Pre meal glucose 233 to 296, requiring 2-3 units of additional corrective insulin
Will increase Lantus to 35 units and AC NovoLog to 8 units with low corrective insulin.
Cr 3.4, eGFR 20.09, will stop Jardiance at this time, also not a candidate for any oral Diabetes agents.
Will follow closely. Hospitalist made aware of pt's confusion via TT.
Diabetes History
- -
Type of Diabetes: 2 requiring insulin
Pre-Admission Diabetes Regimen
01/20/24
01:27
Creatinine 3.4 H
Insulin Pump Settings
IP Diabetes Regimen
01/19/24 01/19/24 01/19/24
12:22 17:20 22:32
Glucose
POC Glucose 148 H 296 H 306 H
01/20/24 01/20/24
01:27 07:56
Glucose 282 H
POC Glucose 233 H
Meal type: Dinner
Meal type: Dinner
Amount consumed: 100%
Amount consumed: 100%
Patient Education
[2024-01-20] MEDS: ROBITUSSIN DM 5 ML PO (10:41)
[2024-01-20] MEDS: SENOKOT-S 1 TABLET PO ×2 (10:42→19:56)
--- NOTE | 2024-01-20 11:36 | W.PN.ID1 ---
Date of Service
Date of Service: January 20, 2024
Today's Communication
ID service will no longer actively follow this patient please recall for further questions
Assessment / Plan
Like Metastatic Liver Lesions and renal primary
Leukocytosis - likely reactive
RT - 2009
Immunosuppression
Splenic Infarction
- blood cultures x2 no growth to date
- oncology managing biopsy
- remains stable off of antibiotics
ID service will no longer actively follow this patient please recall for further questions
Chief Complaint
-: Other (leukocytosis, hepatic mass)
Subjective / Review of Systems
remains afebrile
bp stable
persistent mild leukocytosis
cultures remain negative
no complaints
Vital Signs / Physical Exam
Vital Signs
Vital Signs
Temp Pulse Resp BP Pulse Ox
97.8 F 100 16 141/94 97
01/20/24 11:27 01/20/24 11:27 01/20/24 11:27 01/20/24 07:53 01/20/24 11:27
Physical Exam
Constitutional: No Acute Distress
Cardiovascular: Regular Rate and S1/S2; Negative Murmur or Rub
Pulmonary: Clear and Symmetric; Negative Wheezes or Rales
Gastrointestinal: Soft, Non Tender, Non Distended and Normal Bowel Sounds
Skin: Warm and Dry; Negative Rash or Jaundice
Objective Data
Lab Data
Lab Results
01/20/24 01:28
01/20/24 01:27
APTT 40.4 Sec (23.4-35.0) H 01/20/24 09:32
Estimated Creat Clear 24 ml/min 01/20/24 01:27
Total Bilirubin 1.3 mg/dl (0.2-1.3) 01/20/24 01:27
AST 39 U/L (17-59) 01/20/24 01:27
ALT 28 U/L (0-50) 01/20/24 01:27
Alkaline Phosphatase 366 U/L (38-126) H 01/20/24 01:27
Most recent labs reviewed.
Micro Results:
01/18/24 13:27 Blood Culture - Preliminary
Blood/Venous No Growth in 24 hours- Final report to follow
01/18/24 13:37 Blood Culture - Preliminary
Blood/Venous No Growth in 24 hours- Final report to follow
--- NOTE | 2024-01-20 11:47 | W.PN.NEPH.PH ---
Today's Communication / Plan
-
see plan
Assessment/Plan
-
Impression:
HFpEF EF 45-50%
shoulder pain radiating to LUQ
TUAN on CKD (bl Cr 2)
Hyponatremia
History TUAN in 09/2022 ATN on transplant biopsy with background moderately severe chronic changes predominantly FSGS
Nephrotic syndrome
Living unrelated kidney transplant 2009 ()
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
Right [place] kidney lower pole cystic mass since at least 09/09/21
Diabetes mellitus 2 uncontrolled
h/o Alcohol use disorder
active smoker
Diabetic peripheral neuropathy
Immunosuppression on tacrolimus and prednisone
Coronary artery disease status post stent(s)
Coronary angioplasty implant and graft
Atrial fibrillation on Eliquis
Hypertension, multidrug and uncontrolled
HLD
Hypoalbuminemia
PLan:
known Renal mass of [place] kidney since 08/2021, now with metastatic lesions to the liver, s/p CT chest today
planning for biopsy per heme onc once plavix wash out
cr cont to increase to 3.4, remains non oliguric
UA with microhematuria, present even before, await U PCR previously had 27gm/gm of cr
renal US of txp kidney non acute
We discussed that he has progressive CKD and need of RESIDENTIAL SALES REP in near future
cotn home IS-tac and pred, check tac level
hyponatremia partly from hyperglycemia and hypervolemia
suspect high ADH state, check U osmo, u na -samsca prn, FR 48 ounces/day, check TSH
holding diuretics for TUAN
BP are stable on BB
Discussed pt about in detail about progressive TUAN and pt wants to stay at and no transfer to [facility] even if indicated
I tried to call [facility] but unable to reach the coordinator, pt also will try to call them
d/w nursing
-
-
Date of Service: January 20, 2024
CC / HPI / ROS
-
Chief Complaint:
TUAN, h/o KTP
History of Present Illness:
cr inreasing to 3.4, non oliguric
no fever, leucocytosis persists
sodium low 126
bp stable
Review of Systems:
no sob but c/o cp with deep breath
no dysuria
Labs
-
Labs:
WBC 14.5 10^3/uL (4.8-10.8) H 01/20/24 01:28
RBC 5.91 10^6/uL (4.70-6.10) 01/20/24 01:28
Hgb 14.6 g/dL (13.0-18.0) 01/20/24 01:
Hct 45.9 % (39.0-52.0) 01/20/24 01:28
Plt Count 97 10^3/uL (130-400) L 01/20/24 01:28
Sodium 126 mmol/L (135-145) L 01/20/24 01:27
Potassium 4.2 mmol/L (3.5-5.1) 01/20/24 01:
Chloride 99 mmol/L (98-107) 01/20/24 01:
Carbon Dioxide 23 mmol/L (22-30) 01/20/24 01:
BUN 57 mg/dl (9-20) H 01/20/24 01:27
Creatinine 3.4 mg/dL (0.7-1.3) H 01/20/24:
eGFR 20.09 01/20/24:
Glucose 282 mg/dl (70-99) H 01/20/24 01:27
Calcium 8.7 mg/dl (8.4-10.2) 01/20/24:
Phosphorus 5.6 mg/dl (2.5-4.5) H 01/20/24:
Albumin 2.6 g/dl (3.5-5.0) L 01/20/24 01:27
Physical Exam
-
Vital Signs:
Vital Signs
Temp Pulse Resp BP Pulse Ox
97.8 F 100 16 141/94 97
01/20/24 11:27 01/20/24 11:27 01/20/24 11:27 01/20/24 07:53 01/20/24 11:27
Cardiovascular:: Regular rate and rhythm
Respiratory:: Bilateral: CTA
Lung Excursion:: Normal
Abdomen:: Nontender and Soft
Extremity Edema:: None: Bilateral:
Hernandez Catheter: No
--- NOTE | 2024-01-20 11:52 | CM ---
Reviewed chart. Met with Mr. Chamorro to review discharge plans. He states he is feeling ok. He may have a liver bx. early next week. Prior to admission he resides alone in a one story home with two steps to enter. Prior to admission he was
independent with ambulation and adls. He does use a single point cane for balance. He has a singlr point cane at home. He has a prescription plan and uses [facility]. Medical work-up in progress. The discharge plan is to return home when
medically stable.
[2024-01-20 12:10] LABS: Protein/creatinine Ratio 10.7; Urine Protein 533 mg/dl
[2024-01-20 12:28] LABS: Glucose - Point of Care 218 mg/dl (70-99)
[2024-01-20 12:52] LABS: Blood Urea Nitrogen 58 mg/dl (9-20); Calcium 8.5 mg/dl (8.4-10.2); Carbon Dioxide 18 mmol/L (22-30); Chloride 102 mmol/L (98-107); Estimated Creatinine Clearance 25 ml/min; Glucose 233 mg/dl (70-99); Potassium 4.4 mmol/L (3.5-5.1); Sodium 127 mmol/L (135-145)
[2024-01-20] MEDS: NOVOLOG FLEXPEN 8 UNITS SC ×2 (13:26→18:10)
[2024-01-20] MEDS: BenGay-Like 1 APPLIC TOPICAL ×3 (13:28→23:15)
[2024-01-20 15:07] LABS: Osmolality Urine 322 mOsm/kg (300-900)
[2024-01-20 15:13] LABS: Urine Sodium 8 mmol/L (30-90)
[2024-01-20 16:49] LABS: APTT 72.1 Sec (23.4-35.0)
--- NOTE | 2024-01-20 17:30 | PTCARENOTE ---
The patient voided 200 ml of clear yellow urine. His post void residual was 51.
[2024-01-20 17:46] LABS: Glucose - Point of Care 184 mg/dl (70-99)
--- NOTE | 2024-01-20 18:01 | PTCARENOTE ---
The patient has complained of left neck, left shoulder, left chest and left upper abdominal pain all shift. He'll rate it a 10/10 at its worse and has been getting Dilaudid every 3 hours on the clock. It gets worse with deep breathing, anytime he
coughs, and he will yell out in pain. However, his cough has improved since Robitussin was giving. He tends to become forgetful and 'loopy' after receiving the pain medicine.
His vitals have remained stable throughout the shift. Afib has been noted on the monitor all shift with his HR fluctuating between 80s-120s.
[2024-01-20] MEDS: NOVOLOG FLEXPEN-LOW RESISTANCE 1 UNITS SC (18:10)
[2024-01-20] MEDS: FLUSH (NSS) 1 FLUSH IV (20:00)
--- NOTE | 2024-01-20 21:45 | PTCARENOTE ---
Received patient at change of shift this PM. AAOx3. He is forgetful at times and can be 'loopy' with his PRN pain medication. VSS. HE is A-Fib on the monitor with occasional PVCs. HR in the 80s-90s. INTx2 patent. Heparin gtt running at 21mL/hr. He
is frequently receiving his pain medication, as needed, for 8/10 pain to the left-sided abdomen, shoulder, and chest region. Plan of care discussed. He understands that he is to have a liver biopsy on Tuesday. We discussed his medications. He
understands that he is to use his call guaman for assistance and to notify RN of pain. He is receptive to teaching, but may need some encouragement with motivation and compliance with medications. He appears comfortable in bed at this time. Will
continue to monitor.
[2024-01-20 23:09] LABS: APTT 68.7 Sec (23.4-35.0)
[2024-01-20 23:12] LABS: Glucose - Point of Care 203 mg/dl (70-99)
[2024-01-20] MEDS: LANTUS 0.349999999999999978 UNITS SC (23:12)
[2024-01-21] VITALS (7 sets, daily range): BP systolic 107–130; BP diastolic 75–93; BMI 29.7
--- NOTE | 2024-01-21 01:27 | PTCARENOTE ---
Patient had eight-beat run of V-Tach at approximately 0106. Nicole Donohue NP, made aware. He was sleeping and asymptomatic at this time. AM Mag and BMP to be drawn in the AM. Will continue to monitor.
[2024-01-21] MEDS: DILAUDID 1 MG IV ×6 (02:54→20:15)
[2024-01-21] MEDS: ZOFRAN 4 MG IV (03:03)
[2024-01-21 06:03] LABS: Hematocrit 45.9 % (39.0-52.0); Hemoglobin 14.7 g/dL (13.0-18.0); Mean Corpuscular Hgb 24.5 pg (27.0-31.0); Mean Corpuscular Volume 76.5 fL (80.0-94.0); Mean Platelet Volume 9.2 fL (7.4-10.4); Platelet Count 109 10^3/uL (130-400); Red Cell Dist. Width 14.6 % (11.5-14.5); White Blood Cell Count 14.9 10^3/uL (4.8-10.8)
[2024-01-21 06:12] LABS: APTT 70.5 Sec (23.4-35.0)
[2024-01-21 06:42] LABS: Blood Urea Nitrogen 65 mg/dl (9-20); Carbon Dioxide 22 mmol/L (22-30); Chloride 99 mmol/L (98-107); Estimated Creatinine Clearance 25 ml/min; Glucose 153 mg/dl (70-99); Magnesium 2.5 mg/dl (1.6-2.3); Phosphorus 4.3 mg/dl (2.5-4.5); Potassium 4.2 mmol/L (3.5-5.1); Sodium 129 mmol/L (135-145)
[2024-01-21 07:04] LABS: TSH 2.13 uIU/ml (0.47-4.68)
--- NOTE | 2024-01-21 07:38 | W.PN.HOSP.TC ---
Today's Communication/Plan
-
Plavix washout
cont pain control, scheduled oxycodone started in effort to wean IV dilaudid use
cough medication prn, Bengay left chest wall
Glycemic control
cont hep gtt
Assessment / Plan
Assessment / Plan
Physical Exam
General:�Appears more comfortable at this time though continues to endorse severe left sided chest pain worse with inspiration pleuritic, otherwise no acute distress
HEENT:�Anicteric and Moist mucous membranes
Respiratory:�Clear and Non Labored Respirations
Cardiac:�S1/S2, Irregular Rhythm and Tachycardia
GI:�Soft Tender to Palpation Bowel sounds present
Musculoskeletal:�No Clubbing, No Cyanosis and No Edema
Skin:�Warm and Dry
Neuro:�AOx3
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 Discharged earlier this month from this facility following treatment for NSTEMI w/ stent placement.� Reported
feeling unwell since discharge with diarrhea black stools. Prompted to re-visit ED with progression chest abd pain.� CT abd/pelvis suggestive new metastatic liver masses confirmed on MRI.
Abdominal Pain - New Liver Abnormalities by CT and MRI suggestive metastasis
-Consult GI appreciated
-Infectious Disease consult appreciated
-Abd MRI appreciated hepatic mets, periportal yvrose mets, splenic infarcts, Rt Lower pole renal cell carcinoma
-no diarrhea since admission, stool studies discontinued
-clear liquid diet advance to low residue trial creon as per GI
-ID eval appreciated monitor off abx follow culture results NGTD
-IR consult appreciated plavix wash out 5 days necessary before Liver Bx can proceed
-Oncology Eval appreciated
-cont pain control prn dilaudid mg Q3h prn
-bengay left chest neck shoulder, pain worse with deep inspiration/cough
CT chest w/o contrast appreciated
-No evidence of osteoblastic mets. Lytic lesion within the L1 vertebral body likely benign unchanged from CT 09/09/2021
-Multiple small lung lung nodules possibly benign vs malignant
-Innumerable hepatic metastases.
-Left renal mass measures 3.2 cm in diameter, felt to represent a complex hemorrhagic cyst on prior MRI dated 01/18/2024. Right kidney was not imaged on the current chest CT.
CT Head appreciated no acute abn's
Coronary Artery Disease s/p LAD stent in Nov 2023
-Appreciate Cardiology consult
-trend troponin to peak
-Plavix placed on hold for bx last dose 01/19
-Eliquis on hold for bx
-hep gtt and ASA as per cardio while Eliquis is on hold.
Persistent Atrial Fibrillation/Flutter
-Holding Eliquis for biopsy
-Continue Coreg for rate control
Essential Hypertension
-Continue Coreg with hold parameters
Hyperlipidemia
-Hold rosuvastatin for now
Insulin-Dependent Diabetes Mellitus
-Hold Jardiance
-Monitor sugars and continue coverage insulin
-Continue insulin regimen and titrate as necessary.
-Diabetes COLLEGE ADMINISTRATOR consult appreciated
Diabetic Neuropathy
-Continue gabapentin
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
TUAN vs CKD
-Continue prednisone and tacrolimus
-Monitor Is&Os and Daily Weights
-Nephro eval appreciated
DVT proph: hep gtt
gi ppx protonix
Code Status: Full Code
Discussed with patient and his daughter Zofia
I spent a total of 57 minutes with the patient or on the floor. More than 50% of this time involved counseling and coordination of care.
Anticipated Discharge: > 48 hours
Subjective/Interval History
-
Date of Service: January 21, 2024
Seen and examined at bedside in acute distress thought continues to report significant pain, limited control with current pain regimen.
Objective Data
-
Labs:
Laboratory Results
01/20/24 01/21/24 01/21/24
22:50 05:45 12:45
WBC 14.9 H
Hgb 14.7
Hct 45.9
Plt Count 109 L
APTT 68.7 H 70.5 H Pending
Sodium 129 L
Potassium 4.2
Chloride 99
Carbon Dioxide 22
BUN 65 H
Creatinine 3.2 H
Glucose 153 H
Calcium 9.0
Vital Signs:
Vital Signs
Temp Pulse Resp BP Pulse Ox
98.4 F 101 18 123/82 96
01/20/24 22:43 01/21/24 06:00 01/20/24 22:43 01/21/24 02:57 01/21/24 01:16
I&O
01/20/24 01/21/24 01/22/24
06:59 06:59 06:59
Intake Total 240 / 240
Output Total 600 / 600 725 / 725
Balance -600 / -600 -485 / -485
--- NOTE | 2024-01-21 08:51 | W.PN.CARDCBS ---
Today's Communication / Plan
-
Continue IV Heparin and hold Eliquis.
He remains in rate controlled Afib
Plavix wash out for liver biposy for hepatic masses.
Cont pain control of pleuritic chest pain,
Impression / Plan
-
.
PCP: Dr. Field
Primary Hospital Director: Dr. JOSE Bee
Nephrology: Dr. Loya
Impression:
Presented with left-sided upper abdominal pain
Hepatic metastatic disease with innumerable masses throughout both lobes of the liver by MRI 01/18/24
Elevated Troponin
Recent admission for NSTEMI, LAD PCI and acute HF 12/27/23 until 01/04/24
CAD
s/p Circ/OM stent 08/2014
s/p IWMI with stenting of the mid right coronary artery 06/2016 and staged intervention for in-stent restenosis and new lesion in circ/OM 06/2016
s/p NSTEMI, with abrupt closure of the AV continuation of the Circ supplying 2 small posterolateral branches during cath and then 4 mm Xience to mid LAD and 2.75 mm Xience to the mid to distal OM-1 03/05/19
s/p NSTEMI with 100% distal LAD occlusion stented with a 2.25 mm Xience 12/28/23Abnormal ECG
CKD 4
s/p Living, unrelated donor (his at the time) renal transplant [facility] 2009
Right [place] kidney lower pole cystic mass concerning for renal cell carcinoma since at least 09/09/21
HTN
Paroxysmal atrial fibrillation/flutter
recurrence noted on ECG in ER 12/27/23Chronic OAC with Eliquis, last dose 01/18/24 AM
Active smoker
h/o ETOH use disorder
DM 2
Diabetic neuropathy
Hyperlipidemia
History of NSVT
Polycythemia vera
Chronic pancreatitis
ECHO 10/14/22: Technically difficult study, use IV Definity in future, EF 55 to 60%, likely moderate LVH, normal RV size and function, no significant valvular disease
Echo 08/24/23: EF 60-65%, normal RV size and function, PAP 20-25 mmHg
Echo 12/27/23: EF 45-50%, apical hypokinesis, trivial to small pericardial effusion
Limited Echo Jan 19 2024: EF 45% with apical hypokinesis and on change from Nov 2023.
Plan:
Continue IV Heparin and hold Eliquis.
He remains in rate controlled Afib
Plavix wash out for liver biposy for hepatic masses.
Cont pain control of pleuritic chest pain, worse with inspiration. CT chest no evidence of osteoblastic mets, lytic lesion L1 vertebral body, multiple small lung nodules, left renal masss 3.2 cm felt to be hemorrhagic cyst on prior MRI
Acute on chronic transplant kidney disease. Nephrology following. Cr 3.2.
Discussed with nursing.
HPI: Patient came to [facility] today with chest/epigastric pain. He says that the pain has been present since he was discharged 01/04/24, but became much worse yesterday and he could not get relief with pain meds and patches at home. He also says that he
started to feel confused and thought he was speaking when he wasn't along with acute on chronic LUE paresthesias. In the ER his initial Troponin was 2.38. Last admission Troponin as high 5.75 prior to PCI 12/28/23,but true peak unknown and presumably
3 weeks later Troponin would be trending down although he has CKD 4. Chest pain improved with Dilaudid, but still present at a low level.
Progress Note - Hospital Director
Subjective
Date of Service: January 21, 2024
Pt seen and examined. left shoulder pain. No shortness of breath.
Objective
Labs:
01/21/24 05:45
01/21/24 05:45
Labs
Hgb 14.7 g/dL (13.0-18.0) 01/21/24 05:45
Hct 45.9 % (39.0-52.0) 01/21/24 05:45
Plt Count 109 10^3/uL (130-400) L 01/21/24 05:45
APTT 70.5 Sec (23.4-35.0) H 01/21/24 05:45
Sodium 129 mmol/L (135-145) L 01/21/24 05:45
Potassium 4.2 mmol/L (3.5-5.1) 01/21/24 05:45
BUN 65 mg/dl (9-20) H 01/21/24 05:45
Creatinine 3.2 mg/dL (0.7-1.3) H 01/21/24 05:45
Glucose 153 mg/dl (70-99) H 01/21/24 05:45
Troponins
01/18/24 01/18/24 01/19/24
09:56 12:07 04:24
Troponin I 2.380 H* 2.110 H* 2.400 H*
01/19/24 01/20/24 01/20/24
1224 01:28 08:14
Troponin I 2.460 H* 1.680 H* 1.770 H*
01/20/24
12:18
Troponin I 1.980 H*
Vital Signs and I&O:
Vital Signs
Temp Pulse Resp BP Pulse Ox
98.4 F 101 20 123/82 100
01/21/24 08:12 01/21/24 06:00 01/21/24 08:12 01/21/24 02:57 01/21/24 08:12
Vital Signs
Temp Pulse Resp BP Pulse Ox
98.4 F 101 20 123/82 100
01/21/24 08:12 01/21/24 06:00 01/21/24 08:12 01/21/24 02:57 01/21/24 08:12
Intake & Output
01/19/24 01/20/24 01/21/24 01/22/24
06:59 06:59 06:59 06:59
Intake Total 480 / 480 240 / 240
Output Total 300 / 300 600 / 600 725 / 725 200 / 200
Balance 180 / 180 -600 / -600 -485 / -485 -200 / -200
Physical Exam
Physical Exam
General: No acute distress, AAOX3
Neck: Negative JVD
Heart: Irregularly irregular, Negative S3 positive S1/S2, Negative S4, No murmur
Lungs: CTA b/l, negative wheezes/rales/rhonchi
Abd: Positive BS, NT/ND, neg rebound/rigidity/guarding
Ext: Negative cyanosis/clubbing/edema
Neuro: nonfocal
[2024-01-21] MEDS: NOVOLOG FLEXPEN 8 UNITS SC ×3 (08:57→18:14)
[2024-01-21] MEDS: NOVOLOG FLEXPEN-LOW RESISTANCE 2 UNITS SC (08:58)
[2024-01-21] MEDS: COREG 3.125 MG PO ×2 (09:00→20:04)
[2024-01-21] MEDS: LOW STRENGTH ASPIRIN 81 MG PO (09:00)
[2024-01-21] MEDS: SENOKOT-S 1 TABLET PO ×2 (09:04→20:04)
[2024-01-21] MEDS: NEURONTIN 300 MG PO (09:04)
[2024-01-21] MEDS: ZENPEP DELAYED RELEASE CAPSULE 1 CAPSULE PO ×4 (09:04→21:38)
[2024-01-21] MEDS: PROTONIX 40 MG PO (09:04)
[2024-01-21] MEDS: PROGRAF 1 MG PO ×2 (09:04→20:04)
[2024-01-21] MEDS: BenGay-Like TOPICAL ×2 (09:05→18:17)
[2024-01-21 09:06] LABS: Glucose - Point of Care 208 mg/dl (70-99)
[2024-01-21] MEDS: MIRALAX PO (09:07)
[2024-01-21] MEDS: DELTASONE 5 MG PO (09:07)
--- NOTE | 2024-01-21 11:02 | W.PN.NEPH.PH ---
Today's Communication / Plan
-
follow labs, hold diuretics
Assessment/Plan
-
Impression:
HFpEF EF 45-50%
shoulder pain radiating to LUQ
TUAN on CKD (bl Cr 2)
Hyponatremia
History TUAN in 09/2022 ATN on transplant biopsy with background moderately severe chronic changes predominantly FSGS
Nephrotic syndrome
Living unrelated kidney transplant 2009 ()
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
Right [place] kidney lower pole cystic mass since at least 09/09/21
Diabetes mellitus 2 uncontrolled
h/o Alcohol use disorder
active smoker
Diabetic peripheral neuropathy
Immunosuppression on tacrolimus and prednisone
Coronary artery disease status post stent(s)
Coronary angioplasty implant and graft
Atrial fibrillation on Eliquis
Hypertension, multidrug and uncontrolled
HLD
Hypoalbuminemia
PLan:
known Renal mass of [place] kidney since 08/2021, now with metastatic lesions to the liver,
planning for biopsy per heme onc once plavix wash out-Tuesday?
cr slightly better at 3.2 but higher than baseline, remains non oliguric -suspect prerenal /cardiorenal
UA with microhematuria, present even before, U PCR 10gm/gm of cr, previously had 27gm/gm of cr
renal US of txp kidney non acute
We discussed that he has progressive CKD and need of [employer] POWER PLANT MANAGER in near future
cotn home IS-tac and pred, pending tac level
hyponatremia partly from hyperglycemia and hypervolemia -improving
suspect high ADH state, U osmo 322, u na low 8-samsca prn, FR 48 ounces/day, normal TSH
holding diuretics for TUAN
BP are stable on BB
on 01/20 Discussed pt about in detail about progressive TUAN and pt wants to stay at and no transfer to [facility] even if indicated
I tried to call [facility] but unable to reach the coordinator
-
-
Date of Service: January 21, 2024
CC / HPI / ROS
-
Chief Complaint:
TUAN, h/o KTP
History of Present Illness:
cr slightly better at 3.2, non oliguric
no fever, leucocytosis persists, plt are low
sodium better at 129
bp stable
Review of Systems:
no sob but c/o cp with deep breath
no dysuria
Labs
-
Labs:
WBC 14.9 10^3/uL (4.8-10.8) H 01/21/24 05:45
RBC 6.00 10^6/uL (4.70-6.10) 01/21/24 05:45
Hgb 14.7 g/dL (13.0-18.0) 01/21/24 05:45
Hct 45.9 % (39.0-52.0) 01/21/24 05:45
Plt Count 109 10^3/uL (130-400) L 01/21/24 05:45
Sodium 129 mmol/L (135-145) L 01/21/24 05:45
Potassium 4.2 mmol/L (3.5-5.1) 01/21/24 05:45
Chloride 99 mmol/L (98-107) 01/21/24 05:45
Carbon Dioxide 22 mmol/L (22-30) 01/21/24 05:45
BUN 65 mg/dl (9-20) H 01/21/24 05:45
Creatinine 3.2 mg/dL (0.7-1.3) H 01/21/24 05:45
eGFR 21.60 01/21/24 05:45
Glucose 153 mg/dl (70-99) H 01/21/24 05:45
Calcium 9.0 mg/dl (8.4-10.2) 01/21/24 05:45
Phosphorus 4.3 mg/dl (2.5-4.5) 01/21/24 05:45
Albumin 2.6 g/dl (3.5-5.0) L 01/20/24 01:27
Physical Exam
-
Vital Signs:
Vital Signs
Temp Pulse Resp BP Pulse Ox
98.4 F 106 20 128/87 100
01/21/24 08:12 01/21/24 10:00 01/21/24 08:12 01/21/24 09:03 01/21/24 08:12
Cardiovascular:: Regular rate and rhythm
Respiratory:: Bilateral: CTA
Lung Excursion:: Normal
Abdomen:: Nontender and Soft
Extremity Edema:: None: Bilateral:
Hernandez Catheter: No
--- NOTE | 2024-01-21 11:53 | W.PN.ONC2 ---
Today's Communication / Plan
-
- ca19-9
- await bx results.
- continue therapeutic AC, heparin gtt now
Impression
Impression
Right renal mass 4.1 cm
MRI of the liver suspicious for metastatic disease
Suspicion for splenic infarct
Plan
Plan
pleuritic chest pain that started in left upper chest shoulder then extends to LUQ could be related to splenic infarcts however troponin remains elevated. cardiology following. Pt on Eliquis chronically for afib, now on heparin gtt in.
multiple liver lesions on MRI, new compared to imaging in August in addition to splenic infarcts. CT chest with several sub-cm nodules, nonspecific however has evidence of similar nodularity on CT chest in February 2023. NO obvious primary on imaging.
He has complex renal mass however this has been present and unchanged for several years, thought to be hemorrhagic cyst.
IR biopsy of liver after plavix wash out. tuesday will be D5.
Alpha-fetoprotein and CEA normal. Pt at increased risk for pancreatic cancer with hx of pancreatic divisum, chronic pancreatitis and pancreatic cancer in his father in his 40s. check CA19-9.
Subjective/Objective
Chief Complaint
liver lesions
Subjective
pt continues to have pleuritic chest pain with deep inhalation. Denies abdominal pain, nausea, SOB, fevers.
Vital Signs:
Vital Signs
Temp Pulse Resp BP Pulse Ox
98.4 F 106 20 128/87 100
01/21/24 08:12 01/21/24 10:00 01/21/24 08:12 01/21/24 09:03 01/21/24 08:12
Lab Results:
Laboratory Data
WBC 14.9 10^3/uL (4.8-10.8) H 01/21/24 05:45
Hgb 14.7 g/dL (13.0-18.0) 01/21/24 05:45
Plt Count 109 10^3/uL (130-400) L 01/21/24 05:45
APTT 70.5 Sec (23.4-35.0) H 01/21/24 05:45
eGFR 21.60 01/21/24 05:45
Physical Exam
HEENT: No Jaundice
Cardiology: Irregular rate/rhythm
Pulmonary: Clear
GI: Soft; No Distended
Extremities: No Edema
Neuro: Non Focal
Review of Systems
Review of Systems
Respiratory: Denies Dyspnea
Cardiovascular: Reports Chest Pain
Gastrointestinal: Denies Nausea/Vomiting or Diarrhea
[2024-01-21] MEDS: ROXICODONE 5 MG PO ×2 (12:07→18:12)
[2024-01-21] MEDS: BenGay-Like 1 APPLIC TOPICAL ×2 (12:08→22:22)
[2024-01-21 13:06] LABS: Glucose - Point of Care 158 mg/dl (70-99)
[2024-01-21] MEDS: NOVOLOG FLEXPEN-LOW RESISTANCE 1 UNITS SC (13:21)
[2024-01-21] MEDS: HEPARIN 25000 UNITS/250 ML IV (13:31)
[2024-01-21] MEDS: NITRO-BID 0.5 INCH TOPICAL (16:30)
[2024-01-21 17:18] LABS: Glucose - Point of Care 121 mg/dl (70-99)
[2024-01-21] MEDS: NOVOLOG FLEXPEN-LOW RESISTANCE SC (18:15)
[2024-01-21 19:48] LABS: APTT 94.5 Sec (23.4-35.0)
[2024-01-21] MEDS: FLUSH (NSS) 1 FLUSH IV (20:05)
[2024-01-21 22:20] LABS: Glucose - Point of Care 156 mg/dl (70-99)
[2024-01-21] MEDS: LANTUS 0.349999999999999978 UNITS SC (22:22)
[2024-01-22] VITALS (7 sets, daily range): BP systolic 112–140; BP diastolic 80–99
[2024-01-22] MEDS: ROXICODONE 5 MG PO ×4 (00:26→18:05)
[2024-01-22] MEDS: NITRO-BID 0.5 INCH TOPICAL ×3 (00:27→15:57)
[2024-01-22] MEDS: HEPARIN 25000 UNITS/250 ML IV ×3 (00:30→21:43)
[2024-01-22] MEDS: DILAUDID 1 MG IV ×3 (01:12→20:53)
[2024-01-22 01:36] LABS: Hematocrit 43.2 % (39.0-52.0); Mean Corp Hgb Conc. 32.4 g/dL (33.0-37.0); Mean Corpuscular Hgb 24.6 pg (27.0-31.0); Mean Corpuscular Volume 75.9 fL (80.0-94.0); Mean Platelet Volume 8.8 fL (7.4-10.4); Platelet Count 99 10^3/uL (130-400); Red Blood Cell Count 5.69 10^6/uL (4.70-6.10); Red Cell Dist. Width 14.6 % (11.5-14.5); White Blood Cell Count 14.9 10^3/uL (4.8-10.8)
[2024-01-22 01:49] LABS: APTT 93.7 Sec (23.4-35.0)
[2024-01-22 02:03] LABS: Blood Urea Nitrogen 62 mg/dl (9-20); Calcium 8.7 mg/dl (8.4-10.2); Carbon Dioxide 23 mmol/L (22-30); Chloride 101 mmol/L (98-107); Estimated Creatinine Clearance 24 ml/min; Glucose 159 mg/dl (70-99); Magnesium 2.4 mg/dl (1.6-2.3); Phosphorus 4.4 mg/dl (2.5-4.5); Potassium 4.2 mmol/L (3.5-5.1); Sodium 129 mmol/L (135-145); eGFR 20.09
--- NOTE | 2024-01-22 07:21 | W.PN.HOSP.TC ---
Today's Communication/Plan
-
Plavix washout
cont pain control, tylenol switched to 1000 mg TID, left shoulder lidocaine patch started
cont scheduled oxycodone prn dilaudid
cough medication prn, Bengay left chest wall
Glycemic control
cont hep gtt
Assessment / Plan
Assessment / Plan
Physical Exam
General:�Appears more comfortable at this time though continues to endorse severe left sided chest pain worse with inspiration pleuritic, otherwise no acute distress
HEENT:�Anicteric and Moist mucous membranes
Respiratory:�Clear and Non Labored Respirations
Cardiac:�S1/S2, Irregular Rhythm and Tachycardia
GI:�Soft Tender to Palpation Bowel sounds present
Musculoskeletal:�No Clubbing, No Cyanosis and No Edema
Skin:�Warm and Dry, tattoos noted
Neuro:�AOx3
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 Discharged earlier this month from this facility following treatment for NSTEMI w/ stent placement.� Reported
feeling unwell since discharge with diarrhea black stools. Prompted to re-visit ED with progression chest abd pain.� CT abd/pelvis suggestive new metastatic liver masses confirmed on MRI.
Abdominal Pain - New Liver Abnormalities by CT and MRI suggestive metastasis
-Consult GI appreciated
-Infectious Disease consult appreciated
-Abd MRI appreciated hepatic mets, periportal yvrose mets, splenic infarcts, Rt Lower pole renal cell carcinoma
-no diarrhea since admission, stool studies discontinued
-clear liquid diet advance to low residue trial creon as per GI
-ID eval appreciated monitor off abx follow culture results NGTD
-IR consult appreciated plavix wash out 5 days necessary before Liver Bx can proceed
-Oncology Eval appreciated
-cont pain control prn dilaudid mg Q3h prn
-bengay left chest neck shoulder, pain worse with deep inspiration/cough
-lidocaine patch left shoulder
-oxycodone 5 mg q6h
-Tylenol [address] chest w/o contrast appreciated
-No evidence of osteoblastic mets. Lytic lesion within the L1 vertebral body likely benign unchanged from CT 09/09/2021
-Multiple small lung lung nodules possibly benign vs malignant
-Innumerable hepatic metastases.
-Left renal mass measures 3.2 cm in diameter, felt to represent a complex hemorrhagic cyst on prior MRI dated 01/18/2024. Right kidney was not imaged on the current chest CT.
CT Head appreciated no acute abn's
Coronary Artery Disease s/p LAD stent in Nov 2023
-Appreciate Cardiology consult
-trend troponin to peak
-Plavix placed on hold for bx last dose 01/19
-Eliquis on hold for bx
-hep gtt and ASA as per cardio while Eliquis is on hold.
Persistent Atrial Fibrillation/Flutter
-Holding Eliquis for biopsy
-Continue Coreg for rate control
Essential Hypertension
-Continue Coreg with hold parameters
Hyperlipidemia
-Hold rosuvastatin for now
Insulin-Dependent Diabetes Mellitus
-Hold Jardiance
-Monitor sugars and continue coverage insulin
-Continue insulin regimen and titrate as necessary.
-Diabetes STAFF AIR TACTICAL OFFICER consult appreciated
Diabetic Neuropathy
-Continue gabapentin
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
TUAN vs CKD
-Continue prednisone and tacrolimus
-Monitor Is&Os and Daily Weights
-Nephro eval appreciated
DVT proph: hep gtt
gi ppx protonix
Code Status: Full Code
Discussed with patient and his daughter Zofia
I spent a total of 57 minutes with the patient or on the floor. More than 50% of this time involved counseling and coordination of care.
Anticipated Discharge: > 48 hours
Subjective/Interval History
-
Date of Service: January 22, 2024
Seen and examined at bedside in no acute distress sitting up comfortably in chair. Continues to report significant intermittent left sided pleuritic chest pain. Daughter Zofia present during evaluation.
Objective Data
-
Labs:
Laboratory Results
01/21/24 01/22/24
19:26 01:29
WBC 14.9 H
Hgb 14.0
Hct 43.2
Plt Count 99 L
APTT 94.5 H 93.7 H
Sodium 129 L
Potassium 4.2
Chloride 101
Carbon Dioxide 23
BUN 62 H
Creatinine 3.4 H
Glucose 159 H
Calcium 8.7
Vital Signs:
Vital Signs
Temp Pulse Resp BP Pulse Ox
98.8 F 96 16 114/90 94
01/22/24 01:51 01/22/24 01:32 01/22/24 01:51 01/22/24 01:32 01/22/24 01:51
I&O
01/21/24 01/22/24 01/23/24
06:59 06:59 06:59
Intake Total 240 / 240 1203 / 1203
Output Total 725 / 725 850 / 850
Balance -485 / -485 353 / 353
[2024-01-22 08:37] LABS: Glucose - Point of Care 130 mg/dl (70-99)
[2024-01-22] MEDS: MIRALAX 17 GRAMS PO (08:38)
[2024-01-22] MEDS: LOW STRENGTH ASPIRIN 81 MG PO (08:39)
[2024-01-22] MEDS: COREG 3.125 MG PO ×2 (08:39→19:27)
[2024-01-22] MEDS: NEURONTIN 300 MG PO (08:39)
[2024-01-22] MEDS: ZENPEP DELAYED RELEASE CAPSULE 1 CAPSULE PO ×4 (08:40→22:05)
[2024-01-22] MEDS: SENOKOT-S 1 TABLET PO ×2 (08:40→19:27)
[2024-01-22] MEDS: PROTONIX 40 MG PO (08:40)
[2024-01-22] MEDS: DELTASONE 5 MG PO (08:40)
[2024-01-22] MEDS: PROGRAF 1 MG PO ×2 (08:40→19:27)
[2024-01-22] MEDS: NOVOLOG FLEXPEN-LOW RESISTANCE SC ×3 (08:41→17:33)
[2024-01-22] MEDS: BenGay-Like TOPICAL ×4 (08:46→22:05)
[2024-01-22] MEDS: NOVOLOG FLEXPEN 8 UNITS SC ×3 (09:21→17:56)
--- NOTE | 2024-01-22 09:30 | W.PN.CARDCBS ---
Today's Communication / Plan
-
Continue IV Heparin and hold Eliquis.
He remains in rate controlled Afib
Plavix wash out for liver biposy for hepatic masses.
Trop lauren to 5.3 and coming down again. He does not complain of anginal chest pain.
Cont pain control of pleuritic shoulder/left chest wall pain, worse with inspiration. CT chest no evidence of osteoblastic mets, lytic lesion L1 vertebral body, multiple small lung nodules, left renal masss 3.2 cm felt to be hemorrhagic cyst on
prior MRI
Acute on chronic transplant kidney disease. Nephrology following. Cr 3.4 on Jan 22.
Impression / Plan
-
.
PCP: Dr. Field
Primary Financial Recruiter: Dr. JOSE Bee
Nephrology: Dr. Loya
Impression:
Presented with left-sided upper abdominal pain
Hepatic metastatic disease with innumerable masses throughout both lobes of the liver by MRI 01/18/24
Elevated Troponin
Recent admission for NSTEMI, LAD PCI and acute HF 12/27/23 until 01/04/24
CAD
s/p Circ/OM stent 08/2014
s/p IWMI with stenting of the mid right coronary artery 06/2016 and staged intervention for in-stent restenosis and new lesion in circ/OM 06/2016
s/p NSTEMI, with abrupt closure of the AV continuation of the Circ supplying 2 small posterolateral branches during cath and then 4 mm Xience to mid LAD and 2.75 mm Xience to the mid to distal OM-1 03/05/19
s/p NSTEMI with 100% distal LAD occlusion stented with a 2.25 mm Xience 12/28/23Abnormal ECG
CKD 4
s/p Living, unrelated donor (his at the time) renal transplant [facility] 2009
Right [place] kidney lower pole cystic mass concerning for renal cell carcinoma since at least 09/09/21
HTN
Paroxysmal atrial fibrillation/flutter
recurrence noted on ECG in ER 12/27/23Chronic OAC with Eliquis, last dose 01/18/24 AM
Active smoker
h/o ETOH use disorder
DM 2
Diabetic neuropathy
Hyperlipidemia
History of NSVT
Polycythemia vera
Chronic pancreatitis
ECHO 10/14/22: Technically difficult study, use IV Definity in future, EF 55 to 60%, likely moderate LVH, normal RV size and function, no significant valvular disease
Echo 08/24/23: EF 60-65%, normal RV size and function, PAP 20-25 mmHg
Echo 12/27/23: EF 45-50%, apical hypokinesis, trivial to small pericardial effusion
Limited Echo Jan 19 2024: EF 45% with apical hypokinesis and on change from Nov 2023.
Plan:
Continue IV Heparin and hold Eliquis.
He remains in rate controlled Afib
Plavix wash out for liver biposy for hepatic masses.
Trop lauren to 5.3 and coming down again. He does not complain of anginal chest pain.
Cont pain control of pleuritic shoulder/left chest wall pain, worse with inspiration. CT chest no evidence of osteoblastic mets, lytic lesion L1 vertebral body, multiple small lung nodules, left renal masss 3.2 cm felt to be hemorrhagic cyst on
prior MRI
Acute on chronic transplant kidney disease. Nephrology following. Cr 3.4 on Jan 22.
Discussed with nursing.
Discussed with daughter at bedside.
HPI: Patient came to [facility] today with chest/epigastric pain. He says that the pain has been present since he was discharged 01/04/24, but became much worse yesterday and he could not get relief with pain meds and patches at home. He also says that he
started to feel confused and thought he was speaking when he wasn't along with acute on chronic LUE paresthesias. In the ER his initial Troponin was 2.38. Last admission Troponin as high 5.75 prior to PCI 12/28/23,but true peak unknown and presumably
3 weeks later Troponin would be trending down although he has CKD 4. Chest pain improved with Dilaudid, but still present at a low level.
Progress Note - Financial Recruiter
Subjective
Date of Service: January 22, 2024
Patient seen and examined. No chest pain or shortness of breath.
Objective
Labs:
01/22/24 01:
01/22/24 01:
Labs
Hgb 14.0 g/dL (13.0-18.0) 01/22/24 01:
Hct 43.2 % (39.0-52.0) 01/22/24 01:
Plt Count 99 10^3/uL (130-400) L 01/22/24 01:
APTT 93.7 Sec (23.4-35.0) H 01/22/24 01:
Sodium 129 mmol/L (135-145) L 01/22/24 01:
Potassium 4.2 mmol/L (3.5-5.1) 01/22/24 01:
BUN 62 mg/dl (9-20) H 01/22/24 01:
Creatinine 3.4 mg/dL (0.7-1.3) H 01/22/24 01:
Glucose 159 mg/dl (70-99) H 01/22/24 01:29
Troponins
01/19/24 01/20/24 01/20/24
12:24 01:28 08:14
Troponin I 2.460 H* 1.680 H* 1.770 H*
01/20/24 01/21/24 01/21/24
12:18 13:07 19:26
Troponin I 1.980 H* 5.320 H* 5.300 H*
Vital Signs and I&O:
Vital Signs
Temp Pulse Resp BP Pulse Ox
98.8 F 101 16 138/99 94
01/22/24 01:51 01/22/24 08:39 01/22/24 01:51 01/22/24 08:39 01/22/24 01:51
Vital Signs
Temp Pulse Resp BP Pulse Ox
98.8 F 101 16 138/99 94
01/22/24 01:51 01/22/24 08:39 01/22/24 01:51 01/22/24 08:39 01/22/24 01:51
Intake & Output
01/20/24 01/21/24 01/22/24 01/23/24
06:59 06:59 06:59 06:59
Intake Total 240 / 240 1203 / 1203
Output Total 600 / 600 725 / 725 850 / 850
Balance -600 / -600 -485 / -485 353 / 353
Physical Exam
Physical Exam
General: No acute distress, AAOX3
Neck: Negative JVD
Heart: Regular, Negative S3 positive S1/S2, Negative S4, No murmur
Lungs: CTA b/l, negative wheezes/rales/rhonchi
Abd: Positive BS, NT/ND, neg rebound/rigidity/guarding
Ext: Negative cyanosis/clubbing/edema
Neuro: nonfocal
[2024-01-22] MEDS: DILAUDID 0.5 MG IV ×2 (10:33→16:07)
--- NOTE | 2024-01-22 11:11 | W.PN.NEPH.PH ---
Today's Communication / Plan
-
try 500cc NS IVF today
labs in am
Assessment/Plan
-
Impression:
HFpEF EF 45-50%
shoulder pain radiating to LUQ
TUAN on CKD (bl Cr 2)
Hyponatremia
History TUAN in 09/2022 ATN on transplant biopsy with background moderately severe chronic changes predominantly FSGS
Nephrotic syndrome
Living unrelated kidney transplant 2009 ()
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
Right [place] kidney lower pole cystic mass since at least 09/09/21
Diabetes mellitus 2 uncontrolled
h/o Alcohol use disorder
active smoker
Diabetic peripheral neuropathy
Immunosuppression on tacrolimus and prednisone
Coronary artery disease status post stent(s)
Coronary angioplasty implant and graft
Atrial fibrillation on Eliquis
Hypertension, multidrug and uncontrolled
HLD
Hypoalbuminemia
PLan:
known Renal mass of [place] kidney since 08/2021, now with metastatic lesions to the liver,
planning for biopsy per heme onc once plavix wash out
cr higher at 3.4, remains non oliguric -suspect prerenal /cardiorenal
UA with microhematuria, present even before, U PCR 10gm/gm of cr, previously had 27gm/gm of cr
renal US of txp kidney non acute , try gentle IVF 500cc today
We discussed in the past on several occasions that he has progressive CKD and need of ANATOMICAL EMBALMER in near future
cotn home IS-tac and pred, pending tac level
hyponatremia stable, try IVF today
suspect high ADH state, U osmo 322, u na low 8- FR 48 ounces/day, normal TSH
holding diuretics for TUAN
BP are stable on BB
on 01/20 Discussed pt about in detail about progressive TUAN and pt wants to stay at and urges no transfer to [place] even if indicated
I tried to call [place] but unable to reach the coordinator on 01/20
Long detailed discussion with daughter today regarding all comorbidities, she understands the poor prognosis and willing to make decision when needed after biopsy
she focuses on QOL as priority
d/w nursing
high risk encounter
-
-
Date of Service: January 22, 2024
CC / HPI / ROS
-
Chief Complaint:
TUAN, h/o KTP
History of Present Illness:
cr up at 3.4, non oliguric
no fever, leucocytosis persists, plt are low
sodium unchanged at 129
bp stable
Review of Systems:
no sob but c/o cp with deep breath
no dysuria
Labs
-
Labs:
WBC 14.9 10^3/uL (4.8-10.8) H 01/22/24:
RBC 5.69 10^6/uL (4.70-6.10) 01/22/24:
Hgb 14.0 g/dL (13.0-18.0) 01/22/24:
Hct 43.2 % (39.0-52.0) 01/22/24:
Plt Count 99 10^3/uL (130-400) L 01/22/24:
Sodium 129 mmol/L (135-145) L 01/22/24:
Potassium 4.2 mmol/L (3.5-5.1) 01/22/24:
Chloride 101 mmol/L (98-107) 01/22/24:
Carbon Dioxide 23 mmol/L (22-30) 01/22/24:
BUN 62 mg/dl (9-20) H 01/22/24:
Creatinine 3.4 mg/dL (0.7-1.3) H 01/22/24:
eGFR 20.09 01/22/24:
Glucose 159 mg/dl (70-99) H 01/22/24 01:29
Calcium 8.7 mg/dl (8.4-10.2) 01/22/24 01:29
Phosphorus 4.4 mg/dl (2.5-4.5) 01/22/24 01:29
Albumin 2.6 g/dl (3.5-5.0) L 01/20/24 01:27
Physical Exam
-
Vital Signs:
Vital Signs
Temp Pulse Resp BP Pulse Ox
97.9 F 97 16 138/99 96
01/22/24 08:20 01/22/24 09:00 01/22/24 08:20 01/22/24 08:39 01/22/24 08:20
Cardiovascular:: Regular rate and rhythm
Respiratory:: Bilateral: CTA
Lung Excursion:: Normal
Abdomen:: Nontender and Soft
Extremity Edema:: None: Bilateral:
Hernandez Catheter: No
[2024-01-22] MEDS: LIDOCAINE 4% PATCH 1 PATCH TOPICAL (12:13)
[2024-01-22] MEDS: NSS 500 IV (12:13)
[2024-01-22 12:29] LABS: Glucose - Point of Care 119 mg/dl (70-99)
[2024-01-22] MEDS: TYLENOL 1000 MG PO (15:57)
[2024-01-22 17:36] LABS: Glucose - Point of Care 97 mg/dl (70-99)
[2024-01-22 22:02] LABS: Glucose - Point of Care 95 mg/dl (70-99)
[2024-01-22] MEDS: TYLENOL PO (22:05)
[2024-01-22] MEDS: NSS IV (22:40)
[2024-01-22] MEDS: LANTUS 0.349999999999999978 UNITS SC (22:41)
[2024-01-22 22:50] LABS: Tacrolimus (Prograft - FK506) 6.6 ng/mL
[2024-01-23] MEDS: NITRO-BID TOPICAL (00:34)
[2024-01-23] MEDS: ROXICODONE 5 MG PO ×3 (00:34→12:20)
--- NOTE | 2024-01-23 02:58 | PTCARENOTE ---
Patient AAOx3, and drowsy at times. Arousable to verbal stimuli. Tele remains Afib w/ occasional PVCs, HR in the 80-100s at rest. Patient w/ 8/10 pain located at his left-sided abdomen, shoulder, and chest region. Pain worse w/ deep inspiration. PRN
Dilaudid administered--see MAR for details. Post administration pain assessment, patient laying in bed and appears diaphoretic. BP 129/80. Blood sugar 95. B.Charanjit ARMANDO notified, and instructed RN ok to administer scheduled dose of 35units of
Lantus. Patient aware of POC. IV Heparin gtt currently infusing at 25ml/hr. Call guaman within reach.
[2024-01-23 03:50] VITALS: BP 129/88
[2024-01-23 04:02] VITALS: BMI 30.4
[2024-01-23 04:04] LABS: Hematocrit 44.4 % (39.0-52.0); Hemoglobin 14.2 g/dL (13.0-18.0); Mean Corpuscular Hgb 24.8 pg (27.0-31.0); Mean Corpuscular Volume 77.5 fL (80.0-94.0); Mean Platelet Volume 9.5 fL (7.4-10.4); Platelet Count 116 10^3/uL (130-400); Red Blood Cell Count 5.73 10^6/uL (4.70-6.10); Red Cell Dist. Width 15.1 % (11.5-14.5); White Blood Cell Count 14.3 10^3/uL (4.8-10.8)
[2024-01-23 04:23] LABS: APTT 112.9 Sec (23.4-35.0)
[2024-01-23 04:32] LABS: Blood Urea Nitrogen 64 mg/dl (9-20); Calcium 8.6 mg/dl (8.4-10.2); Carbon Dioxide 23 mmol/L (22-30); Chloride 102 mmol/L (98-107); Estimated Creatinine Clearance 28 ml/min; Glucose 113 mg/dl (70-99); Magnesium 2.5 mg/dl (1.6-2.3); Phosphorus 4.3 mg/dl (2.5-4.5); Potassium 4.5 mmol/L (3.5-5.1); Sodium 128 mmol/L (135-145)
[2024-01-23 07:14] VITALS: BP 138/97
[2024-01-23] MEDS: HEPARIN 25000 UNITS/250 ML IV ×2 (07:53→17:31)
[2024-01-23 08:01] LABS: Glucose - Point of Care 123 mg/dl (70-99)
[2024-01-23] MEDS: LIDOCAINE 4% PATCH 1 PATCH TOPICAL (08:21)
[2024-01-23] MEDS: MIRALAX 17 GRAMS PO (08:21)
[2024-01-23] MEDS: NITRO-BID 0.5 INCH TOPICAL ×2 (08:22→16:18)
[2024-01-23] MEDS: PROGRAF 1 MG PO ×2 (08:23→20:36)
[2024-01-23] MEDS: PROTONIX 40 MG PO (08:23)
[2024-01-23] MEDS: SENOKOT-S 1 TABLET PO ×2 (08:23→20:35)
[2024-01-23] MEDS: NEURONTIN 300 MG PO (08:23)
[2024-01-23] MEDS: DELTASONE 5 MG PO (08:23)
[2024-01-23] MEDS: COREG 3.125 MG PO ×2 (08:23→20:35)
[2024-01-23] MEDS: LOW STRENGTH ASPIRIN 81 MG PO (08:23)
[2024-01-23] MEDS: TYLENOL 1000 MG PO ×2 (08:23→16:18)
[2024-01-23] MEDS: BenGay-Like 1 APPLIC TOPICAL (08:24)
[2024-01-23] MEDS: FLUSH (NSS) 2 FLUSH IV (08:24)
[2024-01-23] MEDS: ZENPEP DELAYED RELEASE CAPSULE 1 CAPSULE PO ×4 (08:28→22:38)
--- NOTE | 2024-01-23 08:33 | PN.DE.MGMTRT ---
Insulin Management
- -
01/20/2024: Diabetes Management Consult
59�year old male well know to Diabetes service from his recent hosp admission. Pt p/w with left-sided chest/upper abdominal pain, found to have Hepatic metastatic disease with innumerable masses throughout both lobes of the liver.
PMH includes: ESRD s/p renal transplant, osteo, A-Fib, HTN, CAD s/p stent placement 01/01, HLD, T2DM and acute on chronic pancreatitis.
Routinely sees Dr. James, was discharged home on Glargine 43 units @ HS, NovoLog 15 units AC and Jardiance 25 mg daily.
States that he has been taking his insulin and that his blood sugars have been in normal range and controlled at home.
Pt appears somewhat confused and forgetful, repeating himself at times.
He is noted for persistent Hyperglycemia, glucose trended up to 306 @ HS and remained elevated throughout the night, FBG 282 this AM.
Pre meal glucose 233 to 296, requiring 2-3 units of additional corrective insulin
Will increase Lantus to 35 units and AC NovoLog to 8 units with low corrective insulin.
Cr 3.4, eGFR 20.09, will stop Jardiance at this time, also not a candidate for any oral Diabetes agents.
Will follow closely. Hospitalist made aware of pt's confusion via TT.
: Diabetes Management F/U:
Pt p/w Abdominal Pain and was noted for New Liver Abnormalities by CT and MRI suggestive metastasis.
Currently c/o persistent pain to several body parts. Glucose stable, FBG 113 this AM, Premeal 97 to 130.
Will make no changes to current regimen: Lantus to 35 units and AC NovoLog to 8 units with low corrective insulin.
Diabetes History
- -
Type of Diabetes: 2 requiring insulin
Pre-Admission Diabetes Regimen
01/23/24
03:57
Creatinine 3.2 H
Insulin Pump Settings
IP Diabetes Regimen
01/22/24 01/22/24 01/22/24
08:35 12:17 17:28
Glucose
POC Glucose 130 H 119 H 97
01/22/24 01/23/24 01/23/24
22:01 03:57 08:00
Glucose 113 H
POC Glucose 95 123 H
Patient Education
[2024-01-23] MEDS: NOVOLOG FLEXPEN-LOW RESISTANCE SC ×3 (08:40→18:12)
[2024-01-23] MEDS: NOVOLOG FLEXPEN 8 UNITS SC ×3 (08:40→18:12)
--- NOTE | 2024-01-23 08:50 | PTCARENOTE ---
Spoke with IR. They were requesting the patient's heparin gtt be turned off for liver biopsy today. I informed her that his last Plavix dose was taken on December the and today will be day 4 of no Plavix. She said she would get back to
me. IR called back and said that the liver biopsy will now be done on December the . Heparin gtt remains on and running at 2400 units/hr.
--- NOTE | 2024-01-23 09:54 | PTCARENOTE ---
The patient states that his pain is worse when he takes deep breaths. He rates it a 7/10. However, when he is not taking deep breaths his pain is minimal. I encouraged the patient to force himself to take deep breaths in order to prevent pneumonia.
His breath sounds are shallow with bibasilar crackles noted on exam. Afib is noted on the monitor.
--- NOTE | 2024-01-23 10:38 | PTCARENOTE ---
Addendum entered by Saira Amador RN 01/23/24 10:42:
Lipase and Liver functions were ordered.
Original Note:
The patient complained that his 'pancreatitis is coming on.' He states that 'its a distinct feeling I get.' I notified Dr. Coronado about his concerns.
--- NOTE | 2024-01-23 11:25 | W.PN.NEPH.PH ---
Today's Communication / Plan
-
follow BMP
Assessment/Plan
-
Impression:
HFpEF EF 45-50%
shoulder pain radiating to LUQ
TUAN on CKD (bl Cr 2)
Hyponatremia
History TUAN in 09/2022 ATN on transplant biopsy with background moderately severe chronic changes predominantly FSGS
Nephrotic syndrome
Living unrelated kidney transplant 2009 ()
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
Right [place] kidney lower pole cystic mass since at least 09/09/21
Diabetes mellitus 2 uncontrolled
h/o Alcohol use disorder
active smoker
Diabetic peripheral neuropathy
Immunosuppression on tacrolimus and prednisone
Coronary artery disease status post stent(s)
Coronary angioplasty implant and graft
Atrial fibrillation on Eliquis
Hypertension, multidrug and uncontrolled
HLD
Hypoalbuminemia
liver metastases
Plan:
planning for liver biopsy per heme once once plavix wash out
follow BMP
off diuretics
heparin gtt for antocoagulation
-
-
Date of Service: January 23, 2024
CC / HPI / ROS
-
Chief Complaint:
TUAN, h/o KTP
History of Present Illness:
Cr down to 3.2
no fever, leucocytosis persists
sodium remains stable low
BP stable
Review of Systems:
no sob but c/o cp with deep breath
no dysuria
Labs
-
Labs:
WBC 14.3 10^3/uL (4.8-10.8) H 01/23/24 03:57
RBC 5.73 10^6/uL (4.70-6.10) 01/23/24 03:57
Hgb 14.2 g/dL (13.0-18.0) 01/23/24 03:57
Hct 44.4 % (39.0-52.0) 01/23/24 03:57
Plt Count 116 10^3/uL (130-400) L 01/23/24 03:57
Sodium 128 mmol/L (135-145) L 01/23/24 03:57
Potassium 4.5 mmol/L (3.5-5.1) 01/23/24 03:57
Chloride 102 mmol/L (98-107) 01/23/24 03:57
Carbon Dioxide 23 mmol/L (22-30) 01/23/24 03:57
BUN 64 mg/dl (9-20) H 01/23/24 03:57
Creatinine 3.2 mg/dL (0.7-1.3) H 01/23/24 03:57
eGFR 21.60 01/23/24 03:57
Glucose 113 mg/dl (70-99) H 01/23/24 03:57
Calcium 8.6 mg/dl (8.4-10.2) 01/23/24 03:57
Phosphorus 4.3 mg/dl (2.5-4.5) 01/23/24 03:57
Physical Exam
-
Vital Signs:
Vital Signs
Temp Pulse Resp BP Pulse Ox
97.6 F 98 20 138/97 96
01/23/24 07:12 01/23/24 08:00 01/23/24 07:12 01/23/24 07:14 01/23/24 08:25
Cardiovascular:: Regular rate and rhythm
Respiratory:: Bilateral: Coarse
Lung Excursion:: Normal
Abdomen:: Nontender and Soft
Bowel Sounds:: Normal
Extremity Edema:: +2: Bilateral:
--- NOTE | 2024-01-23 11:33 | CM ---
Reviewed chart. Met with Mr. Chamorro to review discharge plans. He states he not feeling well. Prior to admission he resides alone in a one story home with two steps to enter. Prior to admission he ambulates with a single point cane for
balance and independent with adls. He has a prescription plan. Will need to see his current functional level to see if he will have any skilled care needs. Medical work-up in progress. The discharge pln is to return home when medically stable.
[2024-01-23 11:43] VITALS: BP 138/87
[2024-01-23 11:46] LABS: ALT (SGPT) 30 U/L (0-50); AST (SGOT) 45 U/L (17-59); Albumin 2.3 g/dl (3.5-5.0); Alkaline Phosphatase 420 U/L (38-126); Direct Bilirubin 1.4 mg/dl (0.0-0.4); Lipase 58 U/L (23-300); Total Bilirubin 1.5 mg/dl (0.2-1.3); Total Protein 5.3 g/dl (6.3-8.2)
[2024-01-23 11:47] LABS: APTT 51.6 Sec (23.4-35.0)
--- NOTE | 2024-01-23 12:48 | W.PN.HOSP.TC ---
Today's Communication/Plan
-
Monitor vital signs and see plan
Monitor renal function
Liver biopsy likely 01/25 after Plavix washout
Continue with IV heparin, aspirin
Continue with prednisone, tacrolimus
Continue with insulin
Assessment / Plan
Assessment / Plan
Physical Exam
General:�some pain
HEENT:�Anicteric and Moist mucous membranes
Respiratory:�Clear and Non Labored Respirations
Cardiac:�S1/S2, Irregular Rhythm and Tachycardia
GI:�Soft Tender to Palpation Bowel sounds present
Musculoskeletal:�No Clubbing, No Cyanosis and No Edema
Skin:�Warm and Dry, tattoos noted
Neuro:�AOx3
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 Discharged earlier this month from this facility following treatment for NSTEMI w/ stent placement.� Reported
feeling unwell since discharge with diarrhea black stools. Prompted to re-visit ED with progression chest abd pain.� CT abd/pelvis suggestive new metastatic liver masses confirmed on MRI.
Abdominal Pain - New Liver Abnormalities by CT and MRI suggestive metastasis
-Consult GI appreciated
-Infectious Disease consult appreciated
-Abd MRI appreciated hepatic mets, periportal yvrose mets, splenic infarcts, Rt Lower pole renal cell carcinoma
-no diarrhea since admission, stool studies discontinued
-clear liquid diet advance to low residue trial creon as per GI
-ID eval appreciated monitor off abx follow culture results NGTD
-IR consult appreciated plavix wash out 5 days necessary before Liver Bx can proceed; likely on 01/25
-Oncology Eval appreciated
-cont pain control prn dilaudid mg Q3h prn
-bengay left chest neck shoulder, pain worse with deep inspiration/cough
-lidocaine patch left shoulder
-oxycodone 5 mg q6h
-Tylenol 1000 mg TID
mild elevated LFT's likely from liver mets
lipase wnl
CT chest w/o contrast appreciated
-No evidence of osteoblastic mets. Lytic lesion within the L1 vertebral body likely benign unchanged from CT 09/09/2021
-Multiple small lung lung nodules possibly benign vs malignant
-Innumerable hepatic metastases.
-Left renal mass measures 3.2 cm in diameter, felt to represent a complex hemorrhagic cyst on prior MRI dated 01/18/2024. Right kidney was not imaged on the current chest CT.
CT Head appreciated no acute abn's
Coronary Artery Disease s/p LAD stent in Nov 2023
-Appreciate Cardiology consult
-Plavix placed on hold for bx last dose 01/19
-Eliquis on hold for bx
-hep gtt and ASA as per cardio while Eliquis is on hold.
Persistent Atrial Fibrillation/Flutter
-Holding Eliquis for biopsy
-Continue Coreg for rate control
Essential Hypertension
-Continue Coreg with hold parameters
Hyperlipidemia
-Hold rosuvastatin for now
Insulin-Dependent Diabetes Mellitus
-Hold Jardiance
-Monitor sugars and continue coverage insulin
-Continue insulin regimen and titrate as necessary.
-Diabetes AWS SOLUTION ARCHITECT consult appreciated
Diabetic Neuropathy
-Continue gabapentin
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
TUAN vs CKD
-Continue prednisone and tacrolimus
-Monitor Is&Os and Daily Weights
-Nephro eval appreciated
DVT proph: hep gtt
gi ppx protonix
Code Status: Full Code
Discussed with patient and his daughter Zofia
I spent a total of 52 minutes with the patient or on the floor. More than 50% of this time involved counseling and coordination of care.
Anticipated Discharge: > 48 hours
Subjective/Interval History
-
Date of Service: January 23, 2024
has some abdominal discomfort
Objective Data
-
Labs:
Laboratory Results
01/23/24 01/23/24 01/23/24
03:57 11:04 18:00
WBC 14.3 H
Hgb 14.2
Hct 44.4
Plt Count 116 L
APTT 112.9 H 51.6 H Pending
Sodium 128 L
Potassium 4.5
Chloride 102
Carbon Dioxide 23
BUN 64 H
Creatinine 3.2 H
Glucose 113 H
Calcium 8.6
Total Bilirubin 1.5 H
AST 45
ALT 30
Alkaline Phosphatase 420 H
Vital Signs:
Vital Signs
Temp Pulse Resp BP Pulse Ox
99.1 F 89 20 138/87 93
01/23/24 11:41 01/23/24 12:00 01/23/24 11:41 01/23/24 11:43 01/23/24 11:41
I&O
01/22/24 01/23/24 01/24/24
06:59 06:59 06:59
Intake Total 1203 / 1203 1987 / 1987 480 / 480
Output Total 850 / 850 875 / 875 250 / 250
Balance 353 / 353 1113 / 1113 230 / 230
[2024-01-23 13:37] LABS: Glucose - Point of Care 131 mg/dl (70-99)
[2024-01-23] MEDS: BenGay-Like TOPICAL ×3 (13:59→22:38)
[2024-01-23 16:07] LABS: CA 19-9 29435 U/mL (<=35)
[2024-01-23 16:08] VITALS: BP 135/96
[2024-01-23 17:33] LABS: Glucose - Point of Care 135 mg/dl (70-99)
[2024-01-23] MEDS: ROXICODONE PO (18:02)
--- NOTE | 2024-01-23 18:02 | PTCARENOTE ---
The patient refuse his 1800 dose of Roxicodone. He stated that he doesn't want the pain meds anymore and that he feels okay right now. He also stated that he doesn't want the Tylenol either.
[2024-01-23 18:21] LABS: APTT 83.1 Sec (23.4-35.0)
[2024-01-23 20:32] VITALS: BP 136/86
[2024-01-23] MEDS: CITROMA 300 ML PO (21:11)
--- NOTE | 2024-01-23 21:27 | PTCARENOTE ---
assumed care of patient at the change of shift. AAOx3. controlled Afib on tele 80s-90s. bp 136/86. patient denies any pain at this time. patient states not wanting to take pain medications because they are making him constipated. patient also
requested Mag citrate, 'its the only thing that works.' notified Nicole Donohue JOGGER OPERATOR. order placed and given, see mar. hat placed in toilet for possibility of collecting a heme test. educated patient to inform RN if he has any bowel movement.
coarse lung sounds b/l bases. + cough at times. shallow breathing. patient states no more pain with inspiration. 96% on RA. denies cp. reviewed plan of care with patient and verbalized understanding. educated patient to call for assistance. call
guaman within reach. calls appropriately.
[2024-01-23 22:36] VITALS: BP 141/91
[2024-01-23 22:38] LABS: Glucose - Point of Care 128 mg/dl (70-99)
[2024-01-23] MEDS: TYLENOL PO (22:38)
[2024-01-23] MEDS: LANTUS 0.349999999999999978 UNITS SC (22:39)
[2024-01-24] VITALS (8 sets, daily range): BP systolic 118–145; BP diastolic 81–104; BMI 30.5
[2024-01-24] MEDS: ROXICODONE PO ×2 (00:12→06:16)
[2024-01-24] MEDS: NITRO-BID TOPICAL ×5 (00:13→23:05)
[2024-01-24 00:41] LABS: APTT 139.7 Sec (23.4-35.0)
[2024-01-24] MEDS: HEPARIN 25000 UNITS/250 ML IV ×2 (04:59→16:25)
[2024-01-24 05:31] LABS: % Basophils 0.5 % (0-2); % Eosinophils 12.2 % (0-6); % Lymphocytes 8.3 % (20.5-51.1); % Monocytes 8.7 % (1.7-9.3); % Neutrophils 69.3 % (42.2-75.2); Absolute Basophils 0.1 10^3/uL (0-0.2); Absolute Eosinophils 1.7 10^3/uL (0-0.7); Absolute Immature Granulocytes 0.1 10^3/uL (0-0.05); Absolute Lymphocytes 1.2 10^3/uL (1.2-3.4); Absolute Monocytes 1.2 10^3/uL (0.1-0.6); Absolute Neutrophils 9.7 10^3/uL (1.4-6.5); Blood Urea Nitrogen 57 mg/dl (9-20); Calcium 8.6 mg/dl (8.4-10.2); Carbon Dioxide 24 mmol/L (22-30); Chloride 104 mmol/L (98-107); Estimated Creatinine Clearance 29 ml/min; Glucose 128 mg/dl (70-99); Hematocrit 44.8 % (39.0-52.0); Hemoglobin 13.9 g/dL (13.0-18.0); Magnesium 2.7 mg/dl (1.6-2.3); Mean Corpuscular Hgb 24.3 pg (27.0-31.0); Mean Corpuscular Volume 78.5 fL (80.0-94.0); Mean Platelet Volume 9.7 fL (7.4-10.4); Nucleated Red Blood Cells % 0 % (-); Phosphorus 3.8 mg/dl (2.5-4.5); Platelet Count 123 10^3/uL (130-400); Potassium 4.6 mmol/L (3.5-5.1); Red Blood Cell Count 5.71 10^6/uL (4.70-6.10); Red Cell Dist. Width 15.2 % (11.5-14.5); Sodium 131 mmol/L (135-145); eGFR 22.44
--- NOTE | 2024-01-24 08:40 | PN.DE.MGMTRT ---
Insulin Management
- -
01/20/2024: Diabetes Management Consult
59�year old male well know to Diabetes service from his recent hosp admission. Pt p/w with left-sided chest/upper abdominal pain, found to have Hepatic metastatic disease with innumerable masses throughout both lobes of the liver.
PMH includes: ESRD s/p renal transplant, osteo, A-Fib, HTN, CAD s/p stent placement 01/01, HLD, T2DM and acute on chronic pancreatitis.
Routinely sees Dr. James, was discharged home on Glargine 43 units @ HS, NovoLog 15 units AC and Jardiance 25 mg daily.
States that he has been taking his insulin and that his blood sugars have been in normal range and controlled at home.
Pt appears somewhat confused and forgetful, repeating himself at times.
He is noted for persistent Hyperglycemia, glucose trended up to 306 @ HS and remained elevated throughout the night, FBG 282 this AM.
Pre meal glucose 233 to 296, requiring 2-3 units of additional corrective insulin
Will increase Lantus to 35 units and AC NovoLog to 8 units with low corrective insulin.
Cr 3.4, eGFR 20.09, will stop Jardiance at this time, also not a candidate for any oral Diabetes agents.
Will follow closely. Hospitalist made aware of pt's confusion via TT.
: Diabetes Management F/U:
Pt p/w Abdominal Pain and was noted for New Liver Abnormalities by CT and MRI suggestive metastasis.
Currently c/o persistent pain to several body parts. Glucose stable, FBG 113 this AM, Premeal 97 to 130.
Will make no changes to current regimen: Lantus to 35 units and AC NovoLog to 8 units with low corrective insulin.
01/24/2024 Diabetes Management Follow up
Patient refusing pain medications due to constipation. Appetite remains good, consuming 100% for meals. Glucose well controlled with current regimen 35 units lantus @ hs with 8 units novolog AC. Will follow.
Diabetes History
- -
Type of Diabetes: 2 requiring insulin
Pre-Admission Diabetes Regimen
01/24/24
04:50
Creatinine 3.1 H
Insulin Pump Settings
IP Diabetes Regimen
01/23/24 01/23/24 01/23/24
13:35 17:31 22:37
Glucose
POC Glucose 131 H 135 H 128 H
01/24/24
04:50
Glucose 128 H
POC Glucose
Meal type: Lunch
Meal type: Breakfast
Amount consumed: 100%
Patient Education
[2024-01-24 08:49] LABS: Glucose - Point of Care 89 mg/dl (70-99)
[2024-01-24] MEDS: MIRALAX 17 GRAMS PO (09:08)
[2024-01-24] MEDS: BenGay-Like 1 APPLIC TOPICAL (09:09)
[2024-01-24] MEDS: LIDOCAINE 4% PATCH 1 PATCH TOPICAL (09:09)
[2024-01-24] MEDS: TYLENOL PO (09:10)
[2024-01-24] MEDS: DELTASONE 5 MG PO (09:10)
[2024-01-24] MEDS: SENOKOT-S 1 TABLET PO (09:11)
[2024-01-24] MEDS: COREG 3.125 MG PO ×2 (09:11→20:33)
[2024-01-24] MEDS: PROGRAF 1 MG PO ×2 (09:11→20:33)
[2024-01-24] MEDS: NEURONTIN 300 MG PO (09:11)
[2024-01-24] MEDS: PROTONIX 40 MG PO (09:11)
[2024-01-24] MEDS: LOW STRENGTH ASPIRIN 81 MG PO (09:11)
[2024-01-24] MEDS: ZENPEP DELAYED RELEASE CAPSULE 1 CAPSULE PO ×4 (09:14→23:06)
[2024-01-24] MEDS: NOVOLOG FLEXPEN-LOW RESISTANCE SC ×3 (09:15→18:14)
[2024-01-24] MEDS: FLUSH (NSS) 1 FLUSH IV (09:15)
[2024-01-24] MEDS: NOVOLOG FLEXPEN 8 UNITS SC ×2 (09:15→13:57)
[2024-01-24 09:17] LABS: APTT 83.8 Sec (23.4-35.0)
--- NOTE | 2024-01-24 09:31 | PTCARENOTE ---
The patient is aaox3 with a flat affect this am. He refused his nitro-bid and Tylenol. He states that his pain (left neck, left shoulder, left upper chest) is now tolerable. He has no complaints of upper left abdominal pain. Afib is noted on the
monitor with HRs in the 70s-80s.
[2024-01-24] MEDS: ROXICODONE 5 MG PO ×3 (12:00→23:06)
--- NOTE | 2024-01-24 12:01 | W.PN.NEPH.PH ---
Today's Communication / Plan
-
follow BMP
Assessment/Plan
-
Impression:
HFpEF EF 45-50%
shoulder pain radiating to LUQ
TUAN on CKD (bl Cr 2)
Hyponatremia
History TUAN in 09/2022 ATN on transplant biopsy with background moderately severe chronic changes predominantly FSGS
Nephrotic syndrome
Living unrelated kidney transplant 2009 ()
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
Right [place] kidney lower pole cystic mass since at least 09/09/21
Diabetes mellitus 2 uncontrolled
h/o Alcohol use disorder
active smoker
Diabetic peripheral neuropathy
Immunosuppression on tacrolimus and prednisone
Coronary artery disease status post stent(s)
Coronary angioplasty implant and graft
Atrial fibrillation on Eliquis
Hypertension, multidrug and uncontrolled
HLD
Hypoalbuminemia
liver metastases, CA19-9 >29k
Plan:
-planning for liver biopsy tomorrow
-follow BMP
-off torsemide for now
-heparin gtt for anticoagulation
-I discussed with patient that this is most likely cancer, and identification of the primary will be the next step
-
-
Date of Service: January 24, 2024
CC / HPI / ROS
-
Chief Complaint:
TUAN, h/o KTx
History of Present Illness:
Cr down to 3.1
no fever, leucocytosis persists
sodium remains stable low
BP stable
Review of Systems:
no sob
malaise
no dysuria
Labs
-
Labs:
WBC 14.0 10^3/uL (4.8-10.8) H 01/24/24 04:50
RBC 5.71 10^6/uL (4.70-6.10) 01/24/24 04:50
Hgb 13.9 g/dL (13.0-18.0) 01/24/24 04:50
Hct 44.8 % (39.0-52.0) 01/24/24 04:50
Plt Count 123 10^3/uL (130-400) L 01/24/24 04:50
Sodium 131 mmol/L (135-145) L 01/24/24 04:50
Potassium 4.6 mmol/L (3.5-5.1) 01/24/24 04:50
Chloride 104 mmol/L (98-107) 01/24/24 04:50
Carbon Dioxide 24 mmol/L (22-30) 01/24/24 04:50
BUN 57 mg/dl (9-20) H 01/24/24 04:50
Creatinine 3.1 mg/dL (0.7-1.3) H 01/24/24 04:50
eGFR 22.44 01/24/24 04:50
Glucose 128 mg/dl (70-99) H 01/24/24 04:50
Calcium 8.6 mg/dl (8.4-10.2) 01/24/24 04:50
Phosphorus 3.8 mg/dl (2.5-4.5) 01/24/24 04:50
Albumin 2.3 g/dl (3.5-5.0) L 01/23/24 11:04
Physical Exam
-
Vital Signs:
Vital Signs
Temp Pulse Resp BP Pulse Ox
98.2 F 86 18 118/86 96
01/24/24 11:56 01/24/24 11:38 01/24/24 11:56 01/24/24 11:38 01/24/24 11:56
Cardiovascular:: Regular rate and rhythm
Respiratory:: Bilateral: Coarse
Lung Excursion:: Normal
Abdomen:: Nontender and Soft
Bowel Sounds:: Normal
Extremity Edema:: +1: Bilateral:
[2024-01-24 12:47] LABS: Glucose - Point of Care 75 mg/dl (70-99)
--- NOTE | 2024-01-24 13:00 | W.PN.HOSP.TC ---
Today's Communication/Plan
-
Monitor vital signs and see plan
Liver biopsy hopefully tomorrow after Plavix washout
Monitor renal function
Assessment / Plan
Assessment / Plan
Physical Exam
General:�some pain
HEENT:�Anicteric and Moist mucous membranes
Respiratory:�Clear and Non Labored Respirations
Cardiac:�S1/S2, Irregular Rhythm and Tachycardia
GI:�Soft Tender to Palpation Bowel sounds present
Musculoskeletal:�No Clubbing, No Cyanosis and No Edema
Skin:�Warm and Dry, tattoos noted
Neuro:�AOx3
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 Discharged earlier this month from this facility following treatment for NSTEMI w/ stent placement.� Reported
feeling unwell since discharge with diarrhea black stools. Prompted to re-visit ED with progression chest abd pain.� CT abd/pelvis suggestive new metastatic liver masses confirmed on MRI.
Abdominal Pain - New Liver Abnormalities by CT and MRI suggestive metastasis
-Consult GI appreciated
-Infectious Disease consult appreciated
-Abd MRI appreciated hepatic mets, periportal yvrose mets, splenic infarcts, Rt Lower pole renal cell carcinoma
-no diarrhea since admission, stool studies discontinued
-clear liquid diet advance to low residue trial creon as per GI
-ID eval appreciated monitor off abx follow culture results NGTD
-IR consult appreciated plavix wash out 5 days necessary before Liver Bx can proceed; likely on 01/25
-Oncology following; Ca19-9 high
-cont pain control prn dilaudid mg Q3h prn
-bengay left chest neck shoulder, pain worse with deep inspiration/cough
-lidocaine patch left shoulder
-oxycodone 5 mg q6h
-Tylenol 1000 mg TID
mild elevated LFT's likely from liver mets
lipase wnl
CT chest w/o contrast appreciated
-No evidence of osteoblastic mets. Lytic lesion within the L1 vertebral body likely benign unchanged from CT 09/09/2021
-Multiple small lung lung nodules possibly benign vs malignant
-Innumerable hepatic metastases.
-Left renal mass measures 3.2 cm in diameter, felt to represent a complex hemorrhagic cyst on prior MRI dated 01/18/2024. Right kidney was not imaged on the current chest CT.
Hyponatremia
Monitor
Constipation
Laxatives
Coronary Artery Disease s/p LAD stent in Nov 2023
-Appreciate Cardiology consult
-Plavix placed on hold for bx last dose 01/19
-Eliquis on hold for bx
-hep gtt and ASA as per cardio while Eliquis is on hold.
Persistent Atrial Fibrillation/Flutter
-Holding Eliquis for biopsy
-Continue Coreg for rate control
Essential Hypertension
-Continue Coreg with hold parameters
Hyperlipidemia
-Hold rosuvastatin for now
Insulin-Dependent Diabetes Mellitus
-Hold Jardiance
-Monitor sugars and continue coverage insulin
-Continue insulin regimen and titrate as necessary.
-Diabetes PRECISION ASSEMBLY INSPECTOR consult appreciated
Diabetic Neuropathy
-Continue gabapentin
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
TUAN on CKD
-Continue prednisone and tacrolimus
-Monitor Is&Os and Daily Weights
-Nephro following
DVT proph: hep gtt
gi ppx protonix
Code Status: Full Code
Discussed with patient and his daughter Zofia
I spent a total of 53 minutes with the patient or on the floor. More than 50% of this time involved counseling and coordination of care.
Anticipated Discharge: > 48 hours
Subjective/Interval History
-
Date of Service: January 24, 2024
denies nausea
Objective Data
-
Labs:
Laboratory Results
01/24/24 01/24/24
04:50 08:48
WBC 14.0 H
Hgb 13.9
Hct 44.8
Plt Count 123 L
APTT 83.8 H
Sodium 131 L
Potassium 4.6
Chloride 104
Carbon Dioxide 24
BUN 57 H
Creatinine 3.1 H
Glucose 128 H
Calcium 8.6
Vital Signs:
Vital Signs
Temp Pulse Resp BP Pulse Ox
98.2 F 86 18 118/86 96
01/24/24 11:56 01/24/24 11:38 01/24/24 11:56 01/24/24 11:38 01/24/24 11:56
I&O
01/23/24 01/24/24 01/25/24
06:59 06:59 06:59
Intake Total 1987 / 1987 480 / 480
Output Total 875 / 875 425 / 425
Balance 1113 / 1113 55 / 55
[2024-01-24] MEDS: BenGay-Like TOPICAL ×3 (14:17→23:05)
--- NOTE | 2024-01-24 14:17 | PTCARENOTE ---
The patient asked if he could have pain medication at 1130. I told him he was due at 1200 and I would give it to him then. He stated that its the same general pain he has been having (left neck, left shoulder, left upper chest, left upper abdomen).
He said he couldn't give it a number for his pain, just that it was annoying. Medicated the patient at 1200 as ordered.
[2024-01-24] MEDS: TYLENOL 1000 MG PO ×2 (15:42→23:06)
[2024-01-24 16:56] LABS: Glucose - Point of Care 97 mg/dl (70-99)
[2024-01-24] MEDS: NOVOLOG FLEXPEN SC (18:15)
[2024-01-24 18:45] LABS: Glucose - Point of Care 130 mg/dl (70-99)
[2024-01-24] MEDS: SENOKOT-S PO (20:33)
[2024-01-24] MEDS: DILAUDID 0.5 MG IV (20:48)
--- NOTE | 2024-01-24 21:07 | PTCARENOTE ---
during rounds, patient sleeping in bed. when awoken, patient states 'i need dilaudid.' patient c/o 6/10 L shoulder and abdominal pain. PRN dilaudid given, see mar.
HR Afib on tele 80s-90s. bp stable. lungs clear throughout. 97% on RA. nonproductive cough at times. heparin gtt infusing per protocol. reviewed plan of care with patient and verbalized understanding. NPO at midnight. call guaman within reach.
[2024-01-24 21:52] LABS: Glucose - Point of Care 128 mg/dl (70-99)
[2024-01-24 22:11] LABS: APTT 106.2 Sec (23.4-35.0)
[2024-01-24] MEDS: LANTUS 0.349999999999999978 UNITS SC (23:06)
[2024-01-25] VITALS (8 sets, daily range): BP systolic 97–146; BP diastolic 80–101; BMI 30.6
[2024-01-25] MEDS: HEPARIN 25000 UNITS/250 ML IV ×2 (03:54→19:09)
[2024-01-25 04:35] LABS: % Basophils 0.5 % (0-2); % Eosinophils 9.2 % (0-6); % Immature Granulocytes 1.1 % (0-0.5); % Lymphocytes 8.6 % (20.5-51.1); % Monocytes 8.2 % (1.7-9.3); % Neutrophils 72.4 % (42.2-75.2); Absolute Basophils 0.1 10^3/uL (0-0.2); Absolute Eosinophils 1.3 10^3/uL (0-0.7); Absolute Immature Granulocytes 0.2 10^3/uL (0-0.05); Absolute Lymphocytes 1.3 10^3/uL (1.2-3.4); Absolute Monocytes 1.2 10^3/uL (0.1-0.6); Absolute Neutrophils 10.5 10^3/uL (1.4-6.5); Hematocrit 46.1 % (39.0-52.0); Hemoglobin 14.6 g/dL (13.0-18.0); Mean Corp Hgb Conc. 31.7 g/dL (33.0-37.0); Mean Corpuscular Hgb 24.8 pg (27.0-31.0); Mean Corpuscular Volume 78.4 fL (80.0-94.0); Mean Platelet Volume 9.2 fL (7.4-10.4); Nucleated Red Blood Cells % 0 % (-); Platelet Count 119 10^3/uL (130-400); Red Blood Cell Count 5.88 10^6/uL (4.70-6.10); Red Cell Dist. Width 15.1 % (11.5-14.5); White Blood Cell Count 14.6 10^3/uL (4.8-10.8)
[2024-01-25 04:43] LABS: APTT 53.8 Sec (23.4-35.0)
[2024-01-25 05:09] LABS: Blood Urea Nitrogen 57 mg/dl (9-20); Calcium 8.9 mg/dl (8.4-10.2); Carbon Dioxide 26 mmol/L (22-30); Chloride 101 mmol/L (98-107); Estimated Creatinine Clearance 32 ml/min; Glucose 79 mg/dl (70-99); Phosphorus 3.2 mg/dl (2.5-4.5); Potassium 4.7 mmol/L (3.5-5.1); Sodium 132 mmol/L (135-145); eGFR 25.36
[2024-01-25] MEDS: ROXICODONE 5 MG PO ×3 (06:33→17:47)
--- NOTE | 2024-01-25 07:00 | PTCARENOTE ---
Bedside walking rounds report received. Patient seen on rounds resting in bed: heparin gtt verifie infusing at 2600units/hr via left forarm IV site: afibb controlled on monitor. Room air. See flow record for pain management documentation.
--- NOTE | 2024-01-25 07:16 | W.PN.ONC2 ---
Today's Communication / Plan
-
Liver Bx. CA 19/9 makes metastatic pancreatic cancer a likely diagnosis. Not discussed as liver bx would be needed to confirm.
Impression
Impression
Right renal mass 4.1 cm
MRI of the liver suspicious for metastatic disease
Markedly elevated CA 19/9 = 29,000
Suspicion for splenic infarct
Plan
Plan
pleuritic chest pain that started in left upper chest shoulder then extends to LUQ could be related to splenic infarcts however troponin remains elevated. cardiology following. Pt on Eliquis chronically for afib, now on heparin gtt in.
multiple liver lesions on MRI, new compared to imaging in August in addition to splenic infarcts. CT chest with several sub-cm nodules, nonspecific however has evidence of similar nodularity on CT chest in February 2023. NO obvious primary on imaging.
He has complex renal mass however this has been present and unchanged for several years, thought to be hemorrhagic cyst.
IR biopsy of liver after plavix wash out. tuesday will be D5.
Alpha-fetoprotein and CEA normal. Pt at increased risk for pancreatic cancer with hx of pancreatic divisum, chronic pancreatitis and pancreatic cancer in his father in his 40s. CA19-9 markedly elevated = 29,435.
Subjective/Objective
Chief Complaint
ACS Heme Onc
Subjective
Asking me about diagnosis. For Liver Bx today. No other c/o except wants a drink (NPO).
Vital Signs:
Vital Signs
Temp Pulse Resp BP Pulse Ox
98.3 F 95 16 144/97 95
01/25/24 07:13 01/25/24 07:13 01/25/24 07:13 01/25/24 03:52 01/25/24 07:13
Lab Results:
Laboratory Data
WBC 14.6 10^3/uL (4.8-10.8) H 01/25/24 04:00
Hgb 14.6 g/dL (13.0-18.0) 01/25/24 04:00
Plt Count 119 10^3/uL (130-400) L 01/25/24 04:00
APTT 53.8 Sec (23.4-35.0) H 01/25/24 04:00
eGFR 25.36 01/25/24 04:00
CA 19/9 = Laboratory Tests
01/21/24
13:07
CA 19-9 Antigen 88749 H
Physical Exam
HEENT: No Jaundice
Cardiology: S1 and S2
Pulmonary: Clear
GI: Soft
Extremities: No C/C/E
[2024-01-25] MEDS: NOVOLOG FLEXPEN SC (07:30)
--- NOTE | 2024-01-25 08:11 | PN.DE.MGMTRT ---
Insulin Management
- -
01/20/2024: Diabetes Management Consult
59�year old male well know to Diabetes service from his recent hosp admission. Pt p/w with left-sided chest/upper abdominal pain, found to have Hepatic metastatic disease with innumerable masses throughout both lobes of the liver.
PMH includes: ESRD s/p renal transplant, osteo, A-Fib, HTN, CAD s/p stent placement 01/01, HLD, T2DM and acute on chronic pancreatitis.
Routinely sees Dr. James, was discharged home on Glargine 43 units @ HS, NovoLog 15 units AC and Jardiance 25 mg daily.
States that he has been taking his insulin and that his blood sugars have been in normal range and controlled at home.
Pt appears somewhat confused and forgetful, repeating himself at times.
He is noted for persistent Hyperglycemia, glucose trended up to 306 @ HS and remained elevated throughout the night, FBG 282 this AM.
Pre meal glucose 233 to 296, requiring 2-3 units of additional corrective insulin
Will increase Lantus to 35 units and AC NovoLog to 8 units with low corrective insulin.
Cr 3.4, eGFR 20.09, will stop Jardiance at this time, also not a candidate for any oral Diabetes agents.
Will follow closely. Hospitalist made aware of pt's confusion via TT.
: Diabetes Management F/U:
Pt p/w Abdominal Pain and was noted for New Liver Abnormalities by CT and MRI suggestive metastasis.
Currently c/o persistent pain to several body parts. Glucose stable, FBG 113 this AM, Premeal 97 to 130.
Will make no changes to current regimen: Lantus to 35 units and AC NovoLog to 8 units with low corrective insulin.
01/24/2024 Diabetes Management Follow up
Patient refusing pain medications due to constipation. Appetite remains good, consuming 100% for meals. Glucose well controlled with current regimen 35 units lantus @ hs with 8 units novolog AC. Will follow.
01/25/2024 Diabetes Management Follow up
Patient now taking pain medications for L shoulder, L chest and abdominal pain. Had breakfast and lunch but no dinner yesterday. Glucose 79 this AM. Will reduce HS lantus to 32 units and ac novolog to 7 units.
Diabetes History
- -
Type of Diabetes: 2 requiring insulin
Pre-Admission Diabetes Regimen
01/25/24
04:00
Creatinine 2.8 H
Insulin Pump Settings
IP Diabetes Regimen
01/24/24 01/24/24 01/24/24
08:47 12:46 16:54
Glucose
POC Glucose 89 75 97
01/24/24 01/24/24 01/25/24
18:42 21:50 04:00
Glucose 79
POC Glucose 130 H 128 H
Meal type: Dinner
Meal type: Lunch
Meal type: Breakfast
Amount consumed: 100%
Amount consumed: 100%
Amount consumed: 100%
Patient Education
[2024-01-25] MEDS: ZENPEP DELAYED RELEASE CAPSULE PO ×2 (08:21→11:52)
[2024-01-25] MEDS: NITRO-BID 0.5 INCH TOPICAL ×2 (08:24→15:48)
[2024-01-25] MEDS: NEURONTIN 300 MG PO (08:24)
[2024-01-25] MEDS: DELTASONE 5 MG PO (08:24)
[2024-01-25] MEDS: TYLENOL 1000 MG PO ×2 (08:26→21:48)
[2024-01-25 08:27] LABS: Glucose - Point of Care 68 mg/dl (70-99)
[2024-01-25] MEDS: COREG 3.125 MG PO ×2 (08:27→19:39)
[2024-01-25] MEDS: PROGRAF 1 MG PO ×2 (08:27→19:40)
[2024-01-25] MEDS: PROTONIX 40 MG PO (08:27)
[2024-01-25] MEDS: LOW STRENGTH ASPIRIN 81 MG PO (08:28)
[2024-01-25] MEDS: LIDOCAINE 4% PATCH 1 PATCH TOPICAL (08:28)
[2024-01-25] MEDS: NOVOLOG FLEXPEN-LOW RESISTANCE SC ×3 (08:29→17:56)
[2024-01-25] MEDS: BenGay-Like TOPICAL ×4 (08:29→21:52)
[2024-01-25] MEDS: SENOKOT-S PO ×2 (08:34→19:40)
[2024-01-25] MEDS: MIRALAX PO (08:34)
[2024-01-25] MEDS: DEXTROSE 50% SYRINGE 12.5 GRAMS IV (08:35)
[2024-01-25 08:41] LABS: INR 1.22; PT 15.5 Sec (11.4-14.6)
[2024-01-25 08:54] LABS: Glucose - Point of Care 127 mg/dl (70-99)
--- NOTE | 2024-01-25 10:18 | W.PN.CARDCBS ---
Today's Communication / Plan
-
Continue IV Heparin and hold Eliquis. Plavix washed out for biopsy Jan 25.
He remains in rate controlled Afib
Trop lauren to 5.3 and coming down again. He does not complain of anginal chest pain.
Cont pain control of pleuritic shoulder/left chest wall pain, that had been worse with inspiration and did not appear cardiac. CT chest no evidence of osteoblastic mets, lytic lesion L1 vertebral body, multiple small lung nodules, left renal masss
3.2 cm felt to be hemorrhagic cyst on prior MRI
Acute on chronic transplant kidney disease. Nephrology following. Cr continues to improve and is 2.8 on Jan 25.
Impression / Plan
-
.
PCP: Dr. Field
Primary Leadership Development Instructor: Dr. JOSE Bee
Nephrology: Dr. Loya
Impression:
Presented with left-sided upper abdominal pain
Hepatic metastatic disease with innumerable masses throughout both lobes of the liver by MRI 01/18/24
Elevated Troponin
Recent admission for NSTEMI, LAD PCI and acute HF 12/27/23 until 01/04/24
CAD
s/p Circ/OM stent 08/2014
s/p IWMI with stenting of the mid right coronary artery 06/2016 and staged intervention for in-stent restenosis and new lesion in circ/OM 06/2016
s/p NSTEMI, with abrupt closure of the AV continuation of the Circ supplying 2 small posterolateral branches during cath and then 4 mm Xience to mid LAD and 2.75 mm Xience to the mid to distal OM-1 03/05/19
s/p NSTEMI with 100% distal LAD occlusion stented with a 2.25 mm Xience 12/28/23Abnormal ECG
CKD 4
s/p Living, unrelated donor (his at the time) renal transplant [facility] 2009
Right [place] kidney lower pole cystic mass concerning for renal cell carcinoma since at least 09/09/21
HTN
Paroxysmal atrial fibrillation/flutter
recurrence noted on ECG in ER 12/27/23Chronic OAC with Eliquis, last dose 01/18/24 AM
Active smoker
h/o ETOH use disorder
DM 2
Diabetic neuropathy
Hyperlipidemia
History of NSVT
Polycythemia vera
Chronic pancreatitis
ECHO 10/14/22: Technically difficult study, use IV Definity in future, EF 55 to 60%, likely moderate LVH, normal RV size and function, no significant valvular disease
Echo 08/24/23: EF 60-65%, normal RV size and function, PAP 20-25 mmHg
Echo 12/27/23: EF 45-50%, apical hypokinesis, trivial to small pericardial effusion
Limited Echo Jan 19 2024: EF 45% with apical hypokinesis and on change from Nov 2023.
Plan:
Continue IV Heparin and hold Eliquis. Plavix washed out for biopsy Jan 25.
He remains in rate controlled Afib
Trop lauren to 5.3 and coming down again. He does not complain of anginal chest pain.
Cont pain control of pleuritic shoulder/left chest wall pain, that had been worse with inspiration and did not appear cardiac. CT chest no evidence of osteoblastic mets, lytic lesion L1 vertebral body, multiple small lung nodules, left renal masss
3.2 cm felt to be hemorrhagic cyst on prior MRI
Acute on chronic transplant kidney disease. Nephrology following. Cr continues to improve and is 2.8 on Jan 25.
Discussed with nursing.
HPI: Patient [facility] today with chest/epigastric pain. He says that the pain has been present since he was discharged 01/04/24, but became much worse yesterday and he could not get relief with pain meds and patches at home. He also says that he
started to feel confused and thought he was speaking when he wasn't along with acute on chronic LUE paresthesias. In the ER his initial Troponin was 2.38. Last admission Troponin as high 5.75 prior to PCI 12/28/23,but true peak unknown and presumably
3 weeks later Troponin would be trending down although he has CKD 4. Chest pain improved with Dilaudid, but still present at a low level.
Progress Note - Leadership Development Instructor
Subjective
Date of Service: January 25, 2024
Pt seen and examined. No complaints. No chest pain or shortness of breath.
Objective
Labs:
01/25/24 04:00
01/25/24 04:00
Labs
Hgb 14.6 g/dL (13.0-18.0) 01/25/24 04:00
Hct 46.1 % (39.0-52.0) 01/25/24 04:00
Plt Count 119 10^3/uL (130-400) L 01/25/24 04:00
PT 15.5 Sec (11.4-14.6) H 01/25/24 04:00
INR 1.22 01/25/24 04:00
APTT 53.8 Sec (23.4-35.0) H 01/25/24 04:00
Sodium 132 mmol/L (135-145) L 01/25/24 04:00
Potassium 4.7 mmol/L (3.5-5.1) 01/25/24 04:00
BUN 57 mg/dl (9-20) H 01/25/24 04:00
Creatinine 2.8 mg/dL (0.7-1.3) H 01/25/24 04:00
Glucose 79 mg/dl (70-99) 01/25/24 04:00
Vital Signs and I&O:
Vital Signs
Temp Pulse Resp BP Pulse Ox
98.3 F 106 18 133/80 95
01/25/24 07:13 01/25/24 08:19 01/25/24 08:19 01/25/24 07:14 01/25/24 07:13
Vital Signs
Temp Pulse Resp BP Pulse Ox
98.3 F 106 18 133/80 95
01/25/24 07:13 01/25/24 08:19 01/25/24 08:19 01/25/24 07:14 01/25/24 07:13
Intake & Output
01/23/24 01/24/24 01/25/24 01/26/24
06:59 06:59 06:59 06:59
Intake Total 1987 / 1987 480 / 480 300 / 300
Output Total 875 / 875 425 / 425 200 / 200
Balance 1113 / 1113 55 / 55 100 / 100
Physical Exam
Physical Exam
General: No acute distress, AAOX3
Neck: Negative JVD
Heart: Regular, Negative S3 positive S1/S2, Negative S4, No murmur
Lungs: CTA b/l, negative wheezes/rales/rhonchi
Abd: Positive BS, NT/ND, neg rebound/rigidity/guarding
Ext: Negative cyanosis/clubbing/edema
Neuro: nonfocal
[2024-01-25 11:56] LABS: Glucose - Point of Care 76 mg/dl (70-99)
[2024-01-25] MEDS: DILAUDID 1 MG IV (12:02)
[2024-01-25 12:53] LABS: Glucose - Point of Care 86 mg/dl (70-99)
--- NOTE | 2024-01-25 13:31 | W.PN.HOSP.TC ---
Today's Communication/Plan
-
Monitor vital signs and see plan
Liver biopsy today
Monitor renal function
cw tac
Assessment / Plan
Assessment / Plan
Physical Exam
General:�some pain
HEENT:�Anicteric and Moist mucous membranes
Respiratory:�Clear and Non Labored Respirations
Cardiac:�S1/S2, Irregular Rhythm and Tachycardia
GI:�Soft Tender to Palpation Bowel sounds present
Musculoskeletal:�No Clubbing, No Cyanosis and No Edema
Skin:�Warm and Dry, tattoos noted
Neuro:�AOx3
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 Discharged earlier this month from this facility following treatment for NSTEMI w/ stent placement.� Reported
feeling unwell since discharge with diarrhea black stools. Prompted to re-visit ED with progression chest abd pain.� CT abd/pelvis suggestive new metastatic liver masses confirmed on MRI.
Abdominal Pain - New Liver Abnormalities by CT and MRI suggestive metastasis
-Consult GI appreciated
-Infectious Disease consult appreciated
-Abd MRI appreciated hepatic mets, periportal yvrose mets, splenic infarcts, Rt Lower pole renal cell carcinoma
-no diarrhea since admission, stool studies discontinued
-clear liquid diet advance to low residue trial creon as per GI
-ID eval appreciated monitor off abx follow culture results NGTD
-IR consult appreciated plavix wash out 5 days; liver biopsy 01/25
-Oncology following; Ca19-9 high
-cont pain control prn dilaudid mg Q3h prn
-bengay left chest neck shoulder, pain worse with deep inspiration/cough
-lidocaine patch left shoulder
-oxycodone 5 mg q6h
-Tylenol 1000 mg TID
mild elevated LFT's likely from liver mets
lipase wnl
CT chest w/o contrast appreciated
-No evidence of osteoblastic mets. Lytic lesion within the L1 vertebral body likely benign unchanged from CT 09/09/2021
-Multiple small lung lung nodules possibly benign vs malignant
-Innumerable hepatic metastases.
-Left renal mass measures 3.2 cm in diameter, felt to represent a complex hemorrhagic cyst on prior MRI dated 01/18/2024. Right kidney was not imaged on the current chest CT.
Hyponatremia
Monitor
Constipation
Laxatives
Coronary Artery Disease s/p LAD stent in Nov 2023
-Appreciate Cardiology consult
-Plavix placed on hold for bx last dose 01/19
-Eliquis on hold for bx
-hep gtt and ASA as per cardio while Eliquis is on hold.
Persistent Atrial Fibrillation/Flutter
-Holding Eliquis for biopsy
-Continue Coreg for rate control
Essential Hypertension
-Continue Coreg with hold parameters
Hyperlipidemia
-Hold rosuvastatin for now
Insulin-Dependent Diabetes Mellitus
-Hold Jardiance
-Monitor sugars and continue coverage insulin
-Continue insulin regimen and titrate as necessary.
-Diabetes ECONOMICS CONSULTANT consult appreciated
Diabetic Neuropathy
-Continue gabapentin
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
TUAN on CKD
-Continue prednisone and tacrolimus
-Monitor Is&Os and Daily Weights
-Nephro following
DVT proph: hep gtt
gi ppx protonix
Code Status: Full Code
I spent a total of 52 minutes with the patient or on the floor. More than 50% of this time involved counseling and coordination of care.
Anticipated Discharge: > 48 hours
Subjective/Interval History
-
Date of Service: January 25, 2024
denies nausea
Objective Data
-
Labs:
Laboratory Results
01/25/24 01/25/24
04:00 11:20
WBC 14.6 H
Hgb 14.6
Hct 46.1
Plt Count 119 L
PT 15.5 H
INR 1.22
APTT 53.8 H Pending
Sodium 132 L
Potassium 4.7
Chloride 101
Carbon Dioxide 26
BUN 57 H
Creatinine 2.8 H
Glucose 79
Calcium 8.9
Vital Signs:
Vital Signs
Temp Pulse Resp BP Pulse Ox
98.3 F 106 18 133/80 94
01/25/24 11:23 01/25/24 08:19 01/25/24 11:23 01/25/24 07:14 01/25/24 11:23
I&O
01/24/24 01/25/24 01/26/24
06:59 06:59 06:59
Intake Total 480 / 480 300 / 300
Output Total 425 / 425 200 / 200
Balance 55 / 55 100 / 100
--- NOTE | 2024-01-25 13:53 | CM ---
Reviewed chart. Mr. Chamorro is schedule for a liver bx. Prior to admission he resides alone in a one story home with two steps to enter. Prior to admission he ambulates with a single point cane and independent with with adls. Will need to see
his current functional level to see if he will have any skilled care needs. Medical work-up in progress. The discharge plan is to return home when medically stable.
--- NOTE | 2024-01-25 14:03 | W.PN.NEPH.PH ---
Today's Communication / Plan
-
follow labs
Assessment/Plan
-
Impression:
HFpEF EF 45-50%
shoulder pain radiating to LUQ
TUAN on CKD (bl Cr 2)
Hyponatremia
History TUAN in 09/2022 ATN on transplant biopsy with background moderately severe chronic changes predominantly FSGS
Nephrotic syndrome
Living unrelated kidney transplant 2009 ()
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
Right [place] kidney lower pole cystic mass since at least 09/09/21
Diabetes mellitus 2 uncontrolled
h/o Alcohol use disorder
active smoker
Diabetic peripheral neuropathy
Immunosuppression on tacrolimus and prednisone
Coronary artery disease status post stent(s)
Coronary angioplasty implant and graft
Atrial fibrillation on Eliquis
Hypertension, multidrug and uncontrolled
HLD
Hypoalbuminemia
liver metastases, CA19-9 >29k
Plan:
-planning for liver biopsy today
cr improving off diuretics
-heparin gtt for anticoagulation pe rprimary
-
-
Date of Service: January 25, 2024
CC / HPI / ROS
-
Chief Complaint:
TUAN, h/o KTx
History of Present Illness:
Cr down to 2.8
no fever, leucocytosis persists
sodium remains stable low 132
BP stable
Review of Systems:
no sob
malaise
no dysuria
Labs
-
Labs:
WBC 14.6 10^3/uL (4.8-10.8) H 01/25/24 04:00
RBC 5.88 10^6/uL (4.70-6.10) 01/25/24 04:00
Hgb 14.6 g/dL (13.0-18.0) 01/25/24 04:00
Hct 46.1 % (39.0-52.0) 01/25/24 04:00
Plt Count 119 10^3/uL (130-400) L 01/25/24 04:00
Sodium 132 mmol/L (135-145) L 01/25/24 04:00
Potassium 4.7 mmol/L (3.5-5.1) 01/25/24 04:00
Chloride 101 mmol/L (98-107) 01/25/24 04:00
Carbon Dioxide 26 mmol/L (22-30) 01/25/24 04:00
BUN 57 mg/dl (9-20) H 01/25/24 04:00
Creatinine 2.8 mg/dL (0.7-1.3) H 01/25/24 04:00
eGFR 25.36 01/25/24 04:00
Glucose 79 mg/dl (70-99) 01/25/24 04:00
Calcium 8.9 mg/dl (8.4-10.2) 01/25/24 04:00
Phosphorus 3.2 mg/dl (2.5-4.5) 01/25/24 04:00
Albumin 2.3 g/dl (3.5-5.0) L 01/23/24 11:04
Physical Exam
-
Vital Signs:
Vital Signs
Temp Pulse Resp BP Pulse Ox
97.7 F 97 15 146/95 94
01/25/24 13:41 01/25/24 13:41 01/25/24 13:41 01/25/24 13:41 01/25/24 13:41
Cardiovascular:: Regular rate and rhythm
Respiratory:: Bilateral: CTA
Lung Excursion:: Normal
Abdomen:: Nontender and Soft
Extremity Edema:: None: Bilateral:
Hernandez Catheter: No
--- NOTE | 2024-01-25 14:30 | PTCARENOTE ---
rec'd pt in IR for Liver biopsy, vss initially. was medicated with Dilaudid IV prior to leaving inpt unit. pt continues to c/o left abdominla pain but states better than before. At 1440, pt appears restless, calling out to staff, clutching chest and
stating that now he has 'deep, burning' chest pain on right side and that it is different thatn what he has been feeling before. EKG ordered, o2 2L nc applied, BP 140/117, HR afib 90-100. Dr. Coronado notified, came to see pt at bedside. troponin
drawn, Metoprolol 5mg IV given per Dr. Coronado orders, he also notified cardiology of change in pt status. Pt has been off Heparin for 4-5 hours in preparation for Liver biopsy per Dr. Sidhu, IR. At this time pt's heparin drip to be restarted,
primary RN present to transport pt back to IVU.
--- NOTE | 2024-01-25 14:30 | PTCARENOTE ---
Call from Angelica RN in IR: patient is having 'excruciating' right sided chest pain and liver biopsy aborted due to same: patient transported back to IVU by RN and it was ok to resume heparin gtt at previous rate of 2600units/hr per Dr. Coronado at
bedside: Dr. Luz also made aware of the situation. Remains in afibb/aflutter with rates in the 90's to 100's. Vitals otherwise stable. Stat labs and EKG once back in IVU
[2024-01-25 14:40] LABS: Glucose - Point of Care 82 mg/dl (70-99)
[2024-01-25] MEDS: LOPRESSOR 5 MG IV (14:50)
--- NOTE | 2024-01-25 15:17 | W.PN.UPDATE ---
Update Note
Progress Note Update
Patient went to IR today for liver biopsy. In IR patient started developing substernal chest pain. Per patient this pain is different from his prior pains. EKG with atrial fibrillation, non ischemic. Trop pending. Cardiology notified. Patient
was also hypertensive during my exam. Responded to metoprolol. Liver biopsy was cancelled and patient was sent back to IVU.
--- NOTE | 2024-01-25 15:30 | PTCARENOTE ---
Chest pain relieved after dilaudid IV. Repeat EKG demonstrated STEMI: however was not different than previous EKG: Kasey Puente PA-c aware of EKG and repeat troponin of 0.96: no need indicated for cardiac intervention at this time. Continue to
monitor for acute changes. Chest ruq/right sided chest pain is a '[address] Coronado updated with same.
[2024-01-25 15:38] LABS: APTT 34.8 Sec (23.4-35.0)
[2024-01-25 15:40] LABS: Hematocrit 49.3 % (39.0-52.0); Hemoglobin 15.2 g/dL (13.0-18.0); Mean Corp Hgb Conc. 30.8 g/dL (33.0-37.0); Mean Corpuscular Hgb 24.3 pg (27.0-31.0); Mean Corpuscular Volume 78.9 fL (80.0-94.0); Mean Platelet Volume 9.7 fL (7.4-10.4); Platelet Count 102 10^3/uL (130-400); Red Blood Cell Count 6.25 10^6/uL (4.70-6.10); Red Cell Dist. Width 16.4 % (11.5-14.5)
--- NOTE | 2024-01-25 15:42 | W.PN.UPDATE ---
Update Note
Progress Note Update
- Pt was down in IR earlier this afternoon for US guided liver biopsy. Prior to heading into procedure room, pt became visibly uncomfortable with complaints of chest pain. Hypertensive and mildly tachycardic. Off heparin for about [address] Coronado
came to eval at bedside and procedure cancelled for now. Can re-attempt biopsy when clinically stable and if risk/benefit coming off heparin allows.
--- NOTE | 2024-01-25 15:46 | W.PN.UPDATE ---
Update Note
Progress Note Update
notified that patient had different central chest discomfort while down in IR prior to liver biopsy procedure, so procedure was aborted. trop 0.9, trending down from prior. EKG afib with stable ST changes compared to prior. on exam, pain was
reproducible with epigastric palpation. continue pain control as able, prior to going down for procedure patient received IV dilaudid and roxycodone. ok to retry procedure later today or tomorrow from cardiac standpoint. d/w nursing. d/w patient and
family at bedside.
[2024-01-25] MEDS: DILAUDID 0.5 MG IV ×3 (15:47→23:21)
[2024-01-25] MEDS: TYLENOL PO (15:58)
[2024-01-25 15:59] LABS: Blood Urea Nitrogen 53 mg/dl (9-20); Calcium 8.8 mg/dl (8.4-10.2); Carbon Dioxide 23 mmol/L (22-30); Chloride 106 mmol/L (98-107); Estimated Creatinine Clearance 34 ml/min; Glucose 85 mg/dl (70-99); Potassium 5.4 mmol/L (3.5-5.1); Sodium 130 mmol/L (135-145); eGFR 26.49
--- NOTE | 2024-01-25 17:40 | PTCARENOTE ---
Per Dr. Coronado patient may eat/maintain heparin protocol and make NPO for breakfast in am for repeat attempt to get liver biopsy in IR.
[2024-01-25 17:59] LABS: Glucose - Point of Care 78 mg/dl (70-99)
[2024-01-25 18:10] LABS: INR 1.24; PT 15.7 Sec (11.4-14.6)
[2024-01-25] MEDS: ZENPEP DELAYED RELEASE CAPSULE 1 CAPSULE PO ×2 (18:10→21:48)
[2024-01-25 21:18] LABS: Glucose - Point of Care 100 mg/dl (70-99)
[2024-01-25] MEDS: LANTUS 0.100000000000000006 UNITS SC (21:47)
[2024-01-25 21:48] LABS: APTT 113.2 Sec (23.4-35.0)
[2024-01-25] MEDS: NITRO-BID TOPICAL (23:22)
[2024-01-26] VITALS (7 sets, daily range): BP systolic 115–141; BP diastolic 78–96
[2024-01-26] MEDS: ROXICODONE 5 MG PO ×4 (00:20→20:54)
--- NOTE | 2024-01-26 01:38 | PTCARENOTE ---
Pt complaining intermittently of abdominal pain, sometimes on the left side, sometimes on the right, radiating into chest with inspiration. Oxycodone & dilaudid given per order parameters with pain decreasing from level 6 out of 10 to a level 2-4
post admin. AFib on the monitor, rate 90's-110's. Crackles auscultated bilateral bases, room air pulse ox 98-100%. Pt. currently sleeping.
[2024-01-26] MEDS: DILAUDID 1 MG IV ×2 (03:54→14:05)
[2024-01-26 04:03] LABS: % Basophils 0.6 % (0-2); % Eosinophils 9.4 % (0-6); % Lymphocytes 9.4 % (20.5-51.1); % Monocytes 8.4 % (1.7-9.3); % Neutrophils 71.2 % (42.2-75.2); Absolute Basophils 0.1 10^3/uL (0-0.2); Absolute Eosinophils 1.4 10^3/uL (0-0.7); Absolute Immature Granulocytes 0.2 10^3/uL (0-0.05); Absolute Lymphocytes 1.4 10^3/uL (1.2-3.4); Absolute Monocytes 1.3 10^3/uL (0.1-0.6); Absolute Neutrophils 10.8 10^3/uL (1.4-6.5); Hematocrit 50.8 % (39.0-52.0); Hemoglobin 15.6 g/dL (13.0-18.0); Mean Corp Hgb Conc. 30.7 g/dL (33.0-37.0); Mean Corpuscular Hgb 24.3 pg (27.0-31.0); Mean Corpuscular Volume 79.1 fL (80.0-94.0); Mean Platelet Volume 9.1 fL (7.4-10.4); Nucleated Red Blood Cells % 0 % (-); Platelet Count 107 10^3/uL (130-400); Red Blood Cell Count 6.42 10^6/uL (4.70-6.10); Red Cell Dist. Width 17.6 % (11.5-14.5); White Blood Cell Count 15.2 10^3/uL (4.8-10.8)
[2024-01-26 04:15] LABS: APTT 96.6 Sec (23.4-35.0)
[2024-01-26 04:28] LABS: Blood Urea Nitrogen 57 mg/dl (9-20); Carbon Dioxide 27 mmol/L (22-30); Chloride 101 mmol/L (98-107); Estimated Creatinine Clearance 33 ml/min; Glucose 116 mg/dl (70-99); Magnesium 3.1 mg/dl (1.6-2.3); Phosphorus 3.8 mg/dl (2.5-4.5); Potassium 5.4 mmol/L (3.5-5.1); Sodium 132 mmol/L (135-145); eGFR 25.36
[2024-01-26] MEDS: HEPARIN 25000 UNITS/250 ML IV ×2 (05:16→20:12)
[2024-01-26 07:27] LABS: Glucose - Point of Care 95 mg/dl (70-99)
[2024-01-26] MEDS: NEURONTIN 300 MG PO (09:28)
[2024-01-26] MEDS: TYLENOL 1000 MG PO ×3 (09:28→22:45)
[2024-01-26] MEDS: LOW STRENGTH ASPIRIN 81 MG PO (09:28)
[2024-01-26] MEDS: SENOKOT-S 1 TABLET PO ×2 (09:29→19:38)
[2024-01-26] MEDS: PROTONIX 40 MG PO (09:29)
[2024-01-26] MEDS: COREG 3.125 MG PO ×2 (09:29→19:38)
[2024-01-26] MEDS: DELTASONE 5 MG PO (09:30)
[2024-01-26] MEDS: LIDOCAINE 4% PATCH TOPICAL ×2 (09:30→11:17)
[2024-01-26] MEDS: NITRO-BID 0.5 INCH TOPICAL ×2 (09:31→17:25)
[2024-01-26] MEDS: MIRALAX 17 GRAMS PO (09:37)
--- NOTE | 2024-01-26 09:37 | PN.DE.MGMTRT ---
Insulin Management
- -
01/20/2024: Diabetes Management Consult
59�year old male well know to Diabetes service from his recent hosp admission. Pt p/w with left-sided chest/upper abdominal pain, found to have Hepatic metastatic disease with innumerable masses throughout both lobes of the liver.
PMH includes: ESRD s/p renal transplant, osteo, A-Fib, HTN, CAD s/p stent placement 01/01, HLD, T2DM and acute on chronic pancreatitis.
Routinely sees Dr. James, was discharged home on Glargine 43 units @ HS, NovoLog 15 units AC and Jardiance 25 mg daily.
States that he has been taking his insulin and that his blood sugars have been in normal range and controlled at home.
Pt appears somewhat confused and forgetful, repeating himself at times.
He is noted for persistent Hyperglycemia, glucose trended up to 306 @ HS and remained elevated throughout the night, FBG 282 this AM.
Pre meal glucose 233 to 296, requiring 2-3 units of additional corrective insulin
Will increase Lantus to 35 units and AC NovoLog to 8 units with low corrective insulin.
Cr 3.4, eGFR 20.09, will stop Jardiance at this time, also not a candidate for any oral Diabetes agents.
Will follow closely. Hospitalist made aware of pt's confusion via TT.
: Diabetes Management F/U:
Pt p/w Abdominal Pain and was noted for New Liver Abnormalities by CT and MRI suggestive metastasis.
Currently c/o persistent pain to several body parts. Glucose stable, FBG 113 this AM, Premeal 97 to 130.
Will make no changes to current regimen: Lantus to 35 units and AC NovoLog to 8 units with low corrective insulin.
01/24/2024 Diabetes Management Follow up
Patient refusing pain medications due to constipation. Appetite remains good, consuming 100% for meals. Glucose well controlled with current regimen 35 units lantus @ hs with 8 units novolog AC. Will follow.
01/25/2024 Diabetes Management Follow up
Patient now taking pain medications for L shoulder, L chest and abdominal pain. Had breakfast and lunch but no dinner yesterday. Glucose 79 this AM. Will reduce HS lantus to 32 units and ac novolog to 7 units.
01/26/2024 Diabetes Management Follow up
Patient unable to tolerate biopsy yesterday, was NPO most of day. Lantus reduced to 10 units @ HS. Fasting glucose 95. Will reduce HS lantus to 10 units. Appetite has been poor, will reduce AC novolog to 3 units. I spoke with patients nurse,
patient again NPO for biopsy today. To receive 3 units ac novolog if he consumes meal.
Diabetes History
- -
Type of Diabetes: 2 requiring insulin
Pre-Admission Diabetes Regimen
01/25/24 01/26/24
15:12 03:49
Creatinine 2.7 H 2.8 H
Insulin Pump Settings
IP Diabetes Regimen
01/25/24 01/25/24 01/25/24
11:54 12:52 14:39
Glucose
POC Glucose 76 86 82
01/25/24 01/25/24 01/25/24
15:12 17:55 21:17
Glucose 85
POC Glucose 78 100 H
01/26/24 01/26/24
03:49 07:26
Glucose 116 H
POC Glucose 95
Meal type: Dinner
Meal type: Breakfast
Amount consumed: 100%
Patient Education
[2024-01-26] MEDS: ZENPEP DELAYED RELEASE CAPSULE PO ×3 (10:01→18:10)
[2024-01-26] MEDS: NOVOLOG FLEXPEN-LOW RESISTANCE SC ×3 (10:01→18:10)
--- NOTE | 2024-01-26 10:04 | W.PN.ONC ---
Today's Communication / Plan
-
IR biopsy of liver reschedule after completed Plavix washout
Patient appears stable after atypical chest pain event
CA19-9 markedly elevated = 29,435
Impression
Impression
Right renal mass 4.1 cm
MRI of the liver suspicious for metastatic disease
Markedly elevated CA 19/9 = 29,000
Suspicion for splenic infarct
Subjective/Objective
Subjective/Objective
Patient had substernal chest discomfort which delayed his biopsy yesterday. This has resolved.
Vital Signs:
Vital Signs
Temp Pulse Resp BP Pulse Ox
98.4 F 101 20 141/96 95
01/26/24 07:21 01/26/24 05:00 01/26/24 07:21 01/26/24 03:21 01/26/24 07:21
PE:
Cardiovascular:: Regular rate and rhythm
Respiratory:: Bilateral: CTA
Lung Excursion:: Normal
Abdomen:: Nontender and Soft
Extremity Edema:: None: Bilateral:
Hernandez Catheter: No
Lab Results:
Laboratory Data
WBC 15.2 10^3/uL (4.8-10.8) H 01/26/24 03:49
Hgb 15.6 g/dL (13.0-18.0) 01/26/24 03:49
Plt Count 107 10^3/uL (130-400) L 01/26/24 03:49
PT 15.7 Sec (11.4-14.6) H 01/25/24 15:12
PT Cancelled 01/25/24 15:12
INR 1.24 01/25/24 15:12
INR Cancelled 01/25/24 15:12
APTT 96.6 Sec (23.4-35.0) H 01/26/24 03:49
eGFR 25.36 01/26/24 03:49
[2024-01-26] MEDS: PROGRAF 1 MG PO ×2 (10:19→19:38)
[2024-01-26] MEDS: DULCOLAX 10 MG RECTAL (10:20)
[2024-01-26] MEDS: BenGay-Like 1 APPLIC TOPICAL (10:20)
--- NOTE | 2024-01-26 10:40 | W.PN.NEPH.PH ---
Today's Communication / Plan
-
treat k
follow labs
await liver biopsy
Assessment/Plan
-
Impression:
HFpEF EF 45-50%
shoulder pain radiating to LUQ
TUAN on CKD (bl Cr 2)
Hyponatremia
History TUAN in 09/2022 ATN on transplant biopsy with background moderately severe chronic changes predominantly FSGS
Nephrotic syndrome
Living unrelated kidney transplant 2009 ()
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
Right [place] kidney lower pole cystic mass since at least 09/09/21
Diabetes mellitus 2 uncontrolled
h/o Alcohol use disorder
active smoker
Diabetic peripheral neuropathy
Immunosuppression on tacrolimus and prednisone
Coronary artery disease status post stent(s)
Coronary angioplasty implant and graft
Atrial fibrillation on Eliquis
Hypertension, multidrug and uncontrolled
HLD
Hypoalbuminemia
liver metastases, CA19-9 >29k
Plan:
-planning for liver biopsy today
no active CP, pain meds adjusted
cr stable
mild hyperkalemia likely from constipation, low k diet-Lokelma or kayexalate if needed
-heparin gtt for anticoagulation pe rprimary
d/w nursing and primary
-
-
Date of Service: January 26, 2024
CC / HPI / ROS
-
Chief Complaint:
TUAN, h/o KTx
History of Present Illness:
Cr stable at 2.8
no fever, leucocytosis persists
sodium remains stable low 132
BP stable
Review of Systems:
no sob
malaise, constipation
no Cp currently
Labs
-
Labs:
WBC 15.2 10^3/uL (4.8-10.8) H 01/26/24 03:49
RBC 6.42 10^6/uL (4.70-6.10) H 01/26/24 03:49
Hgb 15.6 g/dL (13.0-18.0) 01/26/24 03:49
Hct 50.8 % (39.0-52.0) 01/26/24 03:49
Plt Count 107 10^3/uL (130-400) L 01/26/24 03:49
Sodium 132 mmol/L (135-145) L 01/26/24 03:49
Potassium 5.4 mmol/L (3.5-5.1) H 01/26/24 03:49
Chloride 101 mmol/L (98-107) 01/26/24 03:49
Carbon Dioxide 27 mmol/L (22-30) 01/26/24 03:49
BUN 57 mg/dl (9-20) H 01/26/24 03:49
Creatinine 2.8 mg/dL (0.7-1.3) H 01/26/24 03:49
eGFR 25.36 01/26/24 03:49
Glucose 116 mg/dl (70-99) H 01/26/24 03:49
Calcium 9.0 mg/dl (8.4-10.2) 01/26/24 03:49
Phosphorus 3.8 mg/dl (2.5-4.5) 01/26/24 03:49
Albumin 2.3 g/dl (3.5-5.0) L 01/23/24 11:04
Physical Exam
-
Vital Signs:
Vital Signs
Temp Pulse Resp BP Pulse Ox
98.4 F 101 20 141/96 95
01/26/24 07:21 01/26/24 05:00 01/26/24 07:21 01/26/24 03:21 01/26/24 07:21
Cardiovascular:: Regular rate and rhythm
Lung Excursion:: Normal (decreased)
Abdomen:: Nontender and Soft
Extremity Edema:: None: Bilateral:
Hernandez Catheter: No
--- NOTE | 2024-01-26 12:48 | W.PN.HOSP.TC ---
Today's Communication/Plan
-
Monitor vital signs and see plan
Heparin drip on hold per IR for liver biopsy
Pain control
Laxatives
Assessment / Plan
Assessment / Plan
Physical Exam
General:�some pain
HEENT:�Anicteric and Moist mucous membranes
Respiratory:�Clear and Non Labored Respirations
Cardiac:�S1/S2, Irregular Rhythm and Tachycardia
GI:�Soft Tender to Palpation Bowel sounds present
Musculoskeletal:�No Clubbing, No Cyanosis and No Edema
Skin:�Warm and Dry, tattoos noted
Neuro:�AOx3
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 Discharged earlier this month from this facility following treatment for NSTEMI w/ stent placement.� Reported
feeling unwell since discharge with diarrhea black stools. Prompted to re-visit ED with progression chest abd pain.� CT abd/pelvis suggestive new metastatic liver masses confirmed on MRI.
Abdominal Pain - New Liver Abnormalities by CT and MRI suggestive metastasis
-Consult GI appreciated
-Infectious Disease consult appreciated
-Abd MRI appreciated hepatic mets, periportal yvrose mets, splenic infarcts, Rt Lower pole renal cell carcinoma
-no diarrhea since admission, stool studies discontinued
-clear liquid diet advance to low residue trial creon as per GI
-ID eval appreciated monitor off abx follow culture results NGTD
-IR consult appreciated plavix wash out 5 days; liver biopsy was initially scheduled for 01/25. When patient went down to the IR he started developing chest pain. Troponin came out to be lower than prior. EKG unchanged. Appears atypical chest
pain. Plan now for reattempt liver biopsy
-Oncology following; Ca19-9 high
-cont pain control prn dilaudid mg Q3h prn. if he has pain mainly from malignancy then likely will start oxycontin which is longer acting medication once his constipation improves
-bengay left chest neck shoulder, pain worse with deep inspiration/cough
-lidocaine patch left shoulder
-oxycodone 5 mg q6h
-Tylenol 1000 mg TID
mild elevated LFT's likely from liver mets
lipase wnl
CT chest w/o contrast appreciated
-No evidence of osteoblastic mets. Lytic lesion within the L1 vertebral body likely benign unchanged from CT 09/09/2021
-Multiple small lung lung nodules possibly benign vs malignant
-Innumerable hepatic metastases.
-Left renal mass measures 3.2 cm in diameter, felt to represent a complex hemorrhagic cyst on prior MRI dated 01/18/2024. Right kidney was not imaged on the current chest CT.
Hyponatremia
Monitor
Hypokalemia
Monitor
If does not have a bowel movement then can give Kayexalate
Constipation
Laxatives
MiraLAX, Colace, Dulcolax
Coronary Artery Disease s/p LAD stent in Nov 2023
-Appreciate Cardiology consult
-Plavix placed on hold for bx last dose 01/19
-Eliquis on hold for bx
-hep gtt and ASA as per cardio while Eliquis is on hold.
Persistent Atrial Fibrillation/Flutter
-Holding Eliquis for biopsy
-Continue Coreg for rate control
Essential Hypertension
-Continue Coreg with hold parameters
Hyperlipidemia
-Hold rosuvastatin for now
Insulin-Dependent Diabetes Mellitus
-Hold Jardiance
-Monitor sugars and continue coverage insulin
-Continue insulin regimen and titrate as necessary.
-Diabetes INSURANCE SALES MANAGER consult appreciated
Diabetic Neuropathy
-Continue gabapentin
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
TUAN on CKD
-Continue prednisone and tacrolimus
-Monitor Is&Os and Daily Weights
-Nephro following
DVT proph: hep gtt
gi ppx protonix
Code Status: Full Code
I spent a total of 53 minutes with the patient or on the floor. More than 50% of this time involved counseling and coordination of care.
Anticipated Discharge: > 48 hours
Subjective/Interval History
-
Date of Service: January 26, 2024
denies nausea
Objective Data
-
Labs:
Laboratory Results
01/26/24 01/26/24
03:49 09:50
WBC 15.2 H
Hgb 15.6
Hct 50.8
Plt Count 107 L
APTT 96.6 H Pending
Sodium 132 L
Potassium 5.4 H
Chloride 101
Carbon Dioxide 27
BUN 57 H
Creatinine 2.8 H
Glucose 116 H
Calcium 9.0
Vital Signs:
Vital Signs
Temp Pulse Resp BP Pulse Ox
98.3 F 99 20 129/88 94
01/26/24 11:44 01/26/24 11:00 01/26/24 11:44 01/26/24 07:24 01/26/24 11:44
I&O
01/25/24 01/26/24 01/27/24
06:59 06:59 06:59
Intake Total 300 / 300 417 / 417 530 / 530
Output Total 200 / 200 700 / 700
Balance 100 / 100 -283 / -283 530 / 530
--- NOTE | 2024-01-26 14:24 | W.PN.CARDCBS ---
Today's Communication / Plan
-
Eliquis and Plavix held awaiting IR biopsy of liver.
Impression / Plan
-
.
PCP: Dr. Field
Primary Recoating Machine Operator: Dr. JOSE Bee
Nephrology: Dr. Loya
Impression:
Presented with left-sided upper abdominal pain
Hepatic metastatic disease with innumerable masses throughout both lobes of the liver by MRI 01/18/24
Elevated Troponin
Recent admission for NSTEMI, LAD PCI and acute HF 12/27/23 until 01/04/24
CAD
s/p Circ/OM stent 08/2014
s/p IWMI with stenting of the mid right coronary artery 06/2016 and staged intervention for in-stent restenosis and new lesion in circ/OM 06/2016
s/p NSTEMI, with abrupt closure of the AV continuation of the Circ supplying 2 small posterolateral branches during cath and then 4 mm Xience to mid LAD and 2.75 mm Xience to the mid to distal OM-1 03/05/19
s/p NSTEMI with 100% distal LAD occlusion stented with a 2.25 mm Xience 12/28/23Abnormal ECG
CKD 4
s/p Living, unrelated donor (his at the time) renal transplant [facility] 2009
Right [place] kidney lower pole cystic mass concerning for renal cell carcinoma since at least 09/09/21
HTN
Paroxysmal atrial fibrillation/flutter
recurrence noted on ECG in ER 12/27/23Chronic OAC with Eliquis, last dose 01/18/24 AM
Active smoker
h/o ETOH use disorder
DM 2
Diabetic neuropathy
Hyperlipidemia
History of NSVT
Polycythemia vera
Chronic pancreatitis
ECHO 10/14/22: Technically difficult study, use IV Definity in future, EF 55 to 60%, likely moderate LVH, normal RV size and function, no significant valvular disease
Echo 08/24/23: EF 60-65%, normal RV size and function, PAP 20-25 mmHg
Echo 12/27/23: EF 45-50%, apical hypokinesis, trivial to small pericardial effusion
Limited Echo Jan 19 2024: EF 45% with apical hypokinesis and on change from Nov 2023.
Plan:
Hemodynamically stable without chest pain suggestive of angina following recent non-STEMI and LAD stent 12/28/2023
-Plavix washed out for biopsy Jan 25.
-Following liver biopsy would resume Plavix.
Controlled, asymptomatic atrial fibrillation
-Eliquis held for procedures; please resume if able following procedures
-IV heparin drip while off Eliquis
Acute on chronic transplant kidney disease. Nephrology following.
Will follow from the periphery but sign off for now.
Please inform us prior to patient's discharge so we can review cardiac medications and arrange follow-up
HPI: Patient came to [facility] today with chest/epigastric pain. He says that the pain has been present since he was discharged 01/04/24, but became much worse yesterday and he could not get relief with pain meds and patches at home. He also says that he
started to feel confused and thought he was speaking when he wasn't along with acute on chronic LUE paresthesias. In the ER his initial Troponin was 2.38. Last admission Troponin as high 5.75 prior to PCI 12/28/23,but true peak unknown and presumably
3 weeks later Troponin would be trending down although he has CKD 4. Chest pain improved with Dilaudid, but still present at a low level.
Progress Note - Recoating Machine Operator
Subjective
Date of Service: January 26, 2024
Seen and examined. Offers no complaints. For liver biopsy today
Objective
Labs:
01/26/24 03:49
01/26/24 03:49
Labs
Hgb 15.6 g/dL (13.0-18.0) 01/26/24 03:49
Hct 50.8 % (39.0-52.0) 01/26/24 03:49
Plt Count 107 10^3/uL (130-400) L 01/26/24 03:49
PT 15.7 Sec (11.4-14.6) H 01/25/24 15:12
PT Cancelled 01/25/24 15:12
INR 1.24 01/25/24 15:12
INR Cancelled 01/25/24 15:12
APTT 96.6 Sec (23.4-35.0) H 01/26/24 03:49
Sodium 132 mmol/L (135-145) L 01/26/24 03:49
Potassium 5.4 mmol/L (3.5-5.1) H 01/26/24 03:49
BUN 57 mg/dl (9-20) H 01/26/24 03:49
Creatinine 2.8 mg/dL (0.7-1.3) H 01/26/24 03:49
Glucose 116 mg/dl (70-99) H 01/26/24 03:49
Troponins
01/25/24 01/25/24
14:44 15:12
Troponin I 0.960 H* 0.950 H*
Vital Signs and I&O:
Vital Signs
Temp Pulse Resp BP Pulse Ox
98.3 F 99 20 129/88 94
01/26/24 11:44 01/26/24 11:00 01/26/24 11:44 01/26/24 07:24 01/26/24 11:44
Vital Signs
Temp Pulse Resp BP Pulse Ox
98.3 F 99 20 129/88 94
01/26/24 11:44 01/26/24 11:00 01/26/24 11:44 01/26/24 07:24 01/26/24 11:44
Intake & Output
01/24/24 01/25/24 01/26/24 01/27/24
06:59 06:59 06:59 06:59
Intake Total 480 / 480 300 / 300 417 / 417 530 / 530
Output Total 425 / 425 200 / 200 700 / 700
Balance 55 / 55 100 / 100 -283 / -283 530 / 530
Physical Exam
Physical Exam
General: No acute distress, AAOX3
Neck: Negative JVD
Heart: Regular, positive S1/S2, No murmur
Lungs: CTA b/l, negative wheezes/rales/rhonchi
Abd: Positive BS, NT/ND, neg rebound/rigidity/guarding
Ext: no edema
--- NOTE | 2024-01-26 14:37 | PTCARENOTE ---
pt went to IR. pt educated on plan of care and pt verbalized understanding. vss. pt left with volunteer via stretcher.
[2024-01-26 15:37] LABS: Glucose - Point of Care 86 mg/dl (70-99)
--- NOTE | 2024-01-26 16:10 | W.PN.IRAD.PR ---
Procedure Note
-
Biopsy of right lobe hepatic mass performed under US guidance. Satisfactory sample at prelim analysis. Three 18g core biopsy samples obtained. No immediate complications. OK to resume heparin at 2000pm if no signs of post procedure hemorrhage.
[2024-01-26] MEDS: BenGay-Like TOPICAL ×3 (16:14→22:41)
[2024-01-26] MEDS: LOKELMA 10 GRAM PO (17:24)
[2024-01-26 17:37] LABS: Glucose - Point of Care 83 mg/dl (70-99)
--- NOTE | 2024-01-26 18:38 | PTCARENOTE ---
pt back from IR. Right abdominal area is CDI. pt is groggy but aaox3. VSS. pt offers no complaints at this time. pt resting in bed comfortably with family at bedside. pt educated on plan of care and pt verbalized understanding. call guaman within
reach.
[2024-01-26] MEDS: ROXICODONE PO (19:38)
[2024-01-26 22:36] LABS: Glucose - Point of Care 89 mg/dl (70-99)
[2024-01-26] MEDS: LANTUS SC (22:41)
[2024-01-26] MEDS: ZENPEP DELAYED RELEASE CAPSULE 1 CAPSULE PO (22:45)
[2024-01-27] VITALS (7 sets, daily range): BP systolic 98–118; BP diastolic 65–94
[2024-01-27] MEDS: NITRO-BID TOPICAL (00:36)
[2024-01-27] MEDS: ROXICODONE PO ×2 (00:37→14:10)
--- NOTE | 2024-01-27 00:38 | PTCARENOTE ---
Right abdominal bandaid from previous liver biopsy CDI, no drainage, no swelling or pain assessed at site. Verified with Percy dee to restart heparin at previous rate (2500 units/hr) - drip started at 2014. Pt. more awake since afternoon, stood
at bedside to void cayden urine with assist x 1. Initially stated that he had no abdominal pain but then complained that it was returning at 2049 after getting up (generalized, radiating into chest, level 4 out of 10). Medicated with oxycodone
with adequate results. HS Lantus held for blood sugar 89 (pt. NPO for most of the day and then refused dinner, appetite very poor, pt. refuses insulin). Pt. currently sleeping.
[2024-01-27] MEDS: HEPARIN 25000 UNITS/250 ML IV (01:45)
[2024-01-27 02:19] LABS: % Basophils 0.6 % (0-2); % Eosinophils 7.6 % (0-6); % Immature Granulocytes 1.1 % (0-0.5); % Lymphocytes 11.2 % (20.5-51.1); % Monocytes 10.6 % (1.7-9.3); % Neutrophils 68.9 % (42.2-75.2); Absolute Basophils 0.1 10^3/uL (0-0.2); Absolute Eosinophils 1.1 10^3/uL (0-0.7); Absolute Immature Granulocytes 0.2 10^3/uL (0-0.05); Absolute Lymphocytes 1.6 10^3/uL (1.2-3.4); Absolute Monocytes 1.5 10^3/uL (0.1-0.6); Absolute Neutrophils 9.7 10^3/uL (1.4-6.5); Hematocrit 44.3 % (39.0-52.0); Hemoglobin 14.1 g/dL (13.0-18.0); Mean Corp Hgb Conc. 31.8 g/dL (33.0-37.0); Mean Corpuscular Hgb 24.4 pg (27.0-31.0); Mean Corpuscular Volume 76.8 fL (80.0-94.0); Mean Platelet Volume 10.4 fL (7.4-10.4); Nucleated Red Blood Cells % 0 % (-); Platelet Count 78 10^3/uL (130-400); Red Blood Cell Count 5.77 10^6/uL (4.70-6.10); Red Cell Dist. Width 16.8 % (11.5-14.5); White Blood Cell Count 14.2 10^3/uL (4.8-10.8)
[2024-01-27] MEDS: DILAUDID 0.5 MG IV ×3 (02:28→11:30)
[2024-01-27 02:33] LABS: APTT 106.5 Sec (23.4-35.0)
[2024-01-27 02:34] LABS: Blood Urea Nitrogen 63 mg/dl (9-20); Calcium 8.7 mg/dl (8.4-10.2); Carbon Dioxide 23 mmol/L (22-30); Chloride 104 mmol/L (98-107); Estimated Creatinine Clearance 33 ml/min; Glucose 86 mg/dl (70-99); Potassium 5.9 mmol/L (3.5-5.1); Sodium 131 mmol/L (135-145); eGFR 25.36
--- NOTE | 2024-01-27 03:53 | W.PN.UPDATE ---
Update Note
Progress Note Update
Platelets dropped to 78..Will stop Heparin infusion.
--- NOTE | 2024-01-27 04:10 | PTCARENOTE ---
Pt.'s platelet count down to 78; potassium 5.9. Percy Cruz notified of both, order to d/c heparin drip obtained. Infusion off. No bleeding from liver biopsy site or anywhere else assessed.
[2024-01-27] MEDS: ROXICODONE 5 MG PO (06:00)
--- NOTE | 2024-01-27 07:32 | PN.DE.MGMTRT ---
Insulin Management
- -
01/20/2024: Diabetes Management Consult
59�year old male well know to Diabetes service from his recent hosp admission. Pt p/w with left-sided chest/upper abdominal pain, found to have Hepatic metastatic disease with innumerable masses throughout both lobes of the liver.
PMH includes: ESRD s/p renal transplant, osteo, A-Fib, HTN, CAD s/p stent placement 01/01, HLD, T2DM and acute on chronic pancreatitis.
Routinely sees Dr. James, was discharged home on Glargine 43 units @ HS, NovoLog 15 units AC and Jardiance 25 mg daily.
States that he has been taking his insulin and that his blood sugars have been in normal range and controlled at home.
Pt appears somewhat confused and forgetful, repeating himself at times.
He is noted for persistent Hyperglycemia, glucose trended up to 306 @ HS and remained elevated throughout the night, FBG 282 this AM.
Pre meal glucose 233 to 296, requiring 2-3 units of additional corrective insulin
Will increase Lantus to 35 units and AC NovoLog to 8 units with low corrective insulin.
Cr 3.4, eGFR 20.09, will stop Jardiance at this time, also not a candidate for any oral Diabetes agents.
Will follow closely. Hospitalist made aware of pt's confusion via TT.
: Diabetes Management F/U:
Pt p/w Abdominal Pain and was noted for New Liver Abnormalities by CT and MRI suggestive metastasis.
Currently c/o persistent pain to several body parts. Glucose stable, FBG 113 this AM, Premeal 97 to 130.
Will make no changes to current regimen: Lantus to 35 units and AC NovoLog to 8 units with low corrective insulin.
01/24/2024 Diabetes Management Follow up
Patient refusing pain medications due to constipation. Appetite remains good, consuming 100% for meals. Glucose well controlled with current regimen 35 units Lantus @ hs with 8 units NovoLog AC. Will follow.
01/25/2024 Diabetes Management Follow up
Patient now taking pain medications for L shoulder, L chest and abdominal pain. Had breakfast and lunch but no dinner yesterday. Glucose 79 this AM. Will reduce HS Lantus to 32 units and ac NovoLog to 7 units.
01/26/2024 Diabetes Management Follow up
Patient unable to tolerate biopsy yesterday, was NPO most of day. Lantus reduced to 10 units @ HS. Fasting glucose 95. Will reduce HS Lantus to 10 units. Appetite has been poor, will reduce AC NovoLog to 3 units. I spoke with patients nurse,
patient again NPO for biopsy today. To receive 3 units ac NovoLog if he consumes meal.
01/27/2024: Diabetes Management F/U:
S/P Liver biopsy. Pt was NPO for most of the day yesterday. Appetite remains very poor, refused dinner yesterday. HS blood sugar was 89 and 74 fasting this AM. Will hold Lantus and AC NovoLog. May give corrective insulin as necessary for elevations.
Will follow
Diabetes History
- -
Type of Diabetes: 2 requiring insulin
Pre-Admission Diabetes Regimen
01/27/24
01:51
Creatinine 2.8 H
Insulin Pump Settings
IP Diabetes Regimen
01/26/24 01/26/24 01/26/24
15:36 17:36 22:35
Glucose
POC Glucose 86 83 89
01/27/24
01:51
Glucose 86
POC Glucose
Patient Education
[2024-01-27 08:08] LABS: Glucose - Point of Care 74 mg/dl (70-99)
[2024-01-27] MEDS: NOVOLOG FLEXPEN-LOW RESISTANCE SC ×3 (08:25→17:42)
[2024-01-27] MEDS: NEURONTIN 300 MG PO (08:40)
[2024-01-27] MEDS: LOW STRENGTH ASPIRIN 81 MG PO (08:40)
[2024-01-27] MEDS: COREG 3.125 MG PO ×2 (08:41→22:22)
[2024-01-27] MEDS: TYLENOL 1000 MG PO ×3 (08:41→22:22)
[2024-01-27] MEDS: MIRALAX PO (08:41)
[2024-01-27] MEDS: NITRO-BID 0.5 INCH TOPICAL (08:41)
[2024-01-27] MEDS: PROGRAF 1 MG PO ×2 (08:42→22:22)
[2024-01-27] MEDS: DELTASONE 5 MG PO (08:42)
[2024-01-27] MEDS: PROTONIX 40 MG PO (08:42)
[2024-01-27] MEDS: SENOKOT-S 1 TABLET PO (08:42)
[2024-01-27] MEDS: ZENPEP DELAYED RELEASE CAPSULE PO ×4 (08:42→22:21)
[2024-01-27] MEDS: BenGay-Like 1 APPLIC TOPICAL (08:43)
[2024-01-27] MEDS: LIDOCAINE 4% PATCH TOPICAL (09:02)
[2024-01-27 10:15] LABS: Glucose - Point of Care 80 mg/dl (70-99)
--- NOTE | 2024-01-27 11:07 | CON.NEURO4 ---
Consultation - Neurology 4
-
CONSULTING PHYSICIAN: Nitza Horn
REFERRING PHYSICIAN: Hospitalist
DICTATED BY: Nitza Horn
DATE/TIME OF REQUEST: 10301/27/24
DATE/TIME OF CONSULTATION: 10301/27/24
Reason for Consultation: Bilateral upper extremity weakness
History of Present Illness:
The patient is a 59-year-old male with past medical history of insulin-dependent diabetes mellitus, CKD with renal transplant, recent recent NSTEMI and stents, paroxysmal atrial fibrillation, hypertension who presented to hospital with diarrhea,
abdominal and chest pain admitted on 01/19. Arouse concern for liver lesions and the patient underwent IR guided liver biopsy on without complications.
Was noted by patient and his brother the patient had difficulty bilaterally with the hands when eating breakfast with utensils this morning. Examination by the hospitalist physician showed significant weakness in the arms bilaterally.
Patient does have a diagnosis of known peripheral neuropathy presumed due to diabetes and chronic kidney disease, he had a fall around 3 to 4 weeks ago and does have a degree of chronic ambulatory dysfunction. Patient has brother deny any previous
problems with hand or arm weakness bilaterally. Patient does endorse some neck pain and into the left shoulder, none on the right. No recent head or neck trauma. Patient had been on Apixaban and then heparin infusion previously, stopped due to
thrombocytopenia, and had been on Clopidogrel following recent coronary stent.
Past Medical History: Peripheral neuropathy, coronary artery disease, insulin dependent diabetes mellitus, obstructive sleep apnea, paroxysmal atrial fibrillation, hyperlipidemia, essential hypertension
Surgical History: Cholecystectomy, renal transplant, cardiac stent
Family History: Reviewed and non-contributory
Social History: Living alone, supportive brother and daughter, previous alcohol use, no recreational drug use, cigarette use
Review of Symptoms:
Patient denies any fever, headache, chest pain, shortness of breath, GI or symptoms.
Physical Exam:
Middle-age man appears older than stated age appears fatigued and mildly confused no overt distress no signs of head or neck trauma oropharynx is clear neck no masses full range of motion no overt abnormalities of cervical spine, heart rate regular
breathing unlabored abdomen obese soft nontender, no edema or rash in the lower extremities does show some changes of chronic venous stasis bilaterally
Neurologic Examination:
Patient is awake but mildly drowsy, shows slowness of responses and in speech and is not always able to answer questions adequately, oriented to person hospitalization and his brother, obeys simple commands consistently
Cranial nerves shows pupils 3 mm equal round reactive light bilaterally resting gaze midline extraocular movement small smile is symmetric mild dysarthria is present
Normal muscle bulk and tone no abnormal movements or atrophy is seen. Patient requires some repeated coaching to perform muscle testing but will participate. Shoulder abduction 4/5, arm flexion 4/5 triceps 5/5 bilaterally, wrist extension 5/5
bilaterally, finger flexion fingers bilaterally 5/5 bilaterally, thumb opposition 5/5 bilaterally. Hip flexion 4/5 bilateral ankle plantarflexion 5/5 bilaterally, ankle dorsiflexion 4/5 bilaterally. Some movements most approximating asterixis are
seen in the wrists with the hands outstretched and wrist extended.
Sensory examination shows decreased vibratory sense in the feet bilaterally intact to pinprick
Reflexes absent throughout
No ataxia on spontaneous movements or finger-nose testing bilaterally
Gait examination deferred
Neuro Imaging: CT head non contrast with no acute infarct or hemorrhage, no masses or edema, no hydrocephalus
Impressions
1. Generalized weakness with some new difficulty in coordination and strength of the hands bilaterally. I suspect this is most likely multifactorial due to existing peripheral neuropathy from diabetes and CKD, mild sedative medications used for
procedures as well as pain, and metabolic factors of fluctuating potassium levels and CKD. Given high likelihood of new diagnosis of malignancy would want to evaluate the cervical spine for any signs of metastasis or cord compression but he does
not have any evidence of overt spinal cord compromise at this time.
2. Previous pancreatitis
3. Peripheral neuropathy most likely due to CKD as well as diabetes mellitus
4. Coronary artery disease with recent NSTEMI and coronary stent
5. Paroxysmal atrial fibrillation on anticoagulation
6. Thrombocytopenia noted recently
7. New liver abnormalities suggestive of metastasis
8. Essential hypertension
9. Insulin-dependent diabetes mellitus
10. Hyperlipidemia
11. s/p renal transplant, CKD3, focal segmental glomerulosclerosis
Recommendations:
1. Check ammonia, vitamin B12
2. Follow renal function and electrolytes correcting as able, goal normoglycemia
3. Check MRI of the cervical spine can start without contrast, if there are concerning abnormalities will weigh whether contrast necessary
4. Judicious use sedating medications
5. Out of bed and physical therapy as able
Will follow
Discussed patient care with: Patient and his brother, hospitalist
--- NOTE | 2024-01-27 13:01 | W.PN.HOSP.TC ---
Today's Communication/Plan
-
Monitor vital signs and see plan
Avoid sedative medications
MRI C-spine
If platelets stable then will restart heparin drip
Eventual transition to Eliquis and Plavix
Monitor blood sugars
Mag citrate
Will repeat BMP later today
Discussed with family at bedside
Assessment / Plan
Assessment / Plan
Physical Exam
General:�some pain
HEENT:�Anicteric and Moist mucous membranes
Respiratory:�Clear and Non Labored Respirations
Cardiac:�S1/S2, Irregular Rhythm and Tachycardia
GI:�Soft Tender to Palpation Bowel sounds present
Musculoskeletal:�No Clubbing, No Cyanosis and No Edema
Skin:�Warm and Dry, tattoos noted
Neuro:�AOx3
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 Discharged earlier this month from this facility following treatment for NSTEMI w/ stent placement.� Reported
feeling unwell since discharge with diarrhea black stools. Prompted to re-visit ED with progression chest abd pain.� CT abd/pelvis suggestive new metastatic liver masses confirmed on MRI.
Abdominal Pain - New Liver Abnormalities by CT and MRI suggestive metastasis
-Consult GI appreciated
-Infectious Disease consult appreciated
-Abd MRI appreciated hepatic mets, periportal yvrose mets, splenic infarcts, Rt Lower pole renal cell carcinoma
-no diarrhea since admission, stool studies discontinued
-clear liquid diet advance to low residue trial creon as per GI
-ID eval appreciated monitor off abx follow culture results NGTD
-IR consult appreciated plavix wash out 5 days; s/p liver biopsy ; follow results. restart plavix when able and no procedure planned. Will not start Plavix and will discontinue aspirin
-Oncology following; Ca19-9 high
-cont pain control prn dilaudid mg Q3h prn. if he has pain mainly from malignancy then likely will start oxycontin which is longer acting medication once his constipation improves
-bengay left chest neck shoulder, pain worse with deep inspiration/cough
-lidocaine patch left shoulder
-oxycodone 5 mg q6h prn; dilaudid 0.5mg PRN; avoid sedation
-Tylenol 1000 mg TID
mild elevated LFT's likely from liver mets
lipase wnl
CT chest w/o contrast appreciated
-No evidence of osteoblastic mets. Lytic lesion within the L1 vertebral body likely benign unchanged from CT 09/09/2021
-Multiple small lung lung nodules possibly benign vs malignant
-Innumerable hepatic metastases.
-Left renal mass measures 3.2 cm in diameter, felt to represent a complex hemorrhagic cyst on prior MRI dated 01/18/2024. Right kidney was not imaged on the current chest CT.
Hyponatremia
Monitor
Hyperkalemia
K 5.9
likely 2/2 constipation
give mag ciitrate
lokelma
Constipation
Laxatives
MiraLAX, Colace, Dulcolax
Coronary Artery Disease s/p LAD stent in Nov 2023
-Appreciate Cardiology consult
-Plavix placed on hold for bx last dose 01/19
-Eliquis on hold for bx
-hep gtt and ASA as per cardio while Eliquis is on hold. overnight hep gtt stopped 2/2 thrombocytopenia. Repeat CBC. If Platelets similar then will start heparin drip. No signs of bleed
Change in mental status suspect likely TME
Significant motor weakness bilateral upper extremity, CT scan negative for acute CVA
MRI C-spine pending
Neurology following
Suspect this could be secondary to metabolic imbalance
Check ammonia
Persistent Atrial Fibrillation/Flutter
-Holding Eliquis; restart when mental status improves and no procedure planned
-Continue Coreg for rate control
Essential Hypertension
-Continue Coreg with hold parameters
Hyperlipidemia
-Hold rosuvastatin for now
Insulin-Dependent Diabetes Mellitus
-Hold Jardiance
-Monitor sugars and continue coverage insulin
-Diabetes TAX PREPARER consult appreciated
Diabetic Neuropathy
-Continue gabapentin
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
TUAN on CKD
-Continue prednisone and tacrolimus
-Monitor Is&Os and Daily Weights
-Nephro following
DVT proph: hep gtt
gi ppx protonix
Code Status: Full Code
I spent a total of 55 minutes with the patient or on the floor. More than 50% of this time involved counseling and coordination of care.
Anticipated Discharge: > 48 hours
Subjective/Interval History
-
Date of Service: January 27, 2024
confused this morning
Objective Data
-
Labs:
Laboratory Results
01/27/24 01/27/24 01/27/24
01:51 07:55 11:38
WBC 14.2 H Pending
Hgb 14.1 Pending
Hct 44.3 Pending
Plt Count 78 L D Pending
APTT 106.5 H Pending
Sodium 131 L
Potassium 5.9 H
Chloride 104
Carbon Dioxide 23
BUN 63 H
Creatinine 2.8 H
Glucose 86
Calcium 8.7
Vital Signs:
Vital Signs
Temp Pulse Resp BP Pulse Ox
98.9 F 98 20 116/94 98
01/27/24 08:03 01/27/24 08:41 01/27/24 08:03 01/27/24 08:41 01/27/24 08:03
I&O
01/26/24 01/27/24 01/28/24
06:59 06:59 06:59
Intake Total 417 / 417 870 / 870 240 / 240
Output Total 700 / 700 500 / 500
Balance -283 / -283 370 / 370 240 / 240
--- NOTE | 2024-01-27 13:30 | W.PN.NEPH.PH ---
Today's Communication / Plan
-
treat k
Assessment/Plan
-
Impression:
HFpEF EF 45-50%
shoulder pain radiating to LUQ
TUAN on CKD (bl Cr 2)
Hyponatremia
History TUAN in 09/2022 ATN on transplant biopsy with background moderately severe chronic changes predominantly FSGS
Nephrotic syndrome
Living unrelated kidney transplant 2009 ()
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
Right [place] kidney lower pole cystic mass since at least 09/09/21
Diabetes mellitus 2 uncontrolled
h/o Alcohol use disorder
active smoker
Diabetic peripheral neuropathy
Immunosuppression on tacrolimus and prednisone
Coronary artery disease status post stent(s)
Coronary angioplasty implant and graft
Atrial fibrillation on Eliquis
Hypertension, multidrug and uncontrolled
HLD
Hypoalbuminemia
liver metastases, CA19-9 >29k
Plan:
await liver path
follow BMP
treat K medically
serial BMP today
spine imaging per neurology
-
-
Date of Service: January 27, 2024
CC / HPI / ROS
-
Chief Complaint:
TUAN, h/o KTx
History of Present Illness:
Cr stable at 2.8
K up to 5.9
no fever, leucocytosis persists
sodium remains stable low 131
BP stable
Review of Systems:
no sob
malaise, constipation
weak
Labs
-
Labs:
eGFR 25.36 01/27/24 01:51
Phosphorus 3.8 mg/dl (2.5-4.5) 01/26/24 03:49
Albumin 2.3 g/dl (3.5-5.0) L 01/23/24 11:04
Physical Exam
-
Vital Signs:
Vital Signs
Temp Pulse Resp BP Pulse Ox
98.9 F 98 20 116/94 98
01/27/24 08:03 01/27/24 08:41 01/27/24 08:03 01/27/24 08:41 01/27/24 08:03
[2024-01-27] MEDS: BenGay-Like TOPICAL ×3 (13:38→22:23)
[2024-01-27 13:48] LABS: Glucose - Point of Care 94 mg/dl (70-99)
[2024-01-27] MEDS: CITROMA 300 ML PO (14:01)
[2024-01-27] MEDS: LOKELMA 10 GRAM PO (14:01)
[2024-01-27 14:35] LABS: Hematocrit 47.4 % (39.0-52.0); Mean Corp Hgb Conc. 31.6 g/dL (33.0-37.0); Mean Corpuscular Hgb 24.5 pg (27.0-31.0); Mean Corpuscular Volume 77.5 fL (80.0-94.0); Mean Platelet Volume 9.7 fL (7.4-10.4); Platelet Count 68 10^3/uL (130-400); Red Blood Cell Count 6.12 10^6/uL (4.70-6.10); Red Cell Dist. Width 17.8 % (11.5-14.5); White Blood Cell Count 14.6 10^3/uL (4.8-10.8)
[2024-01-27] MEDS: DEXTROSE 50% SYRINGE 25 GRAMS IV (14:35)
[2024-01-27] MEDS: NOVOLIN R 0.100000000000000006 UNITS IV (14:35)
--- NOTE | 2024-01-27 14:38 | CM ---
Reviewed chart. Tried to see Mr. Chamorro to review discharge plans. Awaiting Liver bx results. Prior to admission he resides alone in a one story home with two steps to enter. Prior to admission he was ambulated with a single point cane and
independent with ADLS. He has a single point cane at home. He has a prescription plan and uses [facility]. Will need to see his current functional level to see if he will have any skilled care needs. Medical work-up in progress. The
discharge plan is to return home when medically stable.
[2024-01-27 14:42] LABS: APTT 32.1 Sec (23.4-35.0)
--- NOTE | 2024-01-27 14:46 | W.PN.CARDCBS ---
Today's Communication / Plan
-
awaiting pathology
follow plts. hopefully can resume eliquis, plavix in next 24 hours
stop nitropaste
prognosis poor
Impression / Plan
-
.
PCP: Dr. Field
Primary Quality Process Engineer: Dr. JOSE Bee
Nephrology: Dr. Loya
Impression:
Presented with left-sided upper abdominal pain
Hepatic metastatic disease with innumerable masses throughout both lobes of the liver by MRI 01/18/24
Elevated Troponin
Recent admission for NSTEMI, LAD PCI and acute HF 12/27/23 until 01/04/24
CAD
s/p Circ/OM stent 08/2014
s/p IWMI with stenting of the mid right coronary artery 06/2016 and staged intervention for in-stent restenosis and new lesion in circ/OM 06/2016
s/p NSTEMI, with abrupt closure of the AV continuation of the Circ supplying 2 small posterolateral branches during cath and then 4 mm Xience to mid LAD and 2.75 mm Xience to the mid to distal OM-1 03/05/19
s/p NSTEMI with 100% distal LAD occlusion stented with a 2.25 mm Xience 12/28/23Abnormal ECG
CKD 4
s/p Living, unrelated donor (his at the time) renal transplant [facility] 2009
Right [place] kidney lower pole cystic mass concerning for renal cell carcinoma since at least 09/09/21
HTN
Paroxysmal atrial fibrillation/flutter
recurrence noted on ECG in ER 12/27/23Chronic OAC with Eliquis, last dose 01/18/24 AM
Active smoker
h/o ETOH use disorder
DM 2
Diabetic neuropathy
Hyperlipidemia
History of NSVT
Polycythemia vera
Chronic pancreatitis
ECHO 10/14/22: Technically difficult study, use IV Definity in future, EF 55 to 60%, likely moderate LVH, normal RV size and function, no significant valvular disease
Echo 08/24/23: EF 60-65%, normal RV size and function, PAP 20-25 mmHg
Echo 12/27/23: EF 45-50%, apical hypokinesis, trivial to small pericardial effusion
Limited Echo Jan 19 2024: EF 45% with apical hypokinesis and on change from Nov 2023.
Plan:
-Status post liver biopsy 01/26/2024. Pathology pending at this time, however significant concern for widely metastatic disease
-Today with decreased handgrip. Neuro consulted. Head CT negative for acute abnormality. Neck MRI without evidence of metastatic disease. follow mental status. avoiding sedation as able
-Potassium trending higher. Status post Lokelma and mag citrate. Nephrology following.
-Platelets trending lower at 78. Continue aspirin. For repeat this afternoon, hopefully improving and will attempt to resume Plavix and Eliquis at which point we would stop aspirin. If not today, hopefully in a.m. pending platelet trends. Status
post recent NSTEMI and LAD stent 12/28/2023
-discomfort not felt to be cardiac in etiology. stop nitropaste
-Remains in adequately controlled atrial fibrillation on Coreg 3.125 mg twice daily. Continue rate control strategy at this time
-unfortunately prognosis poor. remains full code at present
-d/w nursing. d/w patient and family at bedside
HPI: Patient came to [facility] today with chest/epigastric pain. He says that the pain has been present since he was discharged 01/04/24, but became much worse yesterday and he could not get relief with pain meds and patches at home. He also says that he
started to feel confused and thought he was speaking when he wasn't along with acute on chronic LUE paresthesias. In the ER his initial Troponin was 2.38. Last admission Troponin as high 5.75 prior to PCI 12/28/23,but true peak unknown and presumably
3 weeks later Troponin would be trending down although he has CKD 4. Chest pain improved with Dilaudid, but still present at a low level.
Progress Note - Quality Process Engineer
Subjective
Date of Service: January 27, 2024
remains with pain.
Objective
Labs:
Labs
Hgb 14.1 g/dL (13.0-18.0) 01/27/24 01:51
Hct 44.3 % (39.0-52.0) 01/27/24 01:51
Plt Count 78 10^3/uL (130-400) L D 01/27/24 01:51
PT 15.7 Sec (11.4-14.6) H 01/25/24 15:12
PT Cancelled 01/25/24 15:12
INR 1.24 01/25/24 15:12
INR Cancelled 01/25/24 15:12
APTT 32.1 Sec (23.4-35.0) 01/27/24 14:20
Sodium 131 mmol/L (135-145) L 01/27/24 01:51
Potassium 5.9 mmol/L (3.5-5.1) H 01/27/24 01:51
BUN 63 mg/dl (9-20) H 01/27/24 01:51
Creatinine 2.8 mg/dL (0.7-1.3) H 01/27/24 01:51
Glucose 86 mg/dl (70-99) 01/27/24 01:51
Troponins
01/25/24 01/25/24
14:44 15:12
Troponin I 0.960 H* 0.950 H*
Vital Signs and I&O:
Vital Signs
Temp Pulse Resp BP Pulse Ox
98.2 F 98 20 116/94 96
01/27/24 13:49 01/27/24 08:41 01/27/24 13:49 01/27/24 08:41 01/27/24 13:49
Vital Signs
Temp Pulse Resp BP Pulse Ox
98.2 F 98 20 116/94 96
01/27/24 13:49 01/27/24 08:41 01/27/24 13:49 01/27/24 08:41 01/27/24 13:49
Intake & Output
01/25/24 01/26/24 01/27/24 01/28/24
07:59 07:59 07:59 07:59
Intake Total 300 / 477 947 / 947 580 / 580
Output Total 200 / 500 700 / 700 500 / 500
Balance 100 / -23 247 / 247 80 / 80
Physical Exam
Physical Exam
GEN: No distress, awake, oriented x3.
HEENT: supple, anicteric, mmm, eomi
LUNGS: CTA B/L, no wheezes/rales
CV: Irreg, S1/S2, no murmur
ABD: soft, BS+, NT/ND
EXT: No cyanosis, clubbing, edema
NEURO: slow to respond to some questions
SKIN: Warm, pink, dry. No rash
[2024-01-27 14:48] LABS: Ammonia < 9 umol/L (9-30)
[2024-01-27 14:49] LABS: Blood Urea Nitrogen 63 mg/dl (9-20); Calcium 8.7 mg/dl (8.4-10.2); Carbon Dioxide 23 mmol/L (22-30); Chloride 104 mmol/L (98-107); Estimated Creatinine Clearance 29 ml/min; Glucose 89 mg/dl (70-99); Potassium 5.8 mmol/L (3.5-5.1); Sodium 129 mmol/L (135-145); eGFR 22.44
[2024-01-27 15:12] LABS: Ammonia 20 umol/L (9-30)
[2024-01-27 15:29] LABS: Glucose - Point of Care 113 mg/dl (70-99)
[2024-01-27 15:40] LABS: Vitamin B12 999 pg/ml (239-931)
--- NOTE | 2024-01-27 18:14 | W.PN.UPDATE ---
Update Note
Progress Note Update
Reviewed recent trend in platelet count.
HIT 4T score is 4 representing intermediate risk.
Ordered for AM:
- HIT ALON
- DIC panel
Okay for aspirin, hold plavix, continue to hold heparin. Argatroban okay if available.
--- NOTE | 2024-01-27 18:15 | PTCARENOTE ---
pt has been Afib on the monitor, HR in the 100s, VSS. Pt has been c/o pain on and off throughout the day today. Pt neuro status was slightly changed from yesterday, notified DR. Coronado, came to bedside ordered ct scan and neuro consult. Both
completed. Dr. Coronado ordered mag citrate for constipation, insulin for high potassium, both given see MAR. repeat blood work will be completed later today. Pt is aao but forgetful or confused at times. pt is also complaining of tremors at this time.
right abdominal area is ecchymotic but unchanged from previous shift. family at bedside throughout the day today visiting pt. pt and family members have been educated/updated throughout the day. pt educated on using call guaman before attempting to
stand without staff. call guaman within reach.
--- NOTE | 2024-01-27 18:35 | W.PN.UPDATE ---
Update Note
Progress Note Update
Patient seen upon return from MRI, somewhat confused, complaining of pain, mom at bedside
Liver biopsy was yesterday
Allergies: Amlodipine, Trulicity, enalapril, ARB's
Outpatient meds: Carvedilol 3.125 twice daily, clopidogrel 75 daily, Eliquis 5 mg twice daily, gabapentin, insulin, Jardiance 25 mg a day, prednisone 5 mg daily, rosuvastatin 20 mg daily, tacrolimus, torsemide 20 mg a day
Current medications: Carvedilol 3.125 twice daily, Neurontin 300 mg daily, pantoprazole 40 mg daily, prednisone 5 mg daily, tacrolimus 1 mg twice daily, aspirin 81 mg a day, insulin,
PMH/PSH/SH/FH: Reviewed
Review of systems: Somewhat confused, not obtainable
White count 14.6, hemoglobin 15, platelet counts 68, sodium 129, creatinine 3.1, BUN 63
MRI of C-spine: No metastatic disease, no intrinsic cord signal alteration, some degenerative disc disease
CT of head: No acute abnormality
Pathology pending
HIT4T score is 4: Intermediate
ECG atrial fibrillation, anterior TX, inferior TX, left axis
98/65, pulse 95, respiratory 20, atrial fibrillation, somewhat confused, lethargic, complaining of pain head neck exam unremarkable, lung exam limited but relatively clear, irregular rate and rhythm, soft systolic murmur, JVD probably okay, abdomen
benign extremities 1+ edema
Impression:
Hepatic metastatic disease with innumerable masses throughout both lobes of the liver by MRI 01/18/24
Elevated Troponin
Recent admission for NSTEMI, LAD PCI and acute HF 12/27/23 until 01/04/24
CAD
s/p Circ/OM stent 08/2014
s/p IWMI with stenting of the mid right coronary artery 06/2016 and staged intervention for in-stent restenosis and new lesion in circ/OM 06/2016
s/p NSTEMI, with abrupt closure of the AV continuation of the Circ supplying 2 small posterolateral branches during cath and then 4 mm Xience to mid LAD and 2.75 mm Xience to the mid to distal OM-1 03/05/19
s/p NSTEMI with 100% distal LAD occlusion stented with a 2.25 mm Xience 12/28/23
TUAN on CKD 4
s/p Living, unrelated donor (his at the time) renal transplant [facility] 2009
Right [place] kidney lower pole cystic mass concerning for renal cell carcinoma since at least 09/09/21
HTN
Paroxysmal atrial fibrillation/flutter
recurrence noted on ECG in ER 12/27/23Chronic OAC with Eliquis, last dose 01/18/24 AMActive smoker
h/o ETOH use disorder
DM 2
Diabetic neuropathy
Hyperlipidemia
History of NSVT
Polycythemia vera
Chronic pancreatitis
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
ECHO 10/14/22: Technically difficult study, use IV Definity in future, EF 55 to 60%, likely moderate LVH, normal RV size and function, no significant valvular disease
Echo 08/24/23: EF 60-65%, normal RV size and function, PAP 20-25 mmHg
Echo 12/27/23: EF 45-50%, apical hypokinesis, trivial to small pericardial effusion
Limited Echo Jan 19 2024: EF 45% with apical hypokinesis and on change from Nov 2023.
Plan:
Possible HIT: Hold heparin, continue aspirin, eventual goal will be resumption of clopidogrel and Eliquis
Persistent atrial fibrillation: Restart Eliquis when able, heart rate control is adequate
Recent anterior TX: Aspirin for now, resumption of Plavix when able
Ischemic cardiomyopathy: EF is mildly reduced, maximize GDMT as possible though TUAN, hypotension, etc. limiting factor.
Presumed widely metastatic hepatic nodules: Await biopsy results, prognosis very guarded
TUAN on CKD: Per nephrology
Heart failure with mildly reduced EF: Diuretics per nephrology
Prognosis guarded
[2024-01-27 22:09] LABS: Glucose - Point of Care 168 mg/dl (70-99)
[2024-01-27] MEDS: SENOKOT-S PO (22:20)
[2024-01-27 22:51] LABS: Potassium 5.1 mmol/L (3.5-5.1)
[2024-01-27 22:54] LABS: Fibrinogen 463 MG/DL (199-459); INR 1.44; PT 17.6 Sec (11.4-14.6)
[2024-01-28] VITALS (7 sets, daily range): BP systolic 114–153; BP diastolic 73–99; BMI 30.7
--- NOTE | 2024-01-28 02:12 | PTCARENOTE ---
Pt with LARGE incontinent BM on floor and bathroom- He did not ring prior to walking himself into the bathroom. mildly confused- BA in place.
[2024-01-28 04:04] LABS: % Basophils 0.6 % (0-2); % Eosinophils 7.4 % (0-6); % Immature Granulocytes 0.8 % (0-0.5); % Lymphocytes 11.9 % (20.5-51.1); % Monocytes 8.9 % (1.7-9.3); % Neutrophils 70.4 % (42.2-75.2); Absolute Basophils 0.1 10^3/uL (0-0.2); Absolute Immature Granulocytes 0.1 10^3/uL (0-0.05); Absolute Lymphocytes 1.6 10^3/uL (1.2-3.4); Absolute Monocytes 1.2 10^3/uL (0.1-0.6); Absolute Neutrophils 9.6 10^3/uL (1.4-6.5); Hematocrit 45.3 % (39.0-52.0); Hemoglobin 14.2 g/dL (13.0-18.0); Mean Corp Hgb Conc. 31.3 g/dL (33.0-37.0); Mean Corpuscular Hgb 24.5 pg (27.0-31.0); Mean Corpuscular Volume 78.2 fL (80.0-94.0); Mean Platelet Volume 10.5 fL (7.4-10.4); Nucleated Red Blood Cells % 0 % (-); Platelet Count 66 10^3/uL (130-400); Red Blood Cell Count 5.79 10^6/uL (4.70-6.10); Red Cell Dist. Width 17.5 % (11.5-14.5); White Blood Cell Count 13.6 10^3/uL (4.8-10.8)
[2024-01-28 04:44] LABS: Blood Urea Nitrogen 70 mg/dl (9-20); Calcium 8.8 mg/dl (8.4-10.2); Carbon Dioxide 23 mmol/L (22-30); Chloride 104 mmol/L (98-107); Estimated Creatinine Clearance 28 ml/min; Glucose 179 mg/dl (70-99); Potassium 5.1 mmol/L (3.5-5.1); Sodium 131 mmol/L (135-145); eGFR 20.82
[2024-01-28 08:19] LABS: Glucose - Point of Care 240 mg/dl (70-99)
--- NOTE | 2024-01-28 08:35 | W.PN.NEURO.1 ---
Today's Communication / Plan
-
-Continue care for suspected malignancy, HIT, thrombocytopenia
-No further workup from neurologic standpoint
Will follow as needed call with questions and concerns
Neuro Assessment/Plan
Assessment
59 year old man with recent NSTEMI and cardiac stents, renal transplant, CKD presents with abdominal pain and diarrhea, imaging demonstrated findings likely representing liver metastases for which he underwent IR guided biopsy.
Has history of peripheral polyneuropathy presumed due to diabetes and CKD
Noted to have difficulty with hands and arm strength bilaterally yesterday which has improved
B12 and ammonia normal
MRI cervical spine with no evidence of intrinsic cord abnormality, compression or metastasis
Etiology of weakness is likely a multifactorial cause: Peripheral neuropathy and metabolic derangements from presenting illness, metastatic disease, some sedating medications for pain and procedure
Metabolic encephalopathy present due to similar causes as above
Subjective/Objective
Subjective Data
Date of Service: January 28, 2024
No acute events, patient tired, confused, reports back pain
Objective Data
Vital Signs
Temp Pulse Resp BP Pulse Ox
97.8 F 93 20 114/73 96
01/28/24 08:01 01/28/24 04:00 01/28/24 08:01 01/28/24 03:08 01/28/24 08:01
Lab Results
01/28/24 04:00
01/28/24 04:00
PT 17.6 Sec (11.4-14.6) H 01/27/24 22:19
INR 1.44 01/27/24 22:19
APTT 32.1 Sec (23.4-35.0) 01/27/24 14:20
Sodium 131 mmol/L (135-145) L 01/28/24 04:00
Potassium 5.1 mmol/L (3.5-5.1) 01/28/24 04:00
BUN 70 mg/dl (9-20) H 01/28/24 04:00
Glucose 179 mg/dl (70-99) H 01/28/24 04:00
Calcium 8.8 mg/dl (8.4-10.2) 01/28/24 04:00
Phosphorus 3.8 mg/dl (2.5-4.5) 01/26/24 03:49
Vitamin B12 999 pg/ml (239-931) H 01/27/24 14:20
Patient Allergies
amlodipine Allergy (Verified 01/18/24 10:40)
swelling in lower legs
dulaglutide [From Trulicity] Allergy (Verified 01/18/24 10:40)
Pancreatitis
enalapril maleate [From Vasotec] Allergy (Verified 01/18/24 10:40)
abdominal and chest pain
unknown antirejection medication Allergy (Uncoded 01/18/24 10:40)
edema,painful to walk ,joints hurt
Review of Systems
-
History Source: Patient
All other systems: Reviewed and negative
Constitutional: Fatigue
EENT: No Symptoms Reported
Respiratory: No Symptoms
Cardiac: No Symptoms
Abdomen/GI: No Symptoms
Genitourinary: No Symptoms
Musculoskeletal: Back Pain
Skin: No Symptoms
Neuro: Weakness
Endocrine: No Symptoms
Hematologic / Lymphatic: No Symptoms
Allergy / Immunology: No Symptoms
Physical Exam
-
General: No Apparent Distress and Obese
Eyes: No Ptosis
HEENT: Normocephalic
Neck: No Bruits Bilaterally
Respiratory: Clear to Auscultation
Cardiac: Regular Rhythm
GI: Normal Bowel Sounds
Skin: Unremarkable
Extremities: No Clubbing
Psych: Confused; Negative Agitated
Extended Neurological Exam
Mood & Affect: Depressed
Attention Span & Concentration: Awake, Alert, Interactive, No Difficulty with 2 Step Request and Other (Conversational, impaired insight and recollection to recent events)
Memory: Reduced
Tremor: Hand Tremor Absent
Involuntary Movement: None
Speech: Negative Expressive Aphasia or Receptive Aphasia
Cranial Nerve II: Left Eye: Pupillary Reactivity Unremarkable and Pupillary Size Unremarkable
Cranial Nerve II: Right Eye: Pupillary Reactivity Unremarkable and Pupillary Size Unremarkable
Cranial Nerves III, IV, : Extraocular Movement: Extraocular Movement Full in all Directions
Cranial Nerve VII: Facial Symmetry: Normal Facial Symmetry
Muscle Strength, Overall: Other (Shoulder abduction arm flexion and extension finger flexion ankle dorsiflexion/plantarflexion 5/5, no abnormal movements or tremor)
Deep Tendon Reflexes: Absent Throughout
Vibration Sensation: Reduced Moderately Distally
Coordination: [id number] Testing Unremarkable
Babinski Sign: Absent Bilaterally
Data Reviewed
-
CT Head: Report Reviewed and Image Reviewed
CT Cervical Spine: Report Reviewed and Image Reviewed
[2024-01-28] MEDS: LIDOCAINE 4% PATCH TOPICAL (08:57)
[2024-01-28] MEDS: BenGay-Like TOPICAL ×4 (08:59→23:02)
[2024-01-28] MEDS: PROGRAF 1 MG PO ×2 (09:03→20:07)
[2024-01-28] MEDS: TYLENOL 1000 MG PO ×2 (09:03→16:06)
[2024-01-28] MEDS: ZENPEP DELAYED RELEASE CAPSULE PO ×3 (09:03→23:03)
[2024-01-28] MEDS: NEURONTIN 300 MG PO (09:03)
[2024-01-28] MEDS: PROTONIX 40 MG PO (09:04)
[2024-01-28] MEDS: COREG 3.125 MG PO ×2 (09:04→20:07)
[2024-01-28] MEDS: LOW STRENGTH ASPIRIN 81 MG PO (09:04)
[2024-01-28] MEDS: MIRALAX PO (09:04)
[2024-01-28] MEDS: DELTASONE 5 MG PO (09:04)
[2024-01-28] MEDS: SENOKOT-S PO ×2 (09:05→20:08)
[2024-01-28] MEDS: NOVOLOG FLEXPEN-LOW RESISTANCE 2 UNITS SC ×2 (09:06→13:16)
--- NOTE | 2024-01-28 10:01 | W.PN.NEPH.PH ---
Today's Communication / Plan
-
IVF
Assessment/Plan
-
Impression:
HFpEF EF 45-50%
shoulder pain radiating to LUQ
TUAN on CKD (bl Cr 2)
Hyponatremia
History TUAN in 09/2022 ATN on transplant biopsy with background moderately severe chronic changes predominantly FSGS
Nephrotic syndrome
Living unrelated kidney transplant 2009 ()
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
Right [place] kidney lower pole cystic mass since at least 09/09/21
Diabetes mellitus 2 uncontrolled
h/o Alcohol use disorder
active smoker
Diabetic peripheral neuropathy
Immunosuppression on tacrolimus and prednisone
Coronary artery disease status post stent(s)
Coronary angioplasty implant and graft
Atrial fibrillation on Eliquis
Hypertension, multidrug and uncontrolled
HLD
Hypoalbuminemia
liver metastases, CA19-9 >29k
thrombocytopenia
Plan:
await liver path
follow BMP
treat K medically prn
check iron stores, he is progressively more microcytic
follow plt count
neur eval in progress
-
-
Date of Service: January 28, 2024
CC / HPI / ROS
-
Chief Complaint:
TUAN, h/o KTx
History of Present Illness:
TUAN/Cr worse to 3.3
K better at 5.1 after lokelma
no fever, leucocytosis persists
sodium remains stable low 131
BP stable
diarrhea now
Review of Systems:
no sob
malaise
weak
Labs
-
Labs:
WBC 13.6 10^3/uL (4.8-10.8) H 01/28/24 04:00
RBC 5.79 10^6/uL (4.70-6.10) 01/28/24 04:00
Hgb 14.2 g/dL (13.0-18.0) 01/28/24 04:00
Hct 45.3 % (39.0-52.0) 01/28/24 04:00
Plt Count 66 10^3/uL (130-400) L 01/28/24 04:00
Sodium 131 mmol/L (135-145) L 01/28/24 04:00
Potassium 5.1 mmol/L (3.5-5.1) 01/28/24 04:00
Chloride 104 mmol/L (98-107) 01/28/24 04:00
Carbon Dioxide 23 mmol/L (22-30) 01/28/24 04:00
BUN 70 mg/dl (9-20) H 01/28/24 04:00
Creatinine 3.3 mg/dL (0.7-1.3) H 01/28/24 04:00
eGFR 20.82 01/28/24 04:00
Glucose 179 mg/dl (70-99) H 01/28/24 04:00
Calcium 8.8 mg/dl (8.4-10.2) 01/28/24 04:00
Phosphorus 3.8 mg/dl (2.5-4.5) 01/26/24 03:49
Albumin 2.3 g/dl (3.5-5.0) L 01/23/24 11:04
Physical Exam
-
Vital Signs:
Vital Signs
Temp Pulse Resp BP Pulse Ox
97.8 F 96 20 128/99 95
01/28/24 08:01 01/28/24 09:00 01/28/24 08:01 01/28/24 07:57 01/28/24 09:36
Cardiovascular:: Regular rate and rhythm
Respiratory:: Bilateral: Coarse
Lung Excursion:: Normal
Abdomen:: Nontender and Soft
Bowel Sounds:: Normal
Extremity Edema:: None: Bilateral:
[2024-01-28 10:33] LABS: Iron 55 ug/dl (49-181)
[2024-01-28 10:42] LABS: Percent Saturation 31 % (20-50); Total Iron Binding Capacity 173 ug/dl (261-462)
[2024-01-28] MEDS: NSS 1000 IV ×2 (11:18→22:51)
[2024-01-28] MEDS: DILAUDID 0.5 MG IV ×3 (12:29→22:45)
--- NOTE | 2024-01-28 12:47 | W.PN.HOSP.TC ---
Today's Communication/Plan
-
Monitor vital signs and see plan
Add Maalox
pain control; hold for sedation
Continue with aspirin
Heparin on hold
Monitor platelets
Prognosis appears guarded
Daughter updated at bedside
Assessment / Plan
Assessment / Plan
Physical Exam
General:�some pain
HEENT:�Anicteric and Moist mucous membranes
Respiratory:�Clear and Non Labored Respirations
Cardiac:�S1/S2, Irregular Rhythm and Tachycardia
GI:�Soft Tender to Palpation Bowel sounds present
Musculoskeletal:�No Clubbing, No Cyanosis and No Edema
Skin:�Warm and Dry, tattoos noted
Neuro:�AOx3
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 Discharged earlier this month from this facility following treatment for NSTEMI w/ stent placement.� Reported
feeling unwell since discharge with diarrhea black stools. Prompted to re-visit ED with progression chest abd pain.� CT abd/pelvis suggestive new metastatic liver masses confirmed on MRI.
Abdominal Pain - New Liver Abnormalities by CT and MRI suggestive metastasis
-Consult GI appreciated
-Infectious Disease consult appreciated
-Abd MRI appreciated hepatic mets, periportal yvrose mets, splenic infarcts, Rt Lower pole renal cell carcinoma
-no diarrhea since admission, stool studies discontinued
-clear liquid diet advance to low residue trial creon as per GI
-ID eval appreciated monitor off abx follow culture results NGTD
-IR consult appreciated plavix wash out 5 days; s/p liver biopsy ; follow results. AC and antiplatelet now on hold for thrombocytopenia. Possible HIT.
-Oncology following; Ca19-9 high
-cont pain control prn dilaudid mg Q3h prn. if he has pain mainly from malignancy then likely will start oxycontin which is longer acting medication once his constipation improves
-bengay left chest neck shoulder, pain worse with deep inspiration/cough
-lidocaine patch left shoulder
-oxycodone 5 mg q6h prn; dilaudid 0.5mg PRN; avoid sedation
-Tylenol 1000 mg TID
mild elevated LFT's likely from liver mets
lipase wnl
Thrombocytopenia
Hematology following
HIT panel pending
DIC
heparin on hold
CT chest w/o contrast appreciated
-No evidence of osteoblastic mets. Lytic lesion within the L1 vertebral body likely benign unchanged from CT 09/09/2021
-Multiple small lung lung nodules possibly benign vs malignant
-Innumerable hepatic metastases.
-Left renal mass measures 3.2 cm in diameter, felt to represent a complex hemorrhagic cyst on prior MRI dated 01/18/2024. Right kidney was not imaged on the current chest CT.
Hyponatremia
Monitor
Hyperkalemia
K now 5.1
likely 2/2 constipation
now had BM 01/26 after mag citrate
Constipation
Laxatives
MiraLAX, Colace, Dulcolax
hx of chronic pancreatitis
Has abdominal pain at times secondary to above, lipase normal
Continue with pancrelipase, add maalox
seen on CT
monitor
Coronary Artery Disease s/p LAD stent in Nov 2023
-Appreciate Cardiology consult
-Eliquis on hold
hep now on hold due to thrombocytopenia. Patient is currently only on aspirin.
Was on heparin which is now on hold
Change in mental status suspect likely TME
Significant motor weakness bilateral upper extremity, CT scan negative for acute CVA
appears weakness in b/l hands better today
MRI C-spine with mild compression however no acute abnormality
Neurology following
Suspect this could be secondary to metabolic imbalance
ammonia wnl
Persistent Atrial Fibrillation/Flutter
-Holding Eliquis
-Continue Coreg for rate control
Essential Hypertension
-Continue Coreg with hold parameters
Hyperlipidemia
-Hold rosuvastatin for now
Insulin-Dependent Diabetes Mellitus
-Hold Jardiance
-Monitor sugars and continue coverage insulin
-Diabetes ETL MANAGER consult appreciated
Diabetic Neuropathy
-Continue gabapentin
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
TUAN on CKD
-Continue prednisone and tacrolimus
-Monitor Is&Os and Daily Weights
-Nephro following
DVT proph: hep gtt
gi ppx protonix
Code Status: Full Code
Discussed in length with daughter 3/. Prognosis likely guarded. Daughter understands and is awaiting biopsy results before making a decision.
I spent a total of 54 minutes with the patient or on the floor. More than 50% of this time involved counseling and coordination of care.
Anticipated Discharge: > 48 hours
Subjective/Interval History
-
Date of Service: January 28, 2024
Denies nausea
Objective Data
-
Labs:
Laboratory Results
01/28/24
04:00
WBC 13.6 H
Hgb 14.2
Hct 45.3
Plt Count 66 L
Sodium 131 L
Potassium 5.1
Chloride 104
Carbon Dioxide 23
BUN 70 H
Creatinine 3.3 H
Glucose 179 H
Calcium 8.8
Vital Signs:
Vital Signs
Temp Pulse Resp BP Pulse Ox
97.4 F 96 18 128/99 95
01/28/24 11:42 01/28/24 09:00 01/28/24 11:42 01/28/24 07:57 01/28/24 11:42
I&O
01/27/24 01/28/24 01/29/24
06:59 06:59 06:59
Intake Total 870 / 870 360 / 360
Output Total 500 / 500 200 / 200
Balance 370 / 370 160 / 160
[2024-01-28 12:57] LABS: Glucose - Point of Care 247 mg/dl (70-99)
[2024-01-28 13:13] LABS: Lipase 58 U/L (23-300)
[2024-01-28] MEDS: ZENPEP DELAYED RELEASE CAPSULE 1 CAPSULE PO (13:15)
[2024-01-28] MEDS: MAALOX 30 ML PO (13:45)
--- NOTE | 2024-01-28 16:23 | PTCARENOTE ---
1230: Pt c/o severe sudden onset of epigastric pain. 09/06. Dilaudid given with minimal relief. ECG with no changes from previous. Hospitalist at bedside.
[2024-01-28 17:14] LABS: Glucose - Point of Care 270 mg/dl (70-99)
[2024-01-28] MEDS: NOVOLOG FLEXPEN-LOW RESISTANCE 3 UNITS SC (18:03)
--- NOTE | 2024-01-28 20:00 | PTCARENOTE ---
pt drowsy but arouses easily from sleep. denies abdomen or chest pain at this time.pt disoriented to time and place. reoriented easily.dinner tray still in room. pt refusing to eat. will observe.
--- NOTE | 2024-01-28 20:36 | W.PN.ONC2 ---
Today's Communication / Plan
-
Pain management.
DNR
Meeting with daughter and pt tomorrow morning to discuss goals of care and possible hospice.
Impression
Impression
MRI of the liver suspicious for metastatic disease with markedly elevated CA 19/9 = 29,000
Hx renal transplant now with rising Cr
CAD s/p LAD stent in 11/2023
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
Atrial fib/flutter, off anticoagulation currently due to thrombocytopenia
Diabetes
Suspicion for splenic infarct
Plan
Plan
Prognosis is dismal for this pt.
Marked CA 19-9 elevation highly concerning for panc CA, with or without biopsy result.
Pt declining despite optimal care in hospital and pain has been getting worse.
I do not believe it would be possible to treat panc CA in this pt on immunosuppressives with liver transplant, poor PS.
Discussed this by phone with daughter. She states she is aware of poor prognosis.
Code status discussed with daughter by phone and with pt, made DNR.
Will meet with daughter in AM to disuss hospice.
Subjective/Objective
Chief Complaint
Liver masses
Subjective
Pt lethargic but states pain not controlled.
Vital Signs:
Vital Signs
Temp Pulse Resp BP Pulse Ox
97.4 F 107 18 140/98 95
01/28/24 20:11 01/28/24 20:07 01/28/24 20:11 01/28/24 20:07 01/28/24 20:17
Lab Results:
Laboratory Data
WBC 13.6 10^3/uL (4.8-10.8) H 01/28/24 04:00
Hgb 14.2 g/dL (13.0-18.0) 01/28/24 04:00
Plt Count 66 10^3/uL (130-400) L 01/28/24 04:00
PT 17.6 Sec (11.4-14.6) H 01/27/24 22:19
INR 1.44 01/27/24 22:19
APTT 32.1 Sec (23.4-35.0) 01/27/24 14:20
eGFR 20.82 01/28/24 04:00
Physical Exam
Chronically ill-appearing
Orders
Orders
Orders From Last 24 Hours
01/27/24 22:19
Fibrinogen Routine
PT/INR [Prothrombin Time] Routine
01/28/24 17:29
DNR Bracelet Application ONCE
01/28/24 17:40
Code Status As Directed
[2024-01-28 22:30] LABS: Glucose - Point of Care 244 mg/dl (70-99)
--- NOTE | 2024-01-28 23:00 | PTCARENOTE ---
pt with increased restlessness. states he is having 8/10 pain in abdomen when asked . dilaudid dose iv given as ordered for severe pain. pt refusing po meds. pt refusing bengay. support provided to pt frequently.
[2024-01-28] MEDS: TYLENOL PO (23:02)
[2024-01-28] MEDS: LANTUS 0.100000000000000006 UNITS SC (23:07)
--- NOTE | 2024-01-29 00:11 | PTCARENOTE ---
pt sleeping. arouses easily from sleep states pain has improved. will observe.
--- NOTE | 2024-01-29 01:14 | PTCARENOTE ---
pt incontinent of yellow urine. pt washed up. pt remains confused to place and time.support provided frequently.
[2024-01-29 01:28] VITALS: BP 132/89
[2024-01-29 03:57] VITALS: BP 142/116
[2024-01-29] MEDS: DILAUDID 0.5 MG IV ×5 (04:13→19:22)
[2024-01-29 04:52] LABS: % Basophils 0.6 % (0-2); % Eosinophils 8.9 % (0-6); % Immature Granulocytes 1.1 % (0-0.5); % Lymphocytes 11.8 % (20.5-51.1); % Monocytes 8.6 % (1.7-9.3); Absolute Basophils 0.1 10^3/uL (0-0.2); Absolute Eosinophils 1.1 10^3/uL (0-0.7); Absolute Immature Granulocytes 0.1 10^3/uL (0-0.05); Absolute Lymphocytes 1.5 10^3/uL (1.2-3.4); Absolute Monocytes 1.1 10^3/uL (0.1-0.6); Absolute Neutrophils 8.6 10^3/uL (1.4-6.5); Hematocrit 46.8 % (39.0-52.0); Hemoglobin 14.6 g/dL (13.0-18.0); Mean Corp Hgb Conc. 31.2 g/dL (33.0-37.0); Mean Corpuscular Hgb 24.1 pg (27.0-31.0); Mean Corpuscular Volume 77.1 fL (80.0-94.0); Nucleated Red Blood Cells % 0 % (-); Platelet Count 52 10^3/uL (130-400); Red Blood Cell Count 6.07 10^6/uL (4.70-6.10); Red Cell Dist. Width 18.5 % (11.5-14.5); White Blood Cell Count 12.4 10^3/uL (4.8-10.8)
[2024-01-29 04:56] LABS: Blood Urea Nitrogen 76 mg/dl (9-20); Calcium 8.4 mg/dl (8.4-10.2); Carbon Dioxide 22 mmol/L (22-30); Chloride 106 mmol/L (98-107); Estimated Creatinine Clearance 27 ml/min; Glucose 236 mg/dl (70-99); Potassium 5.7 mmol/L (3.5-5.1); Sodium 130 mmol/L (135-145); eGFR 20.09
[2024-01-29 07:34] VITALS: BP 104/72
[2024-01-29 07:36] LABS: Glucose - Point of Care 201 mg/dl (70-99)
[2024-01-29] MEDS: LOW STRENGTH ASPIRIN 81 MG PO (08:46)
[2024-01-29] MEDS: LIDOCAINE 4% PATCH 1 PATCH TOPICAL (08:46)
[2024-01-29] MEDS: TYLENOL 1000 MG PO ×2 (08:46→17:22)
[2024-01-29] MEDS: NEURONTIN 300 MG PO (08:47)
[2024-01-29] MEDS: PROGRAF 1 MG PO ×2 (08:47→19:32)
[2024-01-29] MEDS: DELTASONE 5 MG PO (08:47)
[2024-01-29] MEDS: PROTONIX 40 MG PO (08:47)
[2024-01-29] MEDS: ZENPEP DELAYED RELEASE CAPSULE 1 CAPSULE PO ×2 (08:47→17:22)
[2024-01-29] MEDS: COREG 3.125 MG PO (08:47)
[2024-01-29 08:54] LABS: Glucose - Point of Care 207 mg/dl (70-99)
[2024-01-29] MEDS: NOVOLOG FLEXPEN-LOW RESISTANCE 2 UNITS SC (09:59)
--- NOTE | 2024-01-29 10:22 | PTCARENOTE ---
Received pt for 7a-7p shift. Pt Oriented to person and place, drowsy, but arousable. Following commands, responding appropriately. VSS, Afib with PVCs on retail presentation specialist. Pt denies pain at this time. NSS@100ml/hr infusing via L forearm PIV without
issues. Medications administered as ordered. Pt with decreased po intake. Meal novolog held, coverage given for blood glucose 207 as ordered. Family meeting with Oncology and attending physician regarding hospice. Will continue to monitor.
--- NOTE | 2024-01-29 10:29 | W.PN.ONC2 ---
Addendum entered and electronically signed by Samira Parsons MD 01/29/24 11:07:
Time spent reviewing chart plus family meetin minutes.
Original Note:
Today's Communication / Plan
-
Case management for home hospice HECTOR.
Impression
Impression
MRI of the liver suspicious for metastatic disease with markedly elevated CA 19/9 = 29,000
Hx renal transplant now with rising Cr
CAD s/p LAD stent in 11/2023
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
Atrial fib/flutter, off anticoagulation currently due to thrombocytopenia
Diabetes
Suspicion for splenic infarct
Plan
Plan
Prognosis is dismal for this pt.
Marked CA 19-9 elevation highly concerning for panc CA, with or without biopsy result.
Pt declining despite optimal care in hospital and pain has been getting worse.
I do not believe it would be possible to treat panc CA in this pt on immunosuppressives with liver transplant, poor PS.
Discussed this with daughter, pt's ex- and her .
All are amenable to hospice and pt would like to go home as soon as possible on hospice.
Subjective/Objective
Chief Complaint
panc ca met to liver
Subjective
Pain not controlled. Family meeting.
Vital Signs:
Vital Signs
Temp Pulse Resp BP Pulse Ox
97.5 F 102 20 104/72 95
01/29/24 07:33 01/29/24 08:47 01/29/24 07:33 01/29/24 08:47 01/29/24 08:29
Lab Results:
Laboratory Data
WBC 12.4 10^3/uL (4.8-10.8) H 01/29/24 04:05
Hgb 14.6 g/dL (13.0-18.0) 01/29/24 04:05
Plt Count 52 10^3/uL (130-400) L D 01/29/24 04:05
PT 17.6 Sec (11.4-14.6) H 01/27/24 22:19
INR 1.44 01/27/24 22:19
APTT 32.1 Sec (23.4-35.0) 01/27/24 14:20
eGFR 20.09 01/29/24 04:05
Physical Exam
Awake, alert, chronically ill-appearing
Orders
Orders
Orders From Last 24 Hours
01/28/24 17:29
DNR Bracelet Application ONCE
01/28/24 17:40
Code Status As Directed
[2024-01-29] MEDS: SENOKOT-S PO ×2 (10:48→21:04)
[2024-01-29] MEDS: MIRALAX PO (10:48)
[2024-01-29] MEDS: DURAGESIC 25 MCG/HR PATCH 1 PATCH TRANSDERM (11:14)
--- NOTE | 2024-01-29 11:18 | W.PN.NEPH.PH ---
Today's Communication / Plan
-
hospice
Assessment/Plan
-
Impression:
HFpEF EF 45-50%
shoulder pain radiating to LUQ
TUAN on CKD (bl Cr 2)
Hyponatremia
History TUAN in 09/2022 ATN on transplant biopsy with background moderately severe chronic changes predominantly FSGS
Nephrotic syndrome
Living unrelated kidney transplant 2009 ()
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
[place] lower pole cystic mass since at least 09/09/21
Diabetes mellitus 2 uncontrolled
h/o Alcohol use disorder
active smoker
Diabetic peripheral neuropathy
Immunosuppression on tacrolimus and prednisone
Coronary artery disease status post stent(s)
Coronary angioplasty implant and graft
Atrial fibrillation on Eliquis
Hypertension, multidrug and uncontrolled
HLD
Hypoalbuminemia
liver metastases, CA19-9 >29k
thrombocytopenia
Plan:
awaiting liver path
[facility] today
for home hospice
-
-
Date of Service: January 29, 2024
CC / HPI / ROS
-
Chief Complaint:
TUAN, h/o KTx
History of Present Illness:
TUAN/Cr higher at 3.4
K up to 5.7
no fever, leucocytosis persists
sodium remains stable low 130
BP stable
Review of Systems:
no sob
malaise
weak
back pain
Labs
-
Labs:
WBC 12.4 10^3/uL (4.8-10.8) H 01/29/24 04:05
RBC 6.07 10^6/uL (4.70-6.10) 01/29/24 04:05
Hgb 14.6 g/dL (13.0-18.0) 03/03/24 04:05
Hct 46.8 % (39.0-52.0) 01/29/24 04:05
Plt Count 52 10^3/uL (130-400) L D 01/29/24 04:05
Sodium 130 mmol/L (135-145) L 01/29/24 04:05
Potassium 5.7 mmol/L (3.5-5.1) H 01/29/24 04:05
Chloride 106 mmol/L (98-107) 01/29/24 04:05
Carbon Dioxide 22 mmol/L (22-30) 01/29/24 04:05
BUN 76 mg/dl (9-20) H 01/29/24 04:05
Creatinine 3.4 mg/dL (0.7-1.3) H 01/29/24 04:05
eGFR 20.09 01/29/24 04:05
Glucose 236 mg/dl (70-99) H 01/29/24 04:05
Calcium 8.4 mg/dl (8.4-10.2) 01/29/24 04:05
Phosphorus 3.8 mg/dl (2.5-4.5) 01/26/24 03:49
Albumin 2.3 g/dl (3.5-5.0) L 01/23/24 11:04
Physical Exam
-
Vital Signs:
Vital Signs
Temp Pulse Resp BP Pulse Ox
97.5 F 102 20 104/72 95
01/29/24 07:33 01/29/24 08:47 01/29/24 07:33 01/29/24 08:47 01/29/24 08:29
Cardiovascular:: Regular rate and rhythm
Respiratory:: Bilateral: Coarse
Lung Excursion:: Normal
Abdomen:: Nontender and Soft
Bowel Sounds:: Normal
Extremity Edema:: +1: Bilateral:
--- NOTE | 2024-01-29 11:53 | HOSPNOTE ---
Spoke with patient's daughter Zofia who stated patient just wants to go home and wants comfort care.Zofia stated she will take FMLA to care for patient time study statistician at home.Discussed the hospice philosophy and understadning stated, she stated her dad
was too weak to talk at this time but he understands hospice care and it is his wish.Zofia requested a hospital bed, over bed table, commode, oxygen, w/c and walker for delivery to patient's home.
--- NOTE | 2024-01-29 11:58 | CM ---
called by RN, pt/family want hospice at home for tomorrow. spoke to digital solutions architect hospice nurse, referral in. cm to f/u with hospice in am.
[2024-01-29] MEDS: BenGay-Like TOPICAL ×4 (12:28→22:06)
--- NOTE | 2024-01-29 13:06 | PTCARENOTE ---
Patient seen by attending and oncology drs. Comfort care measures initiated. Care management notified and hospice consult initiated. Patients family at bedside. Pt medicated for pain as needed as ordered. Will continue to monitor.
--- NOTE | 2024-01-29 13:14 | W.PN.HOSP.TC ---
Today's Communication/Plan
-
Monitor vitals
See plan
Start fentanyl patch, Dilaudid
Hospice to meet today
Plan for home hospice
dc labs
comfort measures for now
Assessment / Plan
Assessment / Plan
Physical Exam
General:�some pain
HEENT:�Anicteric and Moist mucous membranes
Respiratory:�Clear and Non Labored Respirations
Cardiac:�S1/S2, Irregular Rhythm
GI:�Soft Tender to Palpation Bowel sounds present
Musculoskeletal:�No Clubbing, No Cyanosis and No Edema
Skin:�Warm and Dry, tattoos noted
Neuro:�AOx3
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 Discharged earlier this month from this facility following treatment for NSTEMI w/ stent placement.� Reported
feeling unwell since discharge with diarrhea black stools. Prompted to re-visit ED with progression chest abd pain.� CT abd/pelvis suggestive new metastatic liver masses confirmed on MRI.
Abdominal Pain - New Liver Abnormalities by CT and MRI suggestive metastasis
-Consult GI appreciated
-Abd MRI appreciated hepatic mets, periportal yvrose mets, splenic infarcts, Rt Lower pole renal cell carcinoma
-clear liquid diet advance to low residue trial creon as per GI
-IR consult appreciated plavix wash out 5 days; s/p liver biopsy ; follow results. AC and antiplatelet now on hold for thrombocytopenia. Possible HIT.
-Oncology following; Ca19-9 high, biopsy pending
-cont pain control prn dilaudid mg Q3h prn. if he has pain mainly from malignancy then likely will start oxycontin which is longer acting medication once his constipation improves
-bengay left chest neck shoulder, pain worse with deep inspiration/cough
-lidocaine patch left shoulder
-oxycodone 5 mg q6h prn; dilaudid 0.5mg PRN; avoid sedation
-Tylenol 1000 mg TID
mild elevated LFT's likely from liver mets
lipase wnl
Oncology spoke with patient and family 01/28; prognosis guarded, patient likely has malignancy; given his pain and other comorbidities patient and family decided for home hospice. Will start fentanyl patch for pain. Also ordered Dilaudid. Hospice
to see patient. Comfort measures for now. Plan for possible home hospice tomorrow
Thrombocytopenia
Hematology following
HIT panel pending
DIC
heparin on hold
CT chest w/o contrast appreciated
-No evidence of osteoblastic mets. Lytic lesion within the L1 vertebral body likely benign unchanged from CT 09/09/2021
-Multiple small lung lung nodules possibly benign vs malignant
-Innumerable hepatic metastases.
-Left renal mass measures 3.2 cm in diameter, felt to represent a complex hemorrhagic cyst on prior MRI dated 01/18/2024. Right kidney was not imaged on the current chest CT.
Hyponatremia
Hyperkalemia
Constipation
Laxatives
hx of chronic pancreatitis
Has abdominal pain at times secondary to above, lipase normal
Continue with pancrelipase, add maalox
seen on CT
monitor
Coronary Artery Disease s/p LAD stent in Nov 2023
-Appreciate Cardiology consult
-Eliquis on hold
hep now on hold due to thrombocytopenia. Patient is currently only on aspirin.
Was on heparin which is now on hold
Change in mental status suspect likely TME
Significant motor weakness bilateral upper extremity, CT scan negative for acute CVA
appears weakness in b/l hands better today
MRI C-spine with mild compression however no acute abnormality
Neurology following
Suspect this could be secondary to metabolic imbalance
ammonia wnl
Persistent Atrial Fibrillation/Flutter
-Holding Eliquis
-Continue Coreg for rate control
Essential Hypertension
Hyperlipidemia
Insulin-Dependent Diabetes Mellitus
-Hold Jardiance
-Monitor sugars and continue coverage insulin
-Diabetes RADIOLOGIST PHYSICIAN consult appreciated
Diabetic Neuropathy
-Continue gabapentin
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
TUAN on CKD
-Continue prednisone and tacrolimus
-Monitor Is&Os and Daily Weights
-Nephro following
DVT proph: comfort
Code Status: DNR
Discussed in length with daughter 3/2 and 3/3. Oncology also discussed with patient and family. Plan now for hospice. Prognosis guarded. strategic accounts manager consulted for hospice
I spent a total of 54 minutes with the patient or on the floor. More than 50% of this time involved counseling and coordination of care.
Anticipated Discharge: Within 24 hours
Subjective/Interval History
-
Date of Service: January 29, 2024
in pain
Objective Data
-
Labs:
Laboratory Results
01/29/24
04:05
WBC 12.4 H
Hgb 14.6
Hct 46.8
Plt Count 52 L D
Sodium 130 L
Potassium 5.7 H
Chloride 106
Carbon Dioxide 22
BUN 76 H
Creatinine 3.4 H
Glucose 236 H
Calcium 8.4
Vital Signs:
Vital Signs
Temp Pulse Resp BP Pulse Ox
97.5 F 102 20 104/72 95
01/29/24 07:33 01/29/24 08:47 01/29/24 07:33 01/29/24 08:47 01/29/24 08:29
I&O
01/28/24 01/29/24 01/30/24
06:59 06:59 06:59
Intake Total 360 / 360 500 / 500 800 / 800
Output Total 200 / 200 300 / 300 200 / 200
Balance 160 / 160 200 / 200 600 / 600
[2024-01-29] MEDS: ZENPEP DELAYED RELEASE CAPSULE PO ×2 (14:31→22:06)
--- NOTE | 2024-01-29 15:16 | PTCARENOTE ---
Pt reassessed, assessment unchanged from previous. Pt visiting with family, decreased appetite and po intake. Pt medicated for pain as needed. Will continue to monitor.
[2024-01-29 15:59] VITALS: BP 125/74
[2024-01-29 17:39] LABS: Glucose - Point of Care 221 mg/dl (70-99)
--- NOTE | 2024-01-29 17:59 | PTCARENOTE ---
Patient had 2.15 second pause, then converted to SR 40-50s. Asymptomatic, sleeping in bed but arousable. Family at bedside. Pt medicated for pain as needed. Blood glucose 221, no insulin coverage ordered. Will continue to monitor.
[2024-01-29 19:29] VITALS: BP 94/64
[2024-01-29] MEDS: COREG PO (21:20)
[2024-01-29] MEDS: TYLENOL PO (22:06)
[2024-01-29 22:25] VITALS: BP 109/72
[2024-01-29 22:43] LABS: Glucose - Point of Care 272 mg/dl (70-99)
--- NOTE | 2024-01-30 01:09 | PTCARENOTE ---
Received pt at handoff. Tele- SR. HR 50-60s. Daughter at bedside. Pt drowsy; arouses to voice. Oriented to person and place. Bed alarm activated; pt confused at times and attempting to go to bathroom w/o assistance. DNR bracelet intact. Pt
medicated for pain as needed. See JAN. Pt able to swallow 20:00 PO meds; did note coughing w/ intake. HOB elevated. Currently in bed; call guaman w/in reach.
[2024-01-30 03:17] VITALS: BP 118/74
--- NOTE | 2024-01-30 03:47 | PTCARENOTE ---
Pt confused/forgetful. Disoriented to time and place when awoken at 0300 for VS. Pt not turning self t/o night. Q2 turning/repositioning added per nursing protocol. Pt repositioned onto R side with pillow.
[2024-01-30 07:05] VITALS: BP 124/69
--- NOTE | 2024-01-30 07:52 | PN.DE.MGMTRT ---
Insulin Management
- -
01/20/2024: Diabetes Management Consult
59�year old male well know to Diabetes service from his recent hosp admission. Pt p/w with left-sided chest/upper abdominal pain, found to have Hepatic metastatic disease with innumerable masses throughout both lobes of the liver.
PMH includes: ESRD s/p renal transplant, osteo, A-Fib, HTN, CAD s/p stent placement 01/01, HLD, T2DM and acute on chronic pancreatitis.
Routinely sees Dr. James, was discharged home on Glargine 43 units @ HS, NovoLog 15 units AC and Jardiance 25 mg daily.
States that he has been taking his insulin and that his blood sugars have been in normal range and controlled at home.
Pt appears somewhat confused and forgetful, repeating himself at times.
He is noted for persistent Hyperglycemia, glucose trended up to 306 @ HS and remained elevated throughout the night, FBG 282 this AM.
Pre meal glucose 233 to 296, requiring 2-3 units of additional corrective insulin
Will increase Lantus to 35 units and AC NovoLog to 8 units with low corrective insulin.
Cr 3.4, eGFR 20.09, will stop Jardiance at this time, also not a candidate for any oral Diabetes agents.
Will follow closely. Hospitalist made aware of pt's confusion via TT.
: Diabetes Management F/U:
Pt p/w Abdominal Pain and was noted for New Liver Abnormalities by CT and MRI suggestive metastasis.
Currently c/o persistent pain to several body parts. Glucose stable, FBG 113 this AM, Premeal 97 to 130.
Will make no changes to current regimen: Lantus to 35 units and AC NovoLog to 8 units with low corrective insulin.
01/24/2024 Diabetes Management Follow up
Patient refusing pain medications due to constipation. Appetite remains good, consuming 100% for meals. Glucose well controlled with current regimen 35 units Lantus @ hs with 8 units NovoLog AC. Will follow.
01/25/2024 Diabetes Management Follow up
Patient now taking pain medications for L shoulder, L chest and abdominal pain. Had breakfast and lunch but no dinner yesterday. Glucose 79 this AM. Will reduce HS Lantus to 32 units and ac NovoLog to 7 units.
01/26/2024 Diabetes Management Follow up
Patient unable to tolerate biopsy yesterday, was NPO most of day. Lantus reduced to 10 units @ HS. Fasting glucose 95. Will reduce HS Lantus to 10 units. Appetite has been poor, will reduce AC NovoLog to 3 units. I spoke with patients nurse,
patient again NPO for biopsy today. To receive 3 units ac NovoLog if he consumes meal.
01/27/2024: Diabetes Management F/U:
S/P Liver biopsy. Pt was NPO for most of the day yesterday. Appetite remains very poor, refused dinner yesterday. HS blood sugar was 89 and 74 fasting this AM. Will hold Lantus and AC NovoLog. May give corrective insulin as necessary for elevations.
Will follow
01/30/2024: Diabetes Management F/U:
Pt continued with poor appetite throughout the weekend, not eating at this time. All scheduled insulin was held.
Glucose has trended up to 200's. Pt and Family have made decision to transition to comfort care only. Awaiting eval for home hospice.
Will stop all Accucheks at this time to promote comfort care, give extensive level of pain and discomfort that he is experiencing.
DM will sign off now.
Diabetes History
- -
Type of Diabetes: 2 requiring insulin
Pre-Admission Diabetes Regimen
Insulin Pump Settings
IP Diabetes Regimen
01/29/24 01/29/24 01/29/24
08:53 17:38 22:42
POC Glucose 207 H 221 H 272 H
Patient Education
[2024-01-30] MEDS: ATIVAN 1 MG PO ×2 (09:24→12:36)
--- NOTE | 2024-01-30 10:06 | W.PN.HOSP.TC ---
Today's Communication/Plan
-
Monitor vital signs see plan
Pain control
Home hospice today
Time of discharge 38 minutes
Assessment / Plan
Assessment / Plan
Physical Exam
General:�some pain
HEENT:�Anicteric and Moist mucous membranes
Respiratory:�Clear and Non Labored Respirations
Cardiac:�S1/S2, Irregular Rhythm
GI:�Soft Tender to Palpation Bowel sounds present
Musculoskeletal:�No Clubbing, No Cyanosis and No Edema
Skin:�Warm and Dry, tattoos noted
Neuro:�AOx2
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 Discharged earlier this month from this facility following treatment for NSTEMI w/ stent placement.� Reported
feeling unwell since discharge with diarrhea black stools. Prompted to re-visit ED with progression chest abd pain.� CT abd/pelvis suggestive new metastatic liver masses confirmed on MRI.
Abdominal Pain - New Liver Abnormalities by CT and MRI suggestive metastasis
-Consult GI appreciated
-Abd MRI appreciated hepatic mets, periportal yvrose mets, splenic infarcts, Rt Lower pole renal cell carcinoma
-clear liquid diet advance to low residue trial creon as per GI
-IR consult appreciated plavix wash out 5 days; s/p liver biopsy ; follow results. AC and antiplatelet now on hold for thrombocytopenia. Possible HIT.
-Oncology following; Ca19-9 high, biopsy pending
-bengay left chest neck shoulder, pain worse with deep inspiration/cough
-lidocaine patch left shoulder
-oxycodone 5 mg q6h prn; dilaudid 0.5mg PRN; avoid sedation
-Tylenol 1000 mg TID
mild elevated LFT's likely from liver mets
lipase wnl
Oncology spoke with patient and family 3/3; prognosis guarded, patient likely has malignancy; given his pain and other comorbidities patient and family decided for home hospice. Will start fentanyl patch for pain. Also ordered Dilaudid. Hospice
to see patient. Comfort measures for now. Plan for possible home hospice today.
Thrombocytopenia
Hematology following
HIT panel pending
DIC
heparin on hold
CT chest w/o contrast appreciated
-No evidence of osteoblastic mets. Lytic lesion within the L1 vertebral body likely benign unchanged from CT 09/09/2021
-Multiple small lung lung nodules possibly benign vs malignant
-Innumerable hepatic metastases.
-Left renal mass measures 3.2 cm in diameter, felt to represent a complex hemorrhagic cyst on prior MRI dated 01/18/2024. Right kidney was not imaged on the current chest CT.
Hyponatremia
Hyperkalemia
Constipation
Laxatives
hx of chronic pancreatitis
Has abdominal pain at times secondary to above, lipase normal
Continue with pancrelipase, add maalox
seen on CT
monitor
Coronary Artery Disease s/p LAD stent in Nov 2023
-Appreciate Cardiology consult
-Eliquis on hold
hep now on hold due to thrombocytopenia. Patient is currently only on aspirin.
Was on heparin which is now on hold
Change in mental status suspect likely TME
Significant motor weakness bilateral upper extremity, CT scan negative for acute CVA
appears weakness in b/l hands better today
MRI C-spine with mild compression however no acute abnormality
Neurology following
Suspect this could be secondary to metabolic imbalance
ammonia wnl
Persistent Atrial Fibrillation/Flutter
-Holding Eliquis
-Continue Coreg for rate control
Essential Hypertension
Hyperlipidemia
Insulin-Dependent Diabetes Mellitus
-Hold Jardiance
-Monitor sugars and continue coverage insulin
-Diabetes BEHAVIORAL HEALTH CASE MANAGER consult appreciated
Diabetic Neuropathy
-Continue gabapentin
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
TUAN on CKD
-Continue prednisone and tacrolimus
-Monitor Is&Os and Daily Weights
-Nephro following
DVT proph: comfort
Code Status: DNR
Discussed in length with daughter 3/2 and 3/3. Oncology also discussed with patient and family. Plan now for hospice. Prognosis guarded. kennel manager consulted for hospice. home hospice today
Anticipated Discharge: Today
Subjective/Interval History
-
Date of Service: January 30, 2024
pain is better
Objective Data
-
Vital Signs:
Vital Signs
Temp Pulse Resp BP Pulse Ox
98.5 F 64 22 124/69 96
01/30/24 07:00 01/30/24 07:05 01/30/24 07:00 01/30/24 07:05 01/30/24 07:00
I&O
01/29/24 01/30/24 01/31/24
06:59 06:59 06:59
Intake Total 500 / 500 800 / 800
Output Total 300 / 300 325 / 325
Balance 200 / 200 475 / 475
--- NOTE | 2024-01-30 10:13 | W.DCSUMMARY ---
Discharge Summary
Discharge Data
Date of Admission: 01/18/24
Date of Discharge: 01/30/24
-
Pending Results: Yes
Hospital Course
59-year-old male with past medical history of hypertension hyperlipidemia NSTEMI for recent stent placement, persistent atrial fibrillation, diabetes mellitus, renal transplant came to the hospital with abdominal pain. CT scan and MRI both were
suggestive of liver lesions concerning for metastases. Patient was seen by oncology throughout hospitalization. Since patient was on Plavix liver biopsy was delayed until Plavix was washed out. In the interim patient was started on heparin drip.
Patient finally got liver biopsy on 01/26/2024. The results from liver biopsy were still pending prior to the discharge. Patient also had a CA 19-9 which was severely elevated concerning for malignancy. Throughout hospitalization patient condition
continued to get worse with severe thrombocytopenia concerning for possible heparin-induced thrombocytopenia or DIC. Due to patient having kidney transplant he was also being followed up by nephrology throughout hospitalization. On this
hospitalization since patient condition continued to get worse and given poor prognosis, oncology spoke with patient and family and recommended hospice. Hospice team then met with the patient and he was accepted. Patient wishes were to go home on
home hospice. On 01/30/2024 patient was discharged home on home hospice.
Discharge Plan
-
Patient Disposition: Home with Hospice
Discharge Diagnosis/Procedures: Liver metastases status post liver biopsy
Thrombocytopenia
Chronic pancreatitis
Amatory dysfunction
Toxic metabolic encephalopathy
Uncontrolled pain
Coronary artery disease
Persistent atrial fibrillation
Acute kidney injury on chronic kidney disease
Diet: As tolerated
Activity: As tolerated
Driving Restrictions: Not until seen by your Dr
Bathing Restrictions: None
Other Services: Hospice
Referrals:
[facility] [Outside]
Bradley Field MD [Family Provider] - in less than 1 week
Prescriptions:
New
lidocaine 4 % Adhesive Patch,Medicated
1 patch topical DAILY Qty: 30 0RF
polyethylene glycol 3350 [HealthyLax] 17 gram Powder In Packet
17 g PO DAILY Qty: 0 0RF
sennosides-docusate sodium [Stool Softener-Stimulant Laxat] 8.6-50 mg Tablet
1 tab PO BID Qty: 0 0RF
aspirin [Children's Aspirin] 81 mg Tablet,Chewable
81 mg PO DAILY Qty: 0 0RF
Muscle Rub 15-10 % Cream
1 applic topical QID Qty: 0 0RF
Zenpep 10,000-32,000 -42,000 unit Capsule,Delayed Release(Dr/Ec)
1 cap PO ACHS Qty: 30 0RF
fentanyl 25 mcg/hr Patch 72 Hour
1 patch transdermal Q72H Qty: 5 0RF
Continued
prednisone 5 MG tablet
5 mg PO DAILY
tacrolimus 1 MG capsule
1 mg PO BID
albuterol sulfate [ProAir HFA] 90 mcg/actuation Hfa Aerosol Inhaler
2 puff INHALATION R Q4HPRN PRN (Reason: sob)
acetaminophen [Tylenol Extra Strength] 500 mg Tablet
1,000 mg PO BIDPRN PRN (Reason: mild pain)
gabapentin 300 mg Capsule
300 mg PO DAILY
Changed
torsemide 20 mg tablet
20 mg PO DAILY PRN (Reason: Fluid Retention/Swelling) Qty: 0 0RF
Discontinued
pantoprazole 40 mg Tablet,Delayed Release (Dr/Ec)
40 mg PO DAILY
Jardiance 25 mg Tablet
25 mg PO DAILY
Eliquis 5 mg tablet
5 mg PO BID
insulin glargine 100 unit/mL (3 mL) insulin pen
43 unit SC HS Qty: 3 0RF
insulin lispro [Humalog U-100 Insulin] 100 unit/mL Solution
15 unit SC AC
clopidogrel 75 mg tablet
75 mg PO DAILY
carvedilol 3.125 mg tablet
3.125 mg PO BID
rosuvastatin 20 mg tablet
20 mg PO QPM
Discharge Orders:
Discharge Patient (As Directed); Ordered 01/30/24
Ordered By: Star Coronado
Care Plan Goals
Care Plan Goals:
Problem: Readiness for enhanced knowledge related to diagnosis and treatment plan
Goal: Understand your diagnosis and treatment plan needs, including medications if applicable.
Instructions: Know your diagnosis, underlying causes and treatment plan options, including medications if applicable. Consult with your health care team to learn about your diagnosis and treatment plan, including medications if applicable.
Discharge Date and Time
Discharge Date/Time: 01/30/24 14:40
[2024-01-30] MEDS: DELTASONE PO (10:15)
[2024-01-30] MEDS: ZENPEP DELAYED RELEASE CAPSULE PO ×2 (10:15→12:36)
[2024-01-30] MEDS: BenGay-Like TOPICAL (10:15)
[2024-01-30] MEDS: LOW STRENGTH ASPIRIN PO (10:16)
[2024-01-30] MEDS: MIRALAX PO (10:16)
[2024-01-30] MEDS: LIDOCAINE 4% PATCH TOPICAL (10:16)
[2024-01-30] MEDS: NEURONTIN PO (10:25)
[2024-01-30] MEDS: PROGRAF PO (10:25)
[2024-01-30] MEDS: PROTONIX PO (10:25)
[2024-01-30] MEDS: SENOKOT-S PO (10:27)
[2024-01-30] MEDS: TYLENOL PO (10:29)
--- NOTE | 2024-01-30 10:55 | PTCARENOTE ---
Received patient this morning lethargic in bed, very diaphoretic. AM care given, patient became very agitated and restless. Given prn PO ativan. Hospice nurse in to see the patient and finalize arrangements, for transport at 1300. The patient's
daughter Zofia here as well and now waiting at home for equipment to be delivered. The patient's mother and brother at the bedside. Patient calmer now, telemetry removed.
[2024-01-30] MEDS: DILAUDID 0.5 MG IV (13:03)
[2024-01-30] MEDS: FLUSH (NSS) 2 FLUSH IV (13:04)
--- NOTE | 2024-01-30 13:57 | PTCARENOTE ---
Patient for discharge home for hospice care. The patient's daughter Zofia is waiting at his home, his brother and mother are at the bedside. Patient given IV dilaudid prior to discharge but still moaning and appears restless. Notified Dr. Coronado and
patient given additional ativan 1mg PO before leaving. All belongings, discharge paperwork and supplies in the room sent with the patient. Patient left with Acute care ambulance.
== END 2024-01-30 14:40 | disposition hospice, home (50) | DRG 435 ==
LOC: IVU 14:05
PROVIDERS: Internal Medicine; Internal Medicine Cardiovascular Disease; Internal Medicine Hematology & Oncology; Nuclear Medicine Nuclear Cardiology; Nurse Practitioner Family; Nurse Practitioner Gerontology; Physician Assistant Medical; Radiology Vascular & Interventional Radiology; ADMITTING PHYSICIAN Internal Medicine; ATTENDING PHYSICIAN Internal Medicine; CONSULT PHYSICIAN Internal Medicine Gastroenterology; CONSULT PHYSICIAN Internal Medicine Hematology & Oncology; CONSULT PHYSICIAN Student in an Organized Health Care Education/Training Program; EMERGENCY PHYSICIAN Emergency Medicine; FAMILY PHYSICIAN Family Medicine; OTHER PHYSICIAN Internal Medicine Cardiovascular Disease
PROC: 0FB13ZX Excision of Right Lobe Liver, Percutaneous Approach, Diagnostic (ICD-10-PCS; 2024-01-26)
DX: C78.7 Secondary malignant neoplasm of liver and intrahepatic bile duct (principal); G92.8 Other toxic encephalopathy; I21.4 Non-ST elevation (NSTEMI) myocardial infarction; K85.90 Acute pancreatitis without necrosis or infection, unspecified; I48.92 Unspecified atrial flutter; D84.821 Immunodeficiency due to drugs; K86.1 Other chronic pancreatitis; I48.19 Other persistent atrial fibrillation; I13.0 Hypertensive heart and chronic kidney disease with heart failure and stage 1 through stage 4 chronic kidney disease, or unspecified chronic kidney disease; N18.4 Chronic kidney disease, stage 4 (severe); I50.32 Chronic diastolic (congestive) heart failure; N17.9 Acute kidney failure, unspecified; T86.19 Other complication of kidney transplant; E87.1 Hypo-osmolality and hyponatremia; C64.1 Malignant neoplasm of right kidney, except renal pelvis; Z51.5 Encounter for palliative care; R07.9 Chest pain, unspecified; F17.200 Nicotine dependence, unspecified, uncomplicated; E11.22 Type 2 diabetes mellitus with diabetic chronic kidney disease; E11.42 Type 2 diabetes mellitus with diabetic polyneuropathy; G47.33 Obstructive sleep apnea (adult) (pediatric); Y83.0 Surgical operation with transplant of whole organ as the cause of abnormal reaction of the patient, or of later complication, without mention of misadventure at the time of the procedure; E78.00 Pure hypercholesterolemia, unspecified; D73.5 Infarction of spleen; D45 Polycythemia vera; I25.5 Ischemic cardiomyopathy; I1A.0 Resistant hypertension; E88.09 Other disorders of plasma-protein metabolism, not elsewhere classified; R91.8 Other nonspecific abnormal finding of lung field; K59.00 Constipation, unspecified; N28.1 Cyst of kidney, acquired; M25.519 Pain in unspecified shoulder; E66.9 Obesity, unspecified; F10.10 Alcohol abuse, uncomplicated; D75.829 Heparin-induced thrombocytopenia, unspecified; R26.2 Difficulty in walking, not elsewhere classified; E87.5 Hyperkalemia; E87.6 Hypokalemia; I25.10 Atherosclerotic heart disease of native coronary artery without angina pectoris; Z66 Do not resuscitate; Z95.5 Presence of coronary angioplasty implant and graft; Z79.51 Long term (current) use of inhaled steroids; Z79.52 Long term (current) use of systemic steroids; Z79.02 Long term (current) use of antithrombotics/antiplatelets; Z79.01 Long term (current) use of anticoagulants; Z79.84 Long term (current) use of oral hypoglycemic drugs; Z79.4 Long term (current) use of insulin; Z79.621 Long term (current) use of calcineurin inhibitor; Z85.828 Personal history of other malignant neoplasm of skin; Z88.8 Allergy status to other drugs, medicaments and biological substances; Z80.0 Family history of malignant neoplasm of digestive organs; I25.2 Old myocardial infarction; Z68.30 Body mass index [BMI] 30.0-30.9, adult
CPT/HCPCS: 88307; 93308; 47000; 70450; 71250; 72141; 74176; 74183; 76770; 76942; 80048; 80053; 80076; 80197; 81003; 81015; 82105; 82140; 82248; 82378; 82570; 82607; 82728; 82962; 83540; 83550; 83690; 83735; 83935; 84100; 84132; 84156; 84300; 84443; 84484; 85025; 85027; 85384; 85610; 85730; 86022; 86301; 87040; 88333; 88341; 88342; 93005; 93321; 93325; 93880; 96374; 96375; 96376; 99152; 99291; 99406; A9575